=== PATIENT | female | born 1950 | race Caucasian/White ===

== ENCOUNTER 2022-05-16 12:50 | Inpatient (IN) | payer MEDICARE ==
[~2022-05-16] VITALS: Ht 160 cm; Wt 79.3 kg
--- NOTE | 2022-05-16 09:40 | Progress Note ---
DANE PADILLAA 05/16/22 0940: Progress Note CC: In-patient rehabilitation s/p right L3 laminectomy HPI: Ms. Andujar is a 71 year old female who presents to [facility] rehabilitation unit, transferring from [facility]. 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 For the past year the patient has been experiencing progressive myelopathy due to the dural fistula. The patient has had a decrease in strength in bilateral LE, multiple falls, and loss of bladder and bowel control. The patient's goals are to return home with family assistance. Patient states she is experiencing low back pain that rates as 5/10. Patient also describes having muscle spasms in her back that intensify the pain. The patient states she had a BM movement upon arriving to [facility]. Patient is agreeable to begin working with PT this afternoon. 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, depression Past Surgical Hx: Coronary stent placement x3, L wrist cyst removal, cholecystectomy, appendectomy, section x1, total vaginal hysterectomy, ovarian cystectomy, laminectomy of R L3 on 05/10/2022 Allergies: Hydrocodone, diazepam, statins Home medications: Allopurinol, baby aspirin, atenolol, topical betamethasone cream, escitalopram, evolocumab inj, isosorbide mononitrate, nitroglycerine tablet, tramadol Social Hx: Denies tobacco, alcohol, or illicit drug use Family Hx: -Father: HTN, diabetes mellitus -Mother: HTN, diabetes mellitus ROS: -Negative: Head ache, chest pain, SOA, abdominal pain, nausea, vomiting, diarrhea -Positive: paresethesias of buttocks and posterior aspect of bilateral lower extremities, generalized weakness, constipation, low back pain, muscle spasms of back musculature Exam: -General: Alert, calm, sitting upright -Cardiovascular: HRRR -Pulmonary: LCTAB -Gastrointestinal: bowel sounds present -Lower extremity: no edema bilaterally A/P: 1. 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 Plan is for aggressive in-patient rehabilitation with PT/OT. 2. Baseline laboratory studies: CBC, CMP KAREN LEAL DO 05/16/222102: Supervisory-Addendum Brief Verification & Attestation Participated in pt care: history, MDM, physical Personally performed: exam, history, MDM, supervision of care Care discussed with: Medical Student Procedures: n/a Results interpretation: Verified all documentation Verification and Attestation of Medical Student E/M Service A medical student performed and documented this service in my presence. I reviewed and verified all information documented by the medical student and made modifications to such information, when appropriate. I personally performed the physical exam and medical decision making. Karen Leal, May 16, 2022,21:03 VY PADILLA May 16, 2022 09:40 KAREN LEAL DO May 16, 2022 21:03
[~2022-05-16 12:50] MED LIST: ACET325T38 PO; ACETAMINOPHEN 325 MG TABLET PO PRN; ALLO300T2 PO; ALPRAZolam 0.25 MG (XANAX) TAB PO PRN; ASPI-1238 PO; ATEN25TA PO; BETA15CR4 TP; BISACODYL 10 MG SUPP (DULCOLAX) PR PRN; CALC-308 PO; CALCIUM CARBONATE 500 MG (TUMS) TAB.CHEW PO PRN; DOCUSATE SODIUM 100 MG (COLACE) CAP PO PRN; ESCI20TA39 PO; EVOL140P3 SQ; FLEET ENEMA ADULT 1 EA BTL PR PRN; GABA-486 PO; HEPA500016 IJ; ISOS60TA63 PO; LOPERAMIDE 2 MG (IMODIUM) TABLET PO PRN; MELATONIN 3 MG TABLET PO PRN; METH-732 PO; NITR0.6T SL; ONDANSETRON 4 MG (ZOFRAN) ORAL DISSOLVE TAB PO PRN; OXYC-473 PO; SENN-145 PO; diphenhydrAMINE 25 MG TAB (BENADRYL) PO PRN
--- NOTE | 2022-05-16 13:18 | Physical Therapy Evaluation ---
PT Evaluation-General Medical Diagnosis Admission Date 05-16-22 Medical Diagnosis: L 3 laminectomy Onset Date: May 10, 2022 Therapy Diagnosis Therapy Diagnosis: Gait deficit, strength deficit Precautions Precautions/Isolations: Fall Prevention Back precautions: No Bending, Lifting, Twisting. Weight Bear Status Right Lower Extremity: Right Full Weight Bearing Left Lower Extremity: Left Full Weight Bearing Referral Physician: Dr. Alonzo Reason for Referral: Evaluation/Treatment Medical History Reviewed History: Yes Social History Home: Single Level Current Living Status: Entry Into Home: Stairs With Railing PT Steps Into Home: 1 Patient reports currently her daughter is staying with her Prior Prior Level of Function SCALE: Activities may be completed with or without assistive devices. 5-Rxxnzncely-irokqrs completes the activity by him/herself with no assistance from a helper. 5-Set-up or Clean-up Assistance-helper sets up or cleans up; patient completes activity. [place] assists only prior to or following the activity. 4-Supervision or Touching Assistance-helper provides verbal cues and/or touching/steadying and/or contact guard assistance as patient completes activity. Assistance may be provided throughout the activity or intermittently. 3-Partial/Moderate Assistance-helper does LESS THAN HALF the effort. [place] lifts, holds or supports trunk or limbs, but provides less than half the effort. 2-Substantial/Maximal Assistance-helper does MORE THAN HALF the effort. [place] lifts or holds trunk or limbs and provides more than half the effort. 0-Gaxxjwtkq-dbhetr does ALL the effort. Patient does none of the effort to complete the activity. Or, the assistance of 2 or more helpers is required for the patient to complete the activity. If activity was not attempted, code reason: 7-Patient Refused. 9-Not Applicable-not attempted and the patient did not perform the activity before the current illness, exacerbation or injury. 10-Not Attempted due to Environmental Limitations-(lack of equipment, weather restraints, etc.). 88-Not Attempted due to Medical Conditions or Safety Concerns. Bed Mobility: 6 Transfers (B,C,W/C): 6 Gait: 6 Stairs: 6 Indoor Mobility (Ambulation): Independent Stairs: Independent PT Evaluation-Current Subjective Patient sitting in transport chair upon PT arrival, agreeable to treatment. Patient rates 0/10 pain currently, but notes the pain increases to 8/10 with activity Pain Section J - Health Conditions 1. Rarely or not at all 2. Occasionally 3. Frequently 4. Almost constantly 8. Unable to answer Pain Effect on Sleep: 2 Pain Interference with Therapy: 3 Pain Interference w/Day-to-Day: 3 Objective Patient Orientation: Person, Place, Time, Situation ROM/Strength ROM Lower Extremities WFLs all planes bilaterally Strength Lower Extremities 3/5 bilaterally all planes Integumentary/Posture Bowel Incontinence: Yes Bladder Incontinence: Yes Sensory Vision: Wears Glasses Hearing: Functional Sensation Right Lower Extremit: Impaired Sensation Left Lower Extremity: Impaired Transfers Roll Left & Right (QC): 4 Sit to Lying (QC): 4 Lying to Sitting/Side of Bed(Q: 4 Sit to Stand (QC): 3 Chair/Sgt-ca-Gfgqm Xfer(QC): 4 Toilet Transfer (QC): 4 Car Transfer (QC): 4 Gait Does the Patient Walk?: Yes Mode of Locomotion: Walk Anticipated Mode of Locomotion: Walk Walk 10 feet (QC): 4 Walk 50 ft with 2 Turns(QC): 4 Walk 150 ft (QC): 4 Walking 10ft/uneven surface-QC: 4 Distance: 150' Gait Assistive Device: FWW Wheelchair Training Does the Pt Use a Wheelchair?: No Wheel 50 ft with 2 turns (QC): 9 Wheel 150 ft (QC): 9 Stairs #of Steps: 0 1 Step (curb) (QC): 88 4 Steps (QC): 88 12 Steps (QC): 88 Balance Sitting Static: Fair Sitting Dynamic: Fair Standing Static: Fair Standing Dynamic: Fair Picking up an Object (QC): 88 Assessment/Needs Patient tolerated evaluation and treatment well. Patient demonstrates SBA for all bed mobility, but does requires handrails and extra time. Patient performs all transfers with CGA except sit to stand with min A. Patient ambulates 150 feet with FWW, with CGA and verbal cues for safety, progression, posture and conservation of energy. Patient with OT as she reports need to use the BR post PT eval/treatment. Rehab Potential: Good Equipment Needs FWW, Grab bars in the bathroom PT Restaurant Operations Manager Goals Care Home Goals PT Restaurant Operations Manager Goals Time Frame: Jun 23, 2022 Roll Left to Right (QC): 6 Sit to Lying (QC): 6 Lying-Sitting on Side/Bed(QC): 6 Sit to Stand (QC): 6 Chair/Xmh-zc-Nkpec Xfer(QC): 6 Toilet/Commode Transfer (QC): 6 Car Transfer (QC): 6 Does the Patient Walk: Yes Walk 10 feet (QC): 6 Walk 10ft-Uneven Surface(QC): 6 Walk 50ft with 2 Turns (QC): 6 Walk 150 ft (QC): 6 Does the Pt use WC or Scooter?: No Wheel 50 feet with 2 turns (QC: 9 Wheel 150 feet: 9 1 Step (curb) (QC): 6 4 Steps (QC): 6 12 Steps (QC): 6 Picking up an Object (QC): 6 PT Plan Problem List Problem List: Activity Tolerance, Functional Strength, Safety, Balance, Gait, Transfer, Bed Mobility, ROM Treatment/Plan Treatment Plan: Continue Plan of Care Treatment Plan: Bed Mobility, Education, Functional Activity Shameka, Functional Strength, Gait, Safety, Therapeutic Exercise, Transfers Treatment Duration: Jul 07, 2022 Frequency: At least 5 of 7 days/Wk (IRF) Estimated Hrs Per Day: 1.5 hours per day Patient and/or Family Agrees t: Yes Safety Risks/Education Patient Education: Gait Training, Transfer Techniques, Steps Teaching Recipient: Patient, Family Teaching Methods: Demonstration, Discussion Response to Teaching: Verbalize Understanding, Return Demonstration Time Time In: 1250 Time Out: 1320 DATE: May 16, 2022 Total Billed Treatment Time: 20 Total Billed Treatment Visit, EVm(10) Gait (10) PT eval [id number] OT eval [id number] Gait [id number] JOS LOPEZ PT May 16, 2022 13:18
--- OUTSIDE RECORDS SUMMARY | 2022-05-16 13:23 | XMS REPORT | Encounter Summary ---
Author Author [facility] Organization [facility] Address Unknown Phone Unavailable Care Team Providers Care Medical Claims Manager Name Role Phone Ange Grady DO PCP [phone] Juan Bunn MD Unavailable Encounter Details Care Team Description Date Type Department 05/10/2022 Travel Social History Date Tobacco Use Types Packs/Day Years Used Quit: 2011 Former Smoker Cigarettes 1 45 Smokeless Tobacco: Never Used Comments Alcohol Use Standard Drinks/Week ~ once a month Not Currently 0 (1 standard drink = 0.6 o z pure alcohol) Alcohol Habits Answer Date Recorded How often do you have a drink containing alcohol? No t asked How many drinks containing alcohol do you have on No t asked a typical day when you are drinking? How often do you have six or more drinks on one Not asked occasion? Comment: ~ once a month 04/24/2022 Sex Assigned at Date Recorded Female 04/11/2022 7:28 AM CDT Date Recorded COVID-19 Exposure Response 05/10/2022 10:15 AM CDT In the last 10 days, have you been in contact with N o / Unsure someone who was confirmed or suspected to have Coronavirus/COVID-19? documented as of this encounter Functional Status Date of Assessment Functional Status Response 05/10/2022 Does the patient have a hearing impairment: No documented as of this encounter Plan of Treatment Not on filedocumented as of this encounter Goals Goal Patient Associated Recent Progress Patient-Stat Aut hor Goal Type Problems ed? Increase Physical Activity Exercise On track (05/10/2022 Yes Bess, 6:05 PM CDT) RANJITH Perez documented as of this encounter Visit Diagnoses Not on filedocumented in this encounter Additional Health Concerns Noted Time Assessment 05/10/2022 8:00 PM CDT A fall risk assessment has been complet ed for the patient documented as of this encounter Care Teams Start Date End Date Medical Claims Manager Relationship Specialty 04/11/22 Ange Grady, PCP - General Family Medicine [address] [place] [address] 04/24/22 Juan Bunn MD Cardiovascul [address] [place], [place] [id number] documented as of this encounter
--- OUTSIDE RECORDS SUMMARY | 2022-05-16 13:23 | XMS REPORT | Encounter Summary ---
Author Author [facility] Organization [facility] Address Unknown Phone Unavailable Care Team Providers Care Geodetic Survey Director Name Role Phone Ange Grady DO PCP [phone] Juan Bunn MD Unavailable Reason for Visit * Auth/Cert Diagnoses / Procedures Referred By Contact Referred To Conta ct Specialty Diagnoses Spinal vascular malformation Spinal vascular malformation [Q28.8] Procedures ID MERCADO EXC/OCCLUSION AVM SPI CORD THORACOLUMBAR ID MERCADO FACETECTOMY & FORAMOTOMY 1 SEGMENT LUMBAR Lumbar 3 laminectomy, durotomy, microsurgical clipping spinal dural arteriovenous fistula MINIMALLY INVASIVE LAMINECTOMY/ FACETECTOMY/ FORAMINOTOMY WITH DECOMPRESSION - 1 VERTEBRAL SEGMENT LUMBAR 3 Referral ID Status Reason Start Date Expiration Visits Vi sits Date Requested Authorized [id number] 1 1 Encounter Details Care Team Description Date Type Department Vidal Cid MD [address] [facility] Lvl 2B [place] [address] Valdo Young MD [address] [place] [address] Dural arteriovenous fistula 05/10/2022 Hospital Intensive Care Unit CA5: - Encounter [facility] 05/16/2022 [address] [facility] Level 5 [place] [address] Social History Date Tobacco Use Types Packs/Day [...] have Coronavirus/COVID-19? documented as of this encounter Last Filed Vital Signs Reading Time Taken Comments Vital Sign 113/52 05/16/2022 8:00 AM LOW VISION THERAPIST Blood Pressure 67 05/16/2022 8:00 AM LOW VISION THERAPIST Pulse 36.7 C (98 F) 05/16/2022 8:00 AM LOW VISION THERAPIST Temperature - - Respiratory Rate 97% 05/16/2022 8:00 AM LOW VISION THERAPIST Oxygen Saturation - - Inhaled Oxygen Concentration 75.8 kg (167 lb) 05/10/2022 10:16 AM CDT Weight 160 cm (5' 3") 05/10/2022 10:16 AM CDT Height 29.58 05/10/2022 10:16 AM CDT Body Mass Index documented in this encounter Functional Status Date of Assessment Functional Status Response 05/10/2022 Does the patient have a hearing impairment: No documented as of this encounter Discharge Summaries * Loreta Castle APRN-NP - 05/16/2022 10:25 AM CST Discharge Summary Name: Sahara Andujar Date Of : 1950 Age: 71 y.o. Admit date: 05/10/2022 Discharge date: 05/16/2022 Discharge Attending: Dr. 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 05/10; Admitted to the NeICU post operatively. 05/11: Doing well. Progressed to med/surg status. Mobilizing with PT/OT. Rehab me dicine consulted - IPR canidate. Pain controled. CM/SW involved. 05/12-05/15: Continuing to work with PT/OT. Awaiting facility acceptance and insur ance approval. 05/16: Meeting discharge criteria. Discharge dot home with follow up care arrange d. Items Needing Follow Up Pending items or areas that need to be addressed at follow up: none Pending Labs and Follow Up Radiology Pending labs and/or radiology review at this time of discharge are listed below: if this area is blank, there are no items for review. Medications Medication List START taking these medications acetaminophen 325 mg tablet; Commonly known as: TYLENOL; Dose: 650 mg; Take two tablets by mouth every 4 hours as needed.; Refills: 0 gabapentin 100 mg capsule; Commonly known as: NEURONTIN; Dose: 100 mg; Take one capsule by mouth every 8 hours.; Quantity: 270 capsule; Refills: 0 heparin (porcine) PF 5,000units/0.5mL injection syringe; Dose: 5,000 Units; Inject 0.5 mL under the skin every 8 hours. May discontinue once mobilizing well; Refills: 0 methocarbamoL 750 mg tablet; Commonly known as: ROBAXIN; Dose: 750 mg; Take one tablet by mouth every 8 hours as needed for Spasms.; Quantity: 15 tablet; Refills: 0 oxyCODONE 5 mg tablet; Commonly known as: ROXICODONE; Dose: 5-15 mg; Take one tablet to three tablets by mouth every 4 hours as needed.; Refills: 0 senna/docusate 8.6/50 mg tablet; Commonly known as: SENOKOT-S; Dose: 1 tablet; Take one tablet by mouth twice daily. Take while taking pain medication; Quantity: 90 tablet; Refills: 0 CHANGE how you take these medications aspirin EC 81 mg tablet; Dose: 81 mg; Take one tablet by mouth daily. Do NOT resume until 05/17/22; Quantity: 90 tablet; Refills: 0; What changed: additional instructions CONTINUE taking these medications allopurinoL 300 mg tablet; Commonly known as: ZYLOPRIM; Dose: 300 mg; Refills: 0 atenoloL 25 mg tablet; Commonly known as: TENORMIN; Dose: 25 mg; Refills: 0 betamethasone dipropionate 0.05 % topical cream; Commonly known as: BETANATE; Refills: 0 calcium carbonate 500 mg (200 mg elemental calcium) chewable tablet; Commonly known as: TUMS; Dose: 1 tablet; Refills: 0 escitalopram oxalate 20 mg tablet; Commonly known as: LEXAPRO; Dose: 20 mg; Refills: 0 evolocumab 140 mg/mL injectable PEN; Commonly known as: REPATHA SURECLICK; Dose: 140 mg; Refills: 0 isosorbide mononitrate 60 mg ER tablet; Commonly known as: IMDUR; Dose: 180 mg; Refills: 0 nitroglycerin 0.6 mg sublingual tablet; Commonly known as: NITROSTAT; Dose: 0.6 mg; Refills: 0 STOP taking these medications traMADoL 50 mg tablet; Commonly known as: ULTRAM Return Appointments and Scheduled Appointments Scheduled appointments: May 28, 2022 2:00 PM Telehealth visit with Lin Aguayo MD Neurosurgery: [facility] (NeuroSurgery) [address] [place] [address] 3, [address] [address] Jun 05, 2022 12:30 PM Postoperative visit with Vidal Cid MD Neurosurgery: [facility] (NeuroSurgery) [address] [place] [address] 3, [address] [address] Consults, Procedures, Diagnostics, Micro, Pathology Consults: Rehabilitative Medicine and Neurology Critical Care Surgical Procedures & Dates: Lumbar 3 laminectomy, durotomy, microsurgical clipping spinal dural arteriovenous fistula Significant Diagnostic Studies, Micro and Procedures: radiology: X-Ray: lumbar s pine Significant Pathology: none Nutrition: No Dietitian Consult Discharge Disposition, Condition Patient Disposition: Rehab Facility (Not [facility]) [62] Condition at Discharge: Stable Code Status Code Status History Date Active Date Inactive Code Status Order ID 05/10/2022 [id number] 05/10/2022 1721 Full Code [id number] Everett Fried M D Inpatient 04/30/2022 0918 04/30/2022 1658 Full Code [id number] Michaela Antonio, STRUCTURAL STEEL TRADES WORKER- CHIEF RADIOLOGIC TECHNOLOGIST Inpatient Patient Instructions Regular Diet You have no dietary restriction. Please continue with a healthy balanced diet. Report These Signs and Symptoms Call if temperature greater than 101, incision red, drainage or odor noted from incision, pain that is uncontrolled with pain medication or any questions/yusuf rns. Questions About Your Stay For questions or concerns regarding your hospital stay call the clinic at . If outside normal business hours, call [phone] and ask for the lucila rosurgery resident concrete boom operator to be paged. Discharging attending physician: VALDO YOUNG [[id number]] Other Activity Restrictions Leave incision open to air; may cover with gauze and tape as needed Activity as tolerated; no driving while on pain medication. Avoid pulling, pushi ng or lifting greater than 10 pounds. May shower. Avoid direct water pressure over incision. May get incision wet and pat dry once done. Do NOT submerge in tub, pool etc. Opioid (Narcotic) Safety Information OPIOID (NARCOTIC) PAIN MEDICATION SAFETY We care about your comfort, and believe you need opioid medications at this time to treat your pain. An opioid is a strong pain medication. It is only availab le by prescription for moderate to severe pain. Usually these medications are u sed for only a short time to treat pain, but sometimes will be prescribed for lo nger. Talk with your doctor or nurse about how long they expect you to need thi s medication. When used the right way, opioids are safe and effective medications to treat you r pain, even when used for a long time. Yet, when used in the wrong way, opioid s can be dangerous for you or others. Opioids do not work for everyone. Most p atients do not get full relief of their pain from opioid medication; full relief of your pain may not be possible. For your safety, we ask you to follow these instructions: *Only take your opioid medication as prescribed. If your pain is not controlled with the prescribed dose, or the medication is not lasting long enough, call yo ur doctor. *Do not break or crush your opioid medication unless your doctor or pharmacist s ays you can. With certain medications, this can be dangerous, and may cause joel th. *Never share your medications with others, even if they appear to have a good re ason. Never take someone else's pain medication-this is dangerous, and illegal (a crime). Overdoses and deaths have occurred. *Keep your opioid medications safe, as you would with hummel, in a lock box or sim ilar container. *Make sure your opioids are going to be secure, especially if you are around chi ldren or teens. *Talk with your doctor or pharmacist before you take other medications. *Avoid driving, operating machinery, or drinking alcohol while taking opioid dada n medication. This may be unsafe. Pain medications can cause constipation. Constipation is bowel movements that ar e less often than normal. Stools often become very hard and difficult to pass. T his may lead to stomach pain and bloating. It may also cause pain when trying to use the bathroom. Constipation may be treated with suppositories, laxatives or stool softeners. A diet high in fiber with plenty of fluids helps to maintain re gular, soft bowel movements. OT EVAL & TREAT PT EVAL & TREAT Additional Orders: Case Management, Supplies, Home Health Home Health/DME None Signed: CHEL Price 05/16/2022 cc: Primary Care Physician: Ange Grady Verified Referring physicians: Self, Referral Additional provider(s): Did we miss something? If additional records are needed, please fax a request on office letterhead to [phone]. Please include the patient's name, date of b irth, fax number and type of information needed. Additional request can be made by email at [email or web address]. For general questions of information about electronic records sharing, call [phone]. VISION THERAPIST * Natali Fair LMSW - 05/16/2022 7:28 AM CST Case Management Progress Note NAME:Sahara Andujar :1950 AGE: 71 y.o. ADMISSION DATE: 05/10/2022 DAYS ADMITTED: LOS: 6 days Today's Date: 05/16/2022 PLAN: Pt will dc to [facility] today around 10am via daughter jaswinder bowers. Expected Discharge Date: 05/17/2022 Is Patient Medically Stable: Yes Are there Barriers to Discharge? no INTERVENTION/DISPOSITION: Discharge Planning ROMINA notified provider Corrine of dc today around 10am via family transport. ROMINA notified bedside nurse of dc today at 10am and provided number for report. ROMINA printed and delivered transfer packet to pt bedside. ROMINA notified pt of dc time today at 10am ROMINA notified pt's family of dc today REPORT [phone] ROMINA faxed dc orders to [phone] Transportation Will the Patient Use Family Transport?: Yes Transportation Name, Phone and Availability #1: pt's dtr Magui [phone] Support Info or Referral Medication Needs Financial Legal Other Discharge Disposition Selected Continued Care - Admitted Since 05/10/2022 No services have been selected for the patient. Natali Fair LMSW Social Work Case Management Available on [facility] VISION THERAPIST * Natali Fair LMSW - 05/15/2022 9:06 AM CST Case Management Progress Note NAME:Sahara Andujar :1950 AGE: 71 y.o. ADMISSION DATE: 05/10/2022 DAYS ADMITTED: LOS: 5 days Today's Date: 05/15/2022 PLAN: Anticipate dc to [facility] pending facility acceptance. Expected Discharge Date: 05/15/2022 Is Patient Medically Stable: Yes Are there Barriers to Discharge? no INTERVENTION/DISPOSITION: Discharge Planning ROMINA received a call from Mariama with [facility]. She may not have a bed unti l Saturday or but she was out yesterday and was still sorting through the referrals. She will let ROMINA know by the end of the day. ROMINA Will work on a [facility] up rehab plan. Romina received a message from Mariama stating [facility] is not contracted with [facility] and could not accept. Talked with pt and dtr at bedside about other rehab choices. Pt was upset dima se she really wanted to go to [facility]. SW sent a referral to [facility] as back up options. SW talked with Trace with [facility] who said IPR was approved. Asked about the facility. SW asked about [facility] being out of network and he said they are not contracted but if they arent on an exclusion list, the member can still go there . SW asked if insurance would still pay for the rehab and he said SW would have to call [facility] [phone] to see what they would pay for the rehab. Transportation Will the Patient Use Family Transport?: Yes Transportation Name, Phone and Availability #1: pt's dtr Magui [phone] Support Info or Referral Medication Needs Financial Legal Other Discharge Disposition Selected Continued Care - Admitted Since 05/10/2022 No services have been selected for the patient. Natali Fair LMSW Social Work Case Management Available on [facility] VISION THERAPIST * Natali Fair LMSW - 05/15/2022 9:06 AM CST Case Management Progress Note NAME:Sahara Andujar :1950 AGE: 71 y.o. ADMISSION DATE: 05/10/2022 DAYS ADMITTED: LOS: 5 days Today's Date: 05/15/2022 PLAN: Anticipate dc to [facility] pending facility acceptance. Expected Discharge Date: 05/15/2022 Is Patient Medically Stable: Yes Are there Barriers to Discharge? no INTERVENTION/DISPOSITION: Discharge Planning SW received a call from Mariama with [facility]. She may not have a bed unti l Saturday or but she was out yesterday and was still sorting through the referrals. She will let ROMINA know by the end of the day. ROMINA Will work on a david k up rehab plan. Romina received a message from Mariama stating [facility] is not contracted with [facility] and could not accept. Talked with pt and dtr at bedside about other rehab choices. Pt was upset becau se she really wanted to go to [facility]. ROMINA sent a referral to [facility] as back up options. SW talked with Trace with [facility] who said IPR was approved. Asked about the facility. SW asked about [facility] being out of network and he said they are not contracted but if they arent on an exclusion list, the member can still go there . SW asked if insurance would still pay for the rehab and he said SW would have to call [facility] [phone] to see what they would pay for the rehab. [facility] said they can accept pt. SW reached out to therapy to verify saf est transport time. Will have a bed tomorrow available for pt. Pt had been talking to her insurance about trying to get them to cover rehab at [facility] but had to leave a message. SW talked with pt at bedside about the optio ns for rehab. [facility] has a bed tomorrow and pt is able to get to rehab [place]. She is good with that plan. Her daughter will be able to transport her there. ROMINA confirmed with Ange she can transport pt to facility tomorrow and has to be there before 3pm. Transportation Will the Patient Use Family Transport?: Yes Transportation Name, Phone and Availability #1: pt's dtr Magui [phone] Support Info or Referral Medication Needs Financial Legal Other Discharge Disposition Selected Continued Care - Admitted Since 05/10/2022 No services have been selected for the patient. Natali Fair LMSW Social Work Case Management Available on [facility] VISION THERAPIST * Natali Fair LMSW - 05/14/2022 8:26 AM CST Case Management Progress Note NAME:Sahara Andujar :1950 AGE: 71 y.o. ADMISSION DATE: 05/10/2022 DAYS ADMITTED: LOS: 4 days Today's Date: 05/14/2022 PLAN: Anticipate dc to [facility] pending medical stability, facility acceptanc e and insurance auth. Expected Discharge Date: 05/13/2022 Is Patient Medically Stable: Yes Are there Barriers to Discharge? no INTERVENTION/DISPOSITION: Discharge Planning ROMINA called [facility] and left a message for Mariama with admissions ask ing her to f/u about referral. M[facility]ed with [facility] called and asked if a facility had been identified yet. SW will sen d through the portal once this is confirmed. ROMINA left another message with admissions at [facility] checking on the referral stat us. ROMINA called [facility] and asked to speak to someone else with Admissions. They said she was out today and let SW talk to Quinton. He will make sure she reviews it fir st thing in the morning and if ROMINA hasn't heard anything by 9, ROMINA can call Quinton blue at the main number. Transportation Will the Patient Use Family Transport?: Yes Transportation Name, Phone and Availability #1: pt's dtr Magui [phone] Support Info or Referral Medication Needs Financial Legal Other Discharge Disposition Selected Continued Care - Admitted Since 05/10/2022 No services have been selected for the patient. Natali Fair LMSW Social Work Case Management Available on [facility] VISION THERAPIST * Natali Fair LMSW - 05/13/2022 1:09 PM CST Case Management Progress Note NAME:Sahara Andujar :1950 AGE: 71 y.o. ADMISSION DATE: 05/10/2022 DAYS ADMITTED: LOS: 3 days Today's Date: 05/13/2022 PLAN: Anticipate dc to [facility] Pending facility acceptance and insurance au th. Expected Discharge Date: 05/13/2022 Is Patient Medically Stable: Yes Are there Barriers to Discharge? no INTERVENTION/DISPOSITION: Discharge Planning ROMINA reviewed EMR. [facility] is not available on the weekends. Will f/u with meredith palomino Saturday. SW tasked ENTERPRISE SOFTWARE DEVELOPER to check status of auth through [facility] h. Auth is still pending as of 1pm Saturday. Transportation Will the Patient Use Family Transport?: Yes Transportation Name, Phone and Availability #1: pt's dtr Magui [phone] Support Info or Referral Medication Needs Financial Legal Other Discharge Disposition Selected Continued Care - Admitted Since 05/10/2022 No services have been selected for the patient. Natali Fair LMSW Social Work Case Management Available on [facility] VISION THERAPIST * Natali Fair LMSW - 05/11/2022 3:47 PM CDT Case Management Progress Note NAME:Sahara Andujar :1950 AGE: 71 y.o. ADMISSION DATE: 05/10/2022 DAYS ADMITTED: LOS: 1 day Today's Date: 05/11/2022 PLAN: Anticipate dc to [facility] pending medical stability, facility acceptance and in surance auth. Expected Discharge Date: 05/12/2022 Is Patient Medically Stable: No, Please explain: possibly Saturday Are there Barriers to Discharge? no INTERVENTION/DISPOSITION: Discharge Planning SW Sent a referral to [facility]. Will f/u. Transportation Will the Patient Use Family Transport?: Yes Transportation Name, Phone and Availability #1: pt's dtr Magui [phone] Support Info or Referral Medication Needs Financial Legal Other Discharge Disposition Selected Continued Care - Admitted Since 05/10/2022 No services have been selected for the patient. Natali Fair LMSW Social Work Case Management Available on [facility] * Antonina Wick - 05/11/2022 3:45 PM CDT ENTERPRISE SOFTWARE DEVELOPER Note: Request from SHIVAM Dumont to start a [employer] referral for IPR, no facility yet. Antonina Wick Fire Prevention Engineer For additional assistance please contact [facility] * * Natali Fair LMSW - 05/10/2022 5:52 PM CDT Case Management Progress Note NAME:Sahara Andujar :1950 AGE: 71 y.o. ADMISSION DATE: 05/10/2022 DAYS ADMITTED: LOS: 0 days Today's Date: 05/10/2022 PLAN: Anticipate dc to inpatient setting pending recommendations, medical stabil ity, facility acceptance and insurance auth. Expected Discharge Date: 05/12/2022 Is Patient Medically Stable: No, Please explain: had surgery today, needing ther apy and recovery Are there Barriers to Discharge? no INTERVENTION/DISPOSITION: Discharge Planning SW discussed dc planning as pt mentioned possibly going to rehab. Explained different levels of facilities and talked about which IPR facilities are closes t. If IPR is recommended, [facility] first choice and [facility] would be 2nd. There are other closer SNF in the area which SW can provide a list if neede d if pt does not qualify for IPR. Case Management Admission Assessment NAME:Sahara Andujar : 1950 AGE: 71 y.o. ADMISSION DATE: 05/10/2022 DAYS ADMITTED: LOS: 0 days Todays Date: 05/10/2022 Source of Information: Patient and dtr Magui Plan Plan: Case Management Assessment, Psychosocial Assessment, Assist PRN with SW/NC M Services, Discharge Planning for Post-Acute Facility Plan: Case Management Assessment, Assist PRN with SW/NCM Services, Discharge Bienvenido nning for Home with Post-Acute Care Needs ? Most recent therapy recommendations: ? PT: waiting on recs ? OT: waiting on recs ? ST: not consulted ? CM needs are not fully known, possibly inpatient setting NCM/SW team to continue to follow patient's plan of care via EMR and team huddle ; will assist with discharge planning needs as indicated. Assessment Notes Patient is agreeable to completing assessment at this time. ? SW provided contact information, explanation of CM roles, and general review o f Preparing for Discharge, [facility] Preferred Provider Network marilee ochoa. Patient encouraged to contact case management with questions and concerns during hospitalization. ? Patient lives with daughter, dtr's and children. The home accomodate single-level living. The home has 1 ALEXIS ? Patient has recently had difficulty standing for more than a few minutes at a time. Has a RW, rollator and w/c. ? Home support is assessed to be intermittent. Dtr and family do work during day and pt is usually alone during that time. ? Patient's previous HH, LTACH, SNF, IPR, DME, outpatient therapy experience inc ludes: ? Outpatient PT last year [facility] ? DME w/c, RW and rollator ? Transport plan will be pt' s dtr Magui ? Pt fills medications at [facility] in [place] Patient Address/Phone [address] [facility] [address] (home) Emergency Contact Extended Emergency Contact Information Primary Emergency Contact: Magui Flores Mobile Relation: Daughter Healthcare Directive Healthcare Directive: Yes, patient has a healthcare directive Type of Healthcare Directive: Durable power of ip technology transactions attorney for healthcare Location of Healthcare Directive: Patient does not have it with him/her Would patient like to fill out a (a new) Healthcare Directive?: No, patient decl ined Psych Advance Directive (Psych unit only): No, patient does not have a Psych Adv ance Directive Transportation Will the Patient Use Family Transport?: Yes Transportation Name, Phone and Availability #1: pt's dtr Magui [phone] Expected Discharge Date 05/12/2022 Living Situation Prior to Admission Living Arrangements Type of Residence: Home, independent Living Arrangements: Children (lives with daughter and her and kids) Bathroom Shower / Tub: Tub/Shower Unit How many levels in the residence?: 1 Can patient live on one level if needed?: Yes Does residence have entry and/or side stairs?: Yes (1 alexis) Assistance needed prior to admit or anticipated on discharge: Yes Who provides assistance or could if needed?: pt's dtr and family can assist but they work and go to school during the day, is usually alone daytime hours. has other dtr to help check on her but also works Are they in good health?: Yes Can support system provide 24/7 care if needed?: No Level of Function Prior level of function: Independent Cognitive Abilities Cognitive Abilities: Alert and Oriented, Engages in problem solving and planning , Participates in decision making Financial Resources Coverage Primary Insurance: Medicare Replacement Source of Income Source Of Income: Other mcfp income Financial Assistance Needed? NA Psychosocial Needs Mental Health Mental Health History: Yes Agency name: anxiety and depression, takes Lexapro. pt's last Dece mber Substance Use History Substance Use History Screen: No Other NA Current/Previous Services PCP Ange Grady, , Pharmacy [address] [address] [id number] Durable Medical Equipment Durable Medical Equipment at home: Roller Walker, Rollator, Wheelchair (manual), Grab bars Home Health Receiving home health: No Hemodialysis or Peritoneal Dialysis Undergoing hemodialysis or peritoneal dialysis: No Tube/Enteral Feeds Receive tube/enteral feeds: No Infusion Receive infusions: No Private Duty Private duty help used: No Home and Community Based Services Home and community based services: No Mikie White Mikie White: N/A Hospice Hospice: No Outpatient Therapy PT: In the past When did patient receive care?: last summer Name of rehab location/group: [facility] Would patient return for future services?: Yes OT: No LANDMEN: No Intermediate Facility/Fpc SNF: No NH: No Inpatient Rehab IPR: No [facility] LTACH: No Acute Hospital Stay Acute Hospital Stay: No documented in this encounter Discharge Instructions * Instructions* She Ng RN - 05/16/2022 9:41 AM CST Sahara Andujar Lumbar 3 Laminectomy, Durotomy, Microsurgical Clipping Spinal Dural Arteriove nous Fistula on 05/10/2022 with Valdo Young MD Neurosurgery Discharge Instructions Contact information: Call Neurosurgery if you have questions or are experiencing problems at discharg e [phone]. After 5 pm and weekends please call [phone] to reach Neurosurgery concrete boom operator. Post-operative wound care: Your incision has glue in place. Your incision may be open to air. You may shower. Use non-medicated soap to wash incision daily, pat dry and dana ve open to air. Do not submerge (pool/tub) your incision under water at all for 4 weeks. Have someone look at your incision every day. It should look the same or better daily. Do not apply any ointment, cream, or lotions to incision line. Activity restrictions: Avoid pushing, pulling, lifting, or bending more than 10 pounds (about a gallon of milk). If you hold children, they should be placed in your lap or crawl into lap if old enough. Do NOT drive until you are cleared by your physician. Avoid bearing down or straining to have bowel movements. Post-operative pain and medications: Please use your pain medications and muscle relaxers as prescribed. Pain medications can make you constipated. You may take a stool softener and Parveen alax. Do NOT take Ibuprofen or NSAIDS (Aleve, Motrin, Naproxen) until Doctor approved. Tylenol is approved for pain control. This is available over the counter. Follow up appointment: Scheduled appointments: May 28, 2022 2:00 PM Telehealth visit with Lin Aguayo MD Neurosurgery: [facility] (NeuroSurgery) [address] [address] 3, [address] [id number] Jun 05, 2022 12:30 PM Postoperative visit with Vidal Cid MD Neurosurgery: [facility] (NeuroSurgery) [address] [place] [address] 3, [address] [id number] Please contact Neurosurgery if you develop any of the following: New or worsening numbness, tingling, or decrease sensation in arms or legs. New or worsening changes in mobility or gait (walking). Fever 101 or greater. Redness, swelling, continuous oozing, fluid collection, w armth, or bad odor near the incision site. Intense pain that is getting worse or unrelieved by pain medications or muscle r elaxers. VISION THERAPIST documented in this encounter Medications at Time of Discharge Start Date End Date Medication Sig Dispensed Refills 05/16/2022 acetaminophen (TYLENOL) Take two 0 325 mg tablet tablets by mouth every 4 hours as needed. allopurinoL (ZYLOPRIM) Take 300 mg 0 300 mg tablet by mouth daily. 05/16/2022 aspirin EC 81 mg tablet Take one 90 tablet 0 tablet by mouth daily. Do NOT resume until 05/17/22 01/03/2021 atenoloL (TENORMIN) 25 mg Take 25 mg by 0 tablet mouth at bedtime daily. betamethasone Apply 0 dipropionate (BETANATE) topically to 0.05 % topical cream affected area daily as needed. calcium carbonate (TUMS) Chew 1 tablet 0 500 mg (200 mg elemental by mouth calcium) chewable tablet daily as needed. escitalopram oxalate Take 20 mg by 0 (LEXAPRO) 20 mg tablet mouth daily. evolocumab (REPATHA Inject 140 mg 0 SURECLICK) 140 mg/mL under the injectable PEN skin every 14 days. On Saturdays05/16/2022 gabapentin (NEURONTIN) Take one 270 capsule 0 100 mg capsule capsule by mouth every 8 hours. 05/16/2022 heparin (porcine) PF Inject 0.5 mL 0 5,000units/0.5mL under the injection syringe skin every 8 hours. May discontinue once mobilizing well isosorbide mononitrate Take 180 mg 0 (IMDUR) 60 mg ER tablet by mouth at bedtime daily. 05/16/2022 methocarbamoL (ROBAXIN) Take one 15 tablet 0 750 mg tablet tablet by mouth every 8 hours as needed for Spasms. nitroglycerin (NITROSTAT) Place 0.6 mg 0 0.6 mg sublingual tablet under tongue every 5 minutes for 3 doses. 05/16/2022 oxyCODONE (ROXICODONE) 5 Take one 0 mg tablet tablet to three tablets by mouth every 4 hours as needed. 05/16/2022 senna/docusate Take one 90 tablet 0 (SENOKOT-S) 8.6/50 mg tablet by tablet mouth twice daily. Take while taking pain medication documented as of this encounter Ordered Prescriptions Start Date End Date Prescription Sig Dispensed Refills 05/16/2022 senna/docusate Take one 90 tablet 0 (SENOKOT-S) 8.6/50 mg tablet by tablet mouth twice daily. Take while taking pain medication 05/16/2022 oxyCODONE (ROXICODONE) 5 Take one 0 mg tablet tablet to three tablets by mouth every 4 hours as needed. 05/16/2022 methocarbamoL (ROBAXIN) Take one 15 tablet 0 750 mg tablet tablet by mouth every 8 hours as needed for Spasms. 05/16/2022 heparin (porcine) PF Inject 0.5 mL 0 5,000units/0.5mL under the injection syringe skin every 8 hours. May discontinue once mobilizing well 05/16/2022 gabapentin (NEURONTIN) Take one 270 capsule 0 100 mg capsule capsule by mouth every 8 hours. 05/16/2022 acetaminophen (TYLENOL) Take two 0 325 mg tablet tablets by mouth every 4 hours as needed. 05/16/2022 aspirin EC 81 mg tablet Take one 90 tablet 0 tablet by mouth daily. Do NOT resume until 05/17/22 documented in this encounter Discharge Disposition Code Departure Means Destination Disposition Wheelchair Rehab Facility (Not [facility]) documented in this encounter Progress Notes * Tegan Marshall RN - 05/16/2022 10:25 AM CST Report given to RANJITH Barry, at [facility]. Discharge instructions read to patient and AVS given. No questions at time of discharge. Pt to daughter's vehicle per pers onal wheelchair. VISION THERAPIST * Loreta Castle APRN-NP - 05/16/2022 8:11 AM CST Neurosurgery Progress Note Admission Date: 05/10/2022 LOS: 6 days S: No acute events overnight. Reports doing well. Seen with Neurosurgery residen t team and discussed with Dr. Young. O: Vital Signs: 24 Hour Range BP: (94-123)/(52-76) Temp: [36.6 C (97.8 F)-36.8 C (98.3 F)] Pulse: [64-71] Respirations: [12 PER MINUTE-16 PER MINUTE] SpO2: [92 %-97 %] O2 Device: None (Room air) Physical Exam: Awake and alert Oriented to person, place and time PARKER, follows commands Strength BUE 5/5, BLE 4/5 at the bed level Lumbar incision C/D/I - [place] A/P: 71 y.o. female Principal Problem: Dural arteriovenous fistula Continue current care Mobilize with PT/OT Rehab - IPR candidate Pain control PRN Discharge planning -- CM/SW involved; medically stable for DC to IPR. Plan to D C to OSH IPR this morning Prophylaxis: A) GI: PPI B) Lines: No C) Urinary Catheter: No D) Antibiotic Usage: No E) VTE: Pharmacological prophylaxis; SQ Heparin and Mechanical prophylaxis; Seq uential compression device F) Restraints: Patient assessed for need for restraints. Please page [phone] with any questions. CHEL Price Voalte VISION THERAPIST * Radha Morris OT - 05/15/2022 2:37 PM CST OCCUPATIONAL THERAPY PROGRESS NOTE Name: Sahara Andujar : 1950 Age: 71 y.o. Admission Date: 05/10/2022 LOS: 5 days Date of Service: 05/15/2022 Mobility Patient Turn/Position: Chair Progressive Mobility Level: Walk in hallway Distance Walked (feet): 150 ft Level of Assistance: Assist X1 Assistive Device: Walker Activity Limited By: Fatigue;Pain (Muscle spasms) Subjective Pertinent Dx per Physician: 71 y.o. female with a PMH of CAD s/p stents x3, HTN, HLD, prinzmetal angina, gout, prior TB infection as a child, cervical cancer s/p hysterectomy, who presents [facility] s/p L3 laminectomy for decompression and m icrosurgical clip ligation of a right spinal dural AVF. Precautions: (Back safety, SBP <140) Pain / Complaints: Patient agrees to participate in therapy Pain Location: Incisional Pain Level Current: (Does not rate) Comments: Patient supine in bed upon OT arrival, cleared for therapy by RN. Latisha lomas to therapy session. Daughter and patient asking about family transporting her to rehab. Educated on concerns and need to potentially time pain medications prior to car-ride to decrease pain and increase ease of ride. Pt and family in agreement; asking if someone can help transfer her into their vehicle when it is time to discharge. Objective Psychosocial Status: Willing and Cooperative to Participate Persons Present: Daughter Home Living Type of Home: House Home Layout: One Level;Stairs to Enter w/ Rails;Performs ADL'S on One Level Bathroom Shower / Tub: Walk-in Shower Bathroom Toilet: Standard Bathroom Equipment: Shower Chair Home Equipment: Walker;Wheelchair-manual (4WW and RW) Prior Function Level Of [place]: Needed assistance with homemaking;Independent with ADLs a nd functional transfers Lives With: Family Receives Help From: Family Other Function Comments: Patient was using a 4WW and a wheelchair due to frequen t falls. She reports that her family works during the day time so she needs to b e independent when left alone. Vision Current Vision: No Visual Deficits ADL's Where Assessed: Chair LE Dressing Assist: Stand By Assist LE Dressing Deficits: Don/Doff R Sock;Don/Doff L Sock (seated in recliner; incre ased time to obtain figure-4 position) ADL Mobility Bed Mobility: Supine to Sit: Standby assist (increased time, close SBA for reena ce as pt log-rolls very closely to EOB) Transfer Type: Sit to/from stand Transfer: Assistance Level: To/from;Bed;Bedside chair;Minimal assist Transfer: Assistive Device: Roller walker Transfer: Type of Assistance: For safety considerations;For strength deficit End of Activity Status: Up in chair;Instructed patient to request assist with mo bility;Instructed patient to use call light;Nursing notified (chair alarm activa kasia, BLE elevated) Transfer Comments: CGA with increased time for sit<>stands, cueing for hand placement with RW. Relies heavily on BUE. Sitting Balance: Static sitting balance;No UE support;Standby assist Standing Balance: Dynamic standing balance;1 UE support;Minimal assist Gait Distance: 150 feet Gait: Assistance Level: Minimal assist Gait: Assistive Device: Roller walker Gait Comments: Contact guard assistance for safety. Pt with 2 minor episodes of buckling requiring min A to correct; pt attributes this to muscle spasms. Activity Tolerance Endurance: 3/5 Tolerates 25-30 Minutes Exercise w/Multiple Rests Comment: Limited primarily by pain and muscle spasms Cognition Overall Cognitive Status: WFL to Adequately Complete Self Care Tasks Safely Attention: Awake/Alert UE PROM R UE ROM: WFL R UE ROM Method: Active L UE ROM: WFL L UE ROM Method: Active Thumb/Finger ROM: WFL Sensory Comment: BLE decreased/impaired anterior knee distally. Posterior buttocks dista l to foot. UE Strength / Tone R UE Strength: WFL L UE Strength: WFL Education Persons Educated: Patient Barriers To Learning: None Noted Teaching Methods: Verbal Instruction Patient Response: Verbalized Understanding Topics: Role of OT, Goals for Therapy Goal Formulation: With Patient/Family Assessment Assessment: Decreased ADL Status;Decreased Self-Care Trans;Decreased High-Level ADLs;Decreased Endurance Prognosis: Good;w/Cont OT s/p Acute Discharge Goal Formulation: Pt/family Comments: Patient will have to be alone during the days and needs to be more ind ependent to return to prior living arrangements. She has a significant fall hist ory and remains a high fall risk at current funcitonal level. Patient would bene fit from skilled OT services to address ADLs and functional mobility in a post a cute setting. AM-PAC 6 Clicks Daily Activity Inpatient Putting on and taking off regular lower body clothes: A Lot Bathing (Including washing, rinsing, drying): A Lot Toileting, which includes using toilet, bedpan, or urinal: A Lot Putting on and taking off regular upper body clothing: None Taking care of personal grooming such as brushing teeth: None Eating meals: None Daily Activity Raw Score: 18 Standardized (T-scale) Score: 38.66 AM-PAC Daily Activity Functional Stage: -2.73-40 No Independent Tasks Plan OT Frequency: 5x/week OT Plan for Next Visit: LE dressing with AE as needed, bathroom ADLs, standing t olerance ADL Goals Patient Will Perform Grooming: Standing at Sink;w/ Stand By Assist Patient Will Perform Toileting: w/ Stand By Assist Functional Transfer Goals Pt Will Perform All Functional Transfers: w/ Stand By Assist OT Discharge Recommendations Recommendation: Inpatient setting Patient Currently Requires Physical Assist With: All personal care ADLs;All mobi lity;All home functioning ADLs Therapist: JAIMIE Johnston, JAVADR/Ankur, CSRS [id number] Date: 05/15/2022 VISION THERAPIST * Galina Alexander, PT - 05/15/2022 10:23 AM CST PHYSICAL THERAPY PROGRESS NOTE Name: Sahara Andujar : 1950 Age: 71 y.o. Admission Date: 05/10/2022 LOS: 5 days Date of Service: 05/15/2022 Mobility Patient Turn/Position: Chair Progressive Mobility Level: Walk in hallway Distance Walked (feet): 150 ft Level of Assistance: Assist X1 Assistive Device: Walker Activity Limited By: Fatigue;Pain Subjective Significant hospital events: Hx of CAD s/p stents x3, HTN, HLD, prinzmetal angin a, gout, prior TB infection as a child, cervical cancer s/p hysterectomy, who pr esents to [facility] s/p L3 laminectomy for decompression and microsurgical clip liga tion of a right spinal dural AVF. Mental / Cognitive Status: Alert;Cooperative;Follows Commands Persons Present: Daughter Pain: Patient complains of pain;Patient does not rate pain Pain Location: Back Pain Description: Aching;Sharp Pain Interventions: Patient pre-medicated;Patient agrees to participate in thera py;Treatment altered to patient's pain tolerance Precautions: Back Safety Ambulation Assist: Independent Mobility at Household Level with Device (recent d ecline in function leading to wheelchair use) Patient Owned Equipment: Manual Wheelchair;4-Wheeled Walker;Roller Walker Home Situation: Lives with Family Type of Home: House Entry Stairs: 1-2 Stairs In-Home Stairs: Able to Live on One Level Bed Mobility/Transfer Transfer Type: Sit to/from Stand (multiple reps) Transfer: Assistance Level: To/From;Bed;Minimal Assist Transfer: Assistive Device: Roller Walker Transfers: Type Of Assistance: For Strength Deficit;For Balance;For Safety Consi derations End Of Activity Status: Up in Chair;Instructed Patient to Request Assist with Mo bility;Instructed Patient to Use Call Light (chair alarm activated) Balance 5x Sit to Stand Result (seconds): 0 5X Sit to Stand Comment:: Patient is unable to complete sit to stands without us e of BUE. With use of BUE, patient time is 37.93 seconds. Since patient's time i s > 15 seconds, she is predicted to have recurrent falls. Gait Gait Distance: 150 feet Gait: Assistance Level: Minimal Assist Gait: Assistive Device: Roller Walker Gait: Descriptors: Pace: Slow;Antalgic;Decreased step length Comments: Muscle spasms throughout, patient loses balance but is able to correct with minimal assistance. Activity Limited By: Complaint of Pain;Complaint of Fatigue Assessment/Progress Impaired Mobility Due To: Decreased Strength;Pain;Decreased Activity Tolerance;M edical Status Limitation Assessment/Progress: Should Improve w/ Continued PT Comments: Patient making daily gains with skilled intervention. Continues to be limited by post-op pain and muscle spasms causing decreased balance and independ ence with mobility tasks. Patient will benefit from ongoing skilled intervention to further address these deficits and promote functional independence prior to returning home. AM-PAC 6 Clicks Basic Mobility Inpatient Turning from your back to your side while in a flat bed without using bed rails: A Little Moving from lying on your back to sitting on the side of a flat bed without usin g bedrails : A Little Moving to and from a bed to a chair (including a wheelchair): A Little Standing up from a chair using your arms (e.g. wheelchair, or bedside chair): A Little To walk in hospital room: A Little Climbing 3-5 steps with a railing: A Lot Basic Mobility Inpatient Raw Score: 17 Standardized (T-scale) Score: 39.67 Goals Goal Formulation: With Patient/Family Time For Goal Achievement: 3 days Patient Will Go Supine To/From Sit: w/ Stand By Assist, Ongoing Patient Will Transfer Sit to Stand: w/ Stand By Assist, Ongoing Patient Will Ambulate: 11-30 Feet, w/ Walker, w/ Stand By Assist, Ongoing Patient Will Go Up / Down Stairs: 1-2 Stairs, w/ Stand By Assist, Ongoing Plan Treatment Interventions: Mobility Training Plan Frequency: 5 Days per Week PT Plan for Next Visit: Premedicate for pain/muscle spasms, progress gait distan ce and independence as tolerated, ongoing balance assessments. PT Discharge Recommendations Recommendation: Inpatient setting;Recommend rehab medicine consult Patient Currently Requires Physical Assist With: All mobility Therapist: [place] [id number] Date: 05/15/2022 VISION THERAPIST * Loreta Castle APRN-NP - 05/15/2022 8:44 AM CST Neurosurgery Progress Note Admission Date: 05/10/2022 LOS: 5 days S: No acute events overnight. Reports doing well. Seen with Neurosurgery residen t team and discussed with Dr. Young. O: Vital Signs: 24 Hour Range BP: (88-108)/(55-84) Temp: [36.8 C (98.3 F)-37.8 C (100.1 F)] Pulse: [65-78] Respirations: [16 PER MINUTE] SpO2: [94 %-96 %] O2 Device: None (Room air) Physical Exam: Awake and alert Oriented to person, place and time PARKER, follows commands Strength BUE 5/5, BLE 4/5 at the bed level Lumbar incision C/D/I - [place] A/P: 71 y.o. female Principal Problem: Dural arteriovenous fistula Continue current care Mobilize with PT/OT Rehab - IPR candidate Pain control PRN Discharge planning -- CM/SW involved; medically stable for DC to IPR Prophylaxis: A) GI: PPI B) Lines: No C) Urinary Catheter: No D) Antibiotic Usage: No E) VTE: Pharmacological prophylaxis; SQ Heparin and Mechanical prophylaxis; Seq uential compression device F) Restraints: Patient assessed for need for restraints. Please page [phone] with any questions. CHEL Price Voalte VISION THERAPIST * Barbra Demarco PT - 05/14/2022 2:26 PM CST PHYSICAL THERAPY PROGRESS NOTE Name: Sahara Andujar : 1950 Age: 71 y.o. Admission Date: 05/10/2022 LOS: 4 days Date of Service: 05/14/2022 Mobility Progressive Mobility Level: Walk in hallway Distance Walked (feet): 100 ft Level of Assistance: Assist X1 Assistive Device: Walker Activity Limited By: Pain Subjective Significant hospital events: 71 y.o. female with a PMH of CAD s/p stents x3, HTN , HLD, prinzmetal angina, gout, prior TB infection as a child, cervical cancer s /p hysterectomy, who presents to [facility] s/p L3 laminectomy for decompression and microsurgical clip ligation of a right spinal dural AVF. Mental / Cognitive Status: Alert;Cooperative;Follows Commands Persons Present: Daughter Pain: Patient complains of pain;Patient does not rate pain Pain Location: Back Pain Description: Aching;Sharp Pain Interventions: Patient agrees to participate in therapy;Patient assisted in to position of comfort Precautions: Back Safety Ambulation Assist: Primary Wheelchair User;Independent Mobility at Household Lev el with Device Patient Owned Equipment: Manual Wheelchair;4-Wheeled Walker;Roller Walker Home Situation: Lives with Family Type of Home: House Entry Stairs: 1-2 Stairs In-Home Stairs: Able to Live on One Level Bed Mobility/Transfer Bed Mobility: Supine to Sit: Standby Assist Bed Mobility: Sit to Supine: Standby Assist Transfer Type: Sit to Stand Transfer: Assistance Level: To/From;Bed;Minimal Assist (contact guard assist) Transfer: Assistive Device: Roller Walker Transfers: Type Of Assistance: For Strength Deficit;For Balance;For Safety Consi derations End Of Activity Status: In Bed;Nursing Notified;Instructed Patient to Use Call L ight;Instructed Patient to Request Assist with Mobility (bed alarm set) Balance Sitting Balance: Static Sitting Balance;Dynamic Sitting Balance;Standby Assist Standing Balance: Static Standing Balance;Dynamic Standing Balance;2 UE support; Minimal Assist (contact guard assist) Gait Gait Distance: 100 feet Gait: Assistance Level: Minimal Assist (contact guard assist) Gait: Assistive Device: Roller Walker Gait: Descriptors: Pace: Slow;Antalgic Activity Limited By: Complaint of Pain Education Persons Educated: Patient Patient Barriers To Learning: None Noted Teaching Methods: Verbal Instruction Patient Response: Verbalized Understanding Topics: Plan/Goals of PT Interventions;Importance of Increasing Activity;Recomme nd Continued Therapy Assessment/Progress Impaired Mobility Due To: Decreased Strength;Pain;Decreased Activity Tolerance;M edical Status Limitation Assessment/Progress: Should Improve w/ Continued PT AM-PAC 6 Clicks Basic Mobility Inpatient Turning from your back to your side while in a flat bed without using bed rails: A Little Moving from lying on your back to sitting on the side of a flat bed without usin g bedrails : A Little Moving to and from a bed to a chair (including a wheelchair): A Little Standing up from a chair using your arms (e.g. wheelchair, or bedside chair): A Little To walk in hospital room: A Little Climbing 3-5 steps with a railing: A Lot Basic Mobility Inpatient Raw Score: 17 Standardized (T-scale) Score: 39.67 Goals Goal Formulation: With Patient/Family Time For Goal Achievement: 3 days Patient Will Go Supine To/From Sit: w/ Stand By Assist Patient Will Transfer Sit to Stand: w/ Stand By Assist Patient Will Ambulate: 11-30 Feet, w/ Walker, w/ Stand By Assist Patient Will Go Up / Down Stairs: 1-2 Stairs, w/ Stand By Assist Plan Treatment Interventions: Mobility Training Plan Frequency: 5-7 Days per Week PT Plan for Next Visit: Test proprioception; 5x sit to stand. Watch for knee buc mike expecially with stand to sit. PT Discharge Recommendations Recommendation: Inpatient setting;Recommend rehab medicine consult Patient Currently Requires Physical Assist With: All mobility Therapist: Barbra Demarco PT Date: 05/14/2022 VISION THERAPIST * Lesia Ray, CASH-CHIEF RADIOLOGIC TECHNOLOGIST - 05/14/2022 12:06 PM CST Neurosurgery Progress Note Admission Date: 05/10/2022 LOS: 4 days S: No acute events overnight. Doing well overall. Seen with Neurosurgery residen t team. O: Vital Signs: 24 Hour Range BP: (89-122)/(45-69) Temp: [36.7 C (98 F)-38.1 C (100.5 F)] Pulse: [62-75] Respirations: [12 PER MINUTE-20 PER MINUTE] SpO2: [92 %-98 %] O2 Device: None (Room air) Physical Exam: Awake and alert Oriented to person, place and time PARKER, follows commands Strength BUE 5/5, BLE 4/5 at the bed level Lumbar incision c/d/i -derma norton A/P: 71 y.o. female Principal Problem: Dural arteriovenous fistula Continue current care Mobilize with PT/OT Rehab - IPR candidate Pain control PRN Discharge planning -- CM/SW involved; anticipate medically stable for IPR 05/14 Prophylaxis: A) GI: PPI B) Lines: No C) Urinary Catheter: No D) Antibiotic Usage: No E) VTE: Pharmacological prophylaxis; SQ Heparin and Mechanical prophylaxis; Seq uential compression device F) Restraints: Patient assessed for need for restraints. Please page [phone] with any questions. CHEL Jarvis Voalte VISION THERAPIST * Radha Morris OT - 05/14/2022 9:38 AM CST OCCUPATIONAL THERAPY PROGRESS NOTE Name: Sahara Andujar : 1950 Age: 71 y.o. Admission Date: 05/10/2022 LOS: 4 days Date of Service: 05/14/2022 Mobility Patient Turn/Position: Chair Progressive Mobility Level: Walk in hallway Distance Walked (feet): 200 ft Level of Assistance: Assist X1 Assistive Device: Walker Activity Limited By: Pain (Muscle spasms) Subjective Pertinent Dx per Physician: 71 y.o. female with a PMH of CAD s/p stents x3, HTN, HLD, prinzmetal angina, gout, prior TB infection as a child, cervical cancer s/p hysterectomy, who presents to [facility] s/p L3 laminectomy for decompression and m icrosurgical clip ligation of a right spinal dural AVF. Precautions: (Back safety, SBP <140) Pain / Complaints: Patient agrees to participate in therapy Pain Location: Incisional Pain Level Current: (Does not rate) Comments: Patient supine in bed upon OT arrival, cleared for therapy by RN. Latisha lomas to therapy session. Hoping she will go to rehab today. Objective Psychosocial Status: Willing and Cooperative to Participate Persons Present: Daughter Home Living Type of Home: House Home Layout: One Level;Stairs to Enter w/ Rails;Performs ADL'S on One Level Bathroom Shower / Tub: Walk-in Shower Bathroom Toilet: Standard Bathroom Equipment: Shower Chair Home Equipment: Walker;Wheelchair-manual (4WW and RW) Prior Function Level Of [place]: Needed assistance with homemaking;Independent with ADLs a nd functional transfers Lives With: Family Receives Help From: Family Other Function Comments: Patient was using a 4WW and a wheelchair due to frequen t falls. She reports that her family works during the day time so she needs to b e independent when left alone. Vision Current Vision: No Visual Deficits ADL's Where Assessed: In Bathroom;Chair Eating Assist: Independent Eating Deficits: No Assist Needed Grooming Assist: Stand By Assist Grooming Deficits: Supervision/Safety;Increased Time To Complete;Standing With A ssistive Device;Wash/Dry Hands LE Dressing Assist: Total Assist LE Dressing Deficits: Don/Doff R Sock;Don/Doff L Sock ADL Mobility Bed Mobility: Supine to Sit: Minimal assist (Contact guard assistance) Bed Mobility Comments: log-roll technique, CGA for trunk Transfer Type: Sit to/from stand Transfer: Assistance Level: To/from;Bed;Bedside chair;Toilet;Minimal assist Transfer: Assistive Device: Roller walker Transfer: Type of Assistance: For safety considerations;For strength deficit End of Activity Status: Up in chair;Instructed patient to request assist with mo bility;Instructed patient to use call light;Nursing notified (chair alarm activa kasia, BLE elevated) Transfer Comments: CGA with increased time for sit<>stands, cueing for hand placement with RW. Relies heavily on BUE. Sitting Balance: Static sitting balance;No UE support;Standby assist Standing Balance: Dynamic standing balance;1 UE support;Minimal assist Gait Distance: 200 feet Gait: Assistance Level: Minimal assist Gait: Assistive Device: Roller walker Gait Comments: Contact guard assistance for safety. Pt with 2 minor episodes of buckling requiring min A to correct; pt attributes this to muscle spasms. Activity Tolerance Endurance: 3/5 Tolerates 25-30 Minutes Exercise w/Multiple Rests Comment: Limited primarily by pain and muscle spasms Cognition Overall Cognitive Status: WFL to Adequately Complete Self Care Tasks Safely Attention: Awake/Alert UE PROM R UE ROM: WFL R UE ROM Method: Active L UE ROM: WFL L UE ROM Method: Active Thumb/Finger ROM: WFL Sensory Comment: BLE decreased/impaired anterior knee distally. Posterior buttocks dista l to foot. UE Strength / Tone R UE Strength: WFL L UE Strength: WFL Education Persons Educated: Patient Barriers To Learning: None Noted Teaching Methods: Verbal Instruction Patient Response: Verbalized Understanding Topics: Role of OT, Goals for Therapy Goal Formulation: With Patient/Family Assessment Assessment: Decreased ADL Status;Decreased Self-Care Trans;Decreased High-Level ADLs;Decreased Endurance Prognosis: Good;w/Cont OT s/p Acute Discharge Goal Formulation: Pt/family Comments: Patient will have to be alone during the days and needs to be more ind ependent to return to prior living arrangements. She has a significant fall hist ory and remains a high fall risk at current funcitonal level. Patient would bene fit from skilled OT services to address ADLs and functional mobility in a post a cute setting. AM-PAC 6 Clicks Daily Activity Inpatient Putting on and taking off regular lower body clothes: A Lot Bathing (Including washing, rinsing, drying): A Lot Toileting, which includes using toilet, bedpan, or urinal: A Lot Putting on and taking off regular upper body clothing: None Taking care of personal grooming such as brushing teeth: None Eating meals: None Daily Activity Raw Score: 18 Standardized (T-scale) Score: 38.66 AM-PAC Daily Activity Functional Stage: -2.73-40 No Independent Tasks Plan OT Frequency: 5x/week OT Plan for Next Visit: LE dressing with AE as needed, bathroom ADLs, standing t olerance ADL Goals Patient Will Perform Grooming: Standing at Sink;w/ Stand By Assist Patient Will Perform Toileting: w/ Stand By Assist Functional Transfer Goals Pt Will Perform All Functional Transfers: w/ Stand By Assist OT Discharge Recommendations Recommendation: Inpatient setting Patient Currently Requires Physical Assist With: All personal care ADLs;All mobi lity;All home functioning ADLs Therapist: JAIMIE Johnston, OTR/L, CSRS [id number] Date: 05/14/2022 VISION THERAPIST * Barbra Demarco, PT - 05/13/2022 2:25 PM CST PHYSICAL THERAPY PROGRESS NOTE Name: Sahara Andujar : 1950 Age: 71 y.o. Admission Date: 05/10/2022 LOS: 3 days Date of Service: 05/13/2022 Mobility Progressive Mobility Level: Walk in hallway Distance Walked (feet): 100 ft Level of Assistance: Assist X1 Assistive Device: Walker Activity Limited By: Pain Subjective Significant hospital events: 71 y.o. female with a PMH of CAD s/p stents x3, HTN , HLD, prinzmetal angina, gout, prior TB infection as a child, cervical cancer s /p hysterectomy, who presents to [facility] s/p L3 laminectomy for decompression and microsurgical clip ligation of a right spinal dural AVF. Mental / Cognitive Status: Alert;Cooperative;Follows Commands Persons Present: Daughter Pain: Patient complains of pain;Patient does not rate pain Pain Location: Back Pain Description: Aching;Sharp Pain Interventions: Patient agrees to participate in therapy;Patient assisted in to position of comfort Precautions: Back Safety Ambulation Assist: Primary Wheelchair User;Independent Mobility at Household Lev el with Device Patient Owned Equipment: Manual Wheelchair;4-Wheeled Walker;Roller Walker Home Situation: Lives with Family Type of Home: House Entry Stairs: 1-2 Stairs In-Home Stairs: Able to Live on One Level Bed Mobility/Transfer Bed Mobility: Supine to Sit: Standby Assist Bed Mobility: Sit to Supine: Minimal Assist Transfer Type: Sit to Stand Transfer: Assistance Level: To/From;Bed;Minimal Assist Transfer: Assistive Device: Roller Walker Transfers: Type Of Assistance: For Strength Deficit;For Balance;For Safety Consi derations End Of Activity Status: In Bed;Nursing Notified;Instructed Patient to Request As sist with Mobility;Instructed Patient to Use Call Light (bed alarm set) Balance Sitting Balance: Static Sitting Balance;Dynamic Sitting Balance;Standby Assist Standing Balance: Static Standing Balance;Dynamic Standing Balance;Minimal Darin t Gait Gait Distance: 100 feet Gait: Assistance Level: Minimal Assist Gait: Assistive Device: Roller Walker Gait: Descriptors: Pace: Slow;Antalgic Activity Limited By: Complaint of Pain Education Persons Educated: Patient Patient Barriers To Learning: None Noted Teaching Methods: Verbal Instruction Patient Response: Verbalized Understanding Topics: Plan/Goals of PT Interventions;Importance of Increasing Activity;Recomme nd Continued Therapy Assessment/Progress Impaired Mobility Due To: Decreased Strength;Pain;Decreased Activity Tolerance;M edical Status Limitation Assessment/Progress: Should Improve w/ Continued PT AM-PAC 6 Clicks Basic Mobility Inpatient Turning from your back to your side while in a flat bed without using bed rails: A Little Moving from lying on your back to sitting on the side of a flat bed without usin g bedrails : A Little Moving to and from a bed to a chair (including a wheelchair): A Little Standing up from a chair using your arms (e.g. wheelchair, or bedside chair): A Little To walk in hospital room: A Little Climbing 3-5 steps with a railing: A Lot Basic Mobility Inpatient Raw Score: 17 Standardized (T-scale) Score: 39.67 Goals Goal Formulation: With Patient/Family Time For Goal Achievement: 3 days Patient Will Go Supine To/From Sit: w/ Stand By Assist Patient Will Transfer Sit to Stand: w/ Stand By Assist Patient Will Ambulate: 11-30 Feet, w/ Walker, w/ Stand By Assist Patient Will Go Up / Down Stairs: 1-2 Stairs, w/ Stand By Assist Plan Treatment Interventions: Mobility Training Plan Frequency: 5-7 Days per Week PT Plan for Next Visit: Test proprioception; 5x sit to stand. Watch for knee buc mike expecially with stand to sit. PT Discharge Recommendations Recommendation: Inpatient setting;Recommend rehab medicine consult Patient Currently Requires Physical Assist With: All mobility Therapist: Barbra Demarco, PT Date: 05/13/2022 VISION THERAPIST * Harry Kirby, OT - 05/11/2022 1:34 PM CDT OCCUPATIONAL THERAPY ASSESSMENT NOTE Name: Sahara Andujar : 1950 Age: 71 y.o. Admission Date: 05/10/2022 LOS: 1 day Date of Service: 05/11/2022 Mobility Patient Turn/Position: Chair (Wheelchair) Progressive Mobility Level: Walk in hallway Distance Walked (feet): 250 ft Level of Assistance: Assist X1 Assistive Device: Walker Activity Limited By: Weakness;Fatigue Subjective Pertinent Dx per Physician: 71 y.o. female with a PMH of CAD s/p stents x3, HTN, HLD, prinzmetal angina, gout, prior TB infection as a child, cervical cancer s/p hysterectomy, who presents to [facility] s/p L3 laminectomy for decompression and m icrosurgical clip ligation of a right spinal dural AVF. Precautions: (Back safety, SBP <140) Pain / Complaints: Patient agrees to participate in therapy Pain Location: Incisional Pain Level Current: (Does not rate) Objective Psychosocial Status: Willing and Cooperative to Participate Persons Present: Physical Therapist;Daughter Home Living Type of Home: House Home Layout: One Level;Stairs to Enter w/ Rails;Performs ADL'S on One Level Bathroom Shower / Tub: Walk-in Shower Bathroom Toilet: Standard Bathroom Equipment: Shower Chair Home Equipment: Walker;Wheelchair-manual (4WW and RW) Prior Function Level Of [place]: Needed assistance with homemaking;Independent with ADLs a nd functional transfers Lives With: Family Receives Help From: Family Other Function Comments: Patient was using a 4WW and a wheelchair due to frequen t falls. She reports that her family works during the day time so she needs to b e independent when left alone. Vision Current Vision: No Visual Deficits ADL's Where Assessed: Chair;Edge of Bed Eating Assist: Independent Eating Deficits: No Assist Needed Grooming Assist: Stand By Assist Grooming Deficits: Setup LE Dressing Assist: Maximum Assist LE Dressing Deficits: Don/Doff R Sock;Don/Doff L Sock Toileting Assist: Maximum Assist Toileting Deficits: Perineal Hygiene ADL Mobility Bed Mobility: Supine to Sit: Minimal assist;of 1st person Bed Mobility Comments: Assist with trunk, HOB elevated. Transfer Type: Sit to stand Transfer: Assistance Level: To/from;Bed;Minimal assist Transfer: Assistive Device: Roller walker Transfer: Type of Assistance: For safety considerations;For strength deficit Other Transfer Type: Stand to sit Other Transfer: Assistance Level: To;Wheelchair;Maximum assist Other Transfer: Assistive Device: Roller walker Other Transfer: Type of Assistance: For safety considerations;Requires extra hu e;For strength deficit End of Activity Status: Up in chair;Instructed patient to request assist with mo bility;Nursing notified;Instructed patient to use call light Transfer Comments: Patient had loss of control with stand to sit transfer due to BLE weakness. Maximal assist required to prevent fall. Gait Distance: 250 feet Gait: Assistance Level: Minimal assist Gait: Assistive Device: Roller walker Gait Comments: Chair follow for safety Activity Tolerance Endurance: 3/5 Tolerates 25-30 Minutes Exercise w/Multiple Rests Cognition Overall Cognitive Status: WFL to Adequately Complete Self Care Tasks Safely Attention: Awake/Alert UE PROM R UE ROM: WFL R UE ROM Method: Active L UE ROM: WFL L UE ROM Method: Active Thumb/Finger ROM: WFL Sensory Comment: BLE decreased/impaired anterior knee distal. Posterior buttocks distal to foot. UE Strength / Tone R UE Strength: WFL L UE Strength: WFL Strength Comments: Proximal muscle weakness. Education Persons Educated: Patient Barriers To Learning: None Noted Teaching Methods: Verbal Instruction Patient Response: Verbalized Understanding Topics: Role of OT, Goals for Therapy Goal Formulation: With Patient Assessment Assessment: Decreased ADL Status;Decreased Self-Care Trans;Decreased High-Level ADLs;Decreased Endurance Prognosis: Good;w/Cont OT s/p Acute Discharge Goal Formulation: Pt/family Comments: Patient will have to be alone during the days and needs to be more ind ependent to return to prior living arrangements. She has a significant fall hist ory and remains a high fall risk at current functional level. Patient would bene fit from skilled OT services to address ADLs and functional mobility in a post a cute setting. AM-PAC 6 Clicks Daily Activity Inpatient Putting on and taking off regular lower body clothes: A Lot Bathing (Including washing, rinsing, drying): A Lot Toileting, which includes using toilet, bedpan, or urinal: A Lot Putting on and taking off regular upper body clothing: None Taking care of personal grooming such as brushing teeth: None Eating meals: None Daily Activity Raw Score: 18 Standardized (T-scale) Score: 38.66 AM-PAC Daily Activity Functional Stage: -2.73-40 No Independent Tasks Plan OT Frequency: 5x/week OT Plan for Next Visit: LE dressing with AE as needed, bathroom ADLs ADL Goals Patient Will Perform Grooming: Standing at Sink;w/ Stand By Assist Patient Will Perform Toileting: w/ Stand By Assist Functional Transfer Goals Pt Will Perform All Functional Transfers: w/ Stand By Assist OT Discharge Recommendations Recommendation: Inpatient setting Patient Currently Requires Physical Assist With: All personal care ADLs;All mobi lity;All home functioning ADLs Therapist: EZE Zapata/Ankur [id number] Date: 05/11/2022 * Mariama Ambrocio, PT - 05/11/2022 1:31 PM CDT PHYSICAL THERAPY ASSESSMENT Name: Sahara Andujar : 1950 Age: 71 y.o. Admission Date: 05/10/2022 LOS: 1 day Date of Service: 05/11/2022 Mobility Patient Turn/Position: Supine Progressive Mobility Level: Walk in room Distance Walked (feet): 30 ft (to bathroom then bed) Level of Assistance: Assist X2 Assistive Device: Walker Activity Limited By: Weakness;Fatigue Subjective Significant hospital events: 71 y.o. female with a PMH of CAD s/p stents x3, HTN , HLD, prinzmetal angina, gout, prior TB infection as a child, cervical cancer s /p hysterectomy, who presents to [facility] s/p L3 laminectomy for decompression and microsurgical clip ligation of a right spinal dural AVF. Mental / Cognitive Status: Alert;Cooperative;Follows Commands Persons Present: Occupational Therapist;Daughter Pain: Patient complains of pain;Patient does not rate pain;During activity Pain Location: Back Pain Interventions: Patient agrees to participate in therapy with modifications to session;Treatment altered to patient's pain tolerance Ambulation Assist: Primary Wheelchair User;Independent Mobility at Household Lev with Device Patient Owned Equipment: Manual Wheelchair;4-Wheeled Walker;Roller Walker Home Situation: Lives with Family Type of Home: House Entry Stairs: 1-2 Stairs (1) In-Home Stairs: Able to Live on One Level ROM R UE ROM: WFL R UE ROM Method: Active L UE ROM: WFL L UE ROM Method: Active ROM Comments: BLE WFLs. Strength R UE Strength: WFL L UE Strength: WFL Strength Comments: grossly 3/5 BLEs; poor eccentric control noted on sitting. Bed Mobility/Transfer Bed Mobility: Supine to Sit: Standby Assist;Head of Bed Elevated;No Rail Transfer Type: Sit to Stand Transfer: Assistance Level: Bed;Minimal Assist Transfer: Assistive Device: Roller Walker Transfers: Type Of Assistance: For Strength Deficit;For Balance;For Safety Consi derations Other Transfer Type: Stand to Sit Other Transfer: Assistance Level: Wheelchair;Moderate Assist;x2 People (due to l oss of eccentric control and near edge of chair) Other Transfer: Assistive Device: Roller Walker Other Transfer: Type Of Assistance: For Balance;For Strength Deficit;Knees(s) Bl ocked;For Safety Considerations End Of Activity Status: Up in Chair;Nursing Notified;Instructed Patient to Reque st Assist with Mobility;Instructed Patient to Use Call Light (pads alarm activat ed) Gait Gait Distance: 250 feet Gait: Assistance Level: Minimal Assist Gait: Assistive Device: Roller Walker Gait: Descriptors: Pace: Slow Activity Limited By: Complaint of Fatigue;Complaint of Pain Education Persons Educated: Patient Patient Barriers To Learning: None Noted Teaching Methods: Verbal Instruction Patient Response: Verbalized Understanding Topics: Plan/Goals of PT Interventions;Importance of Increasing Activity;Recomme nd Continued Therapy Assessment/Progress Impaired Mobility Due To: Impaired Balance Assessment/Progress: Should Improve w/ Continued PT AM-PAC 6 Clicks Basic Mobility Inpatient Turning from your back to your side while in a flat bed without using bed rails: A Little Moving from lying on your back to sitting on the side of a flat bed without usin g bedrails : A Little Moving to and from a bed to a chair (including a wheelchair): A Little Standing up from a chair using your arms (e.g. wheelchair, or bedside chair): A Little To walk in hospital room: A Little Climbing 3-5 steps with a railing: Total Basic Mobility Inpatient Raw Score: 16 Standardized (T-scale) Score: 38.32 Goals Goal Formulation: With Patient/Family Time For Goal Achievement: 3 days Patient Will Go Supine To/From Sit: w/ Stand By Assist Patient Will Transfer Sit to Stand: w/ Stand By Assist Patient Will Ambulate: 11-30 Feet, w/ Walker, w/ Stand By Assist Plan Treatment Interventions: Mobility Training Plan Frequency: 5-7 Days per Week PT Plan for Next Visit: Test proprioception; 5x sit to stand. Watch for knee buc mike expecially with stand to sit. PT Discharge Recommendations Recommendation: Inpatient setting;Recommend rehab medicine consult Therapist Mariama Ambrocio, PT Date 05/11/2022 T * Loreta Castle APRN-CHIEF RADIOLOGIC TECHNOLOGIST - 05/11/2022 10:57 AM CDT Neurosurgery Progress Note Admission Date: 05/10/2022 LOS: 1 day S: No acute events noted. Seen this AM with the neurosurgery resident team. Arminda villa at bedside. Plan for day discussed. Questions and concerns addressed. O: Vital Signs: 24 Hour Range BP: (104-129)/(47-62) ABP: (104-142)/(43-64) Temp: [36.6 C (97.9 F)-37.2 C (98.9 F)] Pulse: [68-85] Respirations: [10 PER MINUTE-28 PER MINUTE] SpO2: [91 %-99 %] O2 Device: None (Room air) O2 Liter Flow: 2 Lpm Physical Exam: Awake and alert Oriented to person, place and time PARKER, follows commands Strength BUE 5/5, BLE 4/5 at the bed level OR dressing C/D/I A/P: 71 y.o. female Principal Problem: Dural arteriovenous fistula Progress to med/surg status Mobilize with PT/OT Rehab consult pending Pain control PRN - gabapentin added Discharge planning -- CM/SW involved Prophylaxis: A) GI: PPI B) Lines: No C) Urinary Catheter: No D) Antibiotic Usage: No E) VTE: Mechanical prophylaxis; Sequential compression device; No anticoagulati on until 48 hours post operative; contraindication due to bleeding risk F) Restraints: Patient assessed for need for restraints. Please page [phone] with any questions. 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 female with a PMH of CAD s/p stents x3, HTN, H LD, prinzmetal angina, gout, prior TB infection as a child, cervical cancer s/p hysterectomy, who presents to [facility] s/p L3 laminectomy for decompression and la nena rosurgical clip ligation of a right spinal dural AVF. Hospital and ICU course: 05/10: Admitted to [facility] s/p L3 laminectomy. 05/11: HDS. Downgrade per primary team. Neuro: Right spinal dural AVF s/p L3 laminectomy, durotomy, microsurgical clipping - - pt can mobilize at this time, can remove ford. - SBP Goal: < 140 - Periop Ancef 2g x3 - Neuro-ICU monitoring, neurochecks Q1H Psych: Depression - CLINICAL PRACTICE CONSULTANT Escitalopram 20 mg daily Sedation/Pain Management: - agents: PRN Tylenol, Oxycodone, Gabapentin - Assess for delirium daily Cardiac: HTN CAD s/p cardiac stents x3 Prinzmetal angina HLD - SBP goal: < 140 - MAP goal > 65 - PRN Hydralazine, Labetalol - Resume CLINICAL PRACTICE CONSULTANT Atenolol 25 QHS - Hold CLINICAL PRACTICE CONSULTANT asa 81 mg Respiratory: Hx Tb (childhood) Former smoker - Satting well on RA - Goal of normoxia GI: - Feeding: Regular diet - neuro bowel regimen (docusate, milk of magnesia, senakot, suppository), ensure daily BM (Last BM 5 days ago) Heme: Hgb 11.4, Plt 253 - Daily CBC - VTE prophylaxis: Mechanical prophylaxis; Sequential compression device - assess for coagulopathy, maintain platelets above 100k, INR <1.5 ID: WBC 11.6 - Daily CBC - Tmax 37.2C - aim for normothermia, Temp <38.3 celsius, normothermia protocol if febrile MSK: Gout - Resume CLINICAL PRACTICE CONSULTANT Allopurinol 300 mg daily Renal: BUN 9, Cr 0.68 - Daily BMP - Monitor hourly I/O balance - Aim for normovolemia - Maintain ford catheter Intake/Output Summary (Last 24 hours) at 05/11/2022 0629 Last data filed at 05/11/2022 0500 Gross per 24 hour Intake 3849 ml Output 1655 ml Net 2194 ml Endocrine: SBG 106 - Daily BMP - Blood glucose goal 100-180mg/dl FEN: - IVF: SL - Critical care electrolyte replacement protocol - Magnesium goal >2.0, i-Pawel goal > 1.0, Potassium goal >4.0 mEq/L Prophylaxis Review: A) GI: famotidine 20 mg BID B) Lines: Yes; Arterial Line; Indication: Continuous BP monitoring; Location: Radial C) Urinary Catheter: Yes; Retain ford due to: Need for accurate Intake and Ou tput D) Antibiotic Usage: Yes - periop Ancef 2g x3 E) VTE: Mechanical prophylaxis; Sequential compression device F) Isolation: none G)Seizures: none I) Restraints: Patient assessed for need for restraints. Disposition/Family: Unchanged. Primary service: [facility] [place] Consults: NCC, PT/OT SUBJECTIVE Chief Complaint: Low back pain with progressive lower extremity motor weakness a nd sensation loss History of Present Illness: Sahara Andujar is a 71 y.o. female with PMH of CAD s/p stents x3, HTN, HLD, gout, prior TB infection as a child, cervical canc er s/p hysterectomy, who presents to [facility] s/p L3 laminectomy for decompression and microsurgical clip ligation of a right spinal dural AVF. Patient has a long standing history of low back pain. She began having associate d bilateral leg weakness 2-3 years ago where her legs would get progressively ti red throughout the day. Motor weakness has worsened to the point where she would have increasing number of falls, leading to once/week this past year. She began using a walker on and off 6 months ago that progressed to wheelchair use 2-3 we eks ago. Endorses urinary and bowel incontinence this past year that has progres sively worsened 4 months ago. Also has decreased sensation from the waist down. Had a spinal arteriogram on 04/30 that revealed a right L3 dural AVF. No acute overnight events. Patient feeling well this morning.Still feeling numb from waist down, hip streng th back to baseline. No bowel movement since 5 days ago. Medical History: Diagnosis Date Bronchiectasis (HCC) COPD (chronic obstructive pulmonary disease) (HCC) Coronary artery disease History of dental problems full set of dentures Surgical History: Procedure Laterality Date HX SECTION 1986 CORONARY STENT PLACEMENT X 3 HX APPENDECTOMY HX CHOLECYSTECTOMY HX CYST REMOVAL Left wirst HX TOTAL VAGINAL HYSTERECTOMY OVARIAN CYST REMOVAL History reviewed. No pertinent family history. Social History Social History Narrative Not on file Code Status: Full Code Decision Maker: patient. If patient is unable, then any of children. Immunizations (includes history and patient reported): There is no immunization history on file for this patient. Allergies: Hydrocodone, Diazepam, and Thpctck-uak-aqn reductase inhibitors Medications Prior to Admission Medication Sig allopurinoL (ZYLOPRIM) 300 mg tablet Take 300 mg by mouth daily. aspirin EC 81 mg tablet Take 81 mg by mouth daily. atenoloL (TENORMIN) 25 mg tablet Take 25 mg by mouth at bedtime daily. betamethasone dipropionate (BETANATE) 0.05 % topical cream Apply topically to affected area daily as needed. escitalopram oxalate (LEXAPRO) 20 mg tablet Take 20 mg by mouth daily. evolocumab (REPATHA SURECLICK) 140 mg/mL injectable PEN Inject 140 mg under the skin every 14 days. On Saturdays isosorbide mononitrate (IMDUR) 60 mg ER tablet Take 180 mg by mouth at bedti me daily. nitroglycerin (NITROSTAT) 0.[address] 0.6 mg under tongue every 5 minutes for 3 doses. traMADoL (ULTRAM) 50 mg tablet Take 100 mg by mouth every 6 hours as needed. Review of Systems: A 14 point review of systems was negative except as noted in HPI. OBJECTIVE Vital Signs: Last Filed Vital Signs: 24 Hour Ra nge BP: 104/61 (05/10 1400) ABP: 112/56 (05/11 0500) Temp: 36.6 C (97.9 F) (05/11 0400) Pulse: 70 (05/11 0500) Respirations: 10 PER MINUTE (05/11 0500) SpO2: 95 % (05/11 0500) O2 Device: None (Room air) (05/11 0500) O2 Liter Flow: 2 Lpm (05/10 1500) Height: 160 cm (5' 3") (05/10 1016) Weight: 75.8 kg (167 lb) (05/10 1016) SpO2 Pulse: 70 (05/10 1016) BP: (104-149)/(61-70) ABP: (104-142)/(43-64) Temp: [36.6 C (97.9 F)-37.2 C (98.9 F)] Pulse: [70-85] Respirations: [10 PER MINUTE-20 PER MINUTE] SpO2: [91 %-99 %] O2 Device: None (Room air) O2 Liter Flow: 2 Lpm Intensity Pain Scale (Self Report): (not recorded) Vitals: 05/10/22 1016 Weight: 75.8 kg (167 lb) Artificial airway: None Ventilator/ Respiratory Therapy: No Vent weaning trial: Not applicable Lines: Arterial Line and Peripheral Line Drains: Ford catheter Critical Care Vitals: ICP Monitoring: Hemodynamics/Oxycalcs: Intake/Output Summary: (Last 24 hours) Intake/Output Summary (Last 24 hours) at 05/11/2022 0629 Last data filed at 05/11/2022 0500 Gross per 24 hour Intake 3849 ml Output 1655 ml Net 2194 ml Physical Exam: Blood pressure 104/61, pulse 70, temperature 36.6 C (97.9 F), height 160 cm (5' 3"), weight 75.8 kg (167 lb), SpO2 95 %. Elizabeth coma score: E: 4 - Opens eyes on own M: 6 - Follows simple motor commands V: 5 - Alert and oriented Neuro: Mental Status: A/O x4 Cranial Nerves: Cranial nerves 2-12 INTACT. - Pupil exam: Size: 4 BL Reactivity: brisk - EOM: intact - Corneal reflex: R - present L - present - Grimace/facial movement: present - Cough: present Motor: RUE: Strength: 5/5 RLE: Strength: 3/5 with hip flexion, 5/5 with pedal dorsiflexi on, plantar flexion LUE: Strength: 5/5 LLE: Strength: 3/5 with hip flexion, 5/5 with pedal dorsiflexion, plantar flexion Sensory: decreased sensation from L2 and below Lungs: clear to auscultation bilaterally Pulmonary: Respiratory status: Stable Heart: regular rate and rhythm Abdomen: soft, non-tender. Bowel sounds normal. No masses, no organomegaly Extremities: extremities normal, atraumatic, no cyanosis or edema Skin: Skin color, texture, turgor normal. No rashes or lesions Point of Care Testing: (Last 24 hours): Glucose: (!) 106 (05/11/22 0257) Lab Review: Pertinent labs reviewed Radiology and Other Diagnostic Procedures Review: Pertinent radiologic and diag nostic procedures reviewed. 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 Cares included: detailed neurologic and systems exam, medication rev iew, laboratory data review and interpretation, electrolyte management, review o f available imaging, DVT/PE prophylaxis review, diet review, activity review, an d coordination of care with consulted teams Doreen Nuñez DO Date: 05/11/[id number] Associated attestation - Valdo Quintanilla MD - 05/11/2022 4:45 PM CDT ATTESTATION I have seen, personally fully evaluated, and discussed patient with the NEICU te am. I agree with the objective findings and agree with the plan of care as docu mented by the resident with the exceptions noted. Doing well this morning. Continues to have decreased sensation in lower extremi ties and weakness 4/5. Will work with PT/OT today. Pain with adequate control at this time. With prior coronary stents and anginal symptoms, would resume ASA as soon as destinee med safe by surgical team. Transition out of ICU today. Staff name: Valdo Quintanilla MD Date: 05/11/2022 * Mariama Ward PHARMD - 05/09/2022 4:13 PM CDT PAC Pharmacist Medication Plan Note: PAC pharmacist was consulted to coordinate a plan for Sahara Kiya Pratima's Asp irin for upcoming surgery on 05/10/22. Medication reconciliation and all remain ing medication instructions will be completed by our triage nurse as usual. Aspirin: Per Dr. Cid's note, patient was instructed to hold Aspirin for 5 d ays prior to surgery. Last dose 05/04. PAC pharmacist contacted prescriber, Dr Vignesh Bunn to authorize hold for aspirin x [address] Bunn's answer was pa janetnt was at low cardiac risk. No response to additional requests. The plan above was communicated to the patient via phone who verbalized understa nding. Mariama Ward PHARMD * Marika Neri, RANJITH - 05/03/2022 3:37 PM CDT PAC phone triage completed for procedure on 05/10/2022 with Drs. Cid & Hector. Correct procedure verified with patient. Patient denies chest pain, palp itations, or shortness of breath. Patient states they can climb two flights of s teps and remain asymptomatic. Patient has history of CAD, cardiac stents x3, hyp erlipidemia, and COPD. Labs completed 04/12/2022. Patient denies history of previ ous anesthesia complications. No PAC visit indicated at this time. Patient was s een and cleared by PAC clinic on 04/24/2022 for procedure on 04/30/2022. Patient was advised to stop vitamins, herbals, and supplements beginning today, 05/03/2022, and to avoid taking NSAIDS 7 days prior to procedure as well. Patient was advised to reach out to PAC testing machine operator with any changes to health or medications prior to surgery date. Preop instructions completed including NPO after 2300 for solids and until 2 frandy rs before checking in at admissions for water. Patient denies skin rashes or wounds at this time. Patient was advised if they h ave any rashes, open wounds or sores they should contact their surgeon. Patient was also advised if they develop URI/flu-like symptoms or fever prior to their p rocedure they should contact their surgeon. Patient denies COVID symptoms or a recent positive test. Patient was advised the most current visitor policy as well as mask requirement. Patient was informed a ll nail pu[place] and jewelry must be removed prior to coming to hospital. Patient verbalized understanding of all instructions and will receive a copy via [employer]. documented in this encounter H&P Notes * Ceci Rocha MD - 05/10/2022 10:12 AM CDT History and Physical Update Note Allergies: Hydrocodone, Diazepam, and Hdduuic-but-qyi reductase inhibitors Lab/Radiology/Other Diagnostic Tests: 24-hour labs: No results found for this visit on 05/10/22 (from the past 24 frandy r(s))., Hematology: No results found for: HGB, HCT, PLTCT, WBC, NEUT, ANC, LYMP H, ALC, ABSLYMPHCT, MICHAEL, AMC, ABC, BASOPHILS, MCV, MCHC, MPV, RDW, Coagulation: No results found for: PT, PTT, INR, and General Chemistry: No results found f or: NA, K, CL, GAP, BUN, CR, GLU, CA, KETONES, ALBUMIN, LACTIC, OBSCA, MG, TOTBI LI Point of Care Testing: (Last 24 hours): Pt presents for L3 (possible additional levels) laminectomy for decompression an d microsurgical clip ligation of a R spinal dural AVF. Exam: Awake, alert Face symmetric, EOMI Full strength and symmetric in the BUE 3+/5 in BLE in HF, 5/5 DF/PF Decreased sensation to light tough at L3 and below on the back/back of legs Decreased sensation to light touch anterior thighs and below Pt is able to stand and ambulate with a walker at home but has been having incre ased frequency of falls recently. Pt marked and consented for surgery. I have examined the patient, and there are no significant changes in their condi tion, from the previous H&P performed on 05/01/22. Ceci Rocha MD [id number] [facility] Source Note - Vidal Cid MD - 05/01/2022 10:45 AM CDT Sahara presents with her family to discuss the results of spinal angiography. She has been experiencing progressive myelopathy over the past year. She has lo st considerable strength and sensation in the bilateral lower extremities. Her ambulation has been compromised. She is experiencing multiple falls. She now u ses a walker to protect from falls. She has lost control of her bowels and blad sofia such that she experiences the sensation of fullness to late to prevent soili ng. The symptoms continue to worsen and are concerning for her and family. 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 The natural history of this lesion is clear. The venous congestion is extensive . The progressive myelopathic changes she has been experiencing will continue. At their endpoint, she will lose functional use of the bilateral lower extremit ies and bowel and bladder steadily over time. It is possible along the course t hat she experiences sudden hemorrhage which would result in acute loss of neurol ogic function. This natural history is unacceptable to the patient and our treatment team. Disconnection of the fistula is a requirement. Open surgery for clipping of the fistula is the safest and most precise approach when the fistula involves the l umbar levels to preserve the vasculature to the intimately associated nerve root s. A multilevel lumbar laminectomy with durotomy will allow exposure to identify th e fistula for clipping. Typically this is a very well-tolerated operation. The patient however has supe rimposed degenerative changes of the lumbar spine. Bony decompression would fur ther exacerbate these changes. It is our best recommendation that beyond edyta ctomy simply to expose the fistula, a decompressive operation be performed. Therefore the operation will involve 2 surgeons. I will perform the vascular el ement of exposing identifying and clipping the fistula. Dr. Young will perform the decompression for lumbar degenerative disease. The goal of the operation to clip the fistula will be to stop the progression of myelopathy. The goal of the decompression will be to allow adequate room for t he neural structures to perform their functions. We talked about the risks and benefits of the operation. Clipping the fistula i s highly likely to be curative. It is possible however to experience recurrence or residual which may require repeat spinal angiography and further treatment p abdulkadir. This is not the expectation. More importantly, clipping the fistula, while this will normalize blood flow to the spinal cord, in rare instances progr essive thrombosis has been described. This can result in worsening of neurologi c function which can occur in the perioperative period. The only known recourse is thinning the blood with heparin. Thinning the blood in the perioperative se tting carries risk of bleeding. If we encounter this, it would be a delicate ba francois. While stopping the progression of myelopathy is the goal of the operation, whenila er or not there is an important provement in her baseline function cannot be kno wn. Most patients experience important neurologic improvement but that element is beyond our direct control. Sometimes the improvement can be mixed. Legs can get stronger but bowel and bladder not. The improvement of nerve function is u npredictable. The best we can do is normalize the environment of the spinal cor d. Normalizing the environment of the spinal cord can result in the release of neur o impulses that are presently masked. Paresthesias and neuropathic pain can be elicited. At the extreme end, it is possible for these sensations to be worse t hunt the sensations that she is presently experiencing. We talked about the challenges associated with wound healing, especially in the setting of a durotomy. CSF leak is a possibility and can require reoperation fo r definitive repair. While we plan to have the bony elements decompressed to spare the patient from n eurocompression, weakening the bony elements can accelerate arthritic changes an d may require management in the future if further degeneration becomes evident. Aches and pains related to the operation are in expectation. Most can be manage d appropriately with judicious medical direction. Typically, the risk of a serious adverse event is low. However, while the likeli chaparro of a significantly adverse outcome is low, the consequences can be the grav est. Spinal cord ischemia or hemorrhage are the typical mechanisms that, depend ing on size and/or location, can have life-changing, even life-threatening conse quences. We talked about the mechanisms by which such an adverse outcome might a rise, while understanding that not all mechanisms can be anticipated or controll ed. Indeed, when a rare adverse event occurs, it is often variables that cannot be controlled directly that have the most important impact on outcome. Therefore , treatment can only be appropriately pursued if the treatment risks are appropr iately weighed against the risks posed by the natural history of the disease pro cess if left untreated. The patient understands. The patient and her family are pleased that they have finally come to understand that there is an explanation underlying her progressive loss of function over t he past year. They are prepared for surgical treatment. They would like to pro ceed as early as possible to start the healing process. I will work with Dr. Lindsey's team to schedule a time for a definitive co-surgeon operation for this rar e condition superimposed with classic degenerative changes. If we can operate as early as next week that would be ideal. Please feel free to contact me with any concern regarding the neurosurgical kulwant gement of this patient. Dictated but not read. I spent 60 minutes on the care of this patient, over half in direct consultation documented in this encounter Procedure Notes * Rodolfo Collado MD - 05/10/2022 2:00 PM CDT Neurology Intraoperative Monitoring report (NIOM) Date of service: 05/10/2022 Patient name: Sahara Andujar Date of : 1950 Diagnosis: I67.1 Procedure: Spinal dural AVF clipping Surgeon: Palak Young Monitoring Time: 2.25 hours. (from 11:30 to 13:44 with incision time 11:37, bas khloe time 11:30, and closing time 13:44) Monitored Modalities: Somatosensory Evoked Potentials (SSEPs) The ulnar and posterior tibial nerves were stimulated bilaterally at the wrists and ankles respectively using subdermal needle electrodes affixed to the skin wi th adhesive tapes. Rectangular pulses of 0.5 msec duration were delivered at a r ate of 2.66 Hz and an intensity of up to 100mA. The SSEPs were recorded with sub dermal needle electrodes at C3, C3, C4, C4, Fz, and Oz. Electrodes impeda nce was attained below 5 KOhm. The [employer] IOM evoked potential system was utili [employer] for stimulation and recording. Results: Post induction baseline somatosensory evoked potentials from bilateral ulnar and posterior tibial nerves were obtained and were reproducible with inter pretable latencies and interpretable morphologies. Transcranial electrical motor evoked potentials (tceMEPs) The corticospinal motor tracts were stimulated on each side via standard corkscr ew-type clinical neurophysiologic stimulating electrodes affixed to the scalp. Stimulation was performed with [id number] connection between the two elect rodes, followed by reversal of polarity for opposite stimulation. Post inductio n baseline transcranial motor evoked potentials from the bilateral abducti digit i minimi, adductor longus, vastus lateralis, tibialis anterior, gastrocnemius, a bductor hallucis, and anal sphincter muscles and were reproducible with normal l atencies and morphologies except in the bilateral anal sphincter muscles. The [employer] IOM system was utilized. Results: The compound muscle action potential data showed no evidence to suggest change in the lateral cortico-spinal pathways as a consequence of this surgery. Repetitive Nerve Stimulation: TO4 (train of 4) was frequently run throughout the procedure to monitor for neur omuscular blockade. A nerve was repetitively stimulation and the compound motor action potentials (CMAPs) recorded from a distal motor group. The [employer] IOM s ystem was utilized. Results: TO4 was assessed during critical periods of surgery and demonstrated th at neuromuscular blockade was not present while monitoring EMGs and TcMEP. Free run spontaneous EMG (sEMG) Continuously running EMG was recorded to observe for spontaneous discharges, fro m standard neurophysiologic subdermal EMG electrodes inserted in or near the abd ucti digiti minimi, adductor longus, vastus lateralis, tibialis anterior, gastro cnemius, abductor hallucis, and anal sphincter muscles bilaterally. The [employer] IOM system was utilized. Results: There were no spontaneous EMG discharges resolved from the muscle EMG r ecordings as above to suggest percussive impingement on any of the corresponding nerve roots. Triggered EMG (tEMG) Pulses of square wave stimulation were delivered to pedicle screws of interest t hrough a handheld monopolar probe in surgeons hands, and amplitude of stimula tion necessary to induce a response in myotomally referable muscles was reported for each screw, stimulating with monophasic pulses of 0.2msec duration at 3Hz in steadily increasing intensity until response elicited. The [employer] IOM system was utilized. Results: Pedicle screws at the following levels were stimulated bilaterally: 2.2 5. All screws tested above 15mA. The surgeon was notified of all results. CONCLUSION The data from neurophysiological monitoring of somatosensory evoked potentials s howed no evidence to suggest change in the posterior column-medial lemniscus cor tical pathways as a consequence of this surgery. TceMEPs were elicitable from all monitored musculature throughout the procedure except as noted above. Free run EMG showed no spontaneous EMG activity in any of the monitored musculat ure. Triggered EMG demonstrated stimulation thresholds above published norms for adeq uate screw placement. Results of the neurophysiologic monitoring were communicated to the surgical tea m throughout the procedure. I personally reviewed the recordings in real time throughout the procedure onlin e via a secure HIPAA-compliant network. * Everett Fried MD - 05/10/2022 1:46 PM CDT Brief Operative Note Name: Sahara Andujar is a 71 y.o. female : 1950 MR N#: [id number] DATE OF OPERATION: 05/10/2022 Date: 05/10/2022 Preoperative Dx: Spinal vascular malformation [Q28.8] Post-op Diagnosis * Spinal vascular malformation [Q28.8] Procedure(s) (LRB): Lumbar 3 laminectomy, durotomy, microsurgical clipping spinal dural arteriovenou s fistula LAMINECTOMY/ FACETECTOMY/ FORAMINOTOMY WITH DECOMPRESSION - 1 VERTEBRAL SEGMENT - LUMBAR 3 MICROSURGICAL TECHNIQUES - REQUIRING OPERATING MICROSCOPE USE Surgeon(s) and Role: Panel 1: * Valdo Young MD - Primary * Ceci Rocha MD - Resident - Assisting * Vidal Cid MD - Co-Surgeon Panel 2: * Valdo Young MD - Primary * Saulo Santoyo MD - Resident - Assisting * Everett Fried MD - Resident - Assisting Findings: R L3 davf clipped successfully Estimated Blood Loss: 5 ml Specimen(s) Removed/Disposition: * No specimens in log * Complications: None Implants: * No implants in log * Drains: None Disposition: ICU - stable Everett Fried MD Pager documented in this encounter Consult Notes * Douglas Melendrez MD - 05/11/2022 11:36 AM CDTAssociated Order(s): CONSULT REHABILITATION MEDICINE PHYSICIAN Physical Medicine & Rehabilitation Consult Service Name: Sahara Andujar : 1950 Age: 71 y.o. 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 -Patient has complications of myelopathy consistent with need for ongoing physic talha management including neurogenic bowel/bladder in addition to intensive thera py. Will benefit from optimization of regimen while receiving intensive rehab to promote functional independence given that she ist typically by herself most of the day. Impairments: sensory loss and weakness neurogenic bowel, neurogenic bladder Activity Limitations: bathing, dressing - lower, toileting, bladder control, storm wel control, transfers, ambulation and stairs Participation Restrictions: unable to return home safely Family / Patient Dispositional Goals: return home with family assistance Overall Functional Goals Gait and mobility SBA Transfers SBA ADLs SBA Cognition / Communication Speech therapy will evaluate and treat cognition and c ommunication deficits and assess for safe swallow Barriers/Facilitators: Barriers: Poor strength/endurance and Uncontrolled pain Facilitators: good family / social support and improving strength / endurance Rehabilitation Prognosis: Good Tolerance for three hours of therapy a day: Good Impaired gait/mobility/transfers: The patient will benefit from continued work with PT to address mobility deficit s Impaired ADLs: The patient will benefit from ongoing OT to address functional deficits Neurogenic Bowel: Recommend bowel regimen with Senokot 2 tabs QHS and Colace 100-200mg daily while on opiate pain medications +/- Miralax daily prn. Consider starting a formal storm wel program with a daily suppository followed with digital stimulation with a go al of a BM [id number]. Neurogenic Bladder: Agree with ford catheter for now given limited mobility status. Once removed, c onsider voiding trial approximately q4hrs WHILE AWAKE, perform BVIs (bladder sca n) if unable to void or PVRs if able to void, and perform ISC (intermittent stra ight catheterization) for volumes > 300 mL. Would continue until pt has 3 consecutive volumes <100mL to ensure complete emptying and avoidance of urologic complications. Thank you for this consultation. Please call our consult pager with questions o r concerns. Douglas Melendrez MD Rehab Medicine History of Present Illness: CC: Post-operative pain Hospital Course: Ms. Andujar is a 71 y.o. female with PMH of CAD status post s tents x3, HTN, HLD, Prinzmetal angina, gout, prior childhood TB infection, cervi pawel cancer status post hysterectomy. Patient was evaluated in neurosurgical cli sloan on 05/05 at which time she had been experiencing progressive myelopathic sym ptoms over the previous year including lower extremity weakness with recurrent f alls, neurogenic bowel and bladder. Patient underwent spinal angiography which confirmed dural AV fistula at right L3. Decision made to proceed with decompress ion via L3 laminectomy with microsurgical clipping of the fistula. Procedure per formed on 05/10 as planned complicated by durotomy with repair The primary team has consulted PT and OT, and will continue working with therapi es to address functional and mobility deficits, rehab is now consulted for post- acute rehab/placement recommendations. The patient's family/social support consists of: daughter who can stay with her. Patient uses RW (outside the home) and MWC. Before surgery was only able to ami e 15 steps before resting. Standing limited. She feels she has noted immediate i mprovement. Medical History: Diagnosis Date Bronchiectasis (HCC) COPD (chronic obstructive pulmonary disease) (HCC) Coronary artery disease History of dental problems full set of dentures Surgical History: Procedure Laterality Date HX SECTION 1986 CORONARY STENT PLACEMENT X 3 HX APPENDECTOMY HX CHOLECYSTECTOMY HX CYST REMOVAL Left wirst HX TOTAL VAGINAL HYSTERECTOMY OVARIAN CYST REMOVAL Social History Socioeconomic History Marital status: Tobacco Use Smoking status: Former Smoker Packs/day: 1.00 Years: 45.00 Pack years: 45.00 Types: Cigarettes Quit date: 2011 Years since quittin. Smokeless tobacco: Never Used Vaping Use Vaping Use: Former Substances: Nicotine Substance and Sexual Activity Alcohol use: Not Currently Comment: ~ once a month Drug use: Never History reviewed. No pertinent family history. Scheduled Meds:allopurinoL (ZYLOPRIM) tablet 300 mg, 300 mg, Oral, QDAY atenoloL (TENORMIN) tablet 25 mg, 25 mg, Oral, QHS bisacodyL (DULCOLAX (bisacodyl)) rectal suppository 10 mg, 10 mg, Rectal, QDAY docusate (COLACE) capsule 100 mg, 100 mg, Oral, BID escitalopram oxalate (LEXAPRO) tablet 20 mg, 20 mg, Oral, QDAY famotidine (PEPCID) tablet 20 mg, 20 mg, Oral, BID gabapentin (NEURONTIN) capsule 100 mg, 100 mg, Oral, Q8H isosorbide mononitrate (IMDUR) ER tablet 180 mg, 180 mg, Oral, QHS milk of magnesia (CONC) oral suspension 10 mL, 10 mL, Oral, QDAY senna/docusate (SENOKOT-S) tablet 1 tablet, 1 tablet, Oral, BID Continuous Infusions: PRN and Respiratory Meds:acetaminophen Q4H PRN, ondansetron (ZOFRAN) IV Q6H PRN, oxyCODONE Q4H PRN Allergies Allergen Reactions Hydrocodone STOMACH UPSET and NAUSEA AND VOMITING Diazepam MENTAL STATUS CHANGES and SEE COMMENTS Acts spacey Hiexruk-Cux-Ctt Reductase Inhibitors MUSCLE PAIN and SEE COMMENTS Causes issues with muscles in legs Causes issues with muscles in legs Prior Level of Function: The patient was mod independent for all mobility/ambulation and activities of [facility] living. Home Environment: Home Situation: Lives with Family (05/11/2022 3:29 PM) Patient Owned Equipment: Manual Wheelchair; 4-Wheeled Walker; Roller Walker (05/11/2022 3:29 PM) Type of Home: House (05/11/2022 3:29 PM) Entry Stairs: 1-2 Stairs (1) (05/11/2022 3:29 PM) In-Home Stairs: Able to Live on One Level (05/11/2022 3:29 PM) No data recorded Bathroom Equipment: Shower Chair (05/11/2022 2:35 PM) Current Level Of Function: PT Gait:Gait Distance: 250 feet Gait: Assistance Level: Minimal Assist Gait: Ass istive Device: Roller Walker Bed Mobility/Transfers Bed Mobility: Supine to Sit: Standby Assist, Head of Bed Elevated, No Rail Transfer Type: Sit to Stand Transfer: Assistance Level: Bed, Minimal Assist Transfer: Assistive Device: Roller Walker Transfers: Type Of Assistance: For Strength Deficit, For Balance, For Safety Con siderations Other Transfer Type: Stand to Sit Other Transfer: Assistance Level: Wheelchair, Moderate Assist, x2 People (due to loss of eccentric control and near edge of chair) Other Transfer: Assistive Device: Roller Walker Other Transfer: Type Of Assistance: For Balance, For Strength Deficit, Knees(s) Blocked, For Safety Considerations End Of Activity Status: Up in Chair, Nursing Notified, Instructed Patient to Req uest Assist with Mobility, Instructed Patient to Use Call Light (pads alarm acti vated) OT ADL's Where Assessed: Chair, Edge of Bed Eating Assist: Independent Eating Deficits: No Assist Needed Grooming Assist: Stand By Assist Grooming Deficits: Setup LE Dressing Assist: Maximum Assist LE Dressing Deficits: Don/Doff R Sock, Don/Doff L Sock Toileting Assist: Maximum Assist Toileting Deficits: Perineal Hygiene Review of Systems: A 14 point review of systems was negative except for: that noted in the HPI Physical Exam: BP: 109/93 (05/11 1200) Temp: 36.9 C (98.4 F) (05/11 1200) Pulse: 67 (05/11 1200) Respirations: 18 PER MINUTE (05/11 1200) SpO2: 96 % (05/11 1200) O2 Device: None (Room air) (05/11 1200) Body mass index is 29.58 kg/m. Gen: resting in NAD, obese, daughter present HEENT: NCAT Neck: no visible masses Heart: Extremities well perfused Lungs: non labored breathing Abdomen: Soft, non-tender, non-distended : External cath Skin: no gross lesions appreciated Ext: purposeful movement of extremities MS: Root Right Left Shoulder Abduction C5 5 5 Elbow Flexion C5 5 5 Elbow Extension C7 5 5 Wrist Extension C6 5 5 Finger Flexion C8 5 5 Finger Abduction T1 5 5 Hip Flexion L2 5* 5* Knee Flexion L5/S1 5* 5* Knee Extension L3 5* 5* Dorsiflexion L4 5* 5* Plantarflexion S1 5* 5* *can briefly demonstrate ability to achieve full muscle power before pain limita tions Neuro: Cranial Nerves Cranial Nerves 2-12 are grossly intact Upper Extremity Tone Normal Lower Extremity Tone Normal Sensation Impaired L3 and below Memory/Cognition/Speech Within limits Intake/Output Summary (Last 24 hours) at 05/11/2022 1556 Last data filed at 05/11/2022 1200 Gross per 24 hour Intake 2210 ml Output 2085 ml Net 125 ml Hematology: Lab Results Component Value Date HGB 11.4 05/11/2022 HCT 35.0 05/11/2022 PLTCT 253 05/11/2022 WBC 11.6 05/11/2022 NEUT 80 05/11/2022 ANC 9.28 05/11/2022 ALC 1.12 05/11/2022 MICHAEL 10 05/11/2022 AMC 1.15 05/11/2022 ABC 0.03 05/11/2022 MCV 90.6 05/11/2022 MCHC 32.6 05/11/2022 MPV 9.1 05/11/2022 RDW 13.8 05/11/2022 , Coagulation: No results found for: PT, PTT, INR and General Chemistry: Lab Results Component Value Date NA 140 05/11/2022 K 4.3 05/11/2022 CL 107 05/11/2022 GAP 11 05/11/2022 BUN 9 05/11/2022 CR 0.68 05/11/2022 GLU 106 05/11/2022 CA 8.5 05/11/2022 OBSCA 1.09 05/11/2022 MG 2.0 05/11/2022 Radiology: Reviewed Douglas Melendrez MD * Doreen Nuñez DO - 05/10/2022 1:52 PM CDTAssociated Order(s): CONSULT NEURO CRITICAL CARE PHYSICIAN Neuro Critical Care Consult Note Sahara Andujar Admission Date: 05/10/2022 LOS: 0 days Prior ASSESSMENT/PLAN Patient Active Problem List Diagnosis Date 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 Hospital and ICU course: 05/10: Admitted to [facility] s/p L3 laminectomy. Neuro: Right spinal dural AVF s/p L3 laminectomy, durotomy, microsurgical clipping - - pt to remain flat in bed, ok to elevate bed 10-15 degrees with meals - SBP Goal: < 140 - Periop Ancef 2g x3 - Neuro-ICU monitoring, neurochecks Q1H Psych: Depression - CLINICAL PRACTICE CONSULTANT Escitalopram 20 mg daily Sedation/Pain Management: - agents: PRN Tylenol, Fentanyl, Oxycodone - Assess for delirium daily Cardiac: HTN CAD s/p cardiac stents x3 Prinzmetal angina HLD - SBP goal: < 140 - MAP goal > 65 - PRN Hydralazine, Labetalol - Resume CLINICAL PRACTICE CONSULTANT Atenolol 25 QHS - Hold CLINICAL PRACTICE CONSULTANT asa 81 mg Respiratory: Hx Tb (childhood) Former smoker - Satting well on 2L NC - Goal of normoxia GI: - Feeding: Regular diet - neuro bowel regimen, ensure daily BM (Last BM 4 days ago) Heme: - Ordered daily CBC - VTE prophylaxis: Mechanical prophylaxis; Sequential compression device - assess for coagulopathy, maintain platelets above 100k, INR <1.5 ID: - Ordered daily CBC - Tmax 36.9C - aim for normothermia, Temp <38.3 celsius, normothermia protocol if febrile MSK: Gout - Resume CLINICAL PRACTICE CONSULTANT Allopurinol 300 mg daily Renal: BUN 12, Cr 0.61 - Daily BMP - Monitor hourly I/O balance - Aim for normovolemia - Maintain ford catheter Intake/Output Summary (Last 24 hours) at 05/10/2022 1444 Last data filed at 05/10/2022 1338 Gross per 24 hour Intake 1800 ml Output 480 ml Net 1320 ml Endocrine: SBG 100 - Daily BMP - Blood glucose goal 100-180mg/dl FEN: - IVF: SL - Critical care electrolyte replacement protocol - Magnesium goal >2.0, i-Pawel goal > 1.0, Potassium goal >4.0 mEq/L Prophylaxis Review: A) GI: famotidine 20 mg BID B) Lines: Yes; Arterial Line; Indication: Continuous BP monitoring; Location: Radial C) Urinary Catheter: Yes; Retain ford due to: Need for accurate Intake and Ou tput D) Antibiotic Usage: Yes - periop Ancef 2g x3 E) VTE: Mechanical prophylaxis; Sequential compression device F) Isolation: none G)Seizures: none I) Restraints: Patient assessed for need for restraints. Disposition/Family: Unchanged. Primary service: NSG Consults: NCC, PT/OT SUBJECTIVE Chief Complaint: Low back pain with progressive lower extremity motor weakness a nd sensation loss History of Present Illness: Sahara Andujar is a 71 y.o. female with PMH of CAD s/p stents x3, HTN, HLD, gout, prior TB infection as a child, cervical canc er s/p hysterectomy, who presents to [facility] s/p L3 laminectomy for decompression and microsurgical clip ligation of a right spinal dural AVF. Patient has a long standing history of low back pain. She began having associate d bilateral leg weakness 2-3 years ago where her legs would get progressively ti red throughout the day. Motor weakness has worsened to the point where she would have increasing number of falls, leading to once/week this past year. She began using a walker on and off 6 months ago that progressed to wheelchair use 2-3 we eks ago. Endorses urinary and bowel incontinence this past year that has progres sively worsened 4 months ago. Also has decreased sensation from the waist down. Had a spinal arteriogram on 04/30 that revealed a right L3 dural AVF. Post operatively, patient is doing well, with post op back pain rated 5/10. Last reported bowel movement was 4 days ago. Medical History: Diagnosis Date Bronchiectasis (HCC) COPD (chronic obstructive pulmonary disease) (HCC) Coronary artery disease History of dental problems full set of dentures Surgical History: Procedure Laterality Date HX SECTION 1986 CORONARY STENT PLACEMENT X 3 HX APPENDECTOMY HX CHOLECYSTECTOMY HX CYST REMOVAL Left wirst HX TOTAL VAGINAL HYSTERECTOMY OVARIAN CYST REMOVAL History reviewed. No pertinent family history. Social History Social History Narrative Not on file Code Status: Full Code Decision Maker: patient. If patient is unable, then any of children. Immunizations (includes history and patient reported): There is no immunization history on file for this patient. Allergies: Hydrocodone, Diazepam, and Zpmscrd-eqq-qsk reductase inhibitors Medications Prior to Admission Medication Sig allopurinoL (ZYLOPRIM) 300 mg tablet Take 300 mg by mouth daily. aspirin EC 81 mg tablet Take 81 mg by mouth daily. atenoloL (TENORMIN) 25 mg tablet Take 25 mg by mouth at bedtime daily. betamethasone dipropionate (BETANATE) 0.05 % topical cream Apply topically to affected area daily as needed. escitalopram oxalate (LEXAPRO) 20 mg tablet Take 20 mg by mouth daily. evolocumab (REPATHA SURECLICK) 140 mg/mL injectable PEN Inject 140 mg under the skin every 14 days. On Saturdays isosorbide mononitrate (IMDUR) 60 mg ER tablet Take 180 mg by mouth at bedti me daily. nitroglycerin (NITROSTAT) 0.[address] 0.6 mg under tongue every 5 minutes for 3 doses. traMADoL (ULTRAM) 50 mg tablet Take 100 mg by mouth every 6 hours as needed. Review of Systems: A 14 point review of systems was negative except as noted in HPI. OBJECTIVE Vital Signs: Last Filed Vital Signs: 24 Hour Ra nge BP: 149/70 (05/10 1016) Temp: 36.6 C (97.9 F) (05/10 1016) Pulse: 70 (05/10 1016) Respirations: 18 PER MINUTE (05/10 1016) SpO2: 97 % (05/10 1016) O2 Device: None (Room air) (05/10 1016) Height: 160 cm (5' 3") (05/10 1016) Weight: 75.8 kg (167 lb) (05/10 1016) SpO2 Pulse: 70 (05/10 1016) BP: (149)/(70) Temp: [36.6 C (97.9 F)] Pulse: [70] Respirations: [18 PER MINUTE] SpO2: [97 %] O2 Device: None (Room air) Intensity Pain Scale (Self Report): (not recorded) Vitals: 05/10/22 1016 Weight: 75.8 kg (167 lb) Artificial airway: None Ventilator/ Respiratory Therapy: No Vent weaning trial: Not applicable Lines: Arterial Line and Peripheral Line Drains: Ford catheter Critical Care Vitals: ICP Monitoring: Hemodynamics/Oxycalcs: Intake/Output Summary: (Last 24 hours) Intake/Output Summary (Last 24 hours) at 05/10/2022 1352 Last data filed at 05/10/2022 1338 Gross per 24 hour Intake 1800 ml Output 480 ml Net 1320 ml Physical Exam: Blood pressure (!) 149/70, pulse 70, temperature 36.6 C (97.9 F), height 160 cm (5' 3"), weight 75.8 kg (167 lb), SpO2 97 %. Elizabeth coma score: E: 4 - Opens eyes on own M: 6 - Follows simple motor commands V: 5 - Alert and oriented Neuro: Mental Status: A/O x4 Cranial Nerves: Cranial nerves 2-12 INTACT. - Pupil exam: Size: 4 BL Reactivity: brisk - EOM: intact - Corneal reflex: R - present L - present - Grimace/facial movement: present - Cough: present Motor: RUE: Strength: 4/5 RLE: Strength: 2+/5 with hip flexion, 4/5 with pedal dorsiflex ion, plantar flexion LUE: Strength: 4/5 LLE: Strength: 2+/5 with hip flexion, 4/5 with pedal dorsiflexion, planta r flexion Sensory: decreased sensation from T10 and below Lungs: clear to auscultation bilaterally Pulmonary: Respiratory status: Stable Heart: regular rate and rhythm Abdomen: soft, non-tender. Bowel sounds normal. No masses, no organomegaly Extremities: extremities normal, atraumatic, no cyanosis or edema Skin: Skin color, texture, turgor normal. No rashes or lesions Point of Care Testing: (Last 24 hours): Glucose: 100 (05/10/22 1022) Lab Review: Pertinent labs reviewed Radiology and Other Diagnostic Procedures Review: Pertinent radiologic and diag nostic procedures reviewed. 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 Cares included: detailed neurologic and systems exam, medication rev iew, laboratory data review and interpretation, electrolyte management, review o f available imaging, DVT/PE prophylaxis review, diet review, activity review, an d coordination of care with consulted teams Doreen Nuñez DO Date: 05/10/[id number] Associated attestation - Valdo Quintanilla MD - 05/11/2022 9:41 AM CDT ATTESTATION I have seen, personally fully evaluated, and discussed patient with the NEICU te am. I agree with the objective findings and agree with the plan of care as docu mented by the resident with the exceptions noted. The patient is critically ill immediately post op from laminectomy and decompression and clipping of spinal d ural AVF. I spent 36 minutes (excluding time spent performing or supervising an y procedures) providing and personally directing critical care services, catarino tirado reviewing imaging and laboratory results. Staff name: Valdo Quintanilla MD Date: 05/10/2022 documented in this encounter OR Notes * Operative Report (Direct Entry) - Valdo Young MD - 05/10/2022 11:36 AM CDT OPERATIVE REPORT Name: Sahara Andujar is a 71 y.o. female : 1950 MR N#: [id number] DATE OF OPERATION: 05/10/2022 Surgeon(s) and Role: * Valdo Young MD - Primary * Ceci Rocha MD - Resident - Assisting * Vidal Cid MD - Co-Surgeon Preoperative Diagnosis: Spinal vascular malformation [Q28.8] Post-op Diagnosis * Spinal vascular malformation [Q28.8] Procedure(s) (LRB): Lumbar 3 laminectomy, durotomy, microsurgical clipping spinal dural arteriovenou s fistula MICROSURGICAL TECHNIQUES - REQUIRING OPERATING MICROSCOPE USE Description and Findings of Operative Procedure: After informed consent was conf irmed in chart patient was updated, marked, brought back to the operating room w here general anesthesia was induced. Neuro monitoring was initiated and patient 's rolled prone onto Yung frame. All bony prominences were padded. Timeout w as performed and was correct. Patient was prepped and draped you sterile fashio n. Crosstable x-ray is used throughout the case for localization with. Incisio n was planned centered over the L3 vertebrae. Local anesthetic was injected and incision was opened sharply. Bovie electrocautery was used to carry incision d own to and through paraspinous fascia reflecting the paraspinous musculature off the posterior elements in a subperiosteal fashion bilaterally. Appropriate lev els confirmed and complete L3 laminectomy was performed with [place]ell rongeurs, K errison punches, and high-speed drill. Operating microscope was brought in and dura was opened carefully in the midline. 4-0 Nurolon sutures used to tack the dura bilaterally. Microsurgical technique was used to expose fistulous vein ent ering from the right-sided L3 nerve root sleeve. This was confirmed with ICG. Fistulous vein was carefully dissected away from the nerve roots and microvascul ar clips were placed across it. Fistulous vein was then bipolar coagulated as w elvira. ICG was then repeated showing obliteration of the fistula. Thecal sac was copiously irrigated and closed in a running fashion with 4-0 Nurolon. Valsalva was performed and did not show any dural leak. DuraSeal exact was placed over the dural closure and incision was closed in the usual fashion. Neuro monitorin g was stable throughout the case. Estimated Blood Loss: 5 ml Specimen(s) Removed/Disposition: None Attestation: I performed this procedure with a resident. and The espino portion of this procedure was performed in my presence. Complications: None Implants: * No implants in log * Drains: None Disposition: ICU - stable Valdo Young MD Pager * Operative Report (Direct Entry) - Vidal Cid MD - 05/10/2022 11:36 AM CDT OPERATIVE REPORT Name: Sahara Andujar is a 71 y.o. female : 1950 MR N#: [id number] DATE OF OPERATION: 05/10/2022 Surgeon(s) and Role: * Valdo Young MD - Primary * Saulo Santoyo MD - Resident - Assisting * Ceci Rocha MD - Resident - Assisting * Everett Fried MD - Resident - Assisting * Vidal Cid MD - Co-Surgeon Preoperative Diagnosis: Spinal vascular malformation [Q28.8] Post-op Diagnosis * Spinal vascular malformation [Q28.8] Procedure(s) (LRB): Lumbar 3 laminectomy, durotomy, microsurgical clipping spinal dural arteriovenou s fistula MICROSURGICAL TECHNIQUES - REQUIRING OPERATING MICROSCOPE USE Description and Findings of Operative Procedure: Patient is a 71-year-old female with a 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 The patient was evaluated by Dr. Young for degenerative changes of the axial lumbar spine. Dr. Young suspected the patient may be harboring a spi nal vascular malformation. I therefore performed spinal angiography. We confir med type I spinal dural arteriovenous fistula involving right L3. Surgical wali tment for ligation of the fistula is the treatment of choice. The bony exposure would predispose the patient to exacerbation of preexistent degenerative change s. Therefore, to prevent the patient from requiring an extensive decompressive operation in the future, we devised a plan to utilize the expertise of Dr. Young to perform the exposure and decompression of the degenerative elements in the r egion and my expertise to identify and ligate the abnormal vasculature. Therefo re in a single operation, 2 problems can be simultaneously treated and the seque lae of both the vascular finding and the generative changes could be arrested. On the patient's behalf, we expedited the surgical treatment date. Dr. Young se rved as the lead surgeon and I served as a co-surgeon. I joined the operation when the dura was opened. The microscope was brought ont o the field and microdissection continued for all elements of the vascular treat ment. Correlating with the spinal angiography, I directed the operation towards the nerve root at right L3. An obvious arterialized vein was identified admitt ing directly from the nerve root sleeve as predicted by the spinal angiography. Microdissection was performed to separate the proximal length of the pathologic vessel from the surrounding nerve root. ICG angiography was then performed dem onstrating clearly arterialized flow into the vessel. A temporary aneurysm clip was placed. This confirmed our decision making. The fistulous vein was then c oagulated with bipolar cautery. The temporary aneurysm clip was removed. Fine permanent micro clips were placed. ICG angiography was repeated demonstrating c omplete resolution of the pathologic blood flow. The vascular portion of the operation was considered complete. The remainder of the operation was carried out under Dr. Young's direction. Estimated Blood Loss: 55 ml Specimen(s) Removed/Disposition: * No specimens in log * Attestation: I performed this procedure with a resident. Complications: None Vidal Cid MD Pager VISION THERAPIST documented in this encounter Miscellaneous Notes * Pre-Anesthesia Medication Instructions - Marika Neri RN - 05/03/2022 3:34 PM CDT YOUR MEDICATION LIST allopurinoL (ZYLOPRIM) 300 mg tablet Take 300 mg by mouth daily. aspirin EC 81 mg tablet Take 81 mg by mouth daily. atenoloL (TENORMIN) 25 mg tablet Take 25 mg by mouth at bedtime daily. betamethasone dipropionate (BETANATE) 0.05 % topical cream Apply topically to affected area daily as needed. escitalopram oxalate (LEXAPRO) 20 mg tablet Take 20 mg by mouth daily. evolocumab (REPATHA SURECLICK) 140 mg/mL injectable PEN Inject 140 mg under the skin every 14 days. On Saturdays isosorbide mononitrate (IMDUR) 60 mg ER tablet Take 180 mg by mouth at bedtime daily. nitroglycerin (NITROSTAT) 0.[address] 0.6 mg under tongue ev felisa 5 minutes for 3 doses. traMADoL (ULTRAM) 50 mg tablet Take 100 mg by mouth every 6 hours as needed. YOUR MEDICATION INSTRUCTIONS FOR SURGERY Please continue taking your medications as your doctor has told you to UNLESS it is listed to stop below. 14 DAYS BEFORE SURGERY Do not start any new vitamins, herbals, or natural supplements before surgery. 7 DAYS BEFORE SURGERY DO NOT TAKE the following anti-inflammatory medications such as ibuprofen (Advil , Motrin) and naproxen (Aleve) You may use acetaminophen (Tylenol) BLOOD THINNER instructions: Aspirin - A pharmacy consult has been placed. A pharmacist will reach out with i stefani for this medication. DAY BEFORE SURGERY TAKE your medications the day before surgery as usual unless told differently. MORNING OF SURGERY DO NOT take these medications: Remaining vitamins/supplements Ointments/creams/lotions Allopuriol Betamethasone cream Repatha TAKE these medications with a sip (1-2 ounces) of water: Lexapro Use all inhalers, nasal sprays, and eye drops as usual May take if needed: Nitroglycerin Tramadol Tylenol Please contact the clinic pharmacist with any changes to your medication list or medication questions before surgery. E-mail: [email or web address] Phone Triage Nurse - Marika: [phone] Before going home from the hospital, please ask your doctor when you should re-s tart any medicine that was stopped for surgery. * Pre-Anesthesia Patient Instructions - Marika Neri RN - 05/03/2022 3:33 PM CDT GENERAL INFORMATION Before you come to the hospital If you are having an outpatient procedure, you will need to arrange for a respon sible ride/person to accompany you home due to sedation or anesthesia with your procedure. A responsible person is a person who has the ability to identify a ch treva in the patient's status and notify medical personnel. This is typically a family member or friend. Public transportation is permitted if you have a respo nsible person to accompany you. An Uber, taxi or other public transportation dr milan is not considered a responsible person to accompany you home. Bath/Shower Instructions Take a bath or shower with antibacterial soap the night before or the morning of your procedure. Use clean towels. Put on clean clothes after bath or shower. Avoid using lotion and oils. If you are having surgery above the waist, wear a shirt that fastens up the fron t. Sleep on clean sheets if bath or shower is done the night before procedure. Leave money, credit cards, jewelry, and any other valuables at home. [facility] is not responsible for the loss or breakage of personal i tems. Remove nail puerto rican, makeup and all jewelry (including piercings) before coming t o the hospital. The morning of your procedure: brush your teeth and tongue do not smoke, vape, chew or use any tobacco products do not shave the area where you will have surgery What to bring to the hospital ID/ Insurance Card Cat And Dog Bather card Official documents for legal guardianship Copy of your Living Will, Advanced Directives, and/or Durable Power of Circulation Representative. If you have these documents, please bring them to the admissions office on the day of your surgery to be scanned into your records. Small bag with a few personal belongings Walker, cane, or motorized scooter Cases for glasses/hearing aids/contact lens (bring solutions for contacts) Dress in clean, loose, comfortable clothing Eating or drinking before surgery Do not eat or drink anything after 11:00 p.m. the day before your procedure (inc luding gum, mints, candy, or chewing tobacco) OR follow the specific instruction s you were given by your Surgeon. You may have WATER ONLY up to 2 hours before arriving at the hospital. Other instructions Notify your surgeon if: there is a possibility that you are you become ill with a cough, fever, sore throat, nausea, vomiting or flu-like sy mptoms you have any open wounds/sores that are red, painful, draining, or are new since you last saw the doctor you need to cancel your procedure Notify us at [place]: if you need to cancel your procedure if you are going to be late Arrival at the hospital [facility] [address] [place] [address] Park in the P5 parking garage located at [address] [place] [address]. If parking in the P5 garage, take the east elevators in the parking garage to th e second level and walk to the entrance of the [facility] [place]. Enter through the 1st floor main entrance and check in with Information Desk. If you are a woman between the ages of 10 and 55, and have not had a hysterectom y, you will be asked for a urine sample prior to surgery. Please do not urinate before arriving in the Surgery Waiting Room. Once there, check in and let the attendant know if you need to provide a sample. You will receive a call with your surgery arrival time between 2:30pm and 4:30pm the last business day before your procedure. If you do not receive a call, ple ase call [phone] before 4:30pm or [phone] after 4:30pm. For the safety of all patients, visitors and staff as we work to contain COVID-1 9, we must restrict patient visitors. Current Visitor Policy (02/05/22): Our current, and ongoing, visitor rules in surgery and procedural areas are: 2 visitors per patient will be allowed to accompany the patient and wait in the Waiting Room. Patients in inpatient and pediatric units, Emergency Department, ambulatory clin ics and lab appointments may only have two visitors. For inpatient stays, patients may have 2 visitors at a time at their bedside. Th e two visitors can change throughout the day, but no more than two at a time may be bedside. The policy applies to [facility], [facility] and [facility] and clinics. Exceptions include: No visitors allowed for patients with active COVID-19 infections. Children younger than age 12 are allowed to visit inpatients. Two parents/guardians are allowed for surgical or procedural patients younger th an 18 years old. Adult inpatients in semiprivate rooms may have visitors, but visits should be co ordinated so only two total visitors are in a room at a time due to space limita tions. Visitors must be free of fever and symptoms to be in our facilities. We ask visi tors to follow these guidelines: Wear a mask at all times, unless under the age of 2, have trouble breathing or a re unconscious, incapacitated or otherwise unable to remove the cover without as sistance. Go directly to the nursing station in the unit you are visiting and do not linge r in public areas. Check in at the nursing station before going to the patient's room. Maintain a physical distance of six feet from all others. Follow elevator restrictions to four riding at a time - peak times are 6:30-7:30 a.m., noon and 6:30-7:30 p.m. Be aware cafeteria peak times are 11 a.m. - 1 p.m. Wash your hands frequently and cover your coughs and sneezes. documented in this encounter Plan of Treatment Not on filedocumented as of this encounter Goals Goal Patient Associated Recent Progress Patient-Stat Aut hor Goal Type Problems ed? Increase Physical Activity Exercise On track (05/10/2022 Yes Bess, 6:05 PM CDT) RANJITH Perez documented as of this encounter Procedures Comments Procedure Name Priority Date/Time Associated Diag nosis HC CBC W/ AUTOMATED DIFF Routine 05/15/2022 1:00 AM LOW VISION THERAPIST HC BASIC METABOLIC PANEL Routine 05/15/2022 1:00 AM LOW VISION THERAPIST HC CBC W/ AUTOMATED DIFF Routine 05/14/2022 4:29 AM LOW VISION THERAPIST HC BASIC METABOLIC PANEL Routine 05/14/2022 4:29 AM LOW VISION THERAPIST HC CBC W/ AUTOMATED DIFF Routine 05/13/2022 4:31 AM LOW VISION THERAPIST HC BASIC METABOLIC PANEL Routine 05/13/2022 4:31 AM LOW VISION THERAPIST HC CBC W/ AUTOMATED DIFF Routine 05/11/2022 2:57 AM CDT HC PHOSPHOROUS, SERUM 05/11/2022 2:57 AM CDT HC MAGNESIUM 05/11/2022 2:57 AM CDT HC CALCIUM IONIZED Routine 05/11/2022 2:57 AM CDT HC BASIC METABOLIC PANEL Routine 05/11/2022 2:57 AM CDT L SPINE 1 VIEW Routine 05/10/2022 12:07 PM CDT L SPINE 1 VIEW Routine 05/10/2022 11:29 AM CDT MICROSURGICAL TECHNIQUES 05/10/2022 Spinal vascu lar - REQUIRING OPERATING 10:44 AM CDT malformation MICROSCOPE USE Special Needs 05/04 per teams: [10:09 AM] Guzman Polo r 3 is the level for both Palak and Hector?[10: 09 AM] Mariama Fine !- bp 1241 LAMINECTOMY FOR EXCISION/ 05/10/2022 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 Special Needs 05/04 per teams: [10:09 AM] Guzman Polo r 3 is the level for both Palak and Hector?[10: 09 AM] Mariama Fine !- bp 1241 HC BLOOD TYPING, ABO STAT 05/10/2022 CONFIRM 91 10:42 AM CDT TYPE & CROSSMATCH STAT 05/10/2022 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) Preop testing HC BASIC METABOLIC PANEL STAT 05/10/2022 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) Preop testing documented in this encounter Results * (ABNORMAL) BASIC METABOLIC PANEL (05/15/2022 1:00 AM LOW VISION THERAPIST) Pathologist Signature Component Value Ref Test Method Analysis Performed A t Range Time Sodium 132 (L) 137 - 05/15/2022 [facility] 147 1:40 AM MMOL/L LOW VISION THERAPIST Potassium 4.1 3.5 - 05/15/2022 [facility] 5.1 1:40 AM MMOL/L LOW VISION THERAPIST Chloride 97 (L) 98 - 110 05/15/2022 [facility] MMOL/L 1:40 AM LOW VISION THERAPIST CO2 28 21 - 30 05/15/2022 [facility] MMOL/L 1:40 AM LOW VISION THERAPIST Anion Gap 7 3 - 12 05/15/2022 [facility] 1:40 AM LOW VISION THERAPIST Glucose 127 (H) 70 - 100 05/15/2022 [facility] MG/DL 1:40 AM LOW VISION THERAPIST Blood Urea Nitrogen 7 7 - 25 05/15/2022 [facility] MG/DL 1:40 AM LOW VISION THERAPIST Creatinine 0.60 0.4 - 05/15/2022 [facility] 1.00 1:40 AM MG/DL LOW VISION THERAPIST Calcium 9.0 8.5 - 05/15/2022 [facility] 10.6 1:40 AM MG/DL LOW VISION THERAPIST eGFR >60 >60 05/15/2022 [facility] mL/min 1:40 AM LOW VISION THERAPIST Comment: eGFR calculated using the CKD-EPIcr_R equation Anatomical Location / Laterality Collection Method / Volume Rubio ection Time Received Time Specimen (Source) 05/15/2022 1:00 AM LOW VISION THERAPIST 05/15/20 1:05 AM LOW VISION THERAPIST Valdo Young MD LABORATORY ORDERABLES City/State/ZIP Code Phone Number Performing [place] [address] [facility] [id number] * (ABNORMAL) CBC AND DIFF (05/15/2022 1:00 AM LOW VISION THERAPIST) Pathologist Signature Component Value Ref Test Method Analysis Performed A t Range Time White Blood Cells 10.4 4.5 - 05/15/2022 [facility] 11.0 1:22 AM K/UL LOW VISION THERAPIST RBC 3.90 (L) 4.0 - 05/15/2022 [facility] 5.0 M/UL 1:22 AM LOW VISION THERAPIST Hemoglobin 11.9 (L) 12.0 - 05/15/2022 [facility] 15.0 1:22 AM GM/DL LOW VISION THERAPIST Hematocrit 35.1 (L) 36 - 45 05/15/2022 [facility] % 1:22 AM LOW VISION THERAPIST MCV 90.0 80 - 100 05/15/2022 [facility] FL 1:22 AM LOW VISION THERAPIST MCH 30.5 26 - 34 05/15/2022 [facility] PG 1:22 AM LOW VISION THERAPIST MCHC 33.8 32.0 - 05/15/2022 [facility] 36.0 1:22 AM G/DL LOW VISION THERAPIST RDW 13.4 11 - 15 05/15/2022 [facility] % 1:22 AM LOW VISION THERAPIST Platelet Count 242 150 - 05/15/2022 [facility] 400 K/UL 1:22 AM LOW VISION THERAPIST MPV 8.9 7 - 11 05/15/2022 [facility] FL 1:22 AM LOW VISION THERAPIST Neutrophils 72 41 - 77 05/15/2022 [facility] % 1:22 AM LOW VISION THERAPIST Lymphocytes 16 (L) 24 - 44 05/15/2022 [facility] % 1:22 AM LOW VISION THERAPIST Monocytes 9 4 - 12 % 05/15/2022 [facility] 1:22 AM LOW VISION THERAPIST Eosinophils 2 0 - 5 % 05/15/2022 [facility] 1:22 AM LOW VISION THERAPIST Basophils 1 0 - 2 % 05/15/2022 [facility] 1:22 AM LOW VISION THERAPIST Absolute Neutrophil 7.36 (H) 1.8 - 05/15/2022 [facility] Count 7.0 K/UL 1:22 AM LOW VISION THERAPIST Absolute Lymph Count 1.68 1.0 - 05/15/2022 [facility] 4.8 K/UL 1:22 AM LOW VISION THERAPIST Absolute Monocyte 0.98 (H) 0 - 0.80 05/15/2022 [facility] Count K/UL 1:22 AM LOW VISION THERAPIST Absolute Eosinophil 0.23 0 - 0.45 05/15/2022 [facility] Count K/UL 1:22 AM LOW VISION THERAPIST Absolute Basophil 0.12 0 - 0.20 05/15/2022 [facility] Count K/UL 1:22 AM LOW VISION THERAPIST Anatomical Location / Laterality Collection Method / Volume Rubio ection Time Received Time Specimen (Source) 05/15/2022 1:00 AM LOW VISION THERAPIST 05/15/20 1:05 AM LOW VISION THERAPIST Valdo Young MD LABORATORY ORDERABLES City/State/ZIP Code Phone Number Performing [place] [address] [facility] [address] * (ABNORMAL) BASIC METABOLIC PANEL (05/14/2022 4:29 AM LOW VISION THERAPIST) Pathologist Signature Component Value Ref Test Method Analysis Performed A t Range Time Sodium 134 (L) 137 - 05/14/2022 [facility] 147 5:33 AM MMOL/L LOW VISION THERAPIST Potassium 4.4 3.5 - 05/14/2022 [facility] 5.1 5:33 AM MMOL/L LOW VISION THERAPIST Chloride 99 98 - 110 05/14/2022 [facility] MMOL/L 5:33 AM LOW VISION THERAPIST CO2 28 21 - 30 05/14/2022 [facility] MMOL/L 5:33 AM LOW VISION THERAPIST Anion Gap 7 3 - 12 05/14/2022 [facility] 5:33 AM LOW VISION THERAPIST Glucose 108 (H) 70 - 100 05/14/2022 [facility] MG/DL 5:33 AM LOW VISION THERAPIST Blood Urea Nitrogen 9 7 - 25 05/14/2022 [facility] MG/DL 5:33 AM LOW VISION THERAPIST Creatinine 0.65 0.4 - 05/14/2022 [facility] 1.00 5:33 AM MG/DL LOW VISION THERAPIST Calcium 8.5 8.5 - 05/14/2022 [facility] 10.6 5:33 AM MG/DL LOW VISION THERAPIST eGFR >60 >60 05/14/2022 [facility] mL/min 5:33 AM LOW VISION THERAPIST Comment: eGFR calculated using the CKD-EPIcr_R equation Anatomical Location / Laterality Collection Method / Volume Rubio ection Time Received Time Specimen (Source) 05/14/2022 4:29 AM LOW VISION THERAPIST 11/07/20 22 4:46 AM LOW VISION THERAPIST Valdo Young MD LABORATORY ORDERABLES City/State/ZIP Code Phone Number Performing [place] [address] [facility] [address] * (ABNORMAL) CBC AND DIFF (05/14/2022 4:29 AM LOW VISION THERAPIST) Pathologist Signature Component Value Ref Test Method Analysis Performed A t Range Time White Blood Cells 8.8 4.5 - 05/14/2022 [facility] 11.0 4:58 AM K/UL LOW VISION THERAPIST RBC 4.00 4.0 - 05/14/2022 [facility] 5.0 M/UL 4:58 AM LOW VISION THERAPIST Hemoglobin 12.1 12.0 - 05/14/2022 [facility] 15.0 4:58 AM GM/DL LOW VISION THERAPIST Hematocrit 36.4 36 - 45 05/14/2022 [facility] % 4:58 AM LOW VISION THERAPIST MCV 91.1 80 - 100 05/14/2022 [facility] FL 4:58 AM LOW VISION THERAPIST MCH 30.3 26 - 34 05/14/2022 [facility] PG 4:58 AM LOW VISION THERAPIST MCHC 33.3 32.0 - 05/14/2022 [facility] 36.0 4:58 AM G/DL LOW VISION THERAPIST RDW 13.6 11 - 15 05/14/2022 [facility] % 4:58 AM LOW VISION THERAPIST Platelet Count 247 150 - 05/14/2022 [facility] 400 K/UL 4:58 AM LOW VISION THERAPIST MPV 8.8 7 - 11 05/14/2022 [facility] FL 4:58 AM LOW VISION THERAPIST Neutrophils 66 41 - 77 05/14/2022 [facility] % 4:58 AM LOW VISION THERAPIST Lymphocytes 21 (L) 24 - 44 05/14/2022 [facility] % 4:58 AM LOW VISION THERAPIST Monocytes 9 4 - 12 % 05/14/2022 [facility] 4:58 AM LOW VISION THERAPIST Eosinophils 3 0 - 5 % 05/14/2022 [facility] 4:58 AM LOW VISION THERAPIST Basophils 1 0 - 2 % 05/14/2022 [facility] 4:58 AM LOW VISION THERAPIST Absolute Neutrophil 5.82 1.8 - 05/14/2022 [facility] Count 7.0 K/UL 4:58 AM LOW VISION THERAPIST Absolute Lymph Count 1.86 1.0 - 05/14/2022 [facility] 4.8 K/UL 4:58 AM LOW VISION THERAPIST Absolute Monocyte 0.78 0 - 0.80 05/14/2022 [facility] Count K/UL 4:58 AM LOW VISION THERAPIST Absolute Eosinophil 0.22 0 - 0.45 05/14/2022 [facility] Count K/UL 4:58 AM LOW VISION THERAPIST Absolute Basophil 0.10 0 - 0.20 05/14/2022 [facility] Count K/UL 4:58 AM LOW VISION THERAPIST Anatomical Location / Laterality Collection Method / Volume Rubio ection Time Received Time Specimen (Source) 05/14/2022 4:29 AM LOW VISION THERAPIST 05/14/20 4:46 AM LOW VISION THERAPIST Valdo Young MD LABORATORY ORDERABLES City/State/ZIP Code Phone Number Performing [place] [address] [facility] [address] * (ABNORMAL) BASIC METABOLIC PANEL (05/13/2022 4:31 AM LOW VISION THERAPIST) Pathologist Signature Component Value Ref Test Method Analysis Performed A t Range Time Sodium 133 (L) 137 - 05/13/2022 [facility] 147 8:15 AM MMOL/L LOW VISION THERAPIST Potassium 4.8 3.5 - 05/13/2022 [facility] 5.1 8:15 AM MMOL/L LOW VISION THERAPIST Chloride 98 98 - 110 05/13/2022 [facility] MMOL/L 8:15 AM LOW VISION THERAPIST CO2 26 21 - 30 05/13/2022 [facility] MMOL/L 8:15 AM LOW VISION THERAPIST Anion Gap 9 3 - 12 05/13/2022 [facility] 8:15 AM LOW VISION THERAPIST Glucose 95 70 - 100 05/13/2022 [facility] MG/DL 8:15 AM LOW VISION THERAPIST Blood Urea Nitrogen 13 7 - 25 05/13/2022 [facility] MG/DL 8:15 AM LOW VISION THERAPIST Creatinine 0.67 0.4 - 05/13/2022 [facility] 1.00 8:15 AM MG/DL LOW VISION THERAPIST Calcium 8.0 (L) 8.5 - 05/13/2022 [facility] 10.6 8:15 AM MG/DL LOW VISION THERAPIST eGFR >60 >60 05/13/2022 [facility] mL/min 8:15 AM LOW VISION THERAPIST Comment: eGFR calculated using the CKD-EPIcr_R equation Anatomical Location / Laterality Collection Method / Volume Rubio ection Time Received Time Specimen (Source) 05/13/2022 4:31 AM LOW VISION THERAPIST 05/13/20 7:36 AM LOW VISION THERAPIST Vidal Cid MD LABORATORY ORDERABLES City/State/ZIP Code Phone Number Performing [place] [address] [facility] [address] * (ABNORMAL) CBC AND DIFF (05/13/2022 4:31 AM LOW VISION THERAPIST) Pathologist Signature Component Value Ref Test Method Analysis Performed A t Range Time White Blood Cells 11.1 (H) 4.5 - 05/13/2022 [facility] 11.0 7:49 AM K/UL LOW VISION THERAPIST RBC 3.89 (L) 4.0 - 05/13/2022 [facility] 5.0 M/UL 7:49 AM LOW VISION THERAPIST Hemoglobin 11.9 (L) 12.0 - 05/13/2022 [facility] 15.0 7:49 AM GM/DL LOW VISION THERAPIST Hematocrit 35.4 (L) 36 - 45 05/13/2022 [facility] % 7:49 AM LOW VISION THERAPIST MCV 91.0 80 - 100 05/13/2022 [facility] FL 7:49 AM LOW VISION THERAPIST MCH 30.5 26 - 34 05/13/2022 [facility] PG 7:49 AM LOW VISION THERAPIST MCHC 33.6 32.0 - 05/13/2022 [facility] 36.0 7:49 AM G/DL LOW VISION THERAPIST RDW 14.0 11 - 15 05/13/2022 [facility] % 7:49 AM LOW VISION THERAPIST Platelet Count 244 150 - 05/13/2022 [facility] 400 K/UL 7:49 AM LOW VISION THERAPIST MPV 9.7 7 - 11 05/13/2022 [facility] FL 7:49 AM LOW VISION THERAPIST Neutrophils 63 41 - 77 05/13/2022 [facility] % 7:49 AM LOW VISION THERAPIST Lymphocytes 22 (L) 24 - 44 05/13/2022 [facility] % 7:49 AM LOW VISION THERAPIST Monocytes 12 4 - 12 % 05/13/2022 [facility] 7:49 AM LOW VISION THERAPIST Eosinophils 2 0 - 5 % 05/13/2022 [facility] 7:49 AM LOW VISION THERAPIST Basophils 1 0 - 2 % 05/13/2022 [facility] 7:49 AM LOW VISION THERAPIST Absolute Neutrophil 7.10 (H) 1.8 - 05/13/2022 [facility] Count 7.0 K/UL 7:49 AM LOW VISION THERAPIST Absolute Lymph Count 2.43 1.0 - 05/13/2022 [facility] 4.8 K/UL 7:49 AM LOW VISION THERAPIST Absolute Monocyte 1.28 (H) 0 - 0.80 05/13/2022 [facility] Count K/UL 7:49 AM LOW VISION THERAPIST Absolute Eosinophil 0.16 0 - 0.45 05/13/2022 [facility] Count K/UL 7:49 AM LOW VISION THERAPIST Absolute Basophil 0.11 0 - 0.20 05/13/2022 [facility] Count K/UL 7:49 AM LOW VISION THERAPIST Anatomical Location / Laterality Collection Method / Volume Rubio ection Time Received Time Specimen (Source) 05/13/2022 4:31 AM LOW VISION THERAPIST 05/13/20 7:36 AM LOW VISION THERAPIST Vidal Cid MD LABORATORY ORDERABLES City/State/ZIP Code Phone Number Performing Address Organization [address] [facility] [address] * PHOSPHORUS (05/11/2022 2:57 AM CDT) Pathologist Signature Component Value Ref Test Method Analysis Performed A t Range Time Phosphorus 2.7 2.0 - 05/11/2022 [facility] 4.5 4:03 AM MG/DL CDT Anatomical Location / Laterality Collection Method / Volume Rubio ection Time Received Time Specimen (Source) 05/11/2022 2:57 AM CDT 05/11/20 3:17 AM CDT Everett Guillen LABORATORY ORDERABLES Corky SEVILLA [facility]ZIP Code Phone Number Performing Address Organization [address] [facility] [address] * MAGNESIUM (05/11/2022 2:57 AM CDT) Pathologist Signature Component Value Ref Test Method Analysis Performed A t Range Time Magnesium 2.0 1.6 - 05/11/2022 [facility] 2.6 4:03 AM mg/dL CDT Anatomical Location / Laterality Collection Method / Volume Rubio ection Time Received Time Specimen (Source) 05/11/2022 2:57 AM CDT 05/11/20 3:17 AM CDT Everett R LABORATORY ORDERABLES Corky SEVILLA [facility]/ZIP Code Phone Number Performing Address Organization [address] [facility] [address] * IONIZED CALCIUM (05/11/2022 2:57 AM CDT) Pathologist Signature Component Value Ref Test Method Analysis Performed A t Range Time Ionized Calcium 1.09 1.0 - 05/11/2022 [facility] B 1.3 3:35 AM MMOL/L CDT Anatomical Location / Laterality Collection Method / Volume Rubio ection Time Received Time Specimen (Source) BLOOD / Unknown 05/11/2022 2:57 AM CDT 05/11/20 3:32 AM CDT Valdo Young MD LABORATORY ORDERABLES [facility]/ZIP Code Phone Number Performing [place] [address] [facility] [address] * (ABNORMAL) BASIC METABOLIC PANEL (05/11/2022 2:57 AM CDT) Pathologist Signature Component Value Ref Test Method Analysis Performed A t Range Time Sodium 140 137 - 05/11/2022 [facility] 147 4:03 AM MMOL/L CDT Potassium 4.3 3.5 - 05/11/2022 [facility] 5.1 4:03 AM MMOL/L CDT Chloride 107 98 - 110 05/11/2022 [facility] MMOL/L 4:03 AM CDT CO2 22 21 - 30 05/11/2022 [facility] MMOL/L 4:03 AM CDT Anion Gap 11 3 - 12 05/11/2022 [facility] 4:03 AM CDT Glucose 106 (H) 70 - 100 05/11/2022 [facility] MG/DL 4:03 AM CDT Blood Urea Nitrogen 9 7 - 25 05/11/2022 [facility] MG/DL 4:03 AM CDT Creatinine 0.68 0.4 - 05/11/2022 [facility] LAB 1.00 4:03 AM MG/DL CDT Calcium 8.5 8.5 - 05/11/2022 [facility] 10.6 4:03 AM MG/DL CDT eGFR >60 >60 05/11/2022 [facility] mL/min 4:03 AM CDT Comment: eGFR calculated using the CKD-EPIcr_R equation Anatomical Location / Laterality Collection Method / Volume Rubio ection Time Received Time Specimen (Source) 05/11/2022 2:57 AM CDT 05/11/20 3:17 AM CDT Vidal Cid MD LABORATORY ORDERABLES [facility]/State/ZIP Code Phone Number Performing [place] [address] [facility] [address] * (ABNORMAL) CBC AND DIFF (05/11/2022 2:57 AM CDT) Pathologist Signature Component Value Ref Test Method Analysis Performed A t Range Time White Blood Cells 11.6 (H) 4.5 - 05/11/2022 [facility] LAB 11.0 3:34 AM K/UL CDT RBC 3.86 (L) 4.0 - 05/11/2022 [facility] LAB 5.0 M/UL 3:34 AM CDT Hemoglobin 11.4 (L) 12.0 - 05/11/2022 [facility] 15.0 3:34 AM GM/DL CDT Hematocrit 35.0 (L) 36 - 45 05/11/2022 [facility] % 3:34 AM CDT MCV 90.6 80 - 100 05/11/2022 [facility] FL 3:34 AM CDT MCH 29.5 26 - 34 05/11/2022 [facility] LAB PG 3:34 AM CDT MCHC 32.6 32.0 - 05/11/2022 [facility] LAB 36.0 3:34 AM G/DL CDT RDW 13.8 11 - 15 05/11/2022 [facility] % 3:34 AM CDT Platelet Count 253 150 - 05/11/2022 MA[facility] LAB 400 K/UL 3:34 AM CDT MPV 9.1 7 - 11 05/11/2022 MAIN LAB FL 3:34 AM CDT Neutrophils 80 (H) 41 - 77 05/11/2022 [facility] LAB % 3:34 AM CDT Lymphocytes 10 (L) 24 - 44 05/11/2022 [facility] LAB % 3:34 AM CDT Monocytes 10 4 - 12 % 05/11/2022 [facility] LAB 3:34 AM CDT Eosinophils 0 0 - 5 % 05/11/2022 [facility] LAB 3:34 AM CDT Basophils 0 0 - 2 % 05/11/2022 [facility] LAB 3:34 AM CDT Absolute Neutrophil 9.28 (H) 1.8 - 05/11/2022 [facility] Count 7.0 K/UL 3:34 AM CDT Absolute Lymph Count 1.12 1.0 - 05/11/2022 [facility] 4.8 K/UL 3:34 AM CDT Absolute Monocyte 1.15 (H) 0 - 0.80 05/11/2022 [facility] Count K/UL 3:34 AM CDT Absolute Eosinophil 0.01 0 - 0.45 05/11/2022 [facility] Count K/UL 3:34 AM CDT Absolute Basophil 0.03 0 - 0.20 05/11/2022 [facility] Count K/UL 3:34 AM CDT Anatomical Location / Laterality Collection Method / Volume Rubio ection Time Received Time Specimen (Source) 05/11/2022 2:57 AM CDT 05/11/20 22 3:17 AM CDT Vidal Cid MD LABORATORY ORDERABLES City/State/ZIP Code Phone Number Performing [place] [address] MAIN LAB [address] * L SPINE 1 VIEW (05/10/2022 12:07 PM CDT) Modality Anatomical Region Laterality Computed Radiography Spine Anatomical Location / Laterality Collection Method / Volume Rubio ection Time Received Time Specimen (Source) 05/10/2022 1:07 PM CDT Impressions 05/10/2022 1:10 PM CDT FINDINGS/IMPRESSION: 1. Single crosstable intraoperative pr one lateral radiograph of the lumbar spine was obtained. The last well-formed disc space is designated [id number]. Surgical instruments overlie the posterior elements and posterior paraspinous soft tissues at the level of L3-L4. Finalized by Yariel Butcher M.D. on 05/10/2022 1:10 PM. Dictated by Yariel Butcher M.D. on 05/10/2022 1:07 PM. Narrative 05/10/2022 1:10 PM CDT L SPINE 1 VIEW INDICATION: Intraoperative COMPARISON: Intraoperative lumbar spine radiograph from earlier the same day Procedure Note Yariel Butcher MD - 05/10/2022 L SPINE 1 VIEW INDICATION: Intraoperative COMPARISON: Intraoperative lumbar spine radiograph from earlier the same day IMPRESSION FINDINGS/IMPRESSION: 1. Single crosstable intraoperative pro ne lateral radiograph of the lumbar spine was obtained. The last well-formed disc space is designated L5-S1. Surgical instruments overlie the posterior elements and posterior paraspinous soft tissues at the level of L3-L4. Finalized by Yariel Butcher M.D. on 05/10/2022 1:10 PM. Dictated by Yariel Butcher M.D. on 05/10/2022 1:07 PM. Valdo Young MD DIAGNOSTIC IMAGING ORDERABL ES * L SPINE 1 VIEW (05/10/2022 11:29 AM CDT) Modality Anatomical Region Laterality Computed Radiography Spine Anatomical Location / Laterality Collection Method / Volume Rubio ection Time Received Time Specimen (Source) 05/10/2022 1:04 PM CDT Impressions 05/10/2022 1:07 PM CDT FINDINGS/IMPRESSION: 1. Single crosstable portable intraope rative lateral radiograph of the lumbar spine was obtained. The last well-formed disc space is designated L5-S1. Surgical instrument overlies the inferior aspect of L3 spinous process. Finalized by Yariel Butcher M.D. on 05/10/2022 1:07 PM. Dictated by Yariel Butcher M.D. on 05/10/2022 1:04 PM. Narrative 05/10/2022 1:07 PM CDT L SPINE 1 VIEW INDICATION: Intraoperative COMPARISON: None available Procedure Note Yariel Butcher MD - 05/10/2022 L SPINE 1 VIEW INDICATION: Intraoperative COMPARISON: None available IMPRESSION FINDINGS/IMPRESSION: 1. Single crosstable portable intraoper ative lateral radiograph of the lumbar spine was obtained. The last well-formed disc space is designated L5-S1. Surgical instrument overlies the inferior aspect of L3 spinous process. Finalized by Yariel Butcher M.D. on 05/10/2022 1:07 PM. Dictated by Yariel Butcher M.D. on 05/10/2022 1:04 PM. Valdo Young MD DIAGNOSTIC IMAGING ORDERABL ES * BLOOD TYPE CONFIRMATION - ORDER ONLY IF REQUESTED BY LAB (05/10/2022 10:42 AM CDT) Pathologist Signature Component Value Ref Test Method Analysis Performed A t Range Time ABO/RH(D) A NEG 05/10/2022 [facility] 11:19 AM CDT Anatomical Location / Laterality Collection Method / Volume Rubio ection Time Received Time Specimen (Source) BLOOD / Unknown 05/10/2022 10:42 AM CDT 05/10/20 10:50 AM CDT Vidal Cid MD BLOOD BANK ORDERABLES City/State/ZIP Code Phone Number Performing [place] [address] MAIN [facility] [address] * BASIC METABOLIC PANEL (05/10/2022 10:22 AM CDT) Pathologist Signature Component Value Ref Test Method Analysis Performed A t Range Time Sodium 141 137 - 05/10/2022 [facility] 147 11:37 AM MMOL/L CDT Potassium 4.1 3.5 - 05/10/2022 [facility] 5.1 11:37 AM MMOL/L CDT Chloride 105 98 - 110 05/10/2022 [facility] MMOL/L 11:37 AM CDT CO2 25 21 - 30 05/10/2022 [facility] MMOL/L 11:37 AM CDT Anion Gap 11 3 - 12 05/10/2022 [facility] 11:37 AM CDT Glucose 100 70 - 100 05/10/2022 [facility] MG/DL 11:37 AM CDT Blood Urea Nitrogen 12 7 - 25 05/10/2022 [facility] MG/DL 11:37 AM CDT Creatinine 0.61 0.4 - 05/10/2022 [facility] 1.00 11:37 AM MG/DL CDT Calcium 9.8 8.5 - 05/10/2022 [facility] 10.6 11:37 AM MG/DL CDT eGFR >60 >60 05/10/2022 [facility] mL/min 11:37 AM CDT Comment: eGFR calculated using the CKD-EPIcr_R equation Anatomical Location / Laterality Collection Method / Volume Rubio ection Time Received Time Specimen (Source) BLOOD / Unknown 05/10/2022 10:22 AM CDT 05/10/20 10:48 AM CDT Gabe Comer MD LABORATORY ORDERABLES City/State/ZIP Code Phone Number Performing [place] [address] MAIN LAB [address] * TYPE & CROSSMATCH (05/10/2022 10:22 AM CDT) Pathologist Signature Component Value Ref Test Method Analysis Performed A t Range Time Units Ordered 0 05/10/2022 [facility] 10:41 AM CDT Crossmatch Expires 05/13/2022,2 05/10/2022 [facility] 359 11:56 AM CDT Record Check 2ND TYPE 05/10/2022 [facility] REQUIRED 10:41 AM CDT ABO/RH(D) A NEG 05/10/2022 [facility] 11:56 AM CDT Antibody Screen NEG 05/10/2022 [facility] 11:56 AM CDT Electronic YES 05/10/2022 [facility] Crossmatch 11:56 AM CDT Anatomical Location / Laterality Collection Method / Volume Rubio ection Time Received Time Specimen (Source) BLOOD / Unknown 05/10/2022 10:22 AM CDT 05/10/20 10:40 AM CDT Gabe Comer MD BLOOD BANK ORDERABLES City/State/ZIP Code Phone Number Performing [place] [address] MAIN LAB [address] documented in this encounter Visit Diagnoses Diagnosis 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, 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) Preop testing Preoperative examination, unspecified Post-op pain Other acute postoperative pain Other urinary incontinence Weakness of both lower extremities 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 TOTAL ACETAMINOPHEN DOSE NOT TO EXCEED 4 GM DAILY., Pre-Op 05/14/2022 9:07 AM LOW VISION THERAPIST 650 mg acetaminophen (TYLENOL) tablet 650 mg Given 650 mg, Oral, EVERY 4 HOURS PRN, Starting on Rochelle 05/10/22 at 1407, Until 05/14/22 at 1956, Temp > ..., 38.3 C , TOTAL ACETAMINOPHEN DOSE NOT TO EXCEED 4GM DAILY 650 mg Given 05/14/2022 4:03 AM LOW VISION THERAPIST 650 mg Given 05/13/2022 10:25 PM LOW VISION THERAPIST 650 mg Given 05/13/2022 9:44 AM LOW VISION THERAPIST 650 mg Given 05/11/2022 8:14 PM CDT 650 mg Given 05/11/2022 8:42 AM CDT 650 mg Given 05/11/2022 2:45 AM CDT 650 mg Given 05/10/2022 8:40 PM CDT 650 mg Given 05/10/2022 3:40 PM CDT 05/16/2022 9:39 AM LOW VISION THERAPIST 650 mg acetaminophen (TYLENOL) tablet 650 mg Given 650 mg, Oral, EVERY 4 HOURS PRN, Starting on Sat05/14/22 at 1956, Until Sat05/16/22 at 1231, Pain non-opioid: may be used alone or in combination wit h opioid analgesia, 38.3 C, TOTAL ACETAMINOPHEN DOSE NOT TO EXCEED 4GM DAILY 650 mg Given 05/15/2022 8:55 PM LOW VISION THERAPIST 650 mg Given 05/15/2022 2:41 PM LOW VISION THERAPIST 650 mg Given 05/15/2022 10:19 AM LOW VISION THERAPIST 650 mg Given 05/15/2022 5:15 AM LOW VISION THERAPIST 650 mg Given 05/14/2022 9:13 PM LOW VISION THERAPIST 05/16/2022 9:39 AM LOW VISION THERAPIST 300 mg allopurinoL (ZYLOPRIM) tablet 300 mg Given 300 mg, Oral, DAILY, First dose on Rochelle 05/10/22 at 1500, Until Discontinued 300 mg Given 05/15/2022 8:29 AM LOW VISION THERAPIST 300 mg Given 05/14/2022 8:58 AM LOW VISION THERAPIST 300 mg Given 05/13/2022 9:25 AM LOW VISION THERAPIST 300 mg Given 05/12/2022 9:45 AM CDT 300 mg Given 05/11/2022 8:42 AM CDT 300 mg Given 05/10/2022 4:28 PM CDT 05/15/2022 8:56 PM LOW VISION THERAPIST 25 mg atenoloL (TENORMIN) tablet 25 mg Given 25 mg, Oral, AT BEDTIME DAILY, First dose on Rochelle 05/10/22 at 2100, Until Discontinued 25 mg Given 05/14/2022 9:13 PM LOW VISION THERAPIST 25 mg Given 05/13/2022 9:33 PM LOW VISION THERAPIST 25 mg Given 05/12/2022 9:07 PM CDT 25 mg Given 05/11/2022 8:14 PM CDT 25 mg Given 05/10/2022 8:41 PM CDT 05/15/2022 8:30 AM LOW VISION THERAPIST 10 mg bisacodyL (DULCOLAX (bisacodyl)) rectal Given suppository 10 mg 10 mg, Rectal, DAILY, First dose on Sat05/11/22 at 0900, Until Discontinued, Hold for loose stools 10 mg Given 05/13/2022 9:27 AM LOW VISION THERAPIST 10 mg Given 05/12/2022 9:54 AM CDT 10 mg Given 05/11/2022 8:42 AM CDT 05/11/2022 2:46 AM CDT 2 g ceFAZolin (ANCEF) IVP 2 g Given 2 g, Intravenous, EVERY 8 HOURS, 2 doses, First dose on Sat05/10/22 at 1900, Last dose on Sat05/11/22 at 0300, IV PUSH -- RECONSTITUTE each 1 g vial b y adding 10 mLs of STERILE WATER (SW) or SODIUM CHLORIDE (NS), For patients >= 8 0 kg 2 g Given 05/10/2022 6:48 PM CDT 05/15/2022 8:56 PM LOW VISION THERAPIST 100 mg docusate (COLACE) capsule 100 mg Given 100 mg, Oral, TWICE DAILY, First dose o n Sat05/10/22 at 1415, Until Discontinued , Hold for loose stools 100 mg Given 05/15/2022 8:29 AM LOW VISION THERAPIST 100 mg Given 05/14/2022 9:13 PM LOW VISION THERAPIST 100 mg Given 05/14/2022 8:58 AM LOW VISION THERAPIST 100 mg Given 05/13/2022 9:34 PM LOW VISION THERAPIST 100 mg Given 05/13/2022 9:27 AM LOW VISION THERAPIST 100 mg Given 05/12/2022 9:07 PM CDT 100 mg Given 05/12/2022 9:44 AM CDT 100 mg Given 05/11/2022 8:14 PM CDT 100 mg Given 05/11/2022 8:42 AM CDT 100 mg Given 05/10/2022 8:44 PM CDT 100 mg Given 05/10/2022 4:28 PM CDT 05/16/2022 9:39 AM LOW VISION THERAPIST 20 mg escitalopram oxalate (LEXAPRO) tablet 20 Given mg 20 mg, Oral, DAILY, First dose on Sat05/11/22 at 0900, Until Discontinued 20 mg Given 05/15/2022 8:29 AM LOW VISION THERAPIST 20 mg Given 05/14/2022 8:58 AM LOW VISION THERAPIST 20 mg Given 05/13/2022 9:26 AM LOW VISION THERAPIST 20 mg Given 05/12/2022 9:44 AM CDT 20 mg Given 05/11/2022 8:42 AM CDT 05/12/2022 9:45 AM CDT 20 mg famotidine (PEPCID) tablet 20 mg Given 20 mg, Oral, TWICE DAILY, First dose on Sat05/10/22 at 1415, Until Discontinued 20 mg Given 05/11/2022 8:14 PM CDT 20 mg Given 05/11/2022 8:42 AM CDT 20 mg Given 05/10/2022 8:40 PM CDT 20 mg Given 05/10/2022 4:28 PM CDT 05/10/2022 7:40 PM CDT 25 mcg fentaNYL citrate PF (SUBLIMAZE) Given injection 25-50 mcg 25-50 mcg, Intravenous, EVERY 1 HOUR PRN, Starting on Sat05/10/22 at 1407, Until Sat05/11/22 at 1055, Pain Injectable 25 mcg Given 05/10/2022 2:41 PM CDT 05/16/2022 6:16 AM LOW VISION THERAPIST 100 mg gabapentin (NEURONTIN) capsule 100 mg Given 100 mg, Oral, EVERY 8 HOURS, First dos e on Sat05/11/22 at 1400, Until Discontinued 100 mg Given 05/15/2022 9:01 PM LOW VISION THERAPIST 100 mg Given 05/15/2022 2:41 PM LOW VISION THERAPIST 100 mg Given 05/15/2022 5:15 AM LOW VISION THERAPIST 100 mg Given 05/14/2022 9:13 PM LOW VISION THERAPIST 100 mg Given 05/14/2022 1:11 PM LOW VISION THERAPIST 100 mg Given 05/14/2022 5:24 AM LOW VISION THERAPIST 100 mg Given 05/13/2022 9:34 PM LOW VISION THERAPIST 100 mg Given 05/13/2022 3:23 PM LOW VISION THERAPIST 100 mg Given 05/13/2022 6:32 AM LOW VISION THERAPIST 100 mg Given 05/12/2022 9:07 PM CDT 100 mg Given 05/12/2022 1:32 PM CDT 100 mg Given 05/12/2022 6:20 AM CDT 100 mg Given 05/11/2022 10:03 PM CDT 100 mg Given 05/11/2022 2:44 PM CDT 05/16/2022 6:16 AM LOW VISION THERAPIST 5,000 Units Abdomina l Tissue heparin (porcine) PF syringe 5,000 Units Given 5,000 Units, Subcutaneous, EVERY 8 HOURS, First dose on Sat05/13/22 at 0600, Until Discontinued, NOTE: This is a HIGH ALERT Medication. 5,000 Units Abdominal Tissue Given 05/15/2022 9:01 PM LOW VISION THERAPIST 5,000 Units Abdomen:RUQ Given 05/15/2022 2:41 PM LOW VISION THERAPIST 5,000 Units Abdominal Tissue Given 05/15/2022 5:16 AM LOW VISION THERAPIST 5,000 Units Abdominal Tissue Given 05/14/2022 9:13 PM LOW VISION THERAPIST 5,000 Units Abdominal Tissue Given 05/14/2022 1:11 PM LOW VISION THERAPIST 5,000 Units Abdominal Tissue Given 05/14/2022 5:25 AM LOW VISION THERAPIST 5,000 Units Abdominal Tissue Given 05/13/2022 9:36 PM LOW VISION THERAPIST 5,000 Units Abdomen:LLQ Given 05/13/2022 3:23 PM LOW VISION THERAPIST 5,000 Units Abdominal Tissue Given 05/13/2022 6:32 AM LOW VISION THERAPIST 05/15/2022 8:55 PM LOW VISION THERAPIST 180 mg isosorbide mononitrate (IMDUR) ER tablet Given 180 mg 180 mg, Oral, AT BEDTIME DAILY, First dose on Sat05/11/22 at 2100, Until Discontinued, DO NOT Crush tablets 180 mg Given 05/14/2022 9:13 PM LOW VISION THERAPIST 180 mg Given 05/13/2022 9:35 PM LOW VISION THERAPIST 180 mg Given 05/12/2022 9:06 PM CDT 180 mg Given 05/11/2022 8:14 PM CDT 05/11/2022 6:54 AM CDT 1 g 25 mL/hr magnesium sulfate 1 g/D5W 100 mL IVPB Given - New 1 g, Intravenous, 100 mL, Administer Bag over 3-4 Hours, NEEDED, Starting on Rochelle 05/10/22 at 1524, Until Sat05/11/22 at 1055, Other..., magnesium replacemen t (see admin instructions), If urine output < 30 mL/hr, SCr >2 mg/dL, check with physician prior to giving magnesiu m replacement. For Serum Magnesium > 2.1 mg/dL, No replacement necessary. For Serum Magnesium 1.8 - 2.0 mg/dL, give Magnesium Sulfate 1 grams IV over 4 hours. For Serum Magnesium 1.6 - 1.7 mg/dL, give Magnesium Sulfate 2 grams I V over 8 hours (each 1gm over 4 hours). For Serum Magnesium 1.3 - 1.5 mg/dL, give Magnesium Sulfate 4 grams IV over 16 hours (each 1gm over 4 hours). For Serum Magnesium < = 1.2 mg/dL, give Magnesium Sulfate 6 grams IV over 18 hours (each 1gm over 3 hours). Recheck serum magnesium level 24 hours after START of appropriate replacement dose. Repeat this standing order x 1. Notify physician if serum magnesium < 2.1 mg/d L after two replacements. 05/16/2022 9:39 AM LOW VISION THERAPIST 750 mg methocarbamoL (ROBAXIN) tablet 750 mg Given 750 mg, Oral, EVERY 8 HOURS PRN, Starting on Sat05/13/22 at 0954, Until Sat05/16/22 at 1231, Spasms 750 mg Given 05/15/2022 8:56 PM LOW VISION THERAPIST 750 mg Given 05/15/2022 10:19 AM LOW VISION THERAPIST 750 mg Given 05/14/2022 9:13 PM LOW VISION THERAPIST 750 mg Given 05/14/2022 9:11 AM LOW VISION THERAPIST 750 mg Given 05/13/2022 9:45 PM LOW VISION THERAPIST 750 mg Given 05/13/2022 10:29 AM LOW VISION THERAPIST 05/15/2022 8:29 AM LOW VISION THERAPIST 10 mL milk of magnesia (CONC) oral suspension Given 10 mL 10 mL, Oral, DAILY, First dose on Rochelle 05/10/22 at 1415, Until Discontinued, Ma y hold if BM within 24 hours of dose. 10 mL CONC = 30 mL MOM 10 mL Given 05/14/2022 8:58 AM LOW VISION THERAPIST 10 mL Given 05/13/2022 9:27 AM LOW VISION THERAPIST 10 mL Given 05/12/2022 9:54 AM CDT 10 mL Given 05/11/2022 8:42 AM CDT 10 mL Given 05/10/2022 4:28 PM CDT 05/11/2022 8:50 AM CDT 10 mg oxyCODONE (ROXICODONE) tablet 5-10 mg Given 5-10 mg, Oral, EVERY 4 HOURS PRN, Starting on Rochelle 05/10/22 at 1407, Until Sat05/11/22 at 1055, Pain PO, Other..., Moderate/Severe Pain, Give if patient tolerating PO if [place] not effective. 5 mg Given 05/11/2022 2:45 AM CDT 5 mg Given 05/10/2022 9:59 PM CDT 5 mg Given 05/10/2022 3:40 PM CDT 5 mg Given 05/10/2022 3:12 PM CDT 05/16/2022 9:39 AM LOW VISION THERAPIST 10 mg oxyCODONE (ROXICODONE) tablet 5-15 mg Given 5-15 mg, Oral, EVERY 4 HOURS PRN, Starting on Sat05/11/22 at 1047, Until Sat05/16/22 at 1231, Pain PO, Other..., Moderate/Severe Pain, Give if patient tolerating PO if [place] not effective. 10 mg Given 05/15/2022 8:56 PM LOW VISION THERAPIST 10 mg Given 05/15/2022 2:41 PM LOW VISION THERAPIST 10 mg Given 05/15/2022 8:29 AM LOW VISION THERAPIST 10 mg Given 05/14/2022 5:58 PM LOW VISION THERAPIST 10 mg Given 05/14/2022 9:53 AM LOW VISION THERAPIST 15 mg Given 05/14/2022 4:04 AM LOW VISION THERAPIST 15 mg Given 05/13/2022 9:45 PM LOW VISION THERAPIST 10 mg Given 05/13/2022 12:06 PM LOW VISION THERAPIST 10 mg Given 05/13/2022 6:32 AM LOW VISION THERAPIST 10 mg Given 05/13/2022 1:08 AM CDT 10 mg Given 05/12/2022 5:36 PM CDT 10 mg Given 05/12/2022 1:32 PM CDT 10 mg Given 05/12/2022 9:45 AM CDT 10 mg Given 05/12/2022 5:01 AM CDT 5 mg Given 05/11/2022 8:19 PM CDT 10 mg Given 05/11/2022 2:44 PM CDT 05/15/2022 8:55 PM LOW VISION THERAPIST 1 tablet senna/docusate (SENOKOT-S) tablet 1 Given tablet 1 tablet, Oral, TWICE DAILY, First dose on Rochelle 05/10/22 at 1415, Until Discontinued, Hold for loose stools. If patient unable to take tablet, give 10 mL of senna/docusate (SENOKOT-S) solution. Send inSolmentumet message to pharmacy., If patient unable to take tablet, give 10 mL of senna/docusate (SENOKOT-S) solution. 1 tablet Given 05/15/2022 8:29 AM LOW VISION THERAPIST 1 tablet Given 05/14/2022 9:13 PM LOW VISION THERAPIST 1 tablet Given 05/14/2022 8:58 AM LOW VISION THERAPIST 1 tablet Given 05/13/2022 9:35 PM LOW VISION THERAPIST 1 tablet Given 05/13/2022 9:27 AM LOW VISION THERAPIST 1 tablet Given 05/12/2022 9:07 PM CDT 1 tablet Given 05/12/2022 9:45 AM CDT 1 tablet Given 05/11/2022 8:15 PM CDT 1 tablet Given 05/11/2022 8:42 AM CDT 1 tablet Given 05/10/2022 8:41 PM CDT 1 tablet Given 05/10/2022 4:28 PM CDT 05/10/2022 12:04 PM CDT sodium chloride 0.9 % infusion Given - New 1,000 mL, 1,000 mL, Intravenous, at 20 Bag mL/hr, CONTINUOUS, Starting on Sat05/10/22 at 1015, Until Sat05/11/22 at 0628, Pre-Op Infusion Restarted 05/10/2022 10:40 AM CDT 1,000 mL 20 mL/hr Given - New Bag 05/10/2022 10:32 AM CDT 05/15/2022 5:15 AM LOW VISION THERAPIST 1,000 mL 999 mL/hr sodium chloride 0.9 % infusion Given - New 1,000 mL, 1,000 mL, Intravenous, at 999 Bag mL/hr, ONCE, 1 dose, On Sat05/15/22 at 0545 documented in this encounter Discontinued Medications Start Date End Date Medication Sig Discontinue Reason 05/03/2022 Thiamine HCl 250 mg tab Take 250 mg Removed from by mouth CLINICAL PRACTICE CONSULTANT Med List daily. 04/03/2022 05/16/2022 traMADoL (ULTRAM) 50 mg Take 100 mg tablet by mouth every 6 hours as needed. 05/16/2022 aspirin EC 81 mg tablet Take 81 mg Reorder by mouth daily. documented as of this encounter Historical Medications * This list may reflect changes made after this encounter. Start Date End Date Medication Sig Dispensed Refills calcium carbonate (TUMS) Chew 1 tablet 0 500 mg (200 mg elemental by mouth calcium) chewable tablet daily as needed. added in this encounter Active and Recently Administered Medications Times are shown in LOW VISION THERAPIST. 05/15/2022 05/16/2022 Medication Order 05/14/2022 0829 (Given - Provider: Gt Moon RN) 0939 (Given - Provider: Mindy Regalado) allopurinoL (ZYLOPRIM) tablet 300 mg 0858 (Given - 300 mg, Oral, DAILY, First dose on Rochelle Provider: Anil armando 05/10/22 at 1500, Until Discontinued RANJITH Capps) 2055 (Given - Provider: Haley tyler RN) atenoloL (TENORMIN) tablet 25 mg 2112 (Given - 25 mg, Oral, AT BEDTIME DAILY, First Provider: Cristiane glover dose on Rochelle 05/10/22 at 2100, Until RANJITH Mejia) Discontinued 0830 (Given - Provider: Gt Moon RN) 0940 (Med Not Given - Provider: Tegan gutierrez RN - Reason: Patient Refused) bisacodyL (DULCOLAX (bisacodyl)) rectal 0858 (Med No t Given suppository 10 mg - Provider: Seema 10 mg, Rectal, DAILY, First dose on Sat RANJITH Capps - Reason: 05/11/22 at 0900, Until Discontinued, Patient Refused ) Hold for loose stools 08 (Given - Provider: Gt Moon RN)2055 (Given - Provider: Haley Connell, RANJITH) 0940 (Med Not Given - Provider: Tegan gutierrez RN - Reason: Patient Refused) docusate (COLACE) capsule 100 mg 08 (Given - 100 mg, Oral, TWICE DAILY, First dose on Provider: Mazin teague [facility] 05/10/22 at 1415, Until Discontinued, RANJITH Capps) 2112 Hold for loose stools (Given - Provider: Elba Mejia RN) 0829 (Given - Provider: Gt Moon RN) 0939 (Given - Provider: Mindy Regalado) escitalopram oxalate (LEXAPRO) tablet 20 0858 (Given - mg Provider: Seema 20 mg, Oral, DAILY, First dose on Sat RANJITH Capps) 05/11/22 at 0900, Until Discontinued 0515 (Given - Provider: Elba Mejia RN)1441 (Given - Provider: Gt Moon RN)210 (Given - Provider: Haley Connell, RANJITH) 0616 (Given - Provider: Brayan Wick, RANJITH) gabapentin (NEURONTIN) capsule 100 mg 0524 (Given - 100 mg, Oral, EVERY 8 HOURS, First dose Provider: Andriy romero on Sat05/11/22 at 1400, Until RANJITH Hardin)1311 Discontinued (Given - Provider: Seema Capps RN)2112 (Given - Provider: Elba Mejia RN) 0516 (Given - Provider: Elba Mejia RN)144 (Given - Provider: Gt Moon RN)210 (Given - Provider: Haley Connell RN) 0616 (Given - Provider: Brayan Wick, RANJITH) heparin (porcine) PF syringe 5,000 Units 0525 (Given - 5,000 Units, Subcutaneous, EVERY 8 Provider: Jamilah HOURS, First dose on Sat05/13/22 at RANJITH Hardin)1 311 0600, Until Discontinued, NOTE: This is (Given - Pro vider: a HIGH ALERT Medication. Seema Capps RN)2112 (Given - Provider: Elba Mejia RN) 2054 (Given - Provider: Haley tyler RN) isosorbide mononitrate (IMDUR) ER tablet 2112 (Given - 180 mg Provider: Elba 180 mg, Oral, AT BEDTIME DAILY, First Roberto RN) dose on Sat05/11/22 at 2100, Until Discontinued, DO NOT Crush tablets 0829 (Given - Provider: Gt Moon RN) 0940 (Med Not Given - Provider: Tegan gutierrez, RANJITH - Reason: Patient Refused) milk of magnesia (CONC) oral suspension 0858 (Given - 10 mL Provider: Seema 10 mL, Oral, DAILY, First dose on Rochelle Capps RN) 05/10/22 at 1415, Until Discontinued, Ma y hold if BM within 24 hours of dose. 10 mL CONC = 30 mL MOM 0829 (Given - Provider: Gt Moon, RANJITH)2054 (Given - Provider: Haley Connell RN) 0940 (Med Not Given - Provider: Tegan gutierrez RN - Reason: Patient Refused) senna/docusate (SENOKOT-S) tablet 1 0858 (Given - tablet Provider: Seema 1 tablet, Oral, TWICE DAILY, First dose RANJITH Capps)2 113 on Rochelle 05/10/22 at 1415, Until (Given - Provider: Discontinued, Hold for loose stools. If Elba mello RN) patient unable to take tablet, give 10 mL of senna/docusate (SENOKOT-S) solution. Send inStepOut message to pharmacy., If patient unable to take tablet, give 10 mL of senna/docusate (SENOKOT-S) solution. 0515 (Given - New Bag - Provider: Keily Mejia RN) sodium chloride 0.9 % infusion (COMPLETED) 1,000 mL, 1,000 mL, Intravenous, at 999 mL/hr, ONCE, 1 dose, On Sat05/15/22 at 0545 05/15/2022 05/16/2022 Medication Order 05/14/2022 acetaminophen (TYLENOL) tablet 650 mg 0403 (Given - (CANCELED) Provider: Jamilah 650 mg, Oral, EVERY 4 HOURS PRN, RANJITH Hardin)085 9 Starting on Rochelle 05/10/22 at 1407, Until (Med Not Give n - Sat05/14/22 at 1956, Temp > ..., 38.3 C, Provider: Mazin teague TOTAL ACETAMINOPHEN DOSE NOT TO EXCEED RANJITH Capps - Reason: 4GM DAILY Patient Refused)0907 (Given - Provider: Seema Capps RN) 0515 (Given - Provider: Elba Mejia RN)1019 (Given - Provider: Gt Moon, RANJITH)1441 (Given - Provider: Gt Moon, RANJITH)2055 (Given - Provider: Haley Connell, RANJITH) 0939 (Given - Provider: Mindy Regalado) acetaminophen (TYLENOL) tablet 650 mg 2113 (Given - 650 mg, Oral, EVERY 4 HOURS PRN, Provider: Delicia camp Starting on 05/14/22 at 1956, Until RANJITH Mejia) 05/16/22 at 1231, Pain non-opioid: may be used alone or in combination wit h opioid analgesia, 38.3 C, TOTAL ACETAMINOPHEN DOSE NOT TO EXCEED 4GM DAILY 1019 (Given - Provider: Gt Moon RN)2055 (Given - Provider: Haley Connell RN) 0939 (Given - Provider: Mindy Regalado) methocarbamoL (ROBAXIN) tablet 750 mg 0911 (Given - 750 mg, Oral, EVERY 8 HOURS PRN, Provider: Seema Starting on Sat05/13/22 at 0954, Until RANJITH Capps)21 13 Sat05/16/22 at 1231, Spasms (Given - Provider: Elba Mejia, RANJITH) ondansetron (ZOFRAN) injection 4 mg 4 mg, Intravenous, EVERY 6 HOURS PRN, Starting on Rochelle 05/10/22 at 1407, Until Sat05/16/22 at 1231, Nausea/Vomiting Injectable 0829 (Given - Provider: Gt Moon RN)1441 (Given - Provider: Gt Moon RN)2055 (Given - Provider: Haley Connell RN) 0939 (Given - Provider: Mindy Regalado) oxyCODONE (ROXICODONE) tablet 5-15 mg 0404 (Given - 5-15 mg, Oral, EVERY 4 HOURS PRN, Provider: Jamilah Starting on Sat05/11/22 at 1047, Until Mindy Hardin)0953 Sat05/16/22 at 1231, Pain PO, Other..., (Given - Pro vider: Moderate/Severe Pain, Give if patient Seema Capps , tolerating PO if [place] not effective. RN)4013 (Given - Provider: Seema Capps RN) documented in this encounter Orders First Ordered Date Medications Ordered That Might Not Have Count Last Ordered Date Been Administered bupivacaine 0.5%/EPINEPHrine 1:200,000 1 05/10/2022 injection calcium gluconate 1 g/NS 100 mL infusion 1 05/10/2022 ceFAZolin (ANCEF) 1 g in sodium chloride 1 05/10/2022 1,000 mL irrigation bottle diphenhydrAMINE HCL (BENADRYL) injection 1 05/10/2022 25 mg fentaNYL citrate PF (SUBLIMAZE) 1 2021 injection 50 mcg haloperidol lactate (HALDOL) injection 1 1 05/10/2022 mg hydrALAZINE (APRESOLINE) injection 10 mg 2 05/10/2022 labetaloL (NORMODYNE) injection 10 mg 1 05/10/2022 lidocaine PF 1% (10 mg/mL) injection 0.2 1 05/10/2022 mL meperidine injection (DEMEROL) 1 022 syringe/vial 12.5 mg ondansetron (ZOFRAN) injection 4 mg 1 oxyCODONE (ROXICODONE) tablet 5-10 mg 1 05/10/2022 potassium chloride in water IVPB 10 mEq 1 05/10/2022 potassium chloride oral solution 40-60 1 05/10/2022 mEq potassium chloride SR (K-DUR) tablet 1 1 07/10/2021 40-60 mEq thrombin 5,000 unit topical solution 1 1 07/10/2021 First Ordered Date Diet Count Last Ordered Date DISCHARGE DIET REGULAR 1 05/16/2022 First Ordered Date Nursing Count Last Ordered Date DISCHARGE ACTIVITY OTHER 1 05/16/2022 DISCHARGE CONTACT 1 05/16/2022 DISCHARGE EDUCATION 1 05/16/2022 DISCHARGE ORDERS COMPLETE NOTIFICATION 1 05/16/2022 DISCHARGE SIGNS/SYMPTOMS 1 05/16/2022 First Ordered Date Consult Count Last Ordered Date CONSULT REHABILITATION MEDICINE 1 2021 PHYSICIAN CONSULT NEURO CRITICAL CARE PHYSICIAN 1 05/10/2022 First Ordered Date OT Count Last Ordered Date OT EVAL & TX FOR OTHER 1 05/16/2022 OT CONSULT OCCUPATIONAL THERAPY 1 2021 First Ordered Date PT Count Last Ordered Date PT EVAL & TX FOR OTHER 1 05/16/2022 PT CONSULT PHYSICAL THERAPY 1 05/10/2022 First Ordered Date Admission Count Last Ordered Date ADMIT TO INPATIENT 1 05/10/2022 CLARIFICATION ORDER - FOR ADT ADMIN USE 1 05/09/2022 ONLY First Ordered Date Transfer Count Last Ordered Date TRANSFER PATIENT (BED REQUEST) 1 First Ordered Date Discharge Count Last Ordered Date DISCHARGE PATIENT NOW 1 05/16/2022 First Ordered Date Equipment Count Last Ordered Date COMPRESSION DEVICE, LEG 1 05/10/2022 PUMP IV CONTROL UNIT W/MODULES 1 022 First Ordered Date Vital Signs Count Last Ordered Date VITAL SIGNS 1 05/11/2022 First Ordered Date Activity Count Last Ordered Date MOBILITY 1 05/11/2022 First Ordered Date Discharge Contingent Count Last Ordered Date DISCHARGE PATIENT CONTINGENT 1 First Ordered Date SPECIALITY EQUIPMENT Count Last Ordered Date COMMODE STANDARD 300LBS MAX 1 05/12/2022 First Ordered Date Order Set Communication Count Last Ordered D ate VTE DRUG PROPHYLAXIS CONTRAINDICATED 1 1 07/10/2021 First Ordered Date Intake & Output Count Last Ordered Date INTAKE AND OUTPUT 1 05/10/[address] & Maintain Count Last Ordered Date PLACE AND MAINTAIN SCD 1 05/10/2022 First Ordered Date ADT Patient Update Count Last Ordered Date CHANGE SERVICE / LEVEL OF CARE (NO BED 1 05/11/2022 REQUEST) documented in this encounter Additional Health Concerns Noted Time Assessment 05/16/2022 8:00 AM LOW VISION THERAPIST A fall risk assessment has been complet ed for the patient documented as of this encounter Care Teams Start Date End Date Geodetic Survey Director Relationship Specialty 04/11/22 Ange Grady, PCP - General Family Medicine [address] [facility] [address] [place] [address] 04/24/22 Juan Bunn MD Cardiovascul [address] [facility] [address] [place] [address] documented as of this encounter
--- OUTSIDE RECORDS SUMMARY | 2022-05-16 13:23 | XMS REPORT | Encounter Summary ---
Author Author [facility] Organization [facility] Address Unknown Phone Unavailable Care Team Providers Care Res Counselor Name Role Phone Ange Grady DO PCP [phone] Juan Bunn MD Unavailable Reason for [...] Expiration Visits Vi sits Date Requested Authorized [id number] 1 1 Encounter Details Care Team Description Date Type Department Valdo Young MD [address] [place] [address] Lumbar 3 laminectomy, durotomy, microsur gical clipping spinal dural arteriovenous fistula 05/10/2022 Surgery Operating Room: [address] [place] [address] Surgery Details Patient Class Case Class Case Type Trauma Case? Date/Time Status Location OR Service Planned Inpatient Elective - Treating conditio ns that are not life or limb threatening 05/10/22 Posted CA3 OR CA3 OR05 Neurosurge 10:25 AM ry Comments Panel 1 Procedure LRB Anes Op Region Wound Cl ass Neuromonitoring and microscope Lumbar 3 laminectomy, N/A Defer to Spine Lumbar Suresh an durotomy, microsurgical Anesthesia clipping spinal dural arteriovenous fistula MICROSURGICAL TECHNIQUES Defer to Spine Lumbar Lauren n - REQUIRING OPERATING Anesthesia MICROSCOPE USE Surgeon Role Service Panel Surgeon Co-Surgeon Neurosurgery 1 Vidal Cid MD Primary Neurosurgery 1 Valdo Young MD Resident - Assisting Neurosurgery 1 Saulo Santoyo MD Resident - Assisting Neurosurgery 1 eCci Rocha MD Resident - Assisting Neurosurgery 1 Everett Fried MD Special Needs 05/04 per teams: [10:09 AM] Guzman Miller 3 is the level for both Palak and Hector?[10:09 AM] Mariama Mclaughlinshelby!- bp 1241 documented in this encounter Social History Date Tobacco Use Types Packs/Day [...] Signs Reading Time Taken Comments Vital Sign 104/61 05/10/2022 2:00 PM CDT Blood Pressure 78 05/10/2022 3:00 PM CDT Pulse 36.9 C (98.5 F) 05/10/2022 2:00 PM CDT Temperature - - Respiratory Rate 96% 05/10/2022 3:00 PM CDT Oxygen Saturation - - Inhaled Oxygen Concentration [...] set of dentures Allergies Hydrocodone, Diazepam, and Petcpny-fca-olt reductase inhibitors Brief Hospital Course The patient was admitted and the following issues were addressed during this hos pitalization: (with pertinent details including admission exam/imaging/labs). 05/10; Admitted to the NeICU post operatively. 05/11: Doing well. Progressed to med/surg status. Mobilizing with PT/OT. Rehab me brenden consulted - IPR canidate. Pain controled. CM/SW [...] Telehealth visit with Lin Aguayo MD Neurosurgery: [facility] (NeuroSurgery) [address] [facility] [address] Jun 05, 2022 12:30 PM Postoperative visit with Vidal Cid MD Neurosurgery: [facility] (NeuroSurgery) [address] [facility] [address] Consults, Procedures, Diagnostics, Micro, Pathology Consults: Rehabilitative Medicine and Neurology Critical Care Surgical Procedures & Dates: Lumbar 3 laminectomy, durotomy, microsurgical clipping spinal dural arteriovenous fistula Significant Diagnostic Studies, Micro and Procedures: radiology: X-Ray: lumbar s pine Significant Pathology: none Nutrition: No Dietitian Consult Discharge Disposition, Condition Patient Disposition: Rehab Facility (Not [facility]) [62] Condition at Discharge: Stable Code Status Code Status History Date Active Date Inactive Code Status Order ID 05/10/2022 [id number] 05/10/2022 1721 Full Code [id number] Everett Fried M D Inpatient 04/30/2022 0918 04/30/2022 1658 Full Code [id number] Michaela Antonio, CASH- WELFARE CASE WORKER Inpatient Patient Instructions Regular Diet You have [...] . If outside normal business hours, call [phone] and ask for the lucila rosurgery resident production maintenance technician to be paged. Discharging attending physician: VALDO YOUNG [[id number]] Other Activity Restrictions Leave incision open to [...] is not lasting long enough, call yo doctor. *Do not break or crush your [...] Supplies, Home Health Home Health/DME None Signed: Loreta Castle APRN-WELFARE CASE WORKER 05/16/2022 cc: Primary Care Physician: Ange Grady Verified Referring physicians: Self, Referral Additional provider(s): Did we miss something? If additional records are needed, please fax a request on office letterhead to [phone]. Please include the patient's name, date of b irth, fax number and type of information needed. Additional request can be made by email at [email or web address]. For general questions of information about electronic records sharing, call [phone]. TRAPPER * Natali Fair LMSW - 05/16/2022 7:28 AM CST Case Management Progress Note NAME:Sahara Andujar :1950 AGE: 71 y.o. ADMISSION DATE: 05/10/2022 DAYS ADMITTED: LOS: 6 days Today's Date: 05/16/2022 PLAN: Pt will dc to [facility] today around 10am via daughter tra nsport. Expected Discharge Date: 05/17/2022 Is Patient Medically Stable: Yes Are there Barriers to Discharge? no INTERVENTION/DISPOSITION: Discharge Planning ROMINA notified provider Corrine of dc today around 10am via family transport. ROMINA notified bedside nurse of dc today at 10am and provided number for report. ROMINA printed and delivered transfer packet to pt bedside. ROMINA notified pt of dc time today at 10am SW notified pt's family of dc today REPORT [phone] ROMINA faxed dc orders to [phone] Transportation Will the Patient Use Family Transport?: Yes Transportation Name, Phone and Availability #1: pt's dtr Magui [phone] Support Info or Referral Medication Needs Financial Legal Other Discharge Disposition Selected Continued Care - Admitted Since 05/10/2022 No services have been selected for the patient. Natali Fair LMSW Social Work Case Management Available on [employer] TRAPPER * Natali Fair LMSW - 05/15/2022 9:06 AM CST Case Management Progress Note NAME:Sahara Andujar :1950 AGE: 71 y.o. ADMISSION DATE: 05/10/2022 DAYS ADMITTED: LOS: 5 days Today's Date: 05/15/2022 PLAN: Anticipate dc to [facility] pending facility acceptance. Expected Discharge Date: 05/15/2022 Is Patient Medically Stable: Yes Are there Barriers to Discharge? no INTERVENTION/DISPOSITION: Discharge Planning SW received a call from Mariama with [facility]. She may not have a bed unt l Saturday or but she was out yesterday and was still sorting through the referrals. She will let SW know by the end of the day. SW Will work on a david k up rehab plan. Sw received a message from Mariama stating [facility] is not contracted with [facility] and could not accept. Talked with pt and dtr at bedside about other rehab choices. Pt was upset becau se she really wanted to go to [facility]. SW sent a referral to [facility] as back up options. SW talked with Trace with [facility] who said [facility] was approved. Asked about the facility. SW asked about [facility] being out of network and he said they are not contracted but if they arent on an exclusion list, the member can still go there . SW asked if insurance would still pay for the rehab and he said SW would have to call [facility] [phone] to see what they would pay for the rehab. Transportation Will the Patient Use Family Transport?: Yes Transportation Name, Phone and Availability #1: pt's dtr Magui [phone] Support Info or Referral Medication Needs Financial Legal Other Discharge Disposition Selected Continued Care - Admitted Since 05/10/2022 No services have been selected for the patient. Natali Fair LMSW Social Work Case Management Available on [employer] Work TRAPPER * Natali Fair LMSW - 05/15/2022 9:06 AM CST Case Management Progress Note NAME:Sahara Andujar :1950 AGE: 71 y.o. ADMISSION DATE: 05/10/2022 DAYS ADMITTED: LOS: 5 days Today's Date: 05/15/2022 PLAN: Anticipate dc to [facility] pending facility acceptance. Expected Discharge Date: 05/15/2022 Is Patient Medically Stable: Yes Are there Barriers to Discharge? no INTERVENTION/DISPOSITION: Discharge Planning SW received a call from Mariama with [facility]. [facility] or but she was out yesterday and was still sorting through the referrals. She will let SW know by the end of the day. SW Will work on a david k up rehab plan. Romina received a message from Mariama stating [facility] is not contracted with [facility] and could not accept. Talked with pt and dtr at bedside about other rehab choices. Pt was upset dima se she really wanted to go to [facility]. ROMINA sent a referral to [facility] [place] as back up options. ROMINA talked with Trace with [facility] who said [facility] was approved. Asked about the facility. ROMINA asked about [facility] being out of network and he said they are not contracted but if they arent on an exclusion list, the member can still go there . ROMINA asked if insurance would still pay for the rehab and he said SW would have to call [facility] [phone] to see what they would pay for the rehab. [facility] said they can accept pt. ROMINA reached out to therapy to verify saf est transport time. Will have a bed tomorrow available for pt. Pt had been talking to her insurance about trying to get them to cover rehab at [facility] but had to leave a message. ROMINA talked with pt at bedside about the optio ns for rehab. [facility] has a bed tomorrow and pt is [...] Phone and Availability #1: pt's dtr Magui [phone] Support Info or Referral Medication Needs Financial Legal Other Discharge Disposition Selected Continued Care - Admitted Since 05/10/2022 No services have been selected for the patient. Natali Fair LMSW Social Work Case Management Available on [employer] TRAPPER * Natali Fair LMSW - 05/14/2022 8:26 AM CST Case Management Progress Note NAME:Sahara Andujar :1950 AGE: 71 y.o. ADMISSION DATE: 05/10/2022 DAYS ADMITTED: LOS: 4 days Today's Date: 05/14/2022 PLAN: Anticipate dc to [facility] pending medical stability, facility acceptanc e and insurance auth. Expected Discharge Date: 05/13/2022 Is Patient Medically Stable: Yes Are there Barriers to Discharge? no INTERVENTION/DISPOSITION: Discharge Planning ROMINA called [facility] and left a message for Mariama with admissions ask ing her to f/u about referral. [facility] called and asked if a facility had been identified yet. ROMINA will sen d through the portal once this is confirmed. ROMINA left another message with admissions at [facility] checking on the referral stat us. ROMINA called [facility] and asked to speak to someone else with Admissions. They said she was out today and let ROMINA talk to Quinton. He will make sure she reviews it fir st thing in the morning and if ROMINA hasn't heard anything by 9, ROMINA can call [facility]inton blue at the main number. Transportation Will the Patient Use Family Transport?: Yes Transportation Name, Phone and Availability #1: pt's dtr Magui [phone] Support Info or Referral Medication Needs Financial Legal Other Discharge Disposition Selected Continued Care - Admitted Since 05/10/2022 No services have been selected for the patient. Natali Fair LMSW Social Work Case Management Available on [employer] TRAPPER * Natali Fair LMSW - 05/13/2022 1:09 PM CST Case Management Progress Note NAME:Sahara Andujar :1950 AGE: 71 y.o. ADMISSION DATE: 05/10/2022 DAYS ADMITTED: LOS: 3 days Today's Date: 05/13/2022 PLAN: Anticipate dc to [facility] Pending facility acceptance and insurance au th. Expected Discharge Date: 05/13/2022 Is Patient Medically Stable: Yes Are there Barriers to Discharge? no INTERVENTION/DISPOSITION: Discharge Planning SW reviewed EMR. [facility] is not available on the weekends. Will f/u with [facility] Saturday morning. SW tasked COMMUNICATION EQUIPMENT REPAIRER to check status of auth through [facility]. Auth is still pending as of 1pm Saturday. Transportation Will the Patient Use Family Transport?: Yes Transportation Name, Phone and Availability #1: pt's dtr Magui [phone] Support Info or Referral Medication Needs Financial Legal Other Discharge Disposition Selected Continued Care - Admitted Since 05/10/2022 No services have been selected for the patient. Natali Fair LMSW Social Work Case Management Available on [employer] TRAPPER * Natali Fair LMSW - 05/11/2022 3:47 [...] Discharge Planning SW Sent a referral to [facility]. Will f/u. Transportation Will the Patient Use Family Transport?: Yes Transportation Name, Phone and Availability #1: pt's dtr Magui [phone] Support Info or Referral Medication Needs Financial Legal Other Discharge Disposition Selected Continued Care - Admitted Since 05/10/2022 No services have been selected for the patient. Natali Fair LMSW Social Work Case Management Available on [employer] Work * Antonina Wick - 05/11/2022 3:45 PM CDT [facility] Note: Request from SHIVAM Dumont to start a Naveal referral for IPR, no facility yet. Antonina Wick [employer] Press Hand For additional assistance please contact [facility] * * Natali Fair LMSW [...] are closes t. If IPR is recommended, [facility] would be first choice and [facility] would be 2nd. There are other closer [...] SNF, IPR, DME, outpatient therapy experience inc ortizes: ? Outpatient PT last year [facility] ? DME w/c, RW and rollator ? Transport plan will be pt' s dtmindy [place] ? Pt fills medications at [facility] in [place] Patient Address/Phone [address] [facility] [address] (home) Emergency Contact Extended Emergency Contact Information Primary Emergency Contact: Magui Flores Mobile Relation: Daughter Healthcare Directive Healthcare Directive: Yes, patient has a healthcare directive Type of Healthcare Directive: Durable power of cue worker for healthcare Location of Healthcare Directive: Patient does not have it with him/her Would patient like to fill out a (a new) Healthcare Directive?: No, patient decl ined Psych Advance Directive (Psych unit only): No, patient does not have a Psych Adv ance Directive Transportation Will the Patient Use Family Transport?: Yes Transportation Name, Phone and Availability #1: pt's dtmindy [place] [phone] Expected Discharge Date 05/12/2022 Living Situation Prior [...] Source of Income Source Of Income: Other jail income Financial Assistance Needed? NA Psychosocial Needs Mental Health Mental Health History: Yes Agency name: anxiety and depression, takes Lexapro. pt's last Dece mber Substance Use History Substance Use History Screen: No Other NA Current/Previous Services PCP Ange Grady, , Pharmacy [address] [address] Durable Medical Equipment Durable Medical Equipment at [...] return for future services?: Yes OT: No ADULT SERVICES LIBRARIAN: No Senior Living Facility/[facility] SNF: No NH: No Inpatient Rehab IPR: No Long-Term Acute Care Hospital LTACH: No Acute Hospital Stay Acute Hospital Stay: No documented in this encounter Discharge Instructions * Instructions* She Ng RN - 05/16/2022 9:41 AM CST Sahara Huertas Pratima Lumbar 3 Laminectomy, Durotomy, Microsurgical Clipping Spinal Dural Arteriove nous Fistula on 05/10/2022 with Valdo Young MD Neurosurgery Discharge Instructions Contact information: Call Neurosurgery if you have questions or are experiencing problems at discharg e [phone]. After 5 pm and weekends please call [phone] to reach Neurosurgery production maintenance technician. Post-operative wound care: Your incision has glue [...] Telehealth visit with Lin Aguayo MD Neurosurgery: [facility] (NeuroSurgery) [address] [place] [address]. [address] [facility] [address] Jun 05, 2022 12:30 PM Postoperative visit with Vidal Cid MD Neurosurgery: [facility] (NeuroSurgery) [address] [facility] [address] Please contact Neurosurgery if you develop any [...] by pain medications or muscle r elaxers. TRAPPER documented in this encounter Medications at Time [...] Means Destination Disposition Wheelchair Rehab Facility (Not [facility]) documented in this encounter Progress Notes * Tegan Marshall RN - 05/16/2022 10:25 AM CST Report given to RANJITH Barry, at [facility]. Discharge instructions read to patient and AVS given. No questions at time of discharge. Pt to daughter's vehicle per pers onal wheelchair. TRAPPER * Loreta Castle APRN-NP - 05/16/2022 8:11 [...] the bed level Lumbar incision C/D/I - [place] A/P: 71 y.o. female Principal Problem: [...] assessed for need for restraints. Please page [phone] with any questions. CHEL Price Voalte TRAPPER * Radha Morris OT - 05/15/2022 2:37 [...] cervical cancer s/p hysterectomy, who presents to [facility] s/p L3 laminectomy for decompression and [...] (4WW and RW) Prior Function Level Of Motley: Needed assistance with homemaking;Independent with ADLs a [...] lity;All home functioning ADLs Therapist: JAIMIE Johnston, JAVADR/L, CSRS [id number] Date: 05/15/2022 TRAPPER * Galina Alexander, PT - 05/15/2022 10:23 [...] All mobility Therapist: [place] [id number] Date: 05/15/2022 TRAPPER * Loreta Castle, CASH-WELFARE CASE WORKER - 05/15/2022 8:44 AM CST Neurosurgery Progress [...] the bed level Lumbar incision C/D/I - [place] A/P: 71 y.o. female Principal Problem: [...] assessed for need for restraints. Please page [phone] with any questions. CHEL Price Voalte TRAPPER * Barbra Demarco PT - 05/14/2022 2:26 [...] cancer s /p hysterectomy, who presents to [facility] s/p L3 laminectomy for decompression and [...] All mobility Therapist: Barbra Demarco, PT Date: 05/14/2022 TRAPPER * Lesia Ray APRN-NP - 05/14/2022 12:06 PM CST Neurosurgery Progress [...] assessed for need for restraints. Please page [phone] with any questions. CHEL Jarvis Voalte TRAPPER * Radha Morris OT - 05/14/2022 9:38 [...] cervical cancer s/p hysterectomy, who presents to [facility] s/p L3 laminectomy for decompression and [...] (4WW and RW) Prior Function Level Of Motley: Needed assistance with homemaking;Independent with ADLs a [...] lity;All home functioning ADLs Therapist: JAIMIE Johnston, JAVADR/L, CSRS [id number] Date: 05/14/2022 TRAPPER * Barbra Demarco, PT - 05/13/2022 2:25 [...] cancer s /p hysterectomy, who presents to [facility] s/p L3 laminectomy for decompression and [...] mobility Therapist: Barbra Demarco, PT Date: 05/13/2022 TRAPPER * Harry Kirby, OT - 05/11/2022 1:34 [...] cervical cancer s/p hysterectomy, who presents to [facility] s/p L3 laminectomy for decompression and [...] (4WW and RW) Prior Function Level Of Motley: Needed assistance with homemaking;Independent with ADLs a [...] lity;All home functioning ADLs Therapist: EZE Zapata/Ankur [id number] Date: 05/11/2022 * Mariama Ambrocio, PT - [...] cancer s /p hysterectomy, who presents to [facility] s/p L3 laminectomy for decompression and [...] Ambrocio, PT Date 05/11/2022 T * Loreta Castle, ACID BATH MIXER-WELFARE CASE WORKER - 05/11/2022 10:57 AM CDT Neurosurgery Progress Note Admission Date: 05/10/2022 LOS: 1 day S: No acute events noted. Seen this AM with the neurosurgery resident team. Datyler hter at bedside. Plan for day discussed. Questions [...] assessed for need for restraints. Please page [phone] with any questions. CHEL Price Voalte me [...] cervical cancer s/p hysterectomy, [facility] s/p L3 laminectomy for decompression and la nena rosurgical clip ligation of a right spinal dural AVF. Hospital and ICU course: 05/10: Admitted to NEICU s/p L3 laminectomy. 05/11: HDS. Downgrade per primary team. Neuro: Right spinal dural AVF s/p L3 laminectomy, durotomy, microsurgical clipping - - pt can mobilize at this time, can remove ford. - SBP Goal: < 140 - Periop Ancef 2g x3 - Neuro-ICU monitoring, neurochecks Q1H Psych: Depression - PARAPROFESSIONAL AIDE TEACHER Escitalopram 20 mg daily Sedation/Pain Management: - agents: PRN Tylenol, Oxycodone, Gabapentin - Assess for delirium daily Cardiac: HTN CAD s/p cardiac stents x3 Prinzmetal angina HLD - SBP goal: < 140 - MAP goal > 65 - PRN Hydralazine, Labetalol - Resume PARAPROFESSIONAL AIDE TEACHER Atenolol 25 QHS - Hold PARAPROFESSIONAL AIDE TEACHER asa 81 mg Respiratory: Hx Tb (childhood) [...] protocol if febrile MSK: Gout - Resume PARAPROFESSIONAL AIDE TEACHER Allopurinol 300 mg daily Renal: BUN 9, [...] canc er s/p hysterectomy, who presents to [facility] s/p L3 laminectomy for decompression and [...] for this patient. Allergies: Hydrocodone, Diazepam, and Cbhbucv-tiv-bcy reductase inhibitors Medications Prior to Admission Medication [...] 0500) O2 Device: None (Room air) (05/11 050) O2 Liter Flow: 2 Lpm (05/10 1500) [...] 75.8 kg (167 lb), SpO2 95 %. Joaquin coma score: E: 4 - Opens eyes [...] consulted teams Doreen Nuñez DO Date: 05/11/[phone] Associated attestation - Valdo Quintanilla MD - [...] consulted to coordinate a plan for Sahara Andujar's Asp irin for upcoming surgery on 05/10/22. [...] understa nding. Mariama Ward PHARMD * Marika Neri RN - 05/03/2022 3:37 PM CDT PAC phone [...] was advised to reach out to PAC director product with any changes to health or medications [...] requirement. Patient was informed a ll nail macanese and jewelry must be removed prior to coming to hospital. Patient verbalized understanding of all instructions and will receive a copy via [employer]. documented in this encounter H&P Notes * Ceci Rocha MD - 05/10/2022 10:12 AM CDT History and Physical Update Note Allergies: Hydrocodone, Diazepam, and Nviwhjp-nmc-frk reductase inhibitors Lab/Radiology/Other Diagnostic Tests: 24-hour labs: [...] performed on 05/01/22. Ceci Rocha MD [id number] TRAPPER Source Note - Vidal Cid MD - [...] myelopathy is the goal of the operation, wheth er or not there is an important [...] nce was attained below 5 K[employer]m. The [employer] [facility] evoked potential system was utili [facility] for stimulation and recording. Results: Post induction baseline somatosensory evoked potentials from bilateral ulnar and posterior tibial nerves were obtained and were reproducible with inter pretable latencies and interpretable morphologies. Transcranial electrical motor evoked potentials (tceMEPs) The corticospinal motor tracts were stimulated on each side via standard corkscr ew-type clinical neurophysiologic stimulating electrodes affixed to the scalp. Stimulation was performed with uldcr-tg-ibbxtmt connection between the two elect rodes, followed by reversal of polarity for opposite stimulation. Post inductio n baseline transcranial motor evoked potentials from the bilateral abducti digit i minimi, adductor longus, vastus lateralis, tibialis anterior, gastrocnemius, a bductor hallucis, and anal sphincter muscles and were reproducible with normal l atencies and morphologies except in the bilateral anal sphincter muscles. The [employer] IOM system was utilized. Results: The compound [...] recorded from a distal motor group. The [employer] IOM s ystem was utilized. Results: TO4 [...] hallucis, and anal sphincter muscles bilaterally. The [employer] IOM system was utilized. Results: There were [...] steadily increasing intensity until response elicited. The [employer] IOM system was utilized. Results: Pedicle screws [...] 71 y.o. 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 year old female admitted to [facility] on 05/10/2022 with the following issues: [...] with a go al of a BM [id number]. Neurogenic Bladder: Agree with ford catheter for [...] STATUS CHANGES and SEE COMMENTS Acts spacey Qmdlnib-Ulc-Pze Reductase Inhibitors MUSCLE PAIN and SEE COMMENTS Causes issues with muscles in legs Causes issues with muscles in legs Prior Level of Function: The patient was mod independent for all mobility/ambulation and activities of da arden living. Home Environment: Home Situation: Lives with [...] Reviewed Douglas Melendrez MD * Doreen Nuñez - 05/10/2022 1:52 PM CDTAssociated Order(s): CONSULT [...] cervical cancer s/p hysterectomy, who presents to [facility] s/p L3 laminectomy for decompression and la nena rosurgical clip ligation of a right spinal dural AVF. Hospital and ICU course: 05/10: Admitted to [facility] s/p L3 laminectomy. 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 Sedation/Pain Management: - agents: PRN Tylenol, Fentanyl, Oxycodone - Assess for delirium daily Cardiac: HTN CAD s/p cardiac stents x3 Prinzmetal angina HLD - SBP goal: < 140 - MAP goal > 65 - PRN Hydralazine, Labetalol - Resume PARAPROFESSIONAL AIDE TEACHER Atenolol 25 QHS - Hold PARAPROFESSIONAL AIDE TEACHER asa 81 mg Respiratory: Hx Tb (childhood) [...] protocol if febrile MSK: Gout - Resume PARAPROFESSIONAL AIDE TEACHER Allopurinol 300 mg daily Renal: BUN 12, [...] canc er s/p hysterectomy, who presents to [facility] s/p L3 laminectomy for decompression and [...] for this patient. Allergies: Hydrocodone, Diazepam, and Swpinrp-ihi-djk reductase inhibitors Medications Prior to Admission Medication [...] 75.8 kg (167 lb), SpO2 97 %. Joaquin coma score: E: 4 - Opens eyes [...] consulted teams Doreen Nuñez DO Date: 05/10/[phone] Associated attestation - Valdo Quintanilla MD - 05/11/2022 9:41 AM CDT ATTESTATION I have seen, personally fully evaluated, and discussed patient with the NEICU te . I agree with the objective findings and agree with the plan of care as docu mented by the resident with the exceptions noted. The patient is critically ill immediately post op from laminectomy and decompression and clipping of spinal d ural AVF. I spent 36 minutes (excluding time spent performing or supervising an y procedures) providing and personally directing critical care services, includi ng reviewing imaging and laboratory results. Staff name: Valdo Quintanilla MD Date: 05/10/2022 documented in this encounter OR Notes * Operative Report (Direct Entry) - Valdo Young MD - 05/10/2022 11:36 AM CDT OPERATIVE REPORT Name: Sahara Andujar is a 71 y.o. female : 1950 MR N#: [id number] DATE OF OPERATION: 05/10/2022 Surgeon(s) and Role: [...] 71 y.o. female : 1950 MR N#: [id number] DATE OF OPERATION: 05/10/2022 Surgeon(s) and Role: [...] resident. Complications: None Vidal Cid MD Pager TRAPPER documented in this encounter Miscellaneous Notes * [...] placed. A pharmacist will reach out with joslyn ko for this medication. DAY BEFORE SURGERY TAKE [...] list or medication questions before surgery. E-mail: [email or web address] Phone Triage Nurse - Marika: [phone] Before going home from the hospital, please [...] and any other valuables at home. The [facility] is not responsible for the loss or breakage of personal i tems. Remove nail macanese, makeup and all jewelry (including piercings) before coming t o the hospital. The morning of your procedure: brush your teeth and tongue do not smoke, vape, chew or use any tobacco products do not shave the area where you will have surgery What to bring to the hospital ID/ Insurance Card Compliance Investigator card Official documents for legal guardianship Copy of your Living Will, Advanced Directives, and/or Durable Power of Boiler Repair Supervisor. If you have these documents, please bring [...] to cancel your procedure Notify us at [facility]: if you need to cancel your procedure if you are going to be late Arrival at the hospital [facility] [address] [place] [address] Park in the P5 parking garage located at [facility], [place] [address]. If parking in the P5 garage, take the east elevators in the parking garage to th e second level and walk [facility] the [facility] Enter through the 1st floor main entrance [...] not receive a call, ple ase call [phone] before 4:30pm or [phone] after 4:30pm. For the safety of all [...] be bedside. The policy applies to [facility] and [facility] and clinics. Exceptions include: No visitors allowed [...] W/ AUTOMATED DIFF Routine 05/15/2022 1:00 AM GAME TRAPPER HC BASIC METABOLIC PANEL Routine 05/15/2022 1:00 AM GAME TRAPPER HC CBC W/ AUTOMATED DIFF Routine 05/14/2022 4:29 AM GAME TRAPPER HC BASIC METABOLIC PANEL Routine 05/14/2022 4:29 AM GAME TRAPPER HC CBC W/ AUTOMATED DIFF Routine 05/13/2022 4:31 AM GAME TRAPPER HC BASIC METABOLIC PANEL Routine 05/13/2022 4:31 AM GAME TRAPPER HC CBC W/ AUTOMATED DIFF Routine 05/11/2022 [...] (ABNORMAL) BASIC METABOLIC PANEL (05/15/2022 1:00 AM GAME TRAPPER) Pathologist Signature Component Value Ref Test Method Analysis Performed A t Range Time Sodium 132 (L) 137 - 05/15/2022 [facility] 147 1:40 AM MMOL/L GAME TRAPPER Potassium 4.1 3.5 - 05/15/2022 [facility] 5.1 1:40 AM MMOL/L GAME TRAPPER Chloride 97 (L) 98 - 110 05/15/2022 [facility] MMOL/L 1:40 AM GAME TRAPPER CO2 28 21 - 30 05/15/2022 [facility] MMOL/L 1:40 AM GAME TRAPPER Anion Gap 7 3 - 12 05/15/2022 [facility] 1:40 AM GAME TRAPPER Glucose 127 (H) 70 - 100 05/15/2022 [facility] MG/DL 1:40 AM GAME TRAPPER Blood Urea Nitrogen 7 7 - 25 05/15/2022 [facility] MG/DL 1:40 AM GAME TRAPPER Creatinine 0.60 0.4 - 05/15/2022 [facility] 1.00 1:40 AM MG/DL GAME TRAPPER Calcium 9.0 8.5 - 05/15/2022 [facility] 10.6 1:40 AM MG/DL GAME TRAPPER eGFR >60 >60 05/15/2022 [facility] mL/min 1:40 AM GAME TRAPPER Comment: eGFR calculated using the CKD-EPIcr_R equation Anatomical Location / Laterality Collection Method / Volume Rubio ection Time Received Time Specimen (Source) 05/15/2022 1:00 AM GAME TRAPPER 05/15/20 1:05 AM GAME TRAPPER Valdo Young MD LABORATORY ORDERABLES City/State/ZIP Code Phone Number Performing [place] [address] MAIN LAB [address] [place] * (ABNORMAL) CBC AND DIFF (05/15/2022 1:00 AM GAME TRAPPER) Pathologist Signature Component Value Ref Test Method Analysis Performed A t Range Time White Blood Cells 10.4 4.5 - 05/15/2022 MAIN LAB 11.0 1:22 AM K/UL GAME TRAPPER RBC 3.90 (L) 4.0 - 05/15/2022 [facility] 5.0 M/UL 1:22 AM GAME TRAPPER Hemoglobin 11.9 (L) 12.0 - 05/15/2022 MAIN LAB 15.0 1:22 AM GM/DL GAME TRAPPER Hematocrit 35.1 (L) 36 - 45 05/15/2022 [facility] % 1:22 AM GAME TRAPPER MCV 90.0 80 - 100 05/15/2022 MAIN LAB FL 1:22 AM GAME TRAPPER MCH 30.5 26 - 34 05/15/2022 MAIN LAB PG 1:22 AM GAME TRAPPER MCHC 33.8 32.0 - 05/15/2022 [facility] 36.0 1:22 AM G/DL GAME TRAPPER RDW 13.4 11 - 15 05/15/2022 [facility] % 1:22 AM GAME TRAPPER Platelet Count 242 150 - 05/15/2022 MAIN LAB 400 K/UL 1:22 AM GAME TRAPPER MPV 8.9 7 - 11 05/15/2022 [facility] FL 1:22 AM GAME TRAPPER Neutrophils 72 41 - 77 05/15/2022 [facility] % 1:22 AM GAME TRAPPER Lymphocytes 16 (L) 24 - 44 05/15/2022 [facility] % 1:22 AM GAME TRAPPER Monocytes 9 4 - 12 % 05/15/2022 [facility] 1:22 AM GAME TRAPPER Eosinophils 2 0 - 5 % 05/15/2022 [facility] 1:22 AM GAME TRAPPER Basophils 1 0 - 2 % 05/15/2022 [facility] 1:22 AM GAME TRAPPER Absolute Neutrophil 7.36 (H) 1.8 - 05/15/2022 [facility] Count 7.0 K/UL 1:22 AM GAME TRAPPER Absolute Lymph Count 1.68 1.0 - 05/15/2022 [facility] IN LAB 4.8 K/UL 1:22 AM GAME TRAPPER Absolute Monocyte 0.98 (H) 0 - 0.80 05/15/2022 [facility] Count K/UL 1:22 AM GAME TRAPPER Absolute Eosinophil 0.23 0 - 0.45 05/15/2022 [facility] LAB Count K/UL 1:22 AM GAME TRAPPER Absolute Basophil 0.12 0 - 0.20 05/15/2022 [facility] Count K/UL 1:22 AM GAME TRAPPER Anatomical Location / Laterality Collection Method / Volume Rubio ection Time Received Time Specimen (Source) 05/15/2022 1:00 AM GAME TRAPPER 05/15/20 1:05 AM GAME TRAPPER Valdo Young MD LABORATORY ORDERABLES City/State/ZIP Code Phone Number Performing [place] [address] [facility] [address] * (ABNORMAL) BASIC METABOLIC PANEL (05/14/2022 4:29 AM GAME TRAPPER) Pathologist Signature Component Value Ref Test Method Analysis Performed A t Range Time Sodium 134 (L) 137 - 05/14/2022 [facility] 147 5:33 AM MMOL/L GAME TRAPPER Potassium 4.4 3.5 - 05/14/2022 [facility] 5.1 5:33 AM MMOL/L GAME TRAPPER Chloride 99 98 - 110 05/14/2022 [facility] MMOL/L 5:33 AM GAME TRAPPER CO2 28 21 - 30 05/14/2022 [facility] MMOL/L 5:33 AM GAME TRAPPER Anion Gap 7 3 - 12 05/14/2022 [facility] 5:33 AM GAME TRAPPER Glucose 108 (H) 70 - 100 05/14/2022 [facility] MG/DL 5:33 AM GAME TRAPPER Blood Urea Nitrogen 9 7 - 25 05/14/2022 [facility] MG/DL 5:33 AM GAME TRAPPER Creatinine 0.65 0.4 - 05/14/2022 [facility] 1.00 5:33 AM MG/DL GAME TRAPPER Calcium 8.5 8.5 - 05/14/2022 [facility] 10.6 5:33 AM MG/DL GAME TRAPPER eGFR >60 >60 05/14/2022 [facility] mL/min 5:33 AM GAME TRAPPER Comment: eGFR calculated using the CKD-EPIcr_R equation Anatomical Location / Laterality Collection Method / Volume Rubio ection Time Received Time Specimen (Source) 05/14/2022 4:29 AM GAME TRAPPER 05/14/20 4:46 AM GAME TRAPPER Valdo Young MD LABORATORY ORDERABLES City/State/ZIP Code Phone Number Per[place] [address] [facility] [address] [place] * (ABNORMAL) CBC AND DIFF (05/14/2022 4:29 AM GAME TRAPPER) Pathologist Signature Component Value Ref Test Method Analysis Performed A t Range Time White Blood Cells 8.8 4.5 - 05/14/2022 [facility] 11.0 4:58 AM K/UL GAME TRAPPER RBC 4.00 4.0 - 05/14/2022 [facility] 5.0 M/UL 4:58 AM GAME TRAPPER Hemoglobin 12.1 12.0 - 05/14/2022 [facility] 15.0 4:58 AM GM/DL GAME TRAPPER Hematocrit 36.4 36 - 45 05/14/2022 [facility] % 4:58 AM GAME TRAPPER MCV 91.1 80 - 100 05/14/2022 [facility] FL 4:58 AM GAME TRAPPER MCH 30.3 26 - 34 05/14/2022 [facility] PG 4:58 AM GAME TRAPPER MCHC 33.3 32.0 - 05/14/2022 [facility] 36.0 4:58 AM G/DL GAME TRAPPER RDW 13.6 11 - 15 05/14/2022 [facility] % 4:58 AM GAME TRAPPER Platelet Count 247 150 - 05/14/2022 [facility] 400 K/UL 4:58 AM GAME TRAPPER MPV 8.8 7 - 11 05/14/2022 [facility] FL 4:58 AM GAME TRAPPER Neutrophils 66 41 - 77 05/14/2022 [facility] % 4:58 AM GAME TRAPPER Lymphocytes 21 (L) 24 - 44 05/14/2022 [facility] % 4:58 AM GAME TRAPPER Monocytes 9 4 - 12 % 05/14/2022 [facility] 4:58 AM GAME TRAPPER Eosinophils 3 0 - 5 % 05/14/2022 [facility] 4:58 AM GAME TRAPPER Basophils 1 0 - 2 % 05/14/2022 [facility] 4:58 AM GAME TRAPPER Absolute Neutrophil 5.82 1.8 - 05/14/2022 [facility] Count 7.0 K/UL 4:58 AM GAME TRAPPER Absolute Lymph Count 1.86 1.0 - 05/14/2022 [facility] IN LAB 4.8 K/UL 4:58 AM GAME TRAPPER Absolute Monocyte 0.78 0 - 0.80 05/14/2022 [facility] Count K/UL 4:58 AM GAME TRAPPER Absolute Eosinophil 0.22 0 - 0.45 05/14/2022 [facility] Count K/UL 4:58 AM GAME TRAPPER Absolute Basophil 0.10 0 - 0.20 05/14/2022 [facility] Count K/UL 4:58 AM GAME TRAPPER Anatomical Location / Laterality Collection Method / Volume Rubio ection Time Received Time Specimen (Source) 05/14/2022 4:29 AM GAME TRAPPER 05/14/20 4:46 AM GAME TRAPPER Valdo Young MD LABORATORY ORDERABLES City/State/ZIP Code Phone Number Performing [place] [address] [facility] [address] [place] * (ABNORMAL) BASIC METABOLIC PANEL (05/13/2022 4:31 AM GAME TRAPPER) Pathologist Signature Component Value Ref Test Method Analysis Performed A t Range Time Sodium 133 (L) 137 - 05/13/2022 [facility] 147 8:15 AM MMOL/L GAME TRAPPER Potassium 4.8 3.5 - 05/13/2022 [facility] 5.1 8:15 AM MMOL/L GAME TRAPPER Chloride 98 98 - 110 05/13/2022 [facility] MMOL/L 8:15 AM GAME TRAPPER CO2 26 21 - 30 05/13/2022 [facility] MMOL/L 8:15 AM GAME TRAPPER Anion Gap 9 3 - 12 05/13/2022 [facility] 8:15 AM GAME TRAPPER Glucose 95 70 - 100 05/13/2022 [facility] MG/DL 8:15 AM GAME TRAPPER Blood Urea Nitrogen 13 7 - 25 05/13/2022 [facility] MG/DL 8:15 AM GAME TRAPPER Creatinine 0.67 0.4 - 05/13/2022 [facility] 1.00 8:15 AM MG/DL GAME TRAPPER Calcium 8.0 (L) 8.5 - 05/13/2022 [facility] 10.6 8:15 AM MG/DL GAME TRAPPER eGFR >60 >60 05/13/2022 [facility] mL/min 8:15 AM GAME TRAPPER Comment: eGFR calculated using the CKD-EPIcr_R equation Anatomical Location / Laterality Collection Method / Volume Rubio ection Time Received Time Specimen (Source) 05/13/2022 4:31 AM GAME TRAPPER 05/13/20 7:36 AM GAME TRAPPER Vidal Cid MD LABORATORY ORDERABLES City/State/ZIP Code Phone Number Performing [place] [address] MAIN LAB [address] [place] * (ABNORMAL) CBC AND DIFF (05/13/2022 4:31 AM GAME TRAPPER) Pathologist Signature Component Value Ref Test Method Analysis Performed A t Range Time White Blood Cells 11.1 (H) 4.5 - 05/13/2022 MAIN LAB 11.0 7:49 AM K/UL GAME TRAPPER RBC 3.89 (L) 4.0 - 05/13/2022 [facility] 5.0 M/UL 7:49 AM GAME TRAPPER Hemoglobin 11.9 (L) 12.0 - 05/13/2022 [facility] 15.0 7:49 AM GM/DL GAME TRAPPER Hematocrit 35.4 (L) 36 - 45 05/13/2022 [facility] % 7:49 AM GAME TRAPPER MCV 91.0 80 - 100 05/13/2022 MAIN LAB FL 7:49 AM GAME TRAPPER MCH 30.5 26 - 34 05/13/2022 [facility] PG 7:49 AM GAME TRAPPER MCHC 33.6 32.0 - 05/13/2022 [facility] 36.0 7:49 AM G/DL GAME TRAPPER RDW 14.0 11 - 15 05/13/2022 [facility] % 7:49 AM GAME TRAPPER Platelet Count 244 150 - 05/13/2022 [facility] 400 K/UL 7:49 AM GAME TRAPPER MPV 9.7 7 - 11 05/13/2022 [facility] FL 7:49 AM GAME TRAPPER Neutrophils 63 41 - 77 05/13/2022 [facility] % 7:49 AM GAME TRAPPER Lymphocytes 22 (L) 24 - 44 05/13/2022 [facility] % 7:49 AM GAME TRAPPER Monocytes 12 4 - 12 % 05/13/2022 [facility] 7:49 AM GAME TRAPPER Eosinophils 2 0 - 5 % 05/13/2022 [facility] 7:49 AM GAME TRAPPER Basophils 1 0 - 2 % 05/13/2022 [facility] 7:49 AM GAME TRAPPER Absolute Neutrophil 7.10 (H) 1.8 - 05/13/2022 [facility] Count 7.0 K/UL 7:49 AM GAME TRAPPER Absolute Lymph Count 2.43 1.0 - 05/13/2022 [facility] IN LAB 4.8 K/UL 7:49 AM GAME TRAPPER Absolute Monocyte 1.28 (H) 0 - 0.80 05/13/2022 MAIN LAB Count K/UL 7:49 AM GAME TRAPPER Absolute Eosinophil 0.16 0 - 0.45 05/13/2022 [facility] Count K/UL 7:49 AM GAME TRAPPER Absolute Basophil 0.11 0 - 0.20 05/13/2022 [facility] Count K/UL 7:49 AM GAME TRAPPER Anatomical Location / Laterality Collection Method / Volume Rubio ection Time Received Time Specimen (Source) 05/13/2022 4:31 AM GAME TRAPPER 05/13/20 22 7:36 AM GAME TRAPPER Vidal Cid MD LABORATORY ORDERABLES City/State/ZIP Code Phone Number Per[place] [address] [facility] [address] [place] * PHOSPHORUS (05/11/2022 2:57 AM CDT) Pathologist Signature Component Value Ref Test Method Analysis Performed A t Range Time Phosphorus 2.7 2.0 - 05/11/2022 [facility] 4.5 4:03 AM MG/DL CDT Anatomical Location / Laterality Collection Method / Volume Rubio ection Time Received Time Specimen (Source) 05/11/2022 2:57 AM CDT 05/11/20 22 3:17 AM CDT Everett Guillen LABORATORY ORDERABLES Corky SEVILLA City/State/ZIP Code Phone Number Performing [place] [address] MAIN LAB [address] [place] * MAGNESIUM (05/11/2022 2:57 AM CDT) Pathologist Signature Component Value Ref Test Method Analysis Performed A t Range Time Magnesium 2.0 1.6 - 05/11/2022 MAIN LAB 2.6 4:03 AM mg/dL CDT Anatomical Location / Laterality Collection Method / Volume Rubio ection Time Received Time Specimen (Source) 05/11/2022 2:57 AM CDT 05/11/20 22 3:17 AM CDT Everett Guillen LABORATORY ORDERABLES Corky SEVILLA [facility]/State/ZIP Code Phone Number Performing Address Organization [place], [place] [address] MAIN LAB [address] [place] * IONIZED CALCIUM (05/11/2022 2:57 AM CDT) Pathologist Signature Component Value Ref Test Method Analysis Performed A t Range Time Ionized Calcium 1.09 1.0 - 05/11/2022 MAIN LA B 1.3 3:35 AM MMOL/L CDT Anatomical Location / Laterality Collection Method / Volume Rubio ection Time Received Time Specimen (Source) BLOOD / Unknown 05/11/2022 2:57 AM CDT 05/11/20 22 3:32 AM CDT Valdo Young MD LABORATORY ORDERABLES [facility]/State/ZIP Code Phone Number Performing Address Organization [place], [place] [address] MAIN LAB [address] [place] * (ABNORMAL) BASIC METABOLIC PANEL (05/11/2022 2:57 AM CDT) Pathologist Signature Component Value Ref Test Method Analysis Performed A t Range Time Sodium 140 137 - 05/11/2022 MAIN LAB 147 4:03 AM MMOL/L CDT Potassium 4.3 3.5 - 05/11/2022 [facility] 5.1 4:03 AM MMOL/L CDT Chloride 107 98 - 110 05/11/2022 [facility] MMOL/L 4:03 AM CDT CO2 22 21 - 30 05/11/2022 [facility] MMOL/L 4:03 AM CDT Anion Gap 11 3 - 12 05/11/2022 [facility] 4:03 AM CDT Glucose 106 (H) 70 - 100 05/11/2022 [facility] MG/DL 4:03 AM CDT Blood Urea Nitrogen 9 7 - 25 05/11/2022 [facility] N LAB MG/DL 4:03 AM CDT Creatinine 0.68 0.4 - 05/11/2022 [facility] 1.00 4:03 AM MG/DL CDT Calcium 8.5 8.5 - 05/11/2022 [facility] 10.6 4:03 AM MG/DL CDT eGFR >60 >60 05/11/2022 [facility] mL/min 4:03 AM CDT Comment: eGFR calculated using the CKD-EPIcr_R equation Anatomical Location / Laterality Collection Method / Volume Rubio ection Time Received Time Specimen (Source) 05/11/2022 2:57 AM CDT 05/11/20 3:17 AM CDT Vidal Cid MD LABORATORY ORDERABLES City/State/ZIP Code Phone Number Performing [place] [address] [place] MAIN LAB [address] [place] * (ABNORMAL) CBC AND DIFF (05/11/2022 2:57 AM CDT) Pathologist Signature Component Value Ref Test Method Analysis Performed A t Range Time White Blood Cells 11.6 (H) 4.5 - 05/11/2022 [facility] 11.0 3:34 AM K/UL CDT RBC 3.86 (L) 4.0 - 05/11/2022 [facility] 5.0 M/UL 3:34 AM CDT Hemoglobin 11.4 (L) 12.0 - 05/11/2022 [facility] 15.0 3:34 AM GM/DL CDT Hematocrit 35.0 (L) 36 - 45 05/11/2022 [facility] % 3:34 AM CDT MCV 90.6 80 - 100 05/11/2022 MAIN LAB FL 3:34 AM CDT MCH 29.5 26 - 34 05/11/2022 [facility] PG 3:34 AM CDT MCHC 32.6 32.0 - 05/11/2022 [facility] 36.0 3:34 AM G/DL CDT RDW 13.8 11 - 15 05/11/2022 [facility] % 3:34 AM CDT Platelet Count 253 150 - 05/11/2022 [facility] 400 K/UL 3:34 AM CDT MPV 9.1 7 - 11 05/11/2022 [facility] FL 3:34 AM CDT Neutrophils 80 (H) 41 - 77 05/11/2022 [facility] % 3:34 AM CDT Lymphocytes 10 (L) 24 - 44 05/11/2022 [facility] % 3:34 AM CDT Monocytes 10 4 - 12 % 05/11/2022 [facility] 3:34 AM CDT Eosinophils 0 0 - 5 % 05/11/2022 [facility] 3:34 AM CDT Basophils 0 0 - 2 % 05/11/2022 [facility] 3:34 AM CDT Absolute Neutrophil [...] City/State/ZIP Code Phone Number Per[place] [address] MAIN LAB [address] [place] * L SPINE 1 VIEW (05/10/2022 12:07 [...] Intraoperative COMPARISON: None available Procedure Note Yariel uBtcher MD - 05/10/2022 L SPINE 1 VIEW [...] City/State/ZIP Code Phone Number Per[place] [address] [facility] [address] [place] * BASIC METABOLIC PANEL (05/10/2022 10:22 AM CDT) Pathologist Signature Component Value Ref Test Method Analysis Performed A t Range Time Sodium 141 137 - 05/10/2022 [facility] 147 11:37 AM MMOL/L CDT Potassium 4.1 3.5 - 05/10/2022 [facility] 5.1 11:37 AM MMOL/L CDT Chloride 105 98 - 110 05/10/2022 [facility] MMOL/L 11:37 AM CDT CO2 25 21 - 30 05/10/2022 [facility] MMOL/L 11:37 AM CDT Anion Gap 11 3 - 12 05/10/2022 [facility] 11:37 AM CDT Glucose 100 70 - 100 05/10/2022 [facility] MG/DL 11:37 AM CDT Blood Urea Nitrogen 12 7 - 25 05/10/2022 [facility] MG/DL 11:37 AM CDT Creatinine 0.61 0.4 - 05/10/2022 [facility] 1.00 11:37 AM MG/DL CDT Calcium 9.8 8.5 - 05/10/2022 [facility] 10.6 11:37 AM MG/DL CDT eGFR >60 >60 05/10/2022 MAIN LAB mL/min 11:37 AM CDT Comment: eGFR calculated using the CKD-EPIcr_R equation Anatomical Location / Laterality Collection Method / Volume Rubio ection Time Received Time Specimen (Source) BLOOD / Unknown 05/10/2022 10:22 AM CDT 05/10/20 10:48 AM CDT Gabe Comer MD LABORATORY ORDERABLES City/State/ZIP Code Phone Number Per[place] [address] MAIN LAB [address] [place] * TYPE & CROSSMATCH (05/10/2022 10:22 AM CDT) Pathologist Signature Component Value Ref Test Method Analysis Performed A t Range Time Units Ordered 0 05/10/2022 MAIN LAB 10:41 AM CDT Crossmatch Expires 05/13/2022,2 05/10/2022 MAIN LAB 359 11:56 AM CDT Record Check 2ND TYPE 05/10/2022 MAIN LAB REQUIRED 10:41 AM CDT ABO/RH(D) A NEG 05/10/2022 [facility] 11:56 AM CDT Antibody Screen NEG 05/10/2022 MAIN LAB 11:56 AM CDT Electronic YES 05/10/2022 MAIN LAB Crossmatch 11:56 AM CDT Anatomical Location / Laterality Collection Method / Volume Rubio ection Time Received Time Specimen (Source) BLOOD / Unknown 05/10/2022 10:22 AM CDT 05/10/20 10:40 AM CDT Gabe Comer MD BLOOD BANK ORDERABLES City/[facility]/ZIP Code Phone Number Performing [place] [address] MAIN LAB [address] [place] documented in this encounter Visit Diagnoses Diagnosis 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, 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) Preop testing Preoperative examination, unspecified Post-op pain Other acute postoperative pain Other urinary incontinence Weakness of both lower extremities Coronary artery disease involving nativ e coronary artery of [place] heart with other form of angina pectoris (HCC) Primary hypertension Unspecified essential hypertension Spinal vascular malformation Congenital spinal vessel anomaly documented in this encounter Admitting Diagnoses Diagnosis Dural arteriovenous fistula Cerebral aneurysm, nonruptured documented in this encounter Administered Medications Action Date Dose Rate Site Medication Order MAR Action 05/16/2022 9:39 AM GAME TRAPPER 650 mg acetaminophen (TYLENOL) tablet 650 mg Given 650 mg, Oral, EVERY 4 HOURS PRN, Starting on Sat05/14/22 at 1956, Until Sat05/16/22 at 1231, Pain non-opioid: may be used alone or in combination wit h opioid analgesia, 38.3 C, TOTAL ACETAMINOPHEN DOSE NOT TO EXCEED 4GM DAILY 650 mg Given 05/15/2022 8:55 PM GAME TRAPPER 650 mg Given 05/15/2022 2:41 PM GAME TRAPPER 650 mg Given 05/15/2022 10:19 AM GAME TRAPPER 650 mg Given 05/15/2022 5:15 AM GAME TRAPPER 650 mg Given 05/14/2022 9:13 PM GAME TRAPPER 05/16/2022 9:39 AM GAME TRAPPER 300 mg allopurinoL (ZYLOPRIM) tablet 300 mg Given 300 mg, Oral, DAILY, First dose on Rochelle 05/10/22 at 1500, Until Discontinued 300 mg Given 05/15/2022 8:29 AM GAME TRAPPER 300 mg Given 05/14/2022 8:58 AM GAME TRAPPER 300 mg Given 05/13/2022 9:25 AM GAME TRAPPER 300 mg Given 05/12/2022 9:45 AM CDT 300 mg Given 05/11/2022 8:42 AM CDT 300 mg Given 05/10/2022 4:28 PM CDT 05/15/2022 8:56 PM GAME TRAPPER 25 mg atenoloL (TENORMIN) tablet 25 mg Given 25 mg, Oral, AT BEDTIME DAILY, First dose on [place] 05/10/22 at 2100, Until Discontinued 25 mg Given 05/14/2022 9:13 PM [employer] 25 mg Given 05/13/2022 9:33 PM [employer] 25 mg Given 05/12/2022 9:07 PM CDT 25 mg Given 05/11/2022 8:14 PM CDT 25 mg Given 05/10/2022 8:41 PM CDT 05/15/2022 8:30 AM G[employer] 10 mg bisacodyL (DULCOLAX (bisacodyl)) rectal Given suppository 10 mg 10 mg, Rectal, DAILY, First dose on Sat05/11/22 at 0900, Until Discontinued, Hold for loose stools 10 mg Given 05/13/2022 9:27 AM [employer] 10 mg Given 05/12/2022 9:54 AM CDT 10 mg Given 05/11/2022 8:42 AM CDT 05/10/2022 11:30 AM CDT 10 mL Back bupivacaine 0.5%/EPINEPHrine 1:200,000 Given injection INTRA-PROCEDURE MED, Starting on [place] 05/10/22 at 1130, Until Rochelle 05/10/22 at 1413, Intra-op 05/10/2022 11:30 AM CDT 1,000 mL Back ceFAZolin (ANCEF) 1 g in sodium chloride Given 1,000 mL irrigation bottle 1,000 mL, INTRA-PROCEDURE MED, Starting on Rochelle 05/10/22 at 1130, Until Rochelle 05/10/22 at 1413, Intra-op 05/15/2022 8:56 PM GAME TRAPPER 100 mg docusate (COLACE) capsule 100 mg Given 100 mg, Oral, TWICE DAILY, First dose o n Rochelle 05/10/22 at 1415, Until Discontinued , Hold for loose stools 100 mg Given 05/15/2022 8:29 AM GAME TRAPPER 100 mg Given 05/14/2022 9:13 PM GAME TRAPPER 100 mg Given 05/14/2022 8:58 AM GAME TRAPPER 100 mg Given 05/13/2022 9:34 PM GAME TRAPPER 100 mg Given 05/13/2022 9:27 AM GAME TRAPPER 100 mg Given 05/12/2022 9:07 PM CDT 100 mg Given 05/12/2022 9:44 AM CDT 100 mg Given 05/11/2022 8:14 PM CDT 100 mg Given 05/11/2022 8:42 AM CDT 100 mg Given 05/10/2022 8:44 PM CDT 100 mg Given 05/10/2022 4:28 PM CDT 05/16/2022 9:39 AM GAME TRAPPER 20 mg escitalopram oxalate (LEXAPRO) tablet 20 Given mg 20 mg, Oral, DAILY, First dose on Sat05/11/22 at 0900, Until Discontinued 20 mg Given 05/15/2022 8:29 AM GAME TRAPPER 20 mg Given 05/14/2022 8:58 AM GAME TRAPPER 20 mg Given 05/13/2022 9:26 AM GAME TRAPPER 20 mg Given 05/12/2022 9:44 AM CDT 20 mg Given 05/11/2022 8:42 AM CDT 05/16/2022 6:16 AM GAME TR[employer]PER 100 mg gabapentin (NEURONTIN) capsule 100 mg Given 100 mg, Oral, EVERY 8 HOURS, First dos e on Sat05/11/22 at 1400, Until Discontinued 100 mg Given 05/15/2022 9:01 PM GAME TR[employer]PER 100 mg Given 05/15/2022 2:41 PM GAME TRAPPER 100 mg Given 05/15/2022 5:15 AM GAME TRAPPER 100 mg Given 05/14/2022 9:13 PM GAME TRAPPER 100 mg Given 05/14/2022 1:11 PM GAME TRAPPER 100 mg Given 05/14/2022 5:24 AM GAME TRAPPER 100 mg Given 05/13/2022 9:34 PM GAME TRAPPER 100 mg Given 05/13/2022 3:23 PM GAME TRAPPER 100 mg Given 05/13/2022 6:32 AM GAME TRAPPER 100 mg Given 05/12/2022 9:07 PM CDT 100 mg Given 05/12/2022 1:32 PM CDT 100 mg Given 05/12/2022 6:20 AM CDT 100 mg Given 05/11/2022 10:03 PM CDT 100 mg Given 05/11/2022 2:44 PM CDT 05/16/2022 6:16 AM GAME TRAPPER 5,000 Units Abdomina l Tissue heparin (porcine) PF syringe 5,000 Units Given 5,000 Units, Subcutaneous, EVERY 8 HOURS, First dose on Sat05/13/22 at 0600, Until Discontinued, NOTE: This is a HIGH ALERT Medication. 5,000 Units Abdominal Tissue Given 05/15/2022 9:01 PM GAME TR[facility]PER 5,000 Units Abdomen:RUQ Given 05/15/2022 2:41 PM GAME TR[employer]PER 5,000 Units Abdominal Tissue Given 05/15/2022 5:16 AM GAME TR[employer]PER 5,000 Units Abdominal Tissue Given 05/14/2022 9:13 PM GAME TRAPPER 5,000 Units Abdominal Tissue Given 05/14/2022 1:11 PM GAME TR[employer]PER 5,000 Units Abdominal Tissue Given 05/14/2022 5:25 AM GAME TRAPPER 5,000 Units Abdominal Tissue Given 05/13/2022 9:36 PM GAME TRAPPER 5,000 Units Abdomen:LLQ Given 05/13/2022 3:23 PM GAME TR[employer]PER 5,000 Units Abdominal Tissue Given 05/13/2022 6:32 AM GAME TR[employer]PER 05/15/2022 8:55 PM GAME TR[employer]PER 180 mg isosorbide mononitrate (IMDUR) ER tablet Given 180 mg 180 mg, Oral, AT BEDTIME DAILY, First dose on Sat05/11/22 at 2100, Until Discontinued, DO NOT Crush tablets 180 mg Given 05/14/2022 9:13 PM GAME TR[facility]PER 180 mg Given 05/13/2022 9:35 PM GAME TR[employer]PER 180 mg Given 05/12/2022 9:06 PM CDT 180 mg Given 05/11/2022 8:14 PM CDT 05/16/2022 9:39 AM GAME TR[facility]PER 750 mg methocarbamoL (ROBAXIN) tablet 750 mg Given 750 mg, Oral, EVERY 8 HOURS PRN, Starting on Sat05/13/22 at 0954, Until Sat05/16/22 at 1231, Spasms 750 mg Given 05/15/2022 8:56 PM GAME TRAPPER 750 mg Given 05/15/2022 10:19 AM GAME TRAPPER 750 mg Given 05/14/2022 9:13 PM GAME TRAPPER 750 mg Given 05/14/2022 9:11 AM GAME TRAPPER 750 mg Given 05/13/2022 9:45 PM GAME TRAPPER 750 mg Given 05/13/2022 10:29 AM GAME TR[employer]PER 05/15/2022 8:29 AM GAME TR[facility]PER 10 mL milk of magnesia (CONC) oral suspension Given 10 mL 10 mL, Oral, DAILY, First dose on Sat05/10/22 at 1415, Until Discontinued, Ma y hold if BM within 24 hours of dose. 10 mL CONC = 30 mL MOM 10 mL Given 05/14/2022 8:58 AM GAME TRAPPER 10 mL Given 05/13/2022 9:27 AM GAME TR[employer]PER 10 mL Given 05/12/2022 9:54 AM CDT 10 mL Given 05/11/2022 8:42 AM CDT 10 mL Given 05/10/2022 4:28 PM CDT 05/16/2022 9:39 AM GAME TR[facility]PER 10 mg oxyCODONE (ROXICODONE) tablet 5-15 mg Given 5-15 mg, Oral, EVERY 4 HOURS PRN, Starting on Sat05/11/22 at 1047, Until Sat05/16/22 at 1231, Pain PO, Other..., Moderate/Severe Pain, Give if patient tolerating PO if [place] not effective. 10 mg Given 05/15/2022 8:56 PM GAME TR[facility]PER 10 mg Given 05/15/2022 2:41 PM GAME TRAPPER 10 mg Given 05/15/2022 8:29 AM GAME TRAPPER 10 mg Given 05/14/2022 5:58 PM GAME TRAPPER 10 mg Given 05/14/2022 9:53 AM GAME TRAPPER 15 mg Given 05/14/2022 4:04 AM GAME TRAPPER 15 mg Given 05/13/2022 9:45 PM GAME TRAPPER 10 mg Given 05/13/2022 12:06 PM GAME TRAPPER 10 mg Given 05/13/2022 6:32 AM GAME TRAPPER 10 mg Given 05/13/2022 1:08 AM CDT 10 mg Given 05/12/2022 5:36 PM CDT 10 mg Given 05/12/2022 1:32 PM CDT 10 mg Given 05/12/2022 9:45 AM CDT 10 mg Given 05/12/2022 5:01 AM CDT 5 mg Given 05/11/2022 8:19 PM CDT 10 mg Given 05/11/2022 2:44 PM CDT 05/15/2022 8:55 PM GAME TRAPPER 1 tablet senna/docusate (SENOKOT-S) tablet 1 Given tablet 1 tablet, Oral, TWICE DAILY, First dose on Rochelle 05/10/22 at 1415, Until Discontinued, Hold for loose stools. If patient unable to take tablet, give 10 mL of senna/docusate (SENOKOT-S) solution. Send [place] [employer] message to pharmacy., If patient unable to take tablet, give 10 mL of senna/docusate (SENOKOT-S) solution. 1 tablet Given 05/15/2022 8:29 AM GAME TRAPPER 1 tablet Given 05/14/2022 9:13 PM GAME TRAPPER 1 tablet Given 05/14/2022 8:58 AM GAME TRAPPER 1 tablet Given 05/13/2022 9:35 PM GAME TRAPPER 1 tablet Given 05/13/2022 9:27 AM GAME TRAPPER 1 tablet Given 05/12/2022 9:07 PM CDT 1 tablet Given 05/12/2022 9:45 AM CDT 1 tablet Given 05/11/2022 8:15 PM CDT 1 tablet Given 05/11/2022 8:42 AM CDT 1 tablet Given 05/10/2022 8:41 PM CDT 1 tablet Given 05/10/2022 4:28 PM CDT 05/10/2022 11:30 AM CDT 5,000 Units Back thrombin 5,000 unit topical solution Given INTRA-PROCEDURE MED, Starting on Rochelle 05/10/22 at 1130, Until Rochelle 05/10/22 at 1413, Intra-op documented in this encounter Discontinued Medications Start Date End Date Medication Sig Discontinue Reason 05/03/2022 Thiamine HCl 250 mg tab Take 250 mg Removed from by mouth [employer] Med List daily. 04/03/2022 05/16/2022 traMADoL (ULTRAM) [...] Recently Administered Medications Times are shown in GAME [facility]. 05/15/2022 05/16/2022 Medication Order 05/14/2022 0829 (Given [...] Patient Refused ) Hold for loose stools 0829 (Given - Provider: Gt Moon RN)2055 (Given - Provider: Haley Connell RN) 0940 (Med Not Given - Provider: Tegan gutierrez RN - Reason: Patient Refused) docusate (COLACE) capsule 100 mg 0858 (Given - 100 mg, Oral, TWICE DAILY, First dose on Provider: Mazin Byrd 05/10/22 at 1415, Until Discontinued, RANJITH Capps) [...] Connell RN) 0616 (Given - Provider: Brayan Wick RN) gabapentin (NEURONTIN) capsule 100 mg 0524 (Given - 100 mg, Oral, EVERY 8 HOURS, First dose Provider: Andriy romero on Sat05/11/22 at 1400, Until RANJITH Hardin)1311 Discontinued (Given - Provider: Seema Capps RN)2112 (Given - Provider: Elba Mejia RN) 0516 (Given - Provider: Elba Mejia RN)1441 (Given - Provider: Gt Moon RN)2101 (Given - Provider: Haley Connell RN) 0616 (Given - Provider: Brayan Wick RN) heparin (porcine) PF syringe 5,000 Units 0525 [...] Crush tablets 0829 (Given - Provider: Gt Moon, RANJITH) 0940 (Med Not Given - Provider: Tegan gutierrez RN - Reason: Patient Refused) milk of magnesia (CONC) oral suspension 0858 (Given - 10 mL Provider: Seema 10 mL, Oral, DAILY, First dose on Rochelle RANJITH Capps) 05/10/22 at 1415, Until Discontinued, Ma y hold if BM within 24 hours of dose. 10 mL CONC = 30 mL MOM 0829 (Given - Provider: Gt Moon, RANJITH)2055 (Given - Provider: Haley Connell, RANJITH) 0940 (Med Not Given - Provider: Tegan gutierrez RN - Reason: Patient Refused) senna/docusate (SENOKOT-S) tablet 1 0858 (Given - tablet Provider: Seema 1 tablet, Oral, TWICE DAILY, First dose RANJITH Capps)2 113 on Sat05/10/22 at 1415, Until (Given - Provider: Discontinued, Hold for loose stools. If Elba mello, RANJITH) patient unable to take tablet, give 10 mL of senna/docusate (SENOKOT-S) solution. Send inbasket message to pharmacy., If patient unable to take tablet, give 10 mL of senna/docusate (SENOKOT-S) solution. 0515 (Given - New Bag - Provider: Keily Mejia, RANJITH) sodium chloride 0.9 % infusion (COMPLETED) 1,000 mL, 1,000 mL, Intravenous, at 999 mL/hr, ONCE, 1 dose, On Sat05/15/22 at 0545 05/15/2022 05/16/2022 Medication Order 05/14/2022 acetaminophen (TYLENOL) tablet 650 mg 0403 (Given - (CANCELED) Provider: Jamilah 650 mg, Oral, EVERY 4 HOURS PRN, RANJITH Hardin)085 9 Starting on Sat05/10/22 at 1407, Until (Med Not Give n - 05/14/22 at 1956, Temp > ..., 38.3 C, Provider: Mazin teague TOTAL ACETAMINOPHEN DOSE NOT TO EXCEED Jefry RN - Reason: 4GM DAILY Patient Refused)0907 (Given - Provider: Seema Capps RN) 0515 (Given - Provider: Elba Mejia, RANJITH)1019 (Given - Provider: Gt Moon, RN)144 (Given - Provider: Gt Moon, RN)2054 (Given - Provider: Haley Connell, RN) 0939 (Given - Provider: Mindy Regalado) acetaminophen (TYLENOL) tablet 650 mg 2112 (Given - 650 mg, Oral, EVERY 4 HOURS PRN, Provider: Delicia camp Starting on 05/14/22 at 1956, Until RANJITH Mejia) Sat05/16/22 at 1231, Pain non-opioid: may be used alone or in combination wit h opioid analgesia, 38.3 C, TOTAL ACETAMINOPHEN DOSE NOT TO EXCEED 4GM DAILY 1019 (Given - Provider: Gt Moon, RANJITH)2055 (Given - Provider: Haley Connell RN) 0939 (Given - Provider: Mindy Regalado) methocarbamoL (ROBAXIN) tablet 750 mg 0911 (Given - 750 mg, Oral, EVERY 8 HOURS PRN, Provider: Seema Starting on Sat05/13/22 at 0954, Until Jefry RN)21 Sat05/16/22 at 1231, Spasms (Given - Provider: Elba Mejia, RANJITH) ondansetron (ZOFRAN) injection 4 mg 4 mg, Intravenous, EVERY 6 HOURS PRN, Starting on Rochelle 05/10/22 at 1407, Until Sat05/16/22 at 1231, Nausea/Vomiting Injectable 0829 (Given - Provider: Gt Moon, RN)144 (Given - Provider: Gt Moon, RN)2055 (Given - Provider: Haley Connell, RANJITH) 0939 (Given - Provider: Mindy Regalado) oxyCODONE (ROXICODONE) tablet 5-15 mg 0404 (Given - 5-15 mg, Oral, EVERY 4 HOURS PRN, Provider: Jamilah Starting on Sat05/11/22 at 1047, Until Mindy Hardin)0953 Sat05/16/22 at 1231, Pain PO, Other..., (Given - Pro vider: Moderate/Severe Pain, Give if patient Seema Capps , tolerating PO if [place] not effective. RN)1973 (Given - Provider: Seema Capps RN) documented in this encounter Orders First Ordered Date Medications Ordered That Might Not Have Count Last Ordered Date Been Administered 05/10/2022 sodium chloride 0.9 % infusion 2 05/1505/10/2022 acetaminophen (TYLENOL) tablet 650 mg 2 05/14/2022 methocarbamoL (ROBAXIN) tablet 750 mg 1 05/13/2022 heparin (porcine) PF syringe 5,000 Units 1 05/12/2022 bisacodyL (DULCOLAX (bisacodyl)) rectal 1 05/11/2022 suppository 10 mg gabapentin (NEURONTIN) capsule 100 mg 1 05/11/2022 isosorbide mononitrate (IMDUR) ER tablet 1 05/11/2022 180 mg oxyCODONE (ROXICODONE) tablet 5-15 mg 1 05/11/2022 acetaminophen (TYLENOL EXTRA STRENGTH) 1 05/10/2022 tablet 1,000 mg allopurinoL (ZYLOPRIM) tablet 300 mg 1 1 07/10/2021 atenoloL (TENORMIN) tablet 25 mg 1 05/10 calcium gluconate 1 g/NS 100 mL infusion 1 05/10/2022 ceFAZolin (ANCEF) IVP 2 g 1 05/10/2022 diphenhydrAMINE HCL (BENADRYL) injection 1 05/10/2022 25 mg docusate (COLACE) capsule 100 mg 1 05/10 escitalopram oxalate (LEXAPRO) tablet 20 1 05/10/2022 mg famotidine (PEPCID) tablet 20 mg 1 05/10 fentaNYL citrate PF (SUBLIMAZE) 1 2021 injection 25-50 mcg fentaNYL citrate PF (SUBLIMAZE) 1 2021 injection 50 mcg haloperidol lactate (HALDOL) injection 1 1 05/10/2022 mg hydrALAZINE (APRESOLINE) injection 10 mg 2 05/10/2022 labetaloL (NORMODYNE) injection 10 mg 1 05/10/2022 lidocaine PF 1% (10 mg/mL) injection 0.2 1 05/10/2022 mL magnesium sulfate 1 g/D5W 100 mL IVPB 1 05/10/2022 meperidine injection (DEMEROL) 1 022 syringe/vial 12.5 mg milk of magnesia (CONC) oral suspension 1 05/10/2022 10 mL ondansetron (ZOFRAN) injection 4 mg 1 oxyCODONE (ROXICODONE) tablet 5-10 mg 2 05/10/2022 potassium chloride in water IVPB 10 mEq 1 05/10/2022 potassium chloride oral solution 40-60 1 05/10/2022 mEq potassium chloride SR (K-DUR) tablet 1 1 07/10/2021 40-60 mEq senna/docusate (SENOKOT-S) tablet 1 1 tablet First Ordered Date Diet Count Last Ordered [...] Concerns Noted Time Assessment 05/16/2022 8:00 AM GAME TRAPPER A fall risk assessment has been complet ed for the patient documented as of this encounter Care Teams Start Date End Date Res Counselor Relationship Specialty 04/11/22 Ange Grady, PCP - General Family Medicine [address] [facility] [address] [place] [address] 04/24/22 Juan Bunn MD Cardiovascul [address] [place] [address] documented as of this encounter
--- OUTSIDE RECORDS SUMMARY | 2022-05-16 13:23 | XMS REPORT | Clinical Summary ---
Author Author [facility] Organization [facility] Address Unknown Phone Unavailable Care Team Providers Care Manufacturing Associate Name Role Phone Ange Grady DO PCP [phone] Juan Bunn MD Unavailable Source Comments Some departments are not documenting in the electronic medical record. If you d o not see the information that you expected, contact Release of Information in [facility] Information Management department at [phone] for further assistan ce in locating additional records.[facility] Allergies Comments Active Allergy Reactions Severity Noted Date Acts spacey Diazepam MENTAL STATUS Medium 03/20/2016 CHANGES, SEE COMMENTS Hydrocodone STOMACH High 06/11/2017 UPSET, NAUSEA AND VOMITING Causes issues with muscles in legs Causes issues with muscles in legs [id number]-Wad Reductase MUSCLE PAIN, Medium 01/2021 Inhibitors SEE COMMENTS Medications End Date Status Medication Sig Dispensed Refills Start Date Active allopurinoL (ZYLOPRIM) Take 300 mg 0 300 mg tablet by mouth daily. Active atenoloL (TENORMIN) 25 mg Take 25 mg by 0 12/07 tablet mouth at 1 bedtime daily. Active escitalopram oxalate Take 20 mg by 0 (LEXAPRO) 20 mg tablet mouth daily. Active isosorbide mononitrate Take 180 mg 0 (IMDUR) 60 mg ER tablet by mouth at bedtime daily. Active evolocumab (REPATHA Inject 140 mg 0 SURECLICK) 140 mg/mL under the injectable PEN skin every 14 days. On Saturdays Active betamethasone Apply 0 dipropionate (BETANATE) topically to 0.05 % topical cream affected area daily as needed. Active nitroglycerin (NITROSTAT) Place 0.6 mg 0 0.6 mg sublingual tablet under tongue every 5 minutes for 3 doses. Active calcium carbonate (TUMS) Chew 1 tablet 0 500 mg (200 mg elemental by mouth calcium) chewable tablet daily as needed. Active aspirin EC 81 mg tablet Take one 90 tablet 0 tablet by 2 mouth daily. Do NOT resume until 05/17/22 Active acetaminophen (TYLENOL) Take two 0 325 mg tablet tablets by 2 mouth every 4 hours as needed. Active gabapentin (NEURONTIN) Take one 270 capsule 0 100 mg capsule capsule by 2 mouth every 8 hours. Active heparin (porcine) PF Inject 0.5 mL 0 5,000units/0.5mL under the 2 injection syringe skin every 8 hours. May discontinue once mobilizing well Active methocarbamoL (ROBAXIN) Take one 15 tablet 0 750 mg tablet tablet by 2 mouth every 8 hours as needed for Spasms. Active oxyCODONE (ROXICODONE) 5 Take one 0 05/16 mg tablet tablet to 2 three tablets by mouth every 4 hours as needed. Active senna/docusate Take one 90 tablet 0 (SENOKOT-S) 8.6/50 mg tablet by 2 tablet mouth twice daily. Take while taking pain medication 04/24/2022 Discontinued (Removed from [facility] Med List) acetaminophen (TYLENOL Take 500 mg 0 EXTRA STRENGTH) 500 mg by mouth tablet every 6 hours as needed. 05/16/2022 Discontinued (Reorder) aspirin EC 81 mg tablet Take 81 mg by 0 mouth daily. 04/24/2022 Discontinued (Removed from P TA Med List) escitalopram in PLO gel 0 (LEXAPRO) 20 mg/0.75 mL 04/24/2022 Discontinued (Removed from P TA Med List) ibuprofen (ADVIL) 200 mg Take 200 mg 0 tablet by mouth every 6 hours as needed. 04/24/2022 Discontinued (Removed from P TA Med List) pregabalin (LYRICA) 25 mg Take 25 mg by 0 02/06 capsule mouth three 2 times daily. 05/16/2022 Discontinued traMADoL (ULTRAM) 50 mg Take 100 mg 0 tablet by mouth 2 every 6 hours as needed. 05/03/2022 Discontinued (Removed from P TA Med List) Thiamine HCl 250 mg tab Take 250 mg 0 by mouth daily. 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 (HCC) (Primary Dx) 05/01/2022 Office Visit Neurosurgery 05/01/2022 Travel Edgar Waters MD Richardson, Kimberly A, PERSONNEL RESEARCH PSYCHOLOGIST-ELECTRONICS LEAD 04/30/2022 Anesthesia Radiology Event Vidal Cid MD Potts, Rachel, RN Salina, Harjinder, RT(R)(),LRT 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 (HCC) 04/30/2022 Hospital Radiology Encounter 04/30/2022 Travel Vidal Cid MD 04/24/2022 PAC Office Pre-Admission Testi ng Visit Geno Hu RN 04/16/2022 Pre/Post Radiology Procedure Vidal Cid MD 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 (HCC) (Primary Dx) 04/13/2022 Orders Only Neurosurgery Valdo Young MD 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 (HCC) (Primary Dx) 04/11/2022 Office Visit Neurosurgery 04/11/2022 Travel from Last 3 Months Surgical History Surgery Date Site/Laterality Comments CORONARY STENT PLACEMENT X 3 HX CYST REMOVAL Left wirst HX CHOLECYSTECTOMY HX APPENDECTOMY HX SECTION 07/08/1986 - 07/07/1987 HX TOTAL VAGINAL HYSTERECTOMY OVARIAN CYST REMOVAL LAMINECTOMY 05/10/2022 Spine Lumbar 3 edyta ctomy, durotomy, microsurgical Lumbar/N/A clipping spinal dural arter iovenous fistula performed by Valdo Young MD at [facility] OR Medical History Medical History Date Comments COPD (chronic obstructive pulmonary disease) (HCC) Bronchiectasis (HCC) History of dental problems full set of dentures Coronary artery disease Social History Date Tobacco Use Types Packs/Day [...] was confirmed or suspected to have Coronavirus/COVID-19? Obstetrics History Last Filed Vital Signs Reading Time Taken Comments Vital Sign 113/52 05/16/2022 8:00 AM HYDRAULIC PILE HAMMER OPERATOR Blood Pressure 67 05/16/2022 8:00 AM HYDRAULIC PILE HAMMER OPERATOR Pulse 36.7 C (98 F) 05/16/2022 8:00 AM HYDRAULIC PILE HAMMER OPERATOR Temperature - - Respiratory Rate 97% 05/16/2022 8:00 AM HYDRAULIC PILE HAMMER OPERATOR Oxygen Saturation - - Inhaled Oxygen Concentration 75.8 kg (167 lb) 05/10/2022 10:16 AM CDT Weight 160 cm (5' 3") 05/10/2022 10:16 AM CDT Height 29.58 05/10/2022 10:16 AM CDT Body Mass Index Plan of Treatment Health Maintenance Due Date Last Done Comments MEDICARE ANNUAL WELLNESS 1952 VISIT PNEUMOCOCCAL VACCINE ( - 1958 PCV) DTAP/TDAP VACCINES ( - 1970 Tdap) HEPATITIS C SCREENING 1970 PHYSICAL (COMPREHENSIVE) 1970 EXAM BREAST CANCER SCREENING 1992 COLORECTAL CANCER 1997 SCREENING SHINGLES RECOMBINANT 2002 VACCINE (1 of 2) OSTEOPOROSIS 2017 SCREENING/MONITORING COVID-19 VACCINE (3 - 11/30/2020 10/05/2020, Booster for Moderna 09/07/2020 series) ADVANCED CARE PLANNING 07/08/2021 DISCUSSION AND DOCUMENTATION DEPRESSION SCREENING 07/08/2021 INFLUENZA VACCINE 02/05/2022 Goals Goal Patient Associated Recent Progress Patient-Stat Aut hor Goal Type Problems ed? Increase Physical Activity Exercise On track (05/10/2022 Yes Bess, 6:05 PM CDT) RANJITH Perez Medical Devices Device Identifier Shelf Expiration Date Model / Serial / L ot Implanted Type Area Manufactur er [id number] 03/07/2023 [id number] / N/A / [id number] Device Closure 70cm 6fr Angio-Seal Right: Femoral TE RUMO Vip .035in Vascular - Sn/A Artery MEDICAL Implanted: Qty: 1 on 04/30/2022 by Vidal Santos MD at [facility] Procedures Comments Procedure Name Priority Date/Time Associated Diag nosis HC BASIC METABOLIC PANEL Routine 05/15/2022 1:00 AM HYDRAULIC PILE HAMMER OPERATOR HC CBC W/ AUTOMATED DIFF Routine 05/15/2022 1:00 AM HYDRAULIC PILE HAMMER OPERATOR HC BASIC METABOLIC PANEL Routine 05/14/2022 4:29 AM HYDRAULIC PILE HAMMER OPERATOR HC CBC W/ AUTOMATED DIFF Routine 05/14/2022 4:29 AM HYDRAULIC PILE HAMMER OPERATOR HC BASIC METABOLIC PANEL Routine 05/13/2022 4:31 AM HYDRAULIC PILE HAMMER OPERATOR HC CBC W/ AUTOMATED DIFF Routine 05/13/2022 4:31 AM HYDRAULIC PILE HAMMER OPERATOR HC PHOSPHOROUS, SERUM 05/11/2022 2:57 AM CDT HC MAGNESIUM 05/11/2022 2:57 AM CDT HC CALCIUM IONIZED Routine 05/11/2022 2:57 AM CDT HC BASIC METABOLIC PANEL Routine 05/11/2022 2:57 AM CDT HC CBC W/ AUTOMATED DIFF Routine 05/11/2022 2:57 AM CDT L SPINE 1 VIEW Routine 05/10/2022 12:07 PM CDT L SPINE 1 VIEW Routine 05/10/2022 11:29 AM CDT ANESTHESIA ARTERIAL LINE Routine 05/10/2022 INSERTION 11:00 AM CDT MICROSURGICAL TECHNIQUES 05/10/2022 Spinal vascu [...] 09 AM] Mariama Fine !- bp 1241 BLOOD TYPING, ABO STAT 05/10/2022 CONFIRM 91 10:42 AM CDT TYPE & CROSSMATCH STAT 05/10/2022 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) Preop testing HC BASIC METABOLIC PANEL STAT 05/10/2022 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) Preop testing IR SPINAL ARTERIOGRAM Routine 04/30/2022 Dural ar teriovenous 1:04 PM CDT fistula of spinal cord (HCC) from Last 3 Months Results * (ABNORMAL) CBC AND DIFF (05/15/2022 1:00 AM HYDRAULIC PILE HAMMER OPERATOR) Only the most recent of 4 results within the time period is included. Pathologist Signature Component Value Ref Test Method Analysis Performed A t Range Time White Blood Cells 10.4 4.5 - 05/15/2022 [facility] 11.0 1:22 AM K/UL HYDRAULIC PILE HAMMER OPERATOR RBC 3.90 (L) 4.0 - 05/15/2022 [facility] 5.0 M/UL 1:22 AM HYDRAULIC PILE HAMMER OPERATOR Hemoglobin 11.9 (L) 12.0 - 05/15/2022 [facility] 15.0 1:22 AM GM/DL HYDRAULIC PILE HAMMER OPERATOR Hematocrit 35.1 (L) 36 - 45 05/15/2022 [facility] % 1:22 AM HYDRAULIC PILE HAMMER OPERATOR MCV 90.0 80 - 100 05/15/2022 [facility] FL 1:22 AM HYDRAULIC PILE HAMMER OPERATOR MCH 30.5 26 - 34 05/15/2022 [facility] PG 1:22 AM HYDRAULIC PILE HAMMER OPERATOR MCHC 33.8 32.0 - 05/15/2022 [facility] 36.0 1:22 AM G/DL HYDRAULIC PILE HAMMER OPERATOR RDW 13.4 11 - 15 05/15/2022 [facility] % 1:22 AM HYDRAULIC PILE HAMMER OPERATOR Platelet Count 242 150 - 05/15/2022 [facility] 400 K/UL 1:22 AM HYDRAULIC PILE HAMMER OPERATOR MPV 8.9 7 - 11 05/15/2022 [facility] FL 1:22 AM HYDRAULIC PILE HAMMER OPERATOR Neutrophils 72 41 - 77 05/15/2022 [facility] % 1:22 AM HYDRAULIC PILE HAMMER OPERATOR Lymphocytes 16 (L) 24 - 44 05/15/2022 [facility] % 1:22 AM HYDRAULIC PILE HAMMER OPERATOR Monocytes 9 4 - 12 % 05/15/2022 [facility] 1:22 AM HYDRAULIC PILE HAMMER OPERATOR Eosinophils 2 0 - 5 % 05/15/2022 [facility] 1:22 AM HYDRAULIC PILE HAMMER OPERATOR Basophils 1 0 - 2 % 05/15/2022 [facility] 1:22 AM HYDRAULIC PILE HAMMER OPERATOR Absolute Neutrophil 7.36 (H) 1.8 - 05/15/2022 [facility] Count 7.0 K/UL 1:22 AM HYDRAULIC PILE HAMMER OPERATOR Absolute Lymph Count 1.68 1.0 - 05/15/2022 [facility] 4.8 K/UL 1:22 AM HYDRAULIC PILE HAMMER OPERATOR Absolute Monocyte 0.98 (H) 0 - 0.80 05/15/2022 [facility] Count K/UL 1:22 AM HYDRAULIC PILE HAMMER OPERATOR Absolute Eosinophil 0.23 0 - 0.45 05/15/2022 [facility] Count K/UL 1:22 AM HYDRAULIC PILE HAMMER OPERATOR Absolute Basophil 0.12 0 - 0.20 05/15/2022 [facility] Count K/UL 1:22 AM HYDRAULIC PILE HAMMER OPERATOR Anatomical Location / Laterality Collection Method / Volume Rubio ection Time Received Time Specimen (Source) 05/15/2022 1:00 AM HYDRAULIC PILE HAMMER OPERATOR 05/15/20 1:05 AM HYDRAULIC PILE HAMMER OPERATOR Valdo Young MD LABORATORY ORDERABLES City/State/ZIP Code Phone Number Performing [place] [address] [facility] [address] * (ABNORMAL) BASIC METABOLIC PANEL (05/15/2022 1:00 AM HYDRAULIC PILE HAMMER OPERATOR) Only the most recent of 5 results within the time period is included. Pathologist Signature Component Value Ref Test Method Analysis Performed A t Range Time Sodium 132 (L) 137 - 05/15/2022 [facility] 147 1:40 AM MMOL/L HYDRAULIC PILE HAMMER OPERATOR Potassium 4.1 3.5 - 05/15/2022 [facility] 5.1 1:40 AM MMOL/L HYDRAULIC PILE HAMMER OPERATOR Chloride 97 (L) 98 - 110 05/15/2022 [facility] MMOL/L 1:40 AM HYDRAULIC PILE HAMMER OPERATOR CO2 28 21 - 30 05/15/2022 [facility] MMOL/L 1:40 AM HYDRAULIC PILE HAMMER OPERATOR Anion Gap 7 3 - 12 05/15/2022 [facility] 1:40 AM HYDRAULIC PILE HAMMER OPERATOR Glucose 127 (H) 70 - 100 05/15/2022 [facility] MG/DL 1:40 AM HYDRAULIC PILE HAMMER OPERATOR Blood Urea Nitrogen 7 7 - 25 05/15/2022 [facility] MG/DL 1:40 AM HYDRAULIC PILE HAMMER OPERATOR Creatinine 0.60 0.4 - 05/15/2022 [facility] 1.00 1:40 AM MG/DL HYDRAULIC PILE HAMMER OPERATOR Calcium 9.0 8.5 - 05/15/2022 [facility] 10.6 1:40 AM MG/DL HYDRAULIC PILE HAMMER OPERATOR eGFR >60 >60 05/15/2022 [facility] mL/min 1:40 AM HYDRAULIC PILE HAMMER OPERATOR Comment: eGFR calculated using the CKD-EPIcr_R equation Anatomical Location / Laterality Collection Method / Volume Rubio ection Time Received Time Specimen (Source) 05/15/2022 1:00 AM HYDRAULIC PILE HAMMER OPERATOR 05/15/20 22 1:05 AM HYDRAULIC PILE HAMMER OPERATOR Valdo Young MD LABORATORY ORDERABLES [facility]/State/ZIP Code Phone Number Performing [place] [address] [facility] [address] * PHOSPHORUS (05/11/2022 2:57 AM CDT) Pathologist Signature Component Value Ref Test Method Analysis Performed A t Range Time Phosphorus 2.7 2.0 - 05/11/2022 [facility] 4.5 4:03 AM MG/DL CDT Anatomical Location / Laterality Collection Method / Volume Rubio ection Time Received Time Specimen (Source) 05/11/2022 2:57 AM CDT 05/11/20 3:17 AM CDT Everett R LABORATORY ORDERABLES Corky SEVILLA [facility]/ZIP Code Phone Number Performing Address Organization [address] MAIN LAB [address] * MAGNESIUM (05/11/2022 2:57 AM CDT) Pathologist Signature Component Value Ref Test Method Analysis Performed A t Range Time Magnesium 2.0 1.6 - 05/11/2022 [facility] 2.6 4:03 AM mg/dL CDT Anatomical Location / Laterality Collection Method / Volume Rubio ection Time Received Time Specimen (Source) 05/11/2022 2:57 AM CDT 05/11/20 3:17 AM CDT Everett R LABORATORY ORDERABLES Corky SEVILLA [facility]/ZIP Code Phone Number Performing Address Organization [address] MAIN LAB [address] * IONIZED CALCIUM (05/11/2022 2:57 AM CDT) [...] AM CDT Valdo Young MD LABORATORY ORDERABLES [facility]/ZIP Code Phone Number Performing Address Organization [address] MAIN LAB [address] * L SPINE 1 VIEW (05/10/2022 12:07 PM CDT) Only the most recent of 2 results within the time period is included. Modality Anatomical Region Laterality Computed Radiography Spine [...] Young MD DIAGNOSTIC IMAGING ORDERABL ES * ANESTHESIA ARTERIAL LINE INSERTION (05/10/2022 11:00 AM CDT) Narrative Sharath Pearl MD - 05/10/2022 11:00 AM CDT Jameson Rhodes CRNA 05/10/2022 12:18 PM Anesthesia Procedure: Arterial Line Placement A-LINE INSERTION Date/Time: 05/10/2022 11:00 AM Patient location: OR Indications: hemodynamic monitoring Preprocedure checklist performed: 2 patient identifiers, risks & benefits discussed, patient evaluated, timeout performed, consent obtained, patient being monitored and sterile drape Sterile technique: - Proper hand washing - Cap, mask - Sterile gloves - Skin prep for antisepsis Arterial Line Procedure Patient sedated: yes (see MAR) Sedation type: general; Artery prepped with chlorhexidine; skin prep agent completely dried prior to procedure. Location: radial artery Laterality: right Technique: palpation Needle gauge: 20 G Number of attempts: 1 Procedure Outcome Catheter secured with adhesive dressing applied Events: no complications noted during insertion and skin intact, warm, and dry Observation: pt tolerated well Performed by: Sharath Pearl MD Authorized by: Sharath Pearl MD Sharath Pearl ANESTHESIA ORDERABLES * BLOOD TYPE CONFIRMATION - ORDER ONLY IF REQUESTED BY LAB (05/10/2022 10:42 AM CDT) Pathologist Signature Component Value Ref Test Method Analysis Performed A t Range Time ABO/RH(D) A NEG 05/10/2022 [facility] LAB 11:19 AM CDT Anatomical Location / Laterality Collection Method / Volume Rubio ection Time Received Time Specimen (Source) BLOOD / Unknown 05/10/2022 10:42 AM CDT 05/10/20 10:50 AM CDT Vidal Cid MD BLOOD BANK ORDERABLES City/State/ZIP Code Phone Number Performing [place] [address] MAIN LAB [address] * TYPE & CROSSMATCH (05/10/2022 10:22 AM [...] City/State/ZIP Code Phone Number [place] [address] [facility]IN [facility] [address] * IR SPINAL ARTERIOGRAM (04/30/2022 1:04 PM CDT) Modality Anatomical Region Laterality X-Ray Angiography Anatomical Location / Laterality Collection Method / Volume Rubio ection Time Received Time Specimen (Source) 05/03/2022 6:18 AM CDT Impressions 05/03/2022 6:33 AM CDT 1. 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 The fistulous point is just under the pedicle of right L3. The congested vein opacifies cephalad to the level the conus were extensive retrograde venous opacification of engorged serpiginous veins is demonstrated. 2. Calcified atherosclerotic sclerotic i nvolvement of the distal descending aorta results in occlusion of multiple left and right spinal segmental vessels and thus multiple lower thoracic spinal levels demonstrate compensatory collateralization. ATTESTATION: I attest that I performed the entire procedure from beginning to end and am responsible for the image interpretations. Finalized by Vidal Cid M.D. on 05/03/2022 6:33 AM. Dictated by Vidal Cid M.D. on 05/03/2022 6:18 AM. Narrative 05/03/2022 6:33 AM CDT CLINICAL HISTORY: 71-year-old female with progressive myelopathy is brought to the angiography suite to evaluate for suspected fistula. FIELD SAMPLING TECHNICIAN. Palak ANESTHESIA. GETA PROCEDURE. Spinal angiography with selective catheterization and angiographic interpretation of: Right T2-T12 all vessels Right L1-L4 all vessels Right L5 via the median sacral artery Median sacral artery Left T2-T12 all vessels, except left T8 Left L1-L4 all vessels Left L5 via the median sacral artery Median sacral artery Infrarenal aortogram Right T3 Adriane CT ACCESS. Right common femoral HEMOSTASIS. Angio-Seal PROCEDURE DETAIL. The patient was brought to the angiography suite and placed supine on the table. General endotracheal anesthesia was performed by the anesthesia team. Both groins were prepped and draped in the usual sterile fashion. The access site on the femoral artery was located by palpation and fluoroscopy. A microaccess kit was used to enter the common femoral artery. A common femoral angiogram was obtained. The Seldinger technique was used to place a 5-F sheath in the femoral artery. All bubbles were meticulously withdrawn and the sheath was carefully flushed and attached to continuous heparinized saline flush system. Similar attention was paid each subsequent sheath, catheter or microcatheter utilized to insure maintain an air free system. A ITN spinal angiography catheter was introduced through the sheath. Utilizing a combination of roadmap and direct catheter access techniques, a 5 Dominican diagnostic catheter was used to perform spinal diagnostic angiography. A Cobra catheter was utilized to access right L3. Three-dimensional reconstructed views of the right L3 obtained during the procedure were processed on an independent workstation. The reconstruction image processing was performed under my direction. The 3 dimensionally reconstructed images added additional diagnostic information allowing for accurate interpretation. At the conclusion of the imaging, the catheter and sheath were removed and hemostasis was achieved with the Angio-Seal closure device. A sterile compressive dressing was applied. The patient was awakened from anesthesia and transferred to the recovery area. FINDINGS: Right L3. Images the right L3 includes Adriane CT with 3-D reconstruction. A type I spinal dural arteriovenous fistula is confirmed at right L3. The fistulous point is just under the pedicle of right L3. The congested vein opacifies cephalad to the level the conus were extensive retrograde venous opacification of engorged serpiginous veins is demonstrated. Right T2, T3, T4, T5, T6, T7, T8, T9, T10, T11, T12. These vessels are imaged and demonstrate no involvement with the fistula. However, due to the calcified, atherosclerotic distal descending aorta, a high degree of collateralization with supply to adjacent levels is demonstrated in the lower thoracic region. Left T2, T3, T4, T5, T6, T7, T9, T10, T11, T12. These vessels are imaged and demonstrate no involvement with the fistula. However, due to the calcified, atherosclerotic distal descending aorta, a high degree of collateralization with supply to adjacent levels is demonstrated in the lower thoracic region. Left T10 supplies the artery of Adamkiewicz. Right L1, L2, L4. Normal vascular pattern. No vascular abnormality is visualized on these injections. Left L1, L2, L3, L4. Normal vascular pattern. No vascular abnormality is visualized on these injections. Median sacral. Normal vascular pattern. No vascular abnormality is visualized on these injections. Left and right L5 are demonstrated and are normal. Infrarenal aortogram. Calcified atherosclerotic involvement of the distal descending aorta without dynamically significant stenosis and without aneurysmal involvement. Procedure Note Vidal Cid MD - 05/03/2022 CLINICAL HISTORY: 71-year-old female with progressive myelopathy is brought to the angiography suite to evaluate for suspected fistula. FIELD SAMPLING TECHNICIAN. Palak ANESTHESIA. GETA PROCEDURE. Spinal angiography with selective catheterization and angiographic interpretation of: Right T2-T12 all vessels Right L1-L4 all vessels Right L5 via the median sacral artery Median sacral artery Left T2-T12 all vessels, except left T8 Left L1-L4 all vessels Left L5 via the median sacral artery Median sacral artery Infrarenal aortogram Right T3 Adriane CT ACCESS. Right common femoral HEMOSTASIS. Angio-Seal PROCEDURE DETAIL. The patient was brought to the angiography suite and placed supine on the table. General endotracheal anesthesia was performed by the anesthesia team. Both groins were prepped and draped in the usual sterile fashion. The access site on the femoral artery was located by palpation and fluoroscopy. A microaccess kit was used to enter the common femoral artery. A common femoral angiogram was obtained. The Seldinger technique was used to place a 5-F sheath in the femoral artery. All bubbles were meticulously withdrawn and the sheath was carefully flushed and attached to continuous heparinized saline flush system. Similar a ttention was paid each subsequent sheath, catheter or microcatheter utilized to insure maintain an air free system. A ITN spinal angiography catheter was introduced through the sheath. Utilizing a combination of roadmap and direct catheter access techniques, a 5 Dominican diagnostic catheter was used to perform spinal diagnostic angiography. A Cobra catheter was utilized to access right L3. Three-dimensional reconstructed views of the right L3 obtained during the procedure were processed on an independent workstation. The reconstruction image processing was performed under my direction. The 3 dimensionally reconstructed images added additional diagnostic information allowing for accurate interpretation. At the conclusion of the imaging, the catheter and sheath were removed and hemostasis was achieved with the Angio-Seal closure device. A sterile compressive dressing was applied. The patient was awakened from anesthesia and transferred to the recovery area. FINDINGS: Right L3. Images the right L3 includes Adriane CT with 3-D reconstruction. A type I spinal dural arteriovenous fistula is confirmed at right L3. The fistulous point is just under the pedicle of right L3. The congested vein opacifies cephalad to the level the conus were extensive retrograde venous opacification of engorged serpiginous veins is demonstrated. Right T2, T3, T4, T5, T6, T7, T8, T9, T10, T11, T12. These vessels are imaged and demonstrate no involvement with the fistula. However, due to the calcified, atherosclerotic distal descending aorta, a high degree of collateralization with supply to adjacent levels is demonstrated in the lower thoracic region. Left T2, T3, T4, T5, T6, T7, T9, T10, T11, T12. These vessels are imaged and demonstrate no involvement with the fistula. However, due to the calcified, atherosclerotic distal descending aorta, a high degree of collateralization with supply to adjacent levels is demonstrated in the lower thoracic region. Left T10 supplies the artery of Adamkiewicz. Right L1, L2, L4. Normal vascular pattern. No vascular abnormality is visualized on these injections. Left L1, L2, L3, L4. Normal vascular pattern. No vascular abnormality is visualized on these injections. Median sacral. Normal vascular pattern. No vascular abnormality is visualized on these injections. Left and right L5 are demonstrated and are normal. Infrarenal aortogram. Calcified atherosclerotic involvement of the distal descending aorta without dynamically significant stenosis and without aneurysmal involvement. IMPRESSION 1. 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 The fistulous point is just under the pedicle of right L3. The congested vein opacifies cephalad to the level the conus were extensive retrograde venous opacification of engorged serpiginous veins is demonstrated. 2. Calcified atherosclerotic sclerotic i nvolvement of the distal descending aorta results in occlusion of multiple left and right spinal segmental vessels and thus multiple lower thoracic spinal levels demonstrate compensatory collateralization. ATTESTATION: I attest that I performed the entire procedure from beginning to end and am responsible for the image interpretations. Finalized by Vidal Cid M.D. on 05/03/2022 6:33 AM. Dictated by Vidal Cid M.D. on 05/03/2022 6:18 AM. Vidal Cid MD IR ORDERABLES from Last 3 Months Insurance Type Payer Benefit Subscriber ID Effective Phone Address Plan / Dates Group Medicare UHC MEDICARE UHC [id number] 2021-P [phone] [address] MEDICARE resent [id number] [place] [address] [facility] (Home) [place] [address] Advance Directives Date Inactivated Comments Code Status Date Activated 05/16/2022 12:26 PM Full Code 05/10/2022 5:21 PM Provider has discussed Code Status Yes w/Patient or Family? 05/10/2022 5:21 PM Full Code 05/10/2022 2:07 PM Provider has discussed Code Status No, discussion no t w/Patient or Family? necessary based on Dx 04/30/2022 4:58 PM Full Code 04/30/2022 9:18 AM Provider has discussed Code Status No, discussion no t w/Patient or Family? necessary based on Dx Care Teams Start Date End Date Manufacturing Associate Relationship Specialty 04/11/22 Ange Grady, PCP - General Family Medicine [address] [place] [address] 04/24/22 Juan Bunn MD Cardiovascul [address] Disease [address] [place] [address]
--- OUTSIDE RECORDS SUMMARY | 2022-05-16 13:24 | XMS REPORT | Encounter Summary ---
Author Author [facility] Organization [facility] Address Unknown Phone Unavailable Care Team Providers Care Er Nurse Name Role Phone Ange Grady DO PCP [phone] Juan Bunn MD Unavailable Encounter Details Care Team Description Date Type Department 05/01/2022 Travel Social History Date Tobacco Use Types [...] AM CDT Date Recorded COVID-19 Exposure Response 05/01/2022 10:15 AM CDT In the last 10 days, have you been in contact with N o / Unsure someone who was confirmed or suspected to have Coronavirus/COVID-19? documented as of this encounter Plan of Treatment Not on filedocumented as of this encounter Visit Diagnoses Not on filedocumented in this encounter Care Teams Start Date End Date Er Nurse Relationship Specialty 04/11/22 Ange Grady, PCP - General Family DO Medicine [address] [place] [address] 04/24/22 Juan Bunn MD Cardiovascul [address] Disease [address] [place] [address] documented as of this encounter
--- OUTSIDE RECORDS SUMMARY | 2022-05-16 13:24 | XMS REPORT | Encounter Summary ---
Author Author [facility] Organization [facility] Address Unknown Phone Unavailable Care Team Providers Care Management Professor Name Role Phone Ange Grady DO PCP [phone] Juan Bunn MD Unavailable Encounter Details Care Team Description Date Type Department 04/30/2022 Travel Social History Date Tobacco Use Types [...] AM CDT Date Recorded COVID-19 Exposure Response 04/30/2022 8:43 AM CDT In the last 10 days, have you been in contact with N o / Unsure someone who was confirmed or suspected to have Coronavirus/COVID-19? documented as of this encounter Plan of Treatment Not on filedocumented as of this encounter Visit Diagnoses Not on filedocumented in this encounter Additional Health Concerns Noted Time Assessment 04/30/2022 9:04 AM CDT A fall risk assessment has been complet ed for the patient documented as of this encounter Care Teams Start Date End Date Management Professor Relationship Specialty 04/11/22 Ange Grady, PCP - General Family DO Medicine [address] [facility] [address] [place], [place] [address] 04/24/22 Juan Bunn MD Cardiovascul [address] Disease [address] [place] [id number] documented as of this encounter
--- OUTSIDE RECORDS SUMMARY | 2022-05-16 13:24 | XMS REPORT | Encounter Summary ---
Author Author [facility] Organization [facility] Address Unknown Phone Unavailable Care Team Providers Care Gis Analyst Name Role Phone Ange Grady DO PCP [phone] Encounter Details Care Team Description Date Type Department 04/11/2022 Travel Social History Date Tobacco Use Types Packs/Day Years Used Never Smoker Smokeless Tobacco: Never Used Comments Alcohol Use Standard Drinks/Week Never 0 (1 standard drink = 0.6 o z pure alcohol) Sex Assigned at Date Recorded Female 04/11/2022 7:28 AM CDT Date Recorded COVID-19 Exposure Response 04/11/2022 10:44 AM CDT In the last 10 days, have you been in contact with N o / Unsure someone who was confirmed or suspected to have Coronavirus/COVID-19? documented as of this encounter Plan of Treatment Not on filedocumented as of this encounter Visit Diagnoses Not on filedocumented in this encounter Additional Health Concerns Noted Time Assessment 04/11/2022 11:06 AM CDT A fall risk assessment has been complet ed for the patient documented as of this encounter Care Teams Start Date End Date Gis Analyst Relationship Specialty 04/11/22 Ange Grady, PCP - General Family DO Medicine [address] [place] [address] documented as of this encounter
--- OUTSIDE RECORDS SUMMARY | 2022-05-16 13:24 | XMS REPORT | Encounter Summary ---
Author Author [facility] Organization [facility] Address Unknown Phone Unavailable Care Team Providers Care School Year Nanny Name Role Phone Ange Grady DO PCP [phone] Juan Bunn MD Unavailable Reason for Visit * Auth/Cert Diagnoses / Procedures Referred By Contact Referred To Conta ct Specialty Diagnoses Spinal vascular malformation Spinal vascular malformation [Q28.8] Procedures MT MERCADO EXC/OCCLUSION AVM SPI CORD THORACOLUMBAR MT MERCADO FACETECTOMY & FORAMOTOMY 1 SEGMENT LUMBAR Lumbar 3 laminectomy, durotomy, microsurgical clipping spinal dural arteriovenous fistula MINIMALLY INVASIVE LAMINECTOMY/ FACETECTOMY/ FORAMINOTOMY WITH DECOMPRESSION - 1 VERTEBRAL SEGMENT LUMBAR 3 Referral ID Status Reason Start Date Expiration Visits Vi sits Date Requested Authorized [id number] 1 1 Encounter Details Care Team Description Date Type Department Sharath Pearl MD [id number] [place] [address] Wen Hoffman DO 4000 [place] [address] 05/10/2022 Anesthesia Operating Room: Cam bridge Event [place] A [address] [facility] Level 3 [place] [address] Anesthesia Record Responsible Anesthesiologist Anesthesia Start Time Anesthesi a Stop Time Procedure Name Sharath Pearl MD 05/10/22 1044 05/10/22 1415 Lumbar 3 laminectomy, durotomy, microsurgical clipping spinal dural arteriovenous fistula (N/A Spine Lumbar) Date Time Event Comment 1029 AN Equip Check 2022 1038 1044 Out of Pre Procedure 1044 Anes Start 1044 An Start Data 1044 In Room 1053 An Induction The patient was ree valuated immediately before moderate or deep sedation use and before anesthesia induction. 1055 An Intubation 1105 Anesthesia Ready 1119 an puneet now 1136 Proc Start 1407 An Extubation 1410 an stop data 1415 Handoff to RN I completed my SBAR handoff to the receiving nurse. 1415 An Stop Meds Name Total fentaNYL PF (SUBLIMAZE) injection 50 mcg lidocaine (2%) 200 mg/10mL Injection 80 mg syringe propofol (DIPRIVAN) 200 mg/ 20 mL 150 mg injection (VIAL) ondansetron (ZOFRAN) injection 4 mg dexamethasone (DECADRON) 4 mg/mL 4 mg injection propofol (DIPRIVAN) infusion 1,307.17 mg remifentanyl 1000mcg in NS 20mL 970.24 mcg (50mcg/mL)(OR) phenylephrine (MELCHOR-SYNEPHRINE) 0.1 mg/mL 600 mcg injection syr artificial tears (dextran 2 drop 70/hypromellose) ophthalmic drops succinylcholine 20mg/mL inj vial 100 mg ceFAZolin (ANCEF) 2 g phenylephrine (MELCHOR-SYNEPHRINE) 10 mg in 4.82 mg sodium chloride 0.9% (NS) 250 mL IV dri p (std conc) indocyanine green (IC-GREEN) 50 mg sodium chloride 0.9 % infusion 1,000 mL electrolyte-A (PLASMA-LYTE) 800 mL * Name O2 N2O Inspired Sevoflurane Inspired Sevoflurane * No blood administrations on file. Removal Type Details Placement Peripheral 05/10/22; 1032; RN; L; Wrist; 20 G; N/A ; 05/10/22 1032 by Emir, IV 1 RANJITH Kilgore 05/10/22 1407 by Jameson Rhodes CRNA ETT 05/10/22; 1055; Mask ventilation not 1 07/10/21 1055 by attempted (0); Rapid sequence, Stylet; Adam Rhodes CRNA Cuffed, Single-Lumen; ETT Size: 7.5mm; Mac; Blade Size: 3; Cricoid Pressure: No; Oral; 1-Full view of the glottis; 1 insertion attempt; Auscultation, ETCO2 Detector; Vol of Air in Cuff: 8 mL; Taped at Gums: 21 centimeters; Atraumatic, dentition unchanged; 05/10/22; 1407 05/10/22 1903 by Chris Kellogg RN Peripheral 05/10/22; 1100; Provider; R; Hand; 20 G ; 05/10/22 1100 by IV 1; Symptomatic (phlebitis, pain, Jameson Ramirez PROCESSING LEAD leaking, infiltration); 05/10/22; 1903 05/11/22 0747 by Urszula Boss RN Arterial 05/10/22; 1100 (created via procedure 05/10/22 1100 by Line documentation); 20 G; 05/11/22; 0747 M Sharath Bah MD 05/11/22 1200 by Angy Mortensen RN Indwelling 05/10/22; 1111; Unit (Comment) ([facility] OR) ; 05/10/22 1111 by Lino, Urinary 16 FR; Regular (Two-way); 05/11/22; 120 0 RANJITH Mccord Catheter 05/16/22 1026 by Rojas, Cost Analyst Wounds 05/10/22; 1136; Surgical incision; Mid, 05/10/22 1136 by Timmy, Lower; Back; LUMBAR SPINE; 05/16/22; RANJITH Askew 1026 documented in this encounter Social History Date [...] have Coronavirus/COVID-19? documented as of this encounter OR Notes * Anesthesia Postprocedure Evaluation - Jameson Rhodes CRNA - 05/10/2022 2:26 PM CDT Post-Anesthesia Evaluation Name: Sahara Andujar : 1950 Age: 71 y.o. Sex: female Procedure Information Anesthesia Start Date/Time: 05/10/22 1044 Procedures: Lumbar 3 laminectomy, durotomy, microsurgical clipping spinal dural arteriov enous fistula (N/A Spine Lumbar) - Neuromonitoring and microscope MICROSURGICAL TECHNIQUES - REQUIRING OPERATING MICROSCOPE USE (Spine Lumbar) Location: [facility] OR05 / [facility] OR/Periop Surgeons: Valdo Young MD Post-Anesthesia Vitals BP: 104/61 (05/10 1400) Temp: 36.9 C (98.5 F) (05/10 1400) Pulse: 79 (05/10 1400) Respirations: 15 PER MINUTE (05/10 1400) SpO2: 99 % (05/10 1400) O2 Device: None (Room air) (05/10 1400) ABP: 104/72 (05/10 1413) Vitals Value Taken Time BP Temp Pulse 77 05/10/22 1425 Respirations SpO2 94 % 05/10/22 1425 O2 Device ABP 104/72 05/10/22 1413 ART BP Vitals shown include unvalidated device data. Post Anesthesia Evaluation Note Evaluation location: ICU Patient participation: recovered; patient participated in evaluation Level of consciousness: sleepy but conscious Pain management: adequate Hydration: normovolemia Temperature: 36.0C - 38.4C Airway patency: adequate Perioperative Events Post-op nausea and vomiting: no PONV Postoperative Status Cardiovascular status: hemodynamically stable Respiratory status: spontaneous ventilation and supplemental oxygen ICU Information Blood Products Given-no Staff involved in transport include: anesthesiologist, PROCESSING LEAD, OR nurse and surgeo n Perioperative Events There were no known complications for this encounter. Associated attestation - Sharath Pearl MD - 05/11/2022 7:45 AM CDT ATTESTATION Post-Anesthesia Evaluation and ICU Transfer Note Attestation: I evaluated the pa tient and the indicated post-anesthesia care is discharge and transfer to the [facility] physician-lead team. Staff name: Sharath Pearl MD Date: 05/11/2022 * Anesthesia Procedure Notes - Jameson Rhodes CRNA - 05/10/2022 12:17 PM CDT Associated Order(s): A-LINE INSERTION Anesthesia Procedure: Arterial Line Placement A-LINE INSERTION [...] skin prep agent completely dried prior to pro cedure. Location: radial artery Laterality: right Technique: palpation Needle gauge: 20 G Number of attempts: 1 Procedure Outcome Catheter secured with adhesive dressing applied Events: no complications noted during insertion and skin intact, warm, and dry Observation: pt tolerated well Performed by: Sharath Pearl MD Authorized by: Sharath Pearl MD Associated attestation - Sharath Pearl MD - 05/10/2022 1:20 PM CDT I personally placed the arterial line. Sharath Pearl MD * Anesthesia Preprocedure Evaluation - Sharath Pearl MD - 05/10/2022 8:39 AM CDT Anesthesia Pre-Procedure Evaluation Name: Sahara Andujar : 1950 Age: 71 y.o. Sex: female Procedure Info: Procedure Information Date/Time: 05/10/22 1025 Procedures: Lumbar 3 laminectomy, durotomy, microsurgical clipping spinal dural arteriov enous fistula (N/A ) - Neuromonitoring and microscope MINIMALLY INVASIVE LAMINECTOMY/ FACETECTOMY/ FORAMINOTOMY WITH DECOMPRESSION - 1 VERTEBRAL SEGMENT - LUMBAR 3 Location: [facility] OR05 / [facility] OR/Periop Surgeons: Vidal Cid MD; Valdo Young MD Physical Assessment Vital Signs (last filed in past 24 hours): BP: 149/70 (05/10 1016) Pulse: 70 (05/10 1016) Respirations: 18 PER MINUTE (05/10 1016) SpO2: 97 % (05/10 1016) O2 Device: None (Room air) (05/10 1016) SpO2 Pulse: 70 (05/10 1016) Patient History Allergies Allergen Reactions Hydrocodone STOMACH UPSET and NAUSEA AND VOMITING Diazepam MENTAL STATUS CHANGES and SEE COMMENTS Acts spacey Sbvlmcm-Vyf-Sly Reductase Inhibitors MUSCLE PAIN Causes issues with muscles in legs Current Medications Medication Directions allopurinoL (ZYLOPRIM) 300 mg tablet Take 300 mg by mouth daily. aspirin EC 81 mg tablet Take 81 mg by mouth daily. atenoloL (TENORMIN) 25 mg tablet Take 25 mg by mouth at bedtime daily. betamethasone dipropionate (BETANATE) 0.05 % topical cream Apply topically to a ffected area daily as needed. escitalopram oxalate (LEXAPRO) 20 mg tablet Take 20 mg by mouth daily. evolocumab (REPATHA SURECLICK) 140 mg/mL injectable PEN Inject 140 mg under the skin every 14 days. On Saturdays isosorbide mononitrate (IMDUR) 60 mg ER tablet Take 180 mg by mouth at bedtime d aily. nitroglycerin (NITROSTAT) 0.[address] 0.6 mg under tongue fanta ry 5 minutes for 3 doses. traMADoL (ULTRAM) 50 mg tablet Take 100 mg by mouth every 6 hours as needed. 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 No renal disease Incontinent of bowel/bladder Neuro/Psych Neuromuscular disease: lumbar radiculopathy. Neuropathy Weakness Musculoskeletal Back pain Possible dural AV fistula in lower thoracic Endocrine/Other Malignancy (cervical ca) Constitution - negative Physical Exam Airway Findings Mallampati: II TM distance: >3 FB Neck ROM: full Mouth opening: good Airway patency: adequate Dental Findings: Upper dentures and lower dentures Cardiovascular Findings: Negative Rhythm: regular Rate: normal Pulmonary Findings: Negative Breath sounds clear to auscultation. 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 Dr. Juan Bunn states, "She is doing well. She is going to need a s millie stenosis fixed; I do not see any contraindications for her having surgery. She, otherwise, appears well. Follow up in 1 yr. Anesthesia Plan ASA score: 3 Plan: general and invasive monitoring Induction method: intravenous NPO status: acceptable Informed Consent Anesthetic plan and risks discussed with patient. Use of blood products discussed with patient Blood Consent: consented Plan discussed with: HAI, anesthesiologist and surgeon/proceduralist. documented in this encounter Plan of Treatment Not on filedocumented as of this encounter Goals Goal Patient Associated Recent Progress Patient-Stat Aut hor Goal Type Problems ed? Increase Physical Activity Exercise On track (05/10/2022 Yes Bess, 6:05 PM CDT) RANJITH Perez documented as of this encounter Procedures Comments Procedure Name Priority Date/Time Associated Diag nosis ANESTHESIA ARTERIAL LINE Routine 05/10/2022 INSERTION 11:00 AM CDT documented in this encounter Results * ANESTHESIA ARTERIAL LINE INSERTION (05/10/2022 11:00 [...] by: Sharath Pearl MD Sharath Pearl ANESTHESIA ORDERHAYLEY SEVILLA documented in this encounter Visit Diagnoses Not on filedocumented in this encounter Administered Medications Action Date Dose Rate Site Medication Order MAR Action 05/10/2022 10:55 AM CDT 2 drops artificial tears (PF) single dose Given ophthalmic solution Both Eyes, INTRA-PROCEDURE MED, Startin g on Rochelle 05/10/22 at 1055, Until Rochelle 05/10/22 at 1426, Anesthesia Intra-op 05/10/2022 11:05 AM CDT 2 g ceFAZolin (ANCEF) injection Given Intravenous, INTRA-PROCEDURE MED, Starting on Rochelle 05/10/22 at 1105, Until Rochelle 05/10/22 at 1426, Anesthesia Intra-o p 05/10/2022 11:05 AM CDT 4 mg dexamethasone sodium phosphate Given (DECADRON) injection Intravenous, INTRA-PROCEDURE MED, Starting on Rochelle 05/10/22 at 1105, Until Rochelle 05/10/22 at 1426, Anesthesia Intra-o p 05/10/2022 11:20 AM CDT electrolyte-A (PLASMA-LYTE A PH 7.4) Given - New injection Bag Intravenous, INTRA-PROCEDURE MED(CONT), Starting on Rochelle 05/10/22 at 1120, Until Rochelle 05/10/22 at 1426, Anesthesia Intra-o p 05/10/2022 10:50 AM CDT 50 mcg fentaNYL citrate PF (SUBLIMAZE) Given injection Intravenous, INTRA-PROCEDURE MED, Starting on Rochelle 05/10/22 at 1050, Until Rochelle 05/10/22 at 1426, Anesthesia Intra-o p 05/10/2022 1:03 PM CDT 25 mg indocyanine green (IC GREEN) injection Given Intravenous, INTRA-PROCEDURE MED, Starting on Rochelle 05/10/22 at 1234, Until Rochelle 05/10/22 at 1426, Anesthesia Intra-o p 25 mg Given 05/10/2022 12:34 PM CDT 05/10/2022 10:53 AM CDT 80 mg lidocaine (PF) injection Given Intravenous, INTRA-PROCEDURE MED, Starting on Rochelle 05/10/22 at 1053, Until Rochelle 05/10/22 at 1426, Anesthesia Intra-o p 05/10/2022 1:49 PM CDT 4 mg ondansetron (ZOFRAN) injection Given Intravenous, INTRA-PROCEDURE MED, Starting on Rochelle 05/10/22 at 1349, Until Rochelle 05/10/22 at 1426, Anesthesia Intra-o p 05/10/2022 12:50 PM CDT 50 mcg phenylephrine (MELCHOR-SYNEPHRINE) 10 mg in Bolus sodium chloride 0.9% (NS) 250 mL IV dri p (std conc) 250 mL, Intravenous, INTRA-PROCEDURE MED(CONT), Starting on Rochelle 05/10/22 at 1135, Until Rochelle 05/10/22 at 1426, Anesthesia Intra-op 0.4 mcg/kg/min 45.48 mL/hr Dose/Rate Change 05/10/2022 12:37 PM CDT 0.5 mcg/kg/min 56.85 mL/hr Dose/Rate Change 05/10/2022 12:21 PM CDT 0.4 mcg/kg/min 45.48 mL/hr Infusion Restarted 05/10/2022 12:11 PM CDT 0.6 mcg/kg/min 68.22 mL/hr Dose/Rate Change 05/10/2022 11:59 AM CDT 0.7 mcg/kg/min 79.59 mL/hr Dose/Rate Change 05/10/2022 11:45 AM CDT 1 mcg/kg/min 113.7 mL/hr Dose/Rate Change 05/10/2022 11:42 AM CDT 0.08 mcg/kg/min 9.096 mL/hr Dose/Rate Change 05/10/2022 11:38 AM CDT 1 mcg/kg/min 113.7 mL/hr Given - New Bag 05/10/2022 11:35 AM CDT 05/10/2022 11:42 AM CDT 100 mcg phenylephrine (MELCHOR-SYNEPHRINE) injection Given syringe Intravenous, INTRA-PROCEDURE MED, Starting on Rochelle 05/10/22 at 1142, Until Rochelle 05/10/22 at 1426, Anesthesia Intra-o p 100 mcg Given 05/10/2022 11:27 AM CDT 100 mcg Given 05/10/2022 11:12 AM CDT 100 mcg Given 05/10/2022 11:09 AM CDT 100 mcg Given 05/10/2022 11:06 AM CDT 100 mcg Given 05/10/2022 11:00 AM CDT 05/10/2022 1:48 PM CDT 55 mcg/kg/min 25.014 mL/hr propofol (DIPRIVAN) infusion Dose/Rate 100 mL, Intravenous, INTRA-PROCEDURE Change MED(CONT), Starting on Rochelle 05/10/22 at 1105, Until Rochelle 05/10/22 at 1426, Anesthesia Intra-op 75 mcg/kg/min 34.11 mL/hr Dose/Rate Change 05/10/2022 1:41 PM CDT 95 mcg/kg/min 43.206 mL/hr Given - New Bag 05/10/2022 12:40 PM CDT 95 mcg/kg/min 43.206 mL/hr Dose/Rate Change 05/10/2022 12:13 PM CDT 100 mcg/kg/min 45.48 mL/hr Dose/Rate Change 05/10/2022 11:42 AM CDT 125 mcg/kg/min 56.85 mL/hr Dose/Rate Change 05/10/2022 11:15 AM CDT 150 mcg/kg/min 68.22 mL/hr Given - New Bag 05/10/2022 11:05 AM CDT 05/10/2022 11:00 AM CDT 30 mg propofol (DIPRIVAN) injection Given Intravenous, INTRA-PROCEDURE MED, Starting on Rochelle 05/10/22 at 1053, Until Rochelle 05/10/22 at 1426, Anesthesia Intra-o p 120 mg Given 05/10/2022 10:53 AM CDT 05/10/2022 12:37 PM CDT 0.1 mcg/kg/min 9.096 mL/hr remifentanyl 1000mcg in NS 20mL Dose/Rate (50mcg/mL)(OR) Change Intravenous, INTRA-PROCEDURE MED(CONT), Starting on Rochelle 05/10/22 at 1100, Until Rochelle 05/10/22 at 1426, Anesthesia Intra-o p 0.08 mcg/kg/min 7.277 mL/hr Dose/Rate Change 05/10/2022 12:32 PM CDT 0.05 mcg/kg/min 4.548 mL/hr Given - New Bag 05/10/2022 11:00 AM CDT 05/10/2022 12:04 PM CDT sodium chloride 0.9 % infusion Given - New 1,000 mL, 1,000 mL, Intravenous, at 20 Bag mL/hr, CONTINUOUS, Starting on Sat05/10/22 at 1015, Until Sat05/11/22 at 0628, Pre-Op Infusion Restarted 05/10/2022 10:40 AM CDT 1,000 mL 20 mL/hr Given - New Bag 05/10/2022 10:32 AM CDT 05/10/2022 10:53 AM CDT 100 mg succinylcholine (ANECTINE) injection Given Intravenous, INTRA-PROCEDURE MED, Starting on Rochelle 05/10/22 at 1053, Until Rochelle 05/10/22 at 1426, Anesthesia Intra-o p documented in this encounter Orders First Ordered Date Medications Ordered That Might Not Have Count Last Ordered Date Been Administered lactated ringers infusion 1 05/10/2022 documented in this encounter Additional Health Concerns Noted Time Assessment 05/10/2022 8:00 PM CDT A fall risk assessment has been complet ed for the patient documented as of this encounter Care Teams Start Date End Date School Year Nanny Relationship Specialty 04/11/22 Ange Grady, PCP - General Family Medicine [address] [facility] [address] [place] [address] 04/24/22 Juan Bunn MD Cardiovascul [address] Disease [address] [place] [address] documented as of this encounter
--- OUTSIDE RECORDS SUMMARY | 2022-05-16 13:24 | XMS REPORT | Encounter Summary ---
Author Author [facility] Organization [facility] Address Unknown Phone Unavailable Care Team Providers Care Social Media Campaign Manager Name Role Phone Ange Grady DO PCP [phone] Juan Bunn MD Unavailable Encounter Details Care Team Description Date Type Department Vidal Cid MD [address] [facility] Pavilion Lvl [address] [place] [address] 04/24/2022 PAC Office Pre-anesthesia: Magdalena tyler Visit [facility] [address], [address] [place] [address] Anesthesia Record Responsible Anesthesiologist Anesthesia Start Time Anesthesi a Stop Time Procedure Name Edgar Waters MD 04/30/22 1014 04/30/22 1245 IR SPINAL ARTERIOGRAM Date Time Event Comment 1009 1012 Out of Pre Procedure 1014 AN Equip Check 1014 Anes Start 1014 An Start Data 1014 In Room 1025 An Induction The patient was ree valuated immediately before moderate or deep sedation use and before anesthesia induction. 1026 An Intubation 1028 Anesthesia Ready 1100 Proc Start 1240 An Extubation 1242 an stop data 1245 Handoff to RN I completed my SBAR handoff to the receiving nurse. 1245 An Stop Meds * No agents on file. * No blood administrations on file. Removal Type Details Placement 04/30/22 1447 by Lilly Tejada RN Peripheral 04/30/22; 09; RN; R; Wrist; 20 G; 0939 by Terrell IV 04/30/22; 1447 Lilly Wheatley RN 04/30/22 1242 by Sonny Boudreaux CRNA ETT 04/30/22; 1026; Mask ventilation not 1 1026 by attempted (0); Direct laryngoscopy; Sonny Boudreaux CRNA Single-Lumen, Cuffed; ETT Size: 7mm; Mac; Blade Size: 3; Oral; 1-Full view o f the glottis; 1 insertion attempt; Taped at Gums: 20 centimeters; 04/30/22; 1242 04/30/22 1228 by Barbra Martinez RN Arterial 04/30/22; 1106; Femoral, Right; 6 FR; 04/30/22 1106 by Brett Martinez (MD manipulating); Correct Patient, Ra jenniffer RN Correct Patient Position, Correct Procedure, Correct Equipment / Implants Available, Marking Waived, Not Side Specific; 04/30/22; 1228 04/30/22 1453 by Ku, Assurance Manager Puncture 04/30/22; 1112; Right; Femoral; 1112 by Juan, Wound 04/30/22; 1453 RANJITH Belle (Sheath) documented in this encounter Social History Date [...] Signs Reading Time Taken Comments Vital Sign - - Blood Pressure - - Pulse - - Temperature - - Respiratory Rate - - Oxygen Saturation - - Inhaled Oxygen Concentration 75.8 kg (167 lb) 04/24/2022 1:10 PM CDT Pt stated Weight 160 cm (5' 3") 04/24/2022 1:10 PM CDT Pt stated Height 29.58 04/24/2022 1:10 PM CDT Body Mass Index documented in this encounter Miscellaneous Notes * Pre-Anesthesia Patient Instructions - Yas Costa RN - 04/23/2022 12:32 PM CDT GENERAL INFORMATION Before you come [...] and any other valuables at home. The [facility] is not responsible for the loss or breakage of personal i tems. Remove nail malay, makeup and all jewelry (including piercings) before coming t o the hospital. The morning of your procedure: brush your teeth and tongue do not smoke, vape, chew or use any tobacco products do not shave the area where you will have surgery What to bring to the hospital ID/ Insurance Card Fabrication Operator card Official documents for legal guardianship Copy of your Living Will, Advanced Directives, and/or Durable Power of Dental Internship. If you have these documents, please bring them to the admissions office on the day of your surgery to be scanned into your records. Small bag with a few personal belongings CPAP/BiPAP machine (including all supplies) Walker, cane, or motorized scooter Cases for glasses/hearing aids/contact lens (bring solutions for contacts) Dress in clean, loose, comfortable clothing Eating or drinking before surgery Other Instructions: Follow the instructions from Dr Cid's office Other instructions Notify your surgeon if: you become ill with a cough, fever, sore throat, nausea, vomiting or flu-like sy mptoms you have any open wounds/sores that are red, painful, draining, or are new since you last saw the doctor you need to cancel your procedure Notify us at [place]: if you need to cancel your procedure if you are going to be late [facility]rival [facility] the [facility] [address] [place] [address] Park in the P5 parking garage located at [facility] [place] [address]. If parking in the P5 garage, take the east elevators in the parking garage to th e second level and walk to the entrance of the [facility]. Enter through the 1st floor main entrance [...] to provide a sample. You will receive your day of surgery arrival time from your Surgeon's office. I f you have any questions, please contact your Surgeon's office for assistance. Phone carriers that use spam blockers will sometimes block our phone numbers. If your phone contact number is a mobile phone, please adjust your settings to make sure you receive our call. In your phone settings, turn OFF the setting si lence unknown callers. Please add these phone numbers to your contacts & For the safety of all patients, visitors [...] be bedside. The policy applies to [facility], In [facility] and clinics. Exceptions include: No [...] frequently and cover your coughs and sneezes. Pre-Surgery Shower Bathe with an antibacterial soap such as Dial Antibacterial (Dial Gold antibacte rial bar soap - can be purchased at a pharmacy or [employer]). Shower with this soap the DAY BEFORE and the MORNING OF your surgery. This mild soap reduces the amount of germs on your skin that could cause an infe ction. 1) Shampoo your hair and wash your face with the soap you normally use. 2) From the neck down, apply the antibacterial bar soap with a clean washcloth. 3) Do not shave surgical area. 4) Turn water off to prevent rinsing the antibacterial soap off too soon. Wash your body gently for 2 minutes. Pay special attention to the area where you guy l have your surgery. Do not wash with your regular soap after the antibacterial soap is used. 5) After this soap has been on your skin for 2 minutes, rinse your body thorough ly. 6) Pat yourself dry with a clean, soft towel. 7) Do not put products such as lotion, deodorant, powder, or perfume/aftershave on your hair, face or skin after your shower. 8) Put on freshly laundered clothes and sleep on freshly laundered linens. 9) Wear freshly laundered clothes to the hospital the day of surgery. * Pre-Anesthesia Medication Instructions - Valorie Joiner, PHARMD - 04/21/2022 9:39 AM CDT YOUR MEDICATION LIST allopurinoL (ZYLOPRIM) 300 [...] ev felisa 5 minutes for 3 doses. Thiamine HCl (VITAMIN B-1) 250 mg tab Take 250 mg by mouth daily. traMADoL (ULTRAM) 50 mg tablet Take 100 [...] naproxen (Aleve) You may use acetaminophen (Tylenol) or tramadol BLOOD THINNER instructions: Aspirin-Continue as usual, but skip dose on the morning of surgery DAY BEFORE SURGERY TAKE your medications the day before surgery as usual unless told differently. MORNING OF SURGERY DO NOT take these medications: Remaining vitamins/supplements Ointments/creams/lotions Repatha Allopurinol Aspirin TAKE these medications with a sip (1-2 ounces) of water: Escitalopram Use all inhalers, nasal sprays, and eye drops as usual May take if needed: Tramadol Please contact the clinic pharmacist with any changes to your medication list or medication questions before surgery. E-mail: [email or web address] Before going home from the hospital, please ask your doctor when you should re-s tart any medicine that was stopped for surgery. documented in this encounter Plan of Treatment Not on filedocumented as of this encounter Visit Diagnoses Not on filedocumented in this encounter Discontinued Medications Start Date End Date Medication Sig Discontinue Reason 04/24/2022 escitalopram in PLO gel Removed from (LEXAPRO) 20 mg/0.75 mL FINANCE TEACHER Med List 02/26/2022 04/24/2022 pregabalin (LYRICA) 25 mg Take 25 mg Removed from capsule by mouth FINANCE TEACHER Med List three times daily. 04/24/2022 ibuprofen (ADVIL) 200 mg Take 200 mg Removed from tablet by mouth FINANCE TEACHER Med List every 6 hours as needed. 04/24/2022 acetaminophen (TYLENOL Take 500 mg Removed from EXTRA STRENGTH) 500 mg by mouth FINANCE TEACHER Med List tablet every 6 hours as needed. documented as of this encounter Historical Medications * This list may reflect changes made after this encounter. Start Date End Date Medication Sig Dispensed Refills nitroglycerin (NITROSTAT) Place 0.6 mg 0 0.6 mg sublingual tablet under tongue every 5 minutes for 3 doses. betamethasone Apply 0 dipropionate (BETANATE) topically to 0.05 % topical cream affected area daily as needed. evolocumab (REPATHA Inject 140 mg 0 SURECLICK) 140 mg/mL under the injectable PEN skin every 14 days. On Saturdays isosorbide mononitrate Take 180 mg 0 (IMDUR) 60 mg ER tablet by mouth at bedtime daily. escitalopram oxalate Take 20 mg by 0 (LEXAPRO) 20 mg tablet mouth daily. 05/03/2022 Thiamine HCl 250 mg tab Take 250 mg 0 by mouth daily. added in this encounter Care Teams Start Date End Date Social Media Campaign Manager Relationship Specialty 04/11/22 Ange Grady, PCP - General Family Medicine [address] [place] [address] 04/24/22 Juan Bunn MD Cardiovascul [address] [place], [place] [id number] documented as of this encounter
--- OUTSIDE RECORDS SUMMARY | 2022-05-16 13:24 | XMS REPORT | Encounter Summary ---
Author Author [facility] Organization [facility] Address Unknown Phone Unavailable Care Team Providers Care Softball Winder Name Role Phone Ange Grady DO PCP [phone] Juan Bunn MD Unavailable Encounter Details Care Team Description Date Type Department Edgar Waters MD [address] [address] Sandie Rendon, CASH-IMPACT RETAIL SERVICE MERCHANDISER [address] [address] 04/30/2022 Anesthesia Interventional Radi ology: Event [facility] [address] [facility] [address] [place] [id number] Anesthesia Record Responsible Anesthesiologist Anesthesia Start Time [...] the receiving nurse. 1245 An Stop Meds Name Total fentaNYL PF (SUBLIMAZE) injection 100 mcg lidocaine (2%) 200 mg/10mL Injection 80 mg syringe propofol (DIPRIVAN) 200 mg/ 20 mL 100 mg injection (VIAL) succinylcholine (ANECTINE) injection 80 mg (VIAL) ondansetron (ZOFRAN) injection 4 mg dexamethasone (DECADRON) 4 mg/mL 4 mg injection phenylephrine (MELCHOR-SYNEPHRINE) 0.1 mg/mL 100 mcg injection syr ePHEDrine inj 20 mg rocuronium (ZEMURON) inj 60 mg sugammadex (BRIDION) 140 mg phenylephrine (MELCHOR-SYNEPHRINE) 20 mg in 2.34 mg sodium chloride 0.9% (NS) 250 mL IV dri p (dbl conc) lactated ringers (1000mL) 0 mL * Name O2 N2O Inspired Sevoflurane Inspired Sevoflurane * No blood administrations on file. Removal Type Details Placement 04/30/22 1447 by Lilly Tejada RN Peripheral 04/30/22; 0939; RN; R; Wrist; 20 G; 0939 by Terrell, IV 04/30/22; 1447 Lilly Wheatley RN 04/30/22 1242 by Sonny Boudreaux CRNA ETT 04/30/22; 1026; Mask ventilation not 1 1026 by attempted (0); Direct laryngoscopy; Sonny Boudreaux CRNA Single-Lumen, Cuffed; ETT Size: 7mm; Mac; Blade Size: 3; Oral; 1-Full view o f the glottis; 1 insertion attempt; Taped at Gums: 20 centimeters; 04/30/22; 1242 04/30/22 1228 by Barbar Martinez RN Arterial 04/30/22; 1106; Femoral, Right; 6 FR; 04/30/22 1106 by Brett Martinez ( manipulating); Correct Patient, Ra RANJITH abad Correct Patient Position, Correct Procedure, Correct Equipment / Implants Available, Marking Waived, Not Side Specific; 04/30/22; 1228 04/30/22 1453 by Rojas Division Traffic Superintendent Puncture 04/30/22; 1112; Right; Femoral; 1112 by [...] OR Notes * Anesthesia Postprocedure Evaluation - Yadiel Schultz MD - 04/30/2022 2:38 PM CDT Post-Anesthesia Evaluation Name: Sahara Andujar : 1950 Age: 71 y.o. Sex: female Procedure Information Anesthesia Start Date/Time: 04/30/22 1014 Scheduled providers: Barbra Martinez RN; Harjinder Downing, RT(R)(),LRT; Yadiel Schultz MD Procedure: IR SPINAL ARTERIOGRAM Location: Interventional Radiology: [facility] Post-Anesthesia Vitals BP: 91/59 (04/30 1400) Pulse: 74 (04/30 1400) Respirations: 9 PER MINUTE (04/30 1400) SpO2: 94 % (04/30 1400) SpO2 Pulse: 74 (04/30 1400) O2 Device: None (Room air) (04/30 1400) Vitals Value Taken Time BP 91/59 04/30/22 1400 Temp Pulse 74 04/30/22 1400 Respirations 9 PER MINUTE 04/30/22 1400 SpO2 94 % 04/30/22 1400 O2 Device None (Room air) 04/30/22 1400 ABP ART BP Post Anesthesia Evaluation Note Evaluation location: Pre/Post Patient participation: recovered; patient participated in evaluation Level of consciousness: alert Pain score: 1 Pain management: adequate Hydration: normovolemia Temperature: 36.0C - 38.4C Airway patency: adequate Perioperative Events Post-op nausea and vomiting: no PONV Postoperative Status Cardiovascular status: hemodynamically stable Respiratory status: spontaneous ventilation Perioperative Events There were no known complications for this encounter. * Anesthesia Preprocedure Evaluation - Edgar Waters MD - 04/24/2022 10:51 AM CDT Anesthesia Pre-Procedure Evaluation Name: Sahara Andujar : 1950 Age: 71 y.o. Sex: female Procedure Info: Procedure Information Date/Time: 04/30/22 1000 Scheduled providers: Edgar Waters MD; Barbra Maritnez RN; Harjinder Downing RT(R )(),LRT Procedure: IR SPINAL ARTERIOGRAM Location: Interventional Radiology: [facility] Physical Assessment Vital Signs (last filed in past 24 hours): BP: 135/77 (04/30 924) Temp: 36.5 C (97.7 F) (04/30 924) Pulse: 60 (04/30 924) Respirations: 16 PER MINUTE (04/30 924) SpO2: 95 % (04/30 924) O2 Device: None (Room air) (04/30 924) SpO2 Pulse: 59 (04/30 924) Patient History Allergies Allergen Reactions Hydrocodone STOMACH UPSET and NAUSEA AND VOMITING Diazepam MENTAL STATUS CHANGES and SEE COMMENTS Acts spacey Idtpfzb-Ohy-Aab Reductase Inhibitors MUSCLE PAIN Causes issues with [...] 180 mg by mouth at bedtime d . nitroglycerin (NITROSTAT) 0.[address] 0.6 mg under tongue fanta ry 5 minutes for 3 doses. Thiamine HCl 250 mg tab Take 250 mg by [...] renal disease Incontinent of bowel/bladder Neuro/Psych Neuromuscular disease (lumbar radiculopathy) Weakness Musculoskeletal Back pain Possible dural AV [...] appears well. Follow up in 1 yr. PAC Plan: Labs- cmp, cbc 04/12/2022 (CE): hgb 14.2, plt 324, cr 0.59, K 4.1 SHANTEL- cardiology OVN Follows with cardiology @ [facility] in [place] [facility] appt 03/2022 Anesthesia Plan ASA score: 3 Plan: general Induction method: intravenous NPO status: acceptable Informed Consent Anesthetic plan and risks discussed with patient. Use of blood products discussed with patient Blood Consent: consented Plan discussed with: OBSTETRICAL NURSE, anesthesiologist and surgeon/proceduralist. Comments: (Pre-Anesthesia Evaluation Attestation: I have reviewed espino portions of the anesthesia pre-procedure evaluation, and have examined the patient's airw ay, heart, and lungs and agree with what is documented. The anesthesia plan is General and ASA Classification: ASA III Staff name: Edgar Waters MD Date: 04/30/2022 ) Obtained patient's verbal consent to treat them and their agreement to [facility] policy and NPP via this telehealth visit This anesthesia PAC visit was limited by location of patient. No medical decisio n making was performed during this visit; only obtaining history was performed. documented in this encounter Plan of Treatment Not on filedocumented as of this encounter Visit Diagnoses Not on filedocumented in this encounter Administered Medications Action Date Dose Rate Site Medication Order MAR Action 04/30/2022 10:40 AM CDT 4 mg dexamethasone sodium phosphate Given (DECADRON) injection Intravenous, INTRA-PROCEDURE MED, Starting on Sat04/30/22 at 1040, Until Sat04/30/22 at 1245, Anesthesia Intra-op 04/30/2022 10:32 AM CDT 20 mg ePHEDrine injection Given Intravenous, INTRA-PROCEDURE MED, Starting on Sat04/30/22 at 1032, Until Sat04/30/22 at 1245, Anesthesia Intra-op 04/30/2022 10:25 AM CDT 100 mcg fentaNYL citrate PF (SUBLIMAZE) Given injection Intravenous, INTRA-PROCEDURE MED, Starting on Sat04/30/22 at 1025, Until Sat04/30/22 at 1245, Anesthesia Intra-op 04/30/2022 9:49 AM CDT lactated ringers infusion Given - New Intravenous, INTRA-PROCEDURE MED(CONT), Bag Starting on Sat04/30/22 at 0949, Until Sat04/30/22 at 1245, Anesthesia Intra-op 04/30/2022 10:25 AM CDT 80 mg lidocaine (PF) injection Given Intravenous, INTRA-PROCEDURE MED, Starting on Sat04/30/22 at 1025, Until Sat04/30/22 at 1245, Anesthesia Intra-op 04/30/2022 10:40 AM CDT 4 mg ondansetron (ZOFRAN) injection Given Intravenous, INTRA-PROCEDURE MED, Starting on Sat04/30/22 at 1040, Until Sat04/30/22 at 1245, Anesthesia Intra-op 04/30/2022 10:46 AM CDT 0.3 mcg/kg/min 15.75 mL/hr phenylephrine (MELCHOR-SYNEPHRINE) 20 mg in Dose/Rate sodium chloride 0.9% (NS) 250 mL IV drip Change (dbl conc) 250 mL, Intravenous, INTRA-PROCEDURE MED(CONT), Starting on Sat04/30/22 at 1035, Until Sat04/30/22 at 1245, Anesthesia Intra-op 0.2 mcg/kg/min 10.5 mL/hr Given - New Bag 04/30/2022 10:35 AM CDT 04/30/2022 10:34 AM CDT 100 mcg phenylephrine (MELCHOR-SYNEPHRINE) injection Given syringe Intravenous, INTRA-PROCEDURE MED, Starting on Sat04/30/22 at 1034, Until Sat04/30/22 at 1245, Anesthesia Intra-op 04/30/2022 10:25 AM CDT 100 mg propofol (DIPRIVAN) injection Given Intravenous, INTRA-PROCEDURE MED, Starting on Sat04/30/22 at 1025, Until Sat04/30/22 at 1245, Anesthesia Intra-op 04/30/2022 12:00 PM CDT 10 mg rocuronium injection Given Intravenous, INTRA-PROCEDURE MED, Starting on Sat04/30/22 at 1035, Until Sat04/30/22 at 1245, Anesthesia Intra-op 50 mg Given 04/30/2022 10:35 AM CDT 04/30/2022 10:25 AM CDT 80 mg succinylcholine (ANECTINE) injection Given Intravenous, INTRA-PROCEDURE MED, Starting on Sat04/30/22 at 1025, Until Sat04/30/22 at 1245, Anesthesia Intra-op 04/30/2022 12:36 PM CDT 140 mg sugammadex (BRIDION) injection Given Intravenous, INTRA-PROCEDURE MED, Starting on Sat04/30/22 at 1236, Until Sat04/30/22 at 1245, Anesthesia Intra-op documented in this encounter Additional Health Concerns Noted Time Assessment 04/30/2022 9:04 AM CDT A fall risk assessment has been complet ed for the patient documented as of this encounter Care Teams Start Date End Date Softball Winder Relationship Specialty 04/11/22 Ange Grady, PCP - General Family Medicine [address] [place] [address] 04/24/22 Juan Bunn MD Cardiovascul [address] [place] [address] documented as of this encounter
--- OUTSIDE RECORDS SUMMARY | 2022-05-16 13:24 | XMS REPORT | Encounter Summary ---
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 Reason for Visit * Reason Comments Pain New Patient * Consult, Test & Treat (Routine) - Pending Review Diagnoses / Procedures Referred By Contact Referred To Conta ct Specialty Referral ID Status Reason Start Date Expiration Visits Vi sits Date Requested Authorized [id number] Pending 04/06/2022 04/06/2023 1 Review Encounter Details Care Team Description Date Type Department Valdo Young MD [address] [place], [place] [id number] 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 (HCC) (Primary Dx) 04/11/2022 Office Visit [facility]: Main [place], [facility] [address], [address] [place] [address] Social History Date Tobacco Use Types Packs/Day [...] Signs Reading Time Taken Comments Vital Sign 131/79 04/11/2022 11:05 AM CDT Blood Pressure 65 04/11/2022 11:05 AM CDT Pulse - - Temperature - - Respiratory Rate 96% 04/11/2022 11:05 AM CDT Oxygen Saturation - - Inhaled Oxygen Concentration 74.8 kg (165 lb) 04/11/2022 11:05 AM CDT Weight 160 cm (5' 3") 04/11/2022 11:05 AM CDT Height 29.23 04/11/2022 11:05 AM CDT Body Mass Index documented in this encounter Progress Notes * Valdo Young MD - 04/11/2022 11:00 AM CDT Subjective: History of Present Illness Sahara Andujar is a 71 y.o. female. She presents with chief complaint of low back pain and progressive bilateral lower extremity weakness for approximately 18 months. She states she developed back pain and started getting paresthesias in her lower extremities. At this time she has numbness from the waist down inc luding in the perineum. She reports bowel/bladder dysfunction as well and frequ ently has accidents. Her symptoms are worse with activity. She has failed nono perative management with physical therapy, pain medications, gabapentin, Lyrica, and anti-inflammatories. She states that her symptoms are getting progressively worse. Objective: acetaminophen (TYLENOL EXTRA STRENGTH) 500 mg tablet Take 500 mg by mouth ev felisa 6 hours as needed. allopurinoL (ZYLOPRIM) 300 mg tablet Take 1 tablet by mouth daily. aspirin EC 81 mg tablet Take 81 mg by mouth daily. atenoloL (TENORMIN) 25 mg tablet Take 25 mg by mouth daily. escitalopram in PLO gel (LEXAPRO) 20 mg/0.75 mL ibuprofen (ADVIL) 200 mg tablet Take 200 mg by mouth every 6 hours as needed . pregabalin (LYRICA) 25 mg capsule Take 25 mg by mouth three times daily. traMADoL (ULTRAM) 50 mg tablet TAKE 1 TO 2 TABLETS BY MOUTH EVERY 6 HOURS NEEDED FOR PAIN Vitals: 04/11/22 1105 BP: 131/79 BP Source: Arm, Left Upper Pulse: 65 SpO2: 96% PainSc: Eight Weight: 74.8 kg (165 lb) Height: 160 cm (5' 3") Body mass index is 29.23 kg/m. Physical Exam Vitals and nursing note reviewed. Constitutional: Appearance: Normal appearance. HENT: Head: Normocephalic and atraumatic. Pulmonary: Effort: Pulmonary effort is normal. Musculoskeletal: Cervical back: No tenderness. Thoracic back: Tenderness present. Lumbar back: No tenderness. Skin: General: Skin is warm and dry. Neurological: Mental Status: She is alert and oriented to person, place, and time. Sensory: Sensory deficit (Decreased light touch sensation from waist down) pr esent. Motor: Weakness present. Gait: Gait abnormal. Deep Tendon Reflexes: Reflexes are normal and symmetric. Comments: Motor 5/5 in BUE, 4/5 hip flexion in BLE and otherwise 5/5 in BLE Psychiatric: Mood and Affect: Mood normal. Behavior: Behavior normal. I independently reviewed MRI of the thoracic spine as well as discussing this MR I with the neuroradiologist. This MRI demonstrates significant edema in the low er thoracic cord and evidence of abnormal blood vessels consistent with dural AV fistula. 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 She will need intervention to include this dural AV fistula. I am sending her to my colleague Dr. Vidal Cid for further evaluation and management. documented in this encounter Miscellaneous Notes * Patient Instructions - Sandie Chau RN - 04/11/2022 11:00 AM CDT It was nice to see you today. Thank you for choosing to visit our clinic. Your time is important, and if you had to wait today, we do apologize. Our goal is to run exactly on time. However, on occasion, we get behind in clinic due to un expected patient issues. Thank you for your patience. General Instructions: Scheduling: Our scheduling phone number is [phone]. Appointment Reminders on your cell phone: Communication preferences can be kulwant jara in [facility] to ensure you receive important appointment notifications How to reach our office: Please send a [facility] message to the Spine Center (dir ected to Dr. Young) or leave a voicemail for the nurse, Sandie, at . How to get a medication refill: Please use the [facility] Refill request or contac t your pharmacy directly to request medication refills. Please allow 72 busines s hours for request to be completed. Support for many chronic illnesses is available through [email or web address] or [phone]. For help with [facility]: please call [phone]. For questions on nights, weekends or holidays: call the Waiter/Waitress Cocktail Lounge at [phone], and ask for the doctor ship construction teacher for Neurosurgery. For more information on spinal conditions: please visit [email or web address] Again, thank you for coming in today. documented in this encounter Plan of Treatment Order Schedule Name Type Priority Associated Diag noses Ordered: 04/11/2022 AMB REFERRAL TO Outpatient Routine Dural arteriov enous NEUROSURGERY Referral fistula of spinal c ord (HCC) documented as of this encounter Visit Diagnoses Diagnosis Dural arteriovenous fistula of spinal c ord (HCC) - Primary documented in this encounter Historical Medications * This list may reflect changes made after this encounter. Start Date End Date Medication Sig Dispensed Refills 01/03/2021 atenoloL (TENORMIN) 25 mg Take 25 mg by 0 tablet mouth at bedtime daily. allopurinoL (ZYLOPRIM) Take 300 mg 0 300 mg tablet by mouth daily. 04/03/2022 05/16/2022 traMADoL (ULTRAM) 50 mg Take 100 mg 0 tablet by mouth every 6 hours as needed. 02/26/2022 04/24/2022 pregabalin (LYRICA) 25 mg Take 25 mg by 0 capsule mouth three times daily. 04/24/2022 ibuprofen (ADVIL) 200 mg Take 200 mg 0 tablet by mouth every 6 hours as needed. 04/24/2022 escitalopram in PLO gel 0 (LEXAPRO) 20 mg/0.75 mL 05/16/2022 aspirin EC 81 mg tablet Take 81 mg by 0 mouth daily. 04/24/2022 acetaminophen (TYLENOL Take 500 mg 0 EXTRA STRENGTH) 500 mg by mouth tablet every 6 hours as needed. added in this encounter Additional Health Concerns Noted Time Assessment 04/11/2022 11:06 AM CDT A fall risk assessment has been complet ed for the patient documented as of this encounter Care Teams Start Date End Date Nutrition Associate Relationship Specialty 04/11/22 Ange Grady, PCP - General Family Medicine [address] [address] documented as of this encounter
--- OUTSIDE RECORDS SUMMARY | 2022-05-16 13:24 | XMS REPORT | Encounter Summary ---
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, [address] [place] [address] Social History Date Tobacco Use Types Packs/Day [...] Signs Reading Time Taken Comments Vital Sign 122/50 05/01/2022 10:20 AM CDT Blood Pressure 68 05/01/2022 10:20 AM CDT Pulse - - Temperature - - Respiratory Rate 97% 05/01/2022 10:20 AM CDT Oxygen Saturation - - Inhaled Oxygen Concentration 79.1 kg (174 lb 6.4 oz) 05/01/2022 10:20 AM CDT Weight 160 cm (5' 3") 05/01/2022 10:20 AM CDT Height 30.89 05/01/2022 10:20 AM CDT Body Mass Index documented in this encounter Progress Notes * Iris Cruz - 05/01/2022 10:45 AM CDT Sahara presents to the clinic for a follow up visit. She underwent spinal angiogr aphy for characterization and treatment planning for a spinal AV fistula on 04/08. She returns today to discuss findings and recommendations. * Vidal Cid MD - 05/01/2022 10:45 AM [...] myelopathy is the goal of the operation, brendan er or not there is an important [...] in direct consultation documented in this encounter Plan of Treatment Order Schedule Name Type Priority Associated Diag noses Ordered: 04/11/2022 AMB REFERRAL TO Outpatient Routine Dural arteriov enous NEUROSURGERY Referral fistula of spinal c ord (HCC) documented as of this encounter Visit Diagnoses Diagnosis Dural arteriovenous fistula of spinal c ord (HCC) - Primary documented in this encounter Care Teams Start Date End Date Engraver Rubber Relationship Specialty 04/11/22 Ange Grady, PCP - General Family Medicine [address] [facility] [address] [place] [address] 04/24/22 Juan Bunn MD Cardiovascul [address] Disease [address] [place] [id number] documented as of this encounter
--- OUTSIDE RECORDS SUMMARY | 2022-05-16 13:24 | XMS REPORT | Encounter Summary ---
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) Procedures IR SPINAL ARTERIOGRAM Vidal Cid MD [address] [facility] [address]vl [address] [place] [address] [place] [place] [address] [place] [phone] Radiology Referral ID Status Reason Start Date Expiration Visits Vi sits Date Requested Authorized [id number] Authorized 04/13/2022 04/13/2023 1 1 Reason for Visit * Radiology Services (Routine) - Authorized Diagnoses / Procedures Referred By Contact Referred To Conta ct Specialty Diagnoses 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) Procedures IR SPINAL ARTERIOGRAM Vidal Cid MD [address] [facility] [address]vl [address] [place] [address] [place] [place] [address] [address] Radiology Referral ID Status Reason Start Date Expiration Visits Vi sits Date Requested Authorized [id number] Authorized 04/13/2022 04/13/2023 1 1 Encounter Details Care Team Description Date Type Department Vidal Cid MD [address] [facility] [address]vl [address] [place] [address] Barbra Martinez, RANJITH Downing, Harjinder, RT(R)(),LRT 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 (HCC) 04/30/2022 [facility] [address] [facility] [address] [place] [address] Social History Date Tobacco Use [...] Signs Reading Time Taken Comments Vital Sign 99/59 04/30/2022 2:30 PM CDT Blood Pressure 73 04/30/2022 2:30 PM CDT Pulse 36.5 C (97.7 F) 04/30/2022 9:24 AM CDT Temperature - - Respiratory Rate 94% 04/30/2022 2:30 PM CDT Oxygen Saturation - - Inhaled Oxygen Concentration - - Weight - - Height - - Body Mass Index documented in this encounter Discharge Instructions * Attachments The following attachments cannot be sent through Care Everywhere.* IR- Arteriogram Discharge Instructions (ECUADOREAN) documented in this encounter Medications at Time of Discharge Start Date End Date Medication Sig Dispensed Refills allopurinoL (ZYLOPRIM) Take 300 mg 0 300 mg tablet by mouth daily. 01/03/2021 atenoloL (TENORMIN) 25 mg Take 25 mg by 0 tablet mouth at bedtime daily. betamethasone Apply 0 dipropionate (BETANATE) topically to 0.05 % topical cream affected area daily as needed. escitalopram oxalate Take 20 mg by 0 (LEXAPRO) 20 mg tablet mouth daily. evolocumab (REPATHA Inject 140 mg 0 SURECLICK) 140 mg/mL under the injectable PEN skin every 14 days. On Saturdays isosorbide mononitrate Take 180 mg 0 (IMDUR) 60 mg ER tablet by mouth at bedtime daily. nitroglycerin (NITROSTAT) Place 0.6 mg 0 0.6 mg sublingual tablet under tongue every 5 minutes for 3 doses. 05/16/2022 aspirin EC 81 mg tablet Take 81 mg by 0 mouth daily. 05/03/2022 Thiamine HCl 250 mg tab Take 250 mg 0 by mouth daily. 04/03/2022 05/16/2022 traMADoL (ULTRAM) 50 mg Take 100 mg 0 tablet by mouth every 6 hours as needed. documented as of this encounter Discharge Disposition Code Departure Means Destination Disposition Wheelchair Home or Self Care documented in this encounter Progress Notes * Lilly Tejada RN - 04/30/2022 2:46 PM CDT Pt recovery complete. Ambulatory status: Wheelchair- Transfers without Assist . Vitals stable. Dressing is clean, dry, and intact. Pain level returned to baseline. Discharge instructions reviewed with: patient and daughter. AVS signed and provided to patient. Pt unable to void post pino catheter removal upon discharge due to inconveniece and inability to control bladder function, daughter and patient instructed to g et seen in ED if unable to void by this evening. Pt discharged to [facility] via wheelchair transport. * Lilly Tejada RN - 04/30/2022 2:[address] Schultz assessed patient and signed her out of anesthesia care at this time. * Barbra Martinez RN - 04/30/2022 10:14 AM CDT Anesthesia staff present to monitor patient airway, vital signs, and medications . See anesthesia docflow. This RN will assist as needed. * Lilly Tejada RN - 04/30/2022 9:40 AM CDT Pt arrived to IR pre/post for procedure work up. Mobility status: Wheelchair- Transfers without Assist Procedure and discharge instructions reviewed and pt verbalizes understanding. Pt cart locked in low position, call light within reach. See doc flowsheets for further details. Will continue to monitor patient. documented in this encounter H&P Notes * Michaela Antonio APRN-NP - 04/30/2022 9:13 AM CDT Pre Procedure History and Physical/Sedation Plan-OP Procedure Date: 04/30/2022 Planned Procedure(s): Spinal arteriogram Indication for exam: DAVF of spinal column Chief Complaint: DAVF of spinal column History of Present Illness: Sahara Andujar is a 71 y.o. female. Pt with prog ressive weakness/numbness in BLE, bowel/urinary incontinence. States numbness is waist down posterior and knees down anterior. Pt does ambulate for very short d istances, but reports largely using wheelchair d/t recent falls. 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 aspirin EC 81 mg tablet Take 81 mg by mouth daily. 04/29/2022 atenoloL (TENORMIN) 25 mg tablet Take 25 mg by mouth at bedtime daily. betamethasone dipropionate (BETANATE) 0.05 % topical cream Apply topically to affected area daily as needed. 04/29/2022 escitalopram oxalate (LEXAPRO) 20 mg tablet Take 20 mg by mouth daily. evolocumab (REPATHA SURECLICK) 140 mg/mL injectable PEN Inject 140 mg under the skin every 14 days. On Saturdays04/29/2022 isosorbide mononitrate (IMDUR) 60 mg ER tablet Take 180 mg by mouth at bedti me daily. 04/29/2022 nitroglycerin (NITROSTAT) 0.[address] 0.6 mg under tongue every 5 minutes for 3 doses. Unknown Thiamine HCl 250 mg tab Take 250 mg by mouth daily. 04/30/2022 traMADoL (ULTRAM) 50 mg tablet Take 100 mg by mouth every 6 hours as needed. Unknown Allergies Allergen Reactions Hydrocodone STOMACH UPSET and NAUSEA AND VOMITING Diazepam MENTAL STATUS CHANGES and SEE COMMENTS Acts spacey Rqiolyv-Kxs-Kjp Reductase Inhibitors MUSCLE PAIN Causes issues with muscles in legs Social History: Social History Tobacco Use Smoking status: Former Smoker Packs/day: 1.00 Years: 45.00 Pack years: 45.00 Types: Cigarettes Quit date: 2011 Years since quittin.8 Smokeless tobacco: Never Used Substance Use Topics Alcohol use: Not Currently Comment: ~ once a month No family history on file. Review of Systems All other systems reviewed and are negative. Previous Anesthetic/Sedation History: Per anesthesia Code Status: FULL Physical Exam: Vital Signs: Last Filed In 24 Hours Vital Signs: 24 Hour Range General appearance: alert and no distress Neurologic: Grossly normal, at baseline Lungs: Nonlabored with normal effort Abdomen: soft, non-tender. Airway: Per anesthesia Anesthesia Classification: Per anesthesia Pre procedure anxiolysis plan: Per anesthesia Sedation/Medication Plan: Per anesthesia Personal history of sedation complications: Denies adverse event. Family history of sedation complications: Denies adverse event. Medications for Reversal: Per anesthesia Discussion/Reviews: Physician has discussed risks and alternatives of this type of sedation and above planned procedures with patient NPO Status: Acceptable Status: Per anesthesia Lab/Radiology/Other Diagnostic Tests: Labs: Pertinent labs reviewed Michaela Antonio APRN-LIAT Pager [phone] BUSINESS REPRESENTATIVE documented in this encounter Plan of Treatment Not on filedocumented as of this encounter Procedures Comments Procedure Name Priority Date/Time Associated Diag nosis IR SPINAL ARTERIOGRAM Routine 04/30/2022 Dural ar teriovenous 1:04 PM CDT fistula of spinal cord (HCC) documented in this encounter Results * IR SPINAL ARTERIOGRAM (04/30/2022 1:04 PM [...] angiography suite to evaluate for suspected fistula. LABORER HEADING. Palak ANESTHESIA. GETA PROCEDURE. Spinal angiography with [...] insure maintain an air free system. A [employer] spinal angiography catheter was introduced through the sheath. Utilizing a combination of roadmap and direct catheter access techniques, a 5 Pashto diagnostic catheter was used to perform spinal [...] angiography suite to evaluate for suspected fistula. LABORER HEADING. Palak ANESTHESIA. GETA PROCEDURE. Spinal angiography with [...] insure maintain an air free system. A [employer] spinal angiography catheter was introduced through the sheath. Utilizing a combination of roadmap and direct catheter access techniques, a 5 Pashto diagnostic catheter was used to perform spinal [...] 6:18 AM. Vidal Cid MD IR ORDERABLES documented in this encounter Visit Diagnoses Diagnosis Dural arteriovenous fistula of spinal c ord (HCC) documented in this encounter Administered Medications Action Date Dose Rate Site Medication Order MAR Action acetaminophen (TYLENOL EXTRA STRENGTH) tablet 1,000 mg 1,000 mg, Oral, ONCE PRN, 1 dose, Starting on Sat04/30/22 at 1244, Until Sat04/30/22 at 1653, Pain non-opioid: may be used alone or in combination wit h opioid analgesia, TOTAL ACETAMINOPHEN DOSE NOT TO EXCEED 4GM DAILY, PACU (only) haloperidol lactate (HALDOL) injection 1 mg 1 mg, Intravenous, ONCE PRN, 1 dose, Starting on Sat04/30/22 at 1244, Until Sat04/30/22 at 1653, Other..., Nausea and Vomiting, First line agent. DO NOT ADMINISTER if given intraoperatively, PACU (only) 04/30/2022 1:04 PM CDT 220 mL iohexoL (OMNIPAQUE-350) 350 mg/mL Given injection 220 mL 220 mL, Intra-arterial, ONCE, 1 dose, O n Sat04/30/22 at 1315, NOTE: This is a HIGH ALERT Medication. labetaloL (NORMODYNE) injection 5 mg 5 mg, Intravenous, EVERY 10 MIN PRN, 4 doses, Starting on Sat04/30/22 at 1244 , Until Sat04/30/22 at 1653, Systolic Blood Pressure..., SBP > 170 mmHg, Hold for heart rate < 55 bpm; Max dose 20mg, PACU (only) metoclopramide hcl (REGLAN) injection 1 0 mg 10 mg, Intravenous, ONCE PRN, 1 dose, Starting on Sat04/30/22 at 1244, Until Sat04/30/22 at 1653, Other..., nausea/vomiting, Second line agent, giv e if first line agent ineffective. If not given in last six hours., PACU (only) documented in this encounter Active and Recently Administered Medications Times are shown in CDT. 04/29/2022 04/30/2022 Medication Order 04/28/2022 1304 (Given - Provider: Mindy Alejandro(Mindy)(),LRT) iohexoL (OMNIPAQUE-350) 350 mg/mL injection 220 mL (COMPLETED) 220 mL, Intra-arterial, ONCE, 1 dose, O n 04/30/22 at 1315, NOTE: This is a HIGH ALERT Medication. 04/29/2022 04/30/2022 Medication Order 04/28/2022 acetaminophen (TYLENOL EXTRA STRENGTH) tablet 1,000 mg 1,000 mg, Oral, ONCE PRN, 1 dose, Starting on Sat04/30/22 at 1244, Until Sat04/30/22 at 1653, Pain non-opioid: may be used alone or in combination wit h opioid analgesia, TOTAL ACETAMINOPHEN DOSE NOT TO EXCEED 4GM DAILY, PACU (only) haloperidol lactate (HALDOL) injection 1 mg 1 mg, Intravenous, ONCE PRN, 1 dose, Starting on Sat04/30/22 at 1244, Until Sat04/30/22 at 1653, Other..., Nausea and Vomiting, First line agent. DO NOT ADMINISTER if given intraoperatively, PACU (only) labetaloL (NORMODYNE) injection 5 mg 5 mg, Intravenous, EVERY 10 MIN PRN, 4 doses, Starting on Sat04/30/22 at 1244 , Until Sat04/30/22 at 1653, Systolic Blood Pressure..., SBP > 170 mmHg, Hold for heart rate < 55 bpm; Max dose 20mg, PACU (only) metoclopramide hcl (REGLAN) injection 1 0 mg 10 mg, Intravenous, ONCE PRN, 1 dose, Starting on Sat04/30/22 at 1244, Until Sat04/30/22 at 1653, Other..., nausea/vomiting, Second line agent, giv e if first line agent ineffective. If not given in last six hours., PACU (only) documented in this encounter Orders First Ordered Date Medications Ordered That Might Not Have Count Last Ordered Date Been Administered acetaminophen (TYLENOL EXTRA STRENGTH) 1 04/30/2022 tablet 1,000 mg haloperidol lactate (HALDOL) injection 1 1 04/30/2022 mg labetaloL (NORMODYNE) injection 5 mg 1 1 metoclopramide hcl (REGLAN) injection 10 1 04/30/2022 mg First Ordered Date Vital Signs Count Last Ordered Date VITAL SIGNS 1 04/30/2022 documented in this encounter Additional Health Concerns Noted Time Assessment 04/30/2022 9:04 AM CDT A fall risk assessment has been complet ed for the patient documented as of this encounter Care Teams Start Date End Date Special Needs Bus Driver Relationship Specialty 04/11/22 Ange Grady, PCP - General Family Medicine [address] [facility] [address] [place] [address] 04/24/22 Juan Bunn MD Cardiovascul [address] [place] [address] documented as of this encounter
--- OUTSIDE RECORDS SUMMARY | 2022-05-16 13:24 | XMS REPORT | Encounter Summary ---
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) Procedures IR SPINAL ARTERIOGRAM Vidal Cid MD 1997 On License Of [facility] [address] [place] [address] [address] [facility] [address] [place] [address] Radiology Referral ID Status Reason Start Date Expiration Visits Vi sits Date Requested Authorized [id number] Authorized 04/13/2022 04/13/2023 1 1 Encounter Details Care Team Description Date Type Department Vidal Cid MD 1997 On License Of [facility] [address] [place] [address] 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 (HCC) (Primary Dx) 04/13/2022 Orders Only Neurosurgery: Main [place] [address] [place] [address] Social History Date Tobacco Use [...] Not on filedocumented as of this encounter Results * IR SPINAL ARTERIOGRAM [...] angiography suite to evaluate for suspected fistula. DEBONING TEAM LEADER. Palak ANESTHESIA. GETA PROCEDURE. Spinal angiography with [...] insure maintain an air free system. A [employer] spinal angiography catheter was introduced through the sheath. Utilizing a combination of roadmap and direct catheter access techniques, a 5 Micronesian diagnostic catheter was used to perform spinal [...] angiography suite to evaluate for suspected fistula. DEBONING TEAM LEADER. Palak ANESTHESIA. GETA PROCEDURE. Spinal angiography with [...] insure maintain an air free system. A [employer] spinal angiography catheter was introduced through the sheath. Utilizing a combination of roadmap and direct catheter access techniques, a 5 Micronesian diagnostic catheter was used to perform spinal [...] on 05/03/2022 6:33 AM. Dictated by Vidal iCd M.D. on 05/03/2022 6:18 AM. Vidal Cid MD IR ORDERABLES documented in this encounter Visit Diagnoses Diagnosis Dural arteriovenous fistula of spinal c ord (HCC) - Primary Dural arteriovenous fistula of spinal c ord (HCC) documented in this encounter Additional Health Concerns Noted Time Assessment 04/11/2022 11:06 AM CDT A fall risk assessment has been complet ed for the patient documented as of this encounter Care Teams Start Date End Date Auto Repair Technician Relationship Specialty 04/11/22 Ange Grady, PCP - General Family Medicine [address] [facility] [place] [address] [place] [address] documented as of this encounter
--- NOTE | 2022-05-16 13:33 | ST Cognitive Linguistic Eval ---
Speech Evaluation-General Medical Diagnosis L 3 laminectomy Onset Date: May 10, 2022 Therapy Diagnosis Therapy Diagnosis: Intact Cognition Precautions Precautions: Fall, Pressure Ulcer Precautions/Isolations: Fall Prevention, Standard Precautions, Pressure Ulcer Referral Referring Physician: Dr. 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 Reviewed History: Yes Social History Current Living Status: Speech PLF-Current Status Prior Level of Function The patient denied prior or current concerns with her speech, language, or cognition. Subjective The patient was reclined upright in bed, awake and alert, upon entrance to her room by the clinician. The patient greeted the clinician appropriately and was agreeable to participation in the cognitive linguistic assessment. Language Eval: Auditory Comprehends Simple Yes/No Ques: Functional Indent/Objects Multiple Marrufo: Functional Ident/Pics in Multiple Marrufo: Functional Follows 1-Step Commands: Functional Follows General Conversations: Functional Language Eval: Verbal Language Completes Spontaneous Greeting: Functional Produces Auto, Serial Info: Functional Word Finding: Functional Requests Basic Needs: Functional States Basic Personal Info: Functional Language Evaluation: Reading Follows Simple Written Direct: Functional Language Evaluation: Writing Writes to Simple Dictation: Functional Cognitive Patient Orientation The patient was independently oriented to self, location, month, day of the week, and year. Objective Cognitive Domain Attention: WNL Memory: WNL Problem Solving: Functional Executive Functions: WNL Visuospatial Skills: WNL Composite Severity Rating: WNL Clock Drawing Severity Rating: WNL Objective Formal/Standardized Tests [facility] Mental Status Exam (UMS) Results The patient demonstrated a result of +30/30 on the SLUMS correlating to cognitive linguistic skills within normal limits. Oral Motor/Speech Production The patient does not display dysarthria or apraxia of speech. The patient is 100% intelligible in known and unknown contexts. Impression The patient demonstrated intact cognitive linguistic skills. Speech-Plan Treatment Plan Speech Therapy Treatment Plan: Continue Plan of Care Treatment Duration: May 16, 2022 Frequency: 1 time per week Estimated Hrs Per Day: .5 hour per day Rehab Potential: Fair Safety Risks/Education Teaching Recipient: Patient Teaching Methods: Discussion Response to Teaching: Verbalize Understanding Education Topics Provided: Results, Plan of Care, Recommendations Time Speech Therapy Time In: 14:15 Speech Therapy Time Out: 14:45 DATE: May 16, 2022 Total Billed Time: 30 Billed Treatment Time 1, [facility] May 16, 2022 13:33
--- NOTE | 2022-05-16 14:21 | Occupational Therapy Eval ---
OT Evaluation-General/PLF Medical Diagnosis Admission Date May 16, 2022 at 12:50 Medical Diagnosis: L 3 laminectomy Onset Date: May 10, 2022 Therapy Diagnosis Therapy Diagnosis: Reduced ADL status Precautions Precautions/Isolations: Fall Prevention Weight Bear Status Spinal precautions Referral Physician: Dr. Alonzo Referral Reason: Evaluation/Treatment Medical History Current History Pt is s/p L3 laminectomy on 05/10/22. Pt was independent with ADLs and IADLs. Her daughter was living with her and assisting as needed with IADLs. She reported being able to do everything, the main concern was with weakness in her legs and increased incontinent episodes with both bowels and bladder. She was using a walker, 4WW and a w/c prior to surgery due to weakness and increased falls. Her other daughter (the one that came with pt at admission) reported that the daughter that lives with her is not there all the time () and that as soon as she is better and returns home, the daughter will be moving out, so the pt needs to be able to do everything herself. Pt does not have to wear a LSO/TLSO or any brace at this time, but does need to follow spinal precautions. Reviewed History: Yes Social History Home: Single Level Current Living Status: Children (daughter and grandchildren) Entry Into Home: Stairs With Railing Steps Into Home: 1 ADL-Prior Level of Function SCALE: Activities may be completed with or without assistive devices. 7-Edvvnrzzoo-wevjqsa completes the activity by him/herself with no assistance from a helper. 5-Set-up or Clean-up Assistance-helper sets up or cleans up; patient completes activity. [place] assists only prior to or following the activity. 4-Supervision or Touching Assistance-helper provides verbal cues and/or t ouching/steadying and/or contact guard assistance as patient completes activity. Assistance may be provided throughout the activity or intermittently. 3-Partial/Moderate Assistance-helper does LESS THAN HALF the effort. [place] lifts, holds or supports trunk or limbs, but provides less than half the effort. 2-Substantial/Maximal Assistance-helper does MORE THAN HALF the effort. [place] lifts or holds trunk or limbs and provides more than half the effort. 2-Vlxtcfosl-cwbcyc does ALL the effort. Patient does none of the effort to complete the activity. Or, the assistance of 2 or more helpers is required for the patient to complete the activity. If activity was not attempted, code reason: 7-Patient Refused. 9-Not Applicable-not attempted and the patient did not perform the activity before the current illness, exacerbation or injury. 10-Not Attempted due to Environmental Limitations-(lack of equipment, weather restraints, etc.). 88-Not Attempted due to Medical Conditions or Safety Concerns. Self Care: Independent Functional Cognition: Independent DME/Equipment: Shower Drive Self: No (but would like to get back to driving) OT Current Status Subjective Pt was in room upon arrival. She agreed to therapy eval and reported wanting to shower. Co-treat with PT secondary to fall risk, buckling, balance, endurance and overall weakness. Appearance Pt was left laying in bed with all needs within reach. Mental Status/Objective Patient Orientation: Person, Place, Time, Situation Current Glasses/Contacts: Yes (reading) Hearing Aids: No Dentures/Partials: Yes Hand Dominance: Right Upper Extremity ROM WFL ~170 degrees Upper Extremity Strength Formal testing not completed due to recent back surgery. Anticipate at least 3+/5 minimal decrease in bilingual spanish inbound sales strength Pt reported she has never had any decrease in strength in her arms, it was only her legs that became weak. ADL-Treatment Eating (QC): 5 Oral Hygiene (QC): 4 (CGA for safety) Shower/Bathe Self (QC): 4 (SBA for safety- no physical assistance required) Upper Body Dressing (QC): 5 Lower Body Dressing (QC): 4 (SBA for safety with use of AE) On/Off Footwear (QC): 3 (min assist for shoes) Toileting Hygiene (QC): 3 (mod assist to wipe vida-rectal area; pt able to reach vida-area) Log roll for Supine<>sit: SBA for safety. Sit<>stand from all surfaces: CGA for safety. Pt requires mod cues for hand placement when performing sit<>stand. Pt has painful and moderately constant involuntary spasms in lower back that could potentially cause pt to fall if not careful. Pt requires constant SBA-CGA for spasms, and weakness in LEs. Pt able to toilet with supervision x2. She is able to doff/don underwear and wipe vida area, but requires assistance to wipe vida- rectal area after toileting due to inability to twist for her spinal precautions. Pt requires mod cues to follow spinal precautions. Pt able to doff/don all UB clothing (bra and dress) with set up assist. After demonstration of LHS, pt completed 100% of shower seated with SBA for safety. She used photovoltaic subcontractor to don underwear with SBA. Post demonstration of sock aide, pt able to complete donning of socks with SBA, but required min assist for footwear. Education OT Patient Education: Correct positioning, Energy conservation, Modified ADL techniques, Progress toward Goal/Update tx plan, Purpose of tx/functional activities, Reviewed precautions, Rehab process, Safety issues, Use of adapted equipment Teaching Recipient: Patient Teaching Methods: Demonstration, Discussion Response to Teaching: Verbalize Understanding, Return Demonstration, Reinforcement Needed BIMS CAM BIMS Expression of Ideas and Wants: Without Difficulty Understanding Verbal Content: Understands Brief Interview/Mental Status: Yes IRF FRANK BIMS: IRF FRANK BIMS Response (Comments) Value Repitition of Three Words Three 3 Recalls Socks Yes, No Cue Required 2 Recalls Blue Yes, No Cue Required 2 Recalls Bed No, Could Not Recall 0 Year Correct 3 Month Accurate Within 5 Days 2 Day Correct 1 Total [address] Mental [address] No Notes: CAM Mental Status Change/Baseline: 0 Inattention: 0 Disorganized thinkin Altered level of consciousness: 0 OT Short Term Goals Short Term Goals Time Frame: May 25, 2022 Eatin Oral hygiene: 5 Toileting hygiene: 4 Shower/bathe self: 5 Upper body dressin Lower body dressin Putting on/taking off footwear: 4 OT Senior Care Goals Systems Eng Goals Time Frame: Jun 01, 2022 Acute change in mental status: 0 Inattention: 0 Disorganized thinkin Altered level of consciousness: 0 Eating (QC): 6 Oral Hygiene (QC): 6 Toileting Hygiene (QC): 6 Shower/Bathe Self (QC): 6 Upper Body Dressing (QC): 6 Lower Body Dressing (QC): 6 On/Off Footwear (QC): 6 Additional Goals: 1-Demonstrate ADL Tasks, 2-Verbalize Understanding, 3- ImproveStrength/Shameka 1=Demonstrate adherence to instructed precautions during ADL tasks. 2=Patient will verbalize/demonstrate understanding of assistive devices/modifications for ADL. 3=Patient will improve strength/tolerance for activity to enable patient to perform ADL's. OT Education/Plan Problem List/Assessment Assessment: Decreased Activ Tolerance, Decreased Safety Aware, Impaired Coordination, Impaired Funct Balance, Impaired I ADL's, Impaired Self-Care Skills Discharge Recommendations Plan/Recommendations: Continue POC Therapy Discharge Recommendati: Homemaker Support, Home & Family, Post Acute OT Equpiment Recommendations-D/C: Bath Chair, Shipfitter Helper, Sock Aide Treatment Plan/Plan of Care Treatment,Training & Education: Yes Patient would benefit from OT for education, treatment and training to promote independence in ADL's, mobility, safety and/or upper extremity function for ADL's. Plan of Care: ADL Retraining, Caregiver Training, Functional Mobility, Group Exercise/Act as Ind, UE Funct Exercise/Act Treatment Duration: Jun 01, 2022 Frequency: At least 5 of 7 days/Wk (IRF) Estimated Hrs Per Day: 1.5 hours per day (75-90 min/day) Agreement: Yes Rehab Potential: Good Time Start Time: 13:00 Stop Time: 14:15 DATE: May 16, 2022 Total Time Billed (hr/min): 75 Billed Treatment Time 1 visit EVM (10 min) ADL x4 (65 min) OT eval: 5806-1023 Co-treat: 3623-5449 & 2262-1887 (55 min) Individual treatment: 0995-7209 Jocelyn Smith OT May 16, 2022 14:21
--- NOTE | 2022-05-16 14:45 | Physical Therapy Daily Note ---
PT Daily Note-Current Subjective Pt. agrees to PT OT co Rx. Pt c/o pain in low back at 2/10 except occas she has spasms which escalate her pain to 7/10 but are brief. Pain Numeric Pain Scale: 7 Location: Medial Location Body Site: Back Pain Description: Cramping Section J - Health Conditions 1. Rarely or not at all 2. Occasionally 3. Frequently 4. Almost constantly 8. Unable to answer Pain Effect on Sleep: 2 Pain Interference with Therapy: 3 Pain Interference w/Day-to-Day: 3 Mental Status Patient Orientation: Normal For Age Transfers SCALE: Activities may be completed with or without assistive devices. 1-Dxamvqgvmv-tvweeue completes the activity by him/herself with no assistance from a helper. 5-Set-up or Clean-up Assistance-helper sets up or cleans up; patient completes activity. [place] assists only prior to or following the activity. 4-Supervision or Touching Assistance-helper provides verbal cues and/or touching/steadying and/or contact guard assistance as patient completes activity. Assistance may be provided throughout the activity or intermittently. 3-Partial/Moderate Assistance-helper does LESS THAN HALF the effort. [place] lifts, holds or supports trunk or limbs, but provides less than half the effort. 2-Substantial/Maximal Assistance-helper does MORE THAN HALF the effort. [place] lifts or holds trunk or limbs and provides more than half the effort. 5-Pvjsupjxi-fyngam does ALL the effort. Patient does none of the effort to complete the activity. Or, the assistance of 2 or more helpers is required for the patient to complete the activity. If activity was not attempted, code reason: 7-Patient Refused. 9-Not Applicable-not attempted and the patient did not perform the activity before the current illness, exacerbation or injury. 10-Not Attempted due to Environmental Limitations-(lack of equipment, weather restraints, etc.). 88-Not Attempted due to Medical Conditions or Safety Concerns. Roll Left & Right (QC): 6 Sit to Lying (QC): 4 Sit to Stand (QC): 4 Chair/Xxs-au-Ttbbr Xfer(QC): 4 Toilet Transfer (QC): 4 instructed to be aware of limited to no twisting and bending with all functional movement rabia during TRFs Weight Bearing Right Lower Extremity: Right Full Weight Bearing Left Lower Extremity: Left Full Weight Bearing Gait Training Does the Patient Walk?: Yes Walk 150 ft (QC): 4 Gait Persons Needed: 1 Gait Assistive Device: FWW pt. heavy wt bearing on FWW at times , equal step length, good use of AD Stair Training Stair Training: Handrails/: 2 handrails #of Steps: 12 4 Steps (QC): 4 12 Steps (QC): 4 Stairs: Pattern: Reciprocal slow, sometimes reciprocating, sometimes step to Balance Picking up an Object (QC): 6 (pt. uses saddle maker with demo and instruction) Exercises Supine Ex: Ankle pumps, Quad Set, Rolling, Glut sets, Heel Slides, Hip abd/add Supine Reps: 12 (1445 to 1455) Treatments co Rx PT OT for coordination of U&L extremity functional mob ADLs ie showering and dressing, sock donning, toilet and shower TRFs, education in safety of sup to sit and sit to stand. 2 skilled clinicians required to complete this Rx session effectively and efficiently. one on one Rx for LE therex in supine also done this PM Assessment Current Status: Good Progress pt. follows instruction well, gives full effort, fatigue and pain and spasms limit Rx somewhat PT Senior Care Goals Day Camp Unit Leader Goals PT Senior Care Goals Time Frame: Jun 23, 2022 Roll Left & Right (QC): 6 Sit to Lying (QC): 6 Lying-Sitting on Side/Bed(QC): 6 Sit to Stand (QC): 6 Chair/Xss-vh-Mrsbl Xfer(QC): 6 Toilet Transfer (QC): 6 Car Transfer (QC): 6 Does the Patient Walk: Yes Walk 10 feet (QC): 6 Walk 50ft with 2 Turns (QC): 6 Walk 150 ft (QC): 6 Walking 10ft on Uneven Surface: 6 1 Step (curb) (QC): 6 4 Steps (QC): 6 12 Steps (QC): 6 Picking up an Object (QC): 6 Does the Pt use WC or Scooter?: No Wheel 50 feet with 2 turns (QC: 9 Wheel 150 feet: 9 PT Plan Treatment/Plan Treatment Plan: Continue Plan of Care Treatment Plan: Bed Mobility, Education, Functional Activity Shameka, Functional Strength, Gait, Safety, Therapeutic Exercise, Transfers Treatment Duration: Jul 07, 2022 Frequency: At least 5 of 7 days/Wk (IRF) Estimated Hrs Per Day: 1.5 hours per day Patient and/or Family Agrees t: Yes Safety Risks/Education Patient Education: Gait Training, Transfer Techniques, Steps, Reviewed Precautions (back twisting and flexion etc.), Correct Positioning, Disease Process, Safety Issues Teaching Recipient: Patient Teaching Methods: Demonstration, Discussion Response to Teaching: Verbalize Understanding, Return Demonstration, Reinforcement Needed Time Time In: 1330 (1445) Time Out: 1415 (1455) DATE: May 16, 2022 Total Billed Treatment Time: 55 Total Billed Treatment 1x2, EX10m, FA45m (PT OT co Rx 45m 1330 to 1415) MARY BETH CHUN CASING MACHINE OPERATOR May 16, 2022 14:45
[2022-05-16] MEDS ORDERED: NITROGLYCERIN 0.6 MG SL PRN (15:00)
[2022-05-16] MEDS ORDERED: NON-FORMULARY MEDICATION 1 EA EA (Calcium Carbonate (Calcium) 500 MG) PO PRN (15:00)
[2022-05-16] MEDS ORDERED: NON-FORMULARY MEDICATION 1 EA EA (Betamethasone Dipropionate 1 APPLIC) TP PRN (15:00)
[2022-05-16] MEDS ORDERED: SENNA W/DOCUSATE (SENOKOT S) TABLET PO PRN (15:00)
--- NOTE | 2022-05-16 15:00 | PM&R Post Admission Assessment ---
PM&R HP Date of Visit: May 16, 2022 Time of Visit: 15:00 History of Present Illness CC: Severe debility following L3 laminectomy HPI: This is a 71yoWF clinic patient of PCP in [place], [place] and and Dr Bunn Litigation Legal Assistant at [place] who presents to the ARU in need of aggressive rehab following lumbar spine surgery at . She continues to have significant weakness from lumbar spine myelopathy and bowel and bladder incontinence. PLOF was independent prior to acute issue with myelopathy. H&P by EFREN SolisV: CC: In-patient rehabilitation s/p right L3 laminectomy HPI: Ms. Andujar is a 71 year old female who presents to [facility] rehabilitation unit, transferring from [facility]. 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 For the past year the patient has been experiencing progressive myelopathy due to the dural fistula. The patient has had a decrease in strength in bilateral LE, multiple falls, and loss of bladder and bowel control. The patient's goals are to return home with family assistance. Patient states she is experiencing low back pain that rates as 5/10. Patient also describes having muscle spasms in her back that intensify the pain. The patient states she had a BM movement upon arriving to [facility]. Patient is agreeable to begin working with PT this afternoon. 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, depression Past Surgical Hx: Coronary stent placement x3, L wrist cyst removal, cholec ystectomy, appendectomy, section x1, total vaginal hysterectomy, ovarian cystectomy, laminectomy of R L3 on 05/10/2022 Allergies: Hydrocodone, diazepam, statins Home medications: Allopurinol, baby aspirin, atenolol, topical betamethasone cream, escitalopram, evolocumab inj, isosorbide mononitrate, nitroglycerine tablet, tramadol Social Hx: Denies tobacco, alcohol, or illicit drug use Family Hx: -Father: HTN, diabetes mellitus -Mother: HTN, diabetes mellitus ROS: -Negative: Head ache, chest pain, SOA, abdominal pain, nausea, vomiting, diarrhea -Positive: paresethesias of buttocks and posterior aspect of bilateral lower extremities, generalized weakness, constipation, low back pain, muscle spasms of back musculature Exam: -General: Alert, calm, sitting upright -Cardiovascular: HRRR -Pulmonary: LCTAB -Gastrointestinal: bowel sounds present -Lower extremity: no edema bilaterally A/P: 1. 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 Plan is for aggressive in-patient rehabilitation with PT/OT. 2. Baseline laboratory studies: CBC, CMP [facility] Note: Chief Complaint: DAVF of spinal column History of Present Illness: Sahara Andujar is a 71 y.o. female. Pt with progressive weakness/numbness in BLE, bowel/urinary incontinence. States numbness is waist down posterior and knees down anterior. Pt does ambulate for very short distances, but reports largely using wheelchair d/t recent falls. Patient Active Problem List Diagnosis Date Noted 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) 04/11/2022 Medical History: Diagnosis Date Bronchiectasis (HCC) COPD (chronic obstructive pulmonary disease) ([facility]) History of dental problems full set of dentures Surgical History: Procedure Laterality Date HX SECTION 1986 CORONARY STENT PLACEMENT X 3 HX APPENDECTOMY HX CHOLECYSTECTOMY HX CYST REMOVAL Left wirst HX TOTAL VAGINAL HYSTERECTOMY OVARIAN CYST REMOVAL Medications Prior to Admission Medication Sig Dispense Refill Last Dose allopurinoL (ZYLOPRIM) 300 mg tablet Take 300 mg by mouth daily. 04/29/2022 aspirin EC 81 mg tablet Take 81 mg by mouth daily. 04/29/2022 atenoloL (TENORMIN) 25 mg tablet Take 25 mg by mouth at bedtime daily. 04/29/2022 betamethasone dipropionate (BETANATE) 0.05 % topical cream Apply topically to affected area daily as needed. 04/29/2022 escitalopram oxalate (LEXAPRO) 20 mg tablet Take 20 mg by mouth daily. 04/30/2022 evolocumab (REPATHA SURECLICK) 140 mg/mL injectable PEN Inject 140 mg under the skin every 14 days. On Saturdays04/29/2022 isosorbide mononitrate (IMDUR) 60 mg ER tablet Take 180 mg by mouth at bedtime daily. 04/29/2022 nitroglycerin (NITROSTAT) 0.[address] 0.6 mg under tongue every 5 minutes for 3 doses. Unknown Thiamine HCl 250 mg tab Take 250 mg by mouth daily. 04/30/2022 traMADoL (ULTRAM) 50 mg tablet Take 100 mg by mouth every 6 hours as needed. Unknown Allergies Allergen Reactions Hydrocodone STOMACH UPSET and NAUSEA AND VOMITING Diazepam MENTAL STATUS CHANGES and SEE COMMENTS Acts spacey Bwmcdcz-Xga-Fjh Reductase Inhibitors MUSCLE PAIN Causes issues with muscles in legs Social History: Social History Tobacco Use Smoking status: Former Smoker Packs/day: 1.00 Years: 45.00 Pack years: 45.00 Types: Cigarettes Quit date: 2011 Years since quittin. Smokeless tobacco: Never Used Substance Use Topics Alcohol use: Not Currently Comment: ~ once a month No family history on file. Past Ofdrzgb-Mybjhi-Iwizzz Hx Past Med/Social Hx: Reviewed Nursing Past Med/Soc Hx, Reviewed and Corrections made Patient Social History Marrital Status: single Employed/Student: retired Alcohol Use: Occasionally Uses Smoking Status: Former Smoker Past Medical History Surgeries: Hysterectomy, Orthopedic Respiratory: COPD prior TB as a child Cardiac: Angina, Coronary Artery Disease, High Cholesterol, Hypertension Musculoskeletal: Arthritis, Chronic Back Pain Cancer: Uterine Did You Recieve Any Treatments: Yes What Type of Treatment Did You: Surgical Intervention Psychosocial: Anxiety, Depression Prior Level of Function Bed Mobility: 6 Transfers: 6 Gait: 6 Stairs: 6 Indoor Mobility (Ambulation): Independent Stairs: Independent Self Care: Independent Functional Cognition: Independent Drive Self: No (but would like to get back to driving) Current Level of Fuctioning Roll Left to Right: 6 Sit to Lyin Lying to Sitting/Side of Bed: 4 Sit to Stand: 4 Chair/Vzu-vm-Nornx Xfer: 4 Car Transfer: 4 Does the Patient Walk: Yes Mode of Locomotion: Walk Anticipated Mode of Locomotion: Walk Walk 10 feet: 4 Walk 50 ft with 2 Turns: 4 Walk 150 ft: 4 Walking 10ft on uneven surface: 4 Gait Assistive Device: FWW Does the Pt Use a Wheelchair: No Wheel 50 ft with 2 turns: 9 Wheel 150 ft: 9 #of Steps: 12 1 Step (curb): 88 4 Steps: 4 12 Steps: 4 Picking up an Object: 6 (pt. uses large animal veterinarian with demo and instruction) Eatin Oral Hygiene: 4 (CGA for safety) Shower/Bathe Self: 4 (SBA for safety- no physical assistance required) Upper Body Dressin Lower Body Dressin (SBA for safety with use of AE) On/Off Footwear: 3 (min assist for shoes) Toileting Hygiene: 3 (mod assist to wipe vida-rectal area; pt able to reach vida-area) PM&R Allergy/Meds/Data Review Allergies Coded Allergies: Cgxeryg-MHT-UfQ Reductase Inhibitor (Verified Allergy, Unknown, 05/16/22) diazepam (Verified Allergy, Unknown, 05/16/22) hydrocodone (Verified Allergy, Unknown, 05/16/22) Home Medications Scheduled Allopurinol (Allopurinol), 300 MG PO DAILY, (Reported) Aspirin (Aspirin EC), 81 MG PO DAILY, (Reported) Atenolol (Atenolol), 25 MG PO HS, (Reported) Escitalopram Oxalate (Escitalopram Oxalate), 20 MG PO DAILY, (Reported) Evolocumab (Repatha Sureclick), 140 MG SQ EVERY 14 DAYS, (Reported) Gabapentin (Gabapentin), 100 MG PO Q8H, (Reported) Heparin Sodium,Porcine/Pf (Heparin Sod 5,000 Unit/ 0.5 ml), 0.5 ML IJ Q8H, (Reported) Isosorbide Mononitrate (Isosorbide Mononitrate ER), 180 MG PO HS, (Reported) Scheduled PRN Acetaminophen (Tylenol), 650 MG PO Q4H PRN for PAIN-MILD (1-4), (Reported) Betamethasone Dipropionate (Betamethasone Dipropionate), 1 APPLIC TP DAILY PRN for REDNESS, ITCHING,SWELLING, (Reported) Calcium Carbonate (Calcium), 500 MG PO DAILY PRN for INDIGESTION, (Reported) Methocarbamol (Methocarbamol), 750 MG PO Q8H PRN for SPASMS, (Reported) Nitroglycerin (Nitrostat), 0.6 MG SL UD PRN for CHEST PAIN (ANGINA), (Reported) Oxycodone HCl (Roxicodone), 5-15 MG PO Q4H PRN for PAIN-SEVERE (8-10), (Reported) Sennosides/Docusate Sodium (Senna S Tablet), 1 EACH PO BID PRN for WHILE TAKING PAIN MEDS, (Reported) Current Medications Current Medications Reviewed Review of Systems Constitutional: see HPI, malaise, weakness EENTM: no symptoms reported Respiratory: no symptoms reported Cardiovascular: no symptoms reported Gastrointestinal: constipation Genitourinary: incontinence Musculoskeletal: back pain, joint pain, muscle pain, muscle stiffness, muscle cramps Skin: no symptoms reported Psychiatric/Neurological: Anxiety All Other Systems Reviewed Negative Unless Noted: Yes Physical Exam Physical Exam Vital Signs Capillary Refill : Height, Weight, BMI Height: '" Weight: lbs. oz. kg; BMI Method: General Appearance: No Apparent Distress, WD/WN, Chronically ill, Obese Eyes: Bilateral Eye Normal Inspection, Bilateral Eye PERRL HEENT: PERRL/EOMI, Normal ENT Inspection, Pharynx Normal Neck: Full Range of Motion, Normal Inspection, Non Tender, Supple, Carotid Bruit Respiratory: Chest Non Tender, Lungs Clear, Normal Breath Sounds, No Accessory Muscle Use, No Respiratory Distress Cardiovascular: Regular Rate, Rhythm, No Edema, No Gallop, No JVD, No Murmur, Normal Peripheral Pulses Gastrointestinal: Normal Bowel Sounds, No Organomegaly, No Pulsatile Mass, Non Tender, Soft Back: Normal Inspection, Decreased Range of Motion, Muscle Spasm, Vertebral Tenderness Extremity: Normal Capillary Refill, Normal Inspection, Normal Range of Motion (except legs noted weakness 3/5), Non Tender, No Calf Tenderness, No Pedal Edema Neurologic/Psychiatric: Alert, Oriented x3, audit consultant II-XII Norm as Tested, Abnormal Gait, Depressed Affect, Motor Weakness (lower extremities) Skin: Normal Color, Warm/Dry Lymphatic: No Adenopathy PM&R Medical Assessment & Plan REHAB/MEDICAL ASSESSMENT AND PLAN: REHAB IMPAIRMENT GROUP: Lumbar spine myelopathy ETIOLOGIC DIAGNOSIS: Lumbar spine myelopathy The comorbidities that impact the patients function and/or functional outcome by: back pain, fall risk, severe weakness, fecal and bowel incontinence REHAB PLAN: The patient is being admitted to our comprehensive inpatient rehabilitation facility and can tolerate the intensity of service consisting of at least: 180 minutes of therapy a day, 5 out of 7 days a week Rehab treatment will consist of: PT OT will focus on regaining function with use of AD in order to regain function and independence in order to return to prior level and be able to live independently The patient/family has a good understanding of our discharge process and will benefit from an interdisciplinary inpatient rehabilitation program. The patient has potential to make improvement and is in need of at least two of the following multidisciplinary therapies including but not limited to physical, occupational, speech, and prosthetics and orthotics. Additionally the patient will need services from respiratory, nutritional services, wound care, psychology, etc. (Customize this to each patient). Given the patients complex condition and risk of further medical complications, rehabilitation services cannot be safely or effectively provided at a lower level of care such as a detention facility. BARRIERS TO DISCHARGE: Severe leg weakness ESTIMATED LOS: 10 days DISPOSITION: Home RELEVANT CHANGES SINCE PREADMISSION SCREENING: I have compared the patients medical and functional status at the time of the preadmission screening and there are: no changes PROGNOSIS: Good REHABILITATION GOALS: 1. PT OT will focus on regaining function with use of AD in order to regain function and independence in order to return to prior level and be able to live independently All the above goals were reviewed with the patient and he/she is in agreement. By signing this document, I acknowledge that I have personally performed a full physical examination on this patient within 24 hours of admission to this inpatient rehabilitation facility and have determined the patient to be able to tolerate the above course of treatment at an intensive level for a reasonable period of time. I will be completing a detailed individualized Plan of Care for this patient by day #4 of the patients stay based upon the Preadmission Screen, the Post-Admission Evaluation, and the therapy evaluations. Admission Dx/Comorbidities: (1) Lumbar myelopathy ICD Codes: G95.9 - Disease of spinal cord, unspecified Assessment/Plan Assessment and Plan Assess & Plan/Chief Complaint Assessment: Severe debility following s/p right L3 laminectomy at [facility] on 05/10/2022 COPD Bronchiectasis Dental problems (full dentures currently) CAD Angina HTN HLD Gout Cervical cancer status post total vaginal hysterectomy Prizmetal angina Prior TB infection as child Depression ZANDRA LEAL DO May 16, 2022 15:00
[2022-05-16] MEDS ORDERED: NITROGLYCERIN 0.4 MG SL TABS BTL 25'S SL PRN (15:45)
[2022-05-16] MEDS ORDERED: BETAMETHASONE DIPRO (AUGMENTED) 0.05% CREAM 15 GM TOP PRN (15:45)
[2022-05-16] MEDS ORDERED: PATIENT MAY USE OWN MED,SINGLE MED PO SCH (15:45)
[2022-05-16] MEDS: GABAPENTIN 100 MG (NEURONTIN) CAP PO SCH ×2 (16:14→22:02)
[2022-05-16] MEDS ORDERED: REPATHA SURECLICK 140 MG/ML SQ SCH (17:00)
[2022-05-16] MEDS ORDERED: FLU QUAD HIGH DOSE 240 MCG/0.7 ML 2022-23 (FLUZONE) IM ONE (17:15)
[2022-05-16] MEDS: ACETAMINOPHEN 325 MG TABLET PO PRN (18:18)
[2022-05-16 20:15] VITALS: BP 141/60
[2022-05-16] MEDS: SENNA W/DOCUSATE (SENOKOT S) TABLET PO SCH (21:56)
[2022-05-16] MEDS: ATENOLOL 25 MG (TENORMIN) TAB PO SCH (21:56)
[2022-05-16] MEDS: ISOSORBIDE MONONITRATE 60 MG (IMDUR) TAB PO SCH (21:56)
[2022-05-16] MEDS: polyethylene glycoL POWDER 17 GM (MIRALAX) PACK PO SCH (21:57)
[2022-05-16] MEDS: DOCUSATE SODIUM 100 MG (COLACE) CAP PO SCH (21:58)
[2022-05-16] MEDS: guaiFENesin/CODEINE (ROBITUSSIN AC) 10ML UDC PO PRN (22:11)
--- NOTE | 2022-05-17 05:53 | Individualized Plan of Care ---
Individualized Plan of Care Rehab Nursing IPOC Order Admission Date May 16, 2022 at 12:50 Current Orders Orders Admission Order(Inpt,Obs,Sdc) (05/16/22 05:51) Vital Signs: Per Unit Policy ( ,16,00 (05/16/22 05:51) Marc Dangelo (05/16/22 05:51) Sequential Compression Device (05/16/22 05:51) Food Dehydrator Operator-Inpt Rehab Con (05/16/22 05:51) Rehab Nursing Orders-Ipoc (05/16/22 05:51) Physical Therapy Rehab Orders (05/16/22 05:51) Occupational Therapy Rehab Ord (05/16/22 05:51) Speech Therapy Rehab Orders (05/16/22 05:51) Cbc With Automated Diff (05/17/22 06:00) Comprehensive Metabolic Panel (05/17/22 06:00) Precautions (Aru) (05/16/22 05:51) Weekly Weight WEEK (05/16/22 05:51) Rehab-Intensity Of Therapy (05/16/22 05:51) Initiate Admission Nursing Pro .admission (05/16/22 05:51) Alprazolam Tablet (Xanax Tablet) (05/16/22 06:00) Calcium Carbonate Chew Tablet (Antacid C (05/16/22 06:00) Diphenhydramine Tablet (Benadryl Tablet) (05/16/22 06:00) Docusate Sodium Capsule (Colace Capsule) (05/16/22 21:00) Docusate Sodium Capsule (Colace Capsule) (05/16/22 06:00) Bisacodyl Suppository (Dulcolax Supposit (05/16/22 06:00) Lactulose Oral Solution (Enulose Oral So (05/16/22 06:00) Na Phos/Na Biphos Enema (Fleet Enema Agusto (05/16/22 06:00) Guaifenesin/Codeine Syrup (Robitussin Ac (05/16/22 06:00) Loperamide Tablet (Imodium Tablet) (05/16/22 06:00) Melatonin Tablet (Melatonin Tablet) (05/16/22 06:00) Polyethylene Glycol Powder Pkt (Miralax (11/9/22 21:00) Ondansetron Oral Dissolve Tab (Zofran (05/16/22 06:00) Senna S Tablet (Senokot S Tablet) (05/16/22 21:00) Acetaminophen Tablet/Caplet (Tylenol T (05/16/22 06:00) Code/Resuscitation (05/16/22 05:51) Initiate Admission Nursing Pro .admission (05/16/22 05:51) Admission Arrival Bed Request (05/16/22 12:57) Patient Visit (05/16/22 ) Speech Sound Lang Comp (05/16/22 ) Treat. Speech/Lang/Voice (05/16/22 ) General/Regular (05/16/22 Dinner) Acetaminophen Tablet/Caplet (Tylenol T (05/16/22 15:00) Allopurinol Tablet (Zyloprim Tablet) (05/17/22 09:00) Aspirin Enteric Coated Tablet (Ecotrin T (05/17/22 09:00) Atenolol Tablet (Tenormin Tablet) (05/16/22 21:00) Gabapentin Capsule/Tablet (Neurontin Cap (05/16/22 15:00) Isosorbide Mononitrate Tablet (Imdur Tab (05/16/22 21:00) Methocarbamol Tablet (Robaxin Tablet) (05/16/22 15:00) Oxycodone Immediate Rel Tablet (Oxyir Ta (05/16/22 15:00) Senna S Tablet (Senokot S Tablet) (05/16/22 15:00) (Nf) Betamethasone Dipropionate (05/16/22 15:00) (Nf) Calcium Carbonate (Calcium) (05/16/22 15:00) (Nf) Escitalopram Oxalate (05/17/22 09:00) (Nf) Evolocumab (Repatha Sureclick) (05/16/22 17:00) (Nf) Nitroglycerin (Nitrostat) (05/16/22 15:00) Heparin Injection (Heparin Injection) (05/16/22 15:30) Patient Visit (05/16/22 ) Functional Activities, Ea 15 (05/16/22 ) Patient Visit (05/16/22 ) Exercise Therap, Ea 15 Min (05/16/22 ) Patient Visit (05/16/22 ) Pt Eval Moderate Complexity (05/16/22 ) Self Care/Home Mgmt/Adl 15 Min (05/16/22 ) Citalopram Tablet (Celexa Tablet) (05/17/22 09:00) Patient May Use Own Med,Single (Patient (05/16/22 15:45) Calcium Carbonate Chew Tablet (Antacid C (05/16/22 15:45) Betamethasone Dipropinate Crm (Diprolene (05/16/22 15:45) Nitroglycerin 0.4 Mg Btl 25's (Nitrostat (05/16/22 15:45) Heparin Injection (Heparin Injection) (05/16/22 22:00) Flu High Dose Quad [id number] (Fluzone Hi (05/16/22 17:15) Patient Visit (05/17/22 ) Gait Training, Ea 15 Min (05/17/22 ) Exercise Therap, Ea 15 Min (05/17/22 ) Patient Visit (05/17/22 ) Gait Training, Ea 15 Min (05/17/22 ) Rehab Nursing Orders: Ongoing Assess. of Function Status, Bladder Management, Bladder Scan, Bladder Training, Bowel Management, Bowel Training, Disease Management & Educaiton, DVT Prophylaxis, Fall Prevention, Fluid/Electrolyte/Nutrition Mgmt, Infection Prevention, Medication Management & Education, Management of Risks & Complications, Management of Skin Intergrity, Nutrition Management, Pain Management, Patient/Family Support, Safety Management Intensity of Therapy to be met Patient to be seen: Min.3h per day/5 of 7d PT IPOC Problem List: Activity Tolerance, Functional Strength, Safety, Balance, Gait, Transfer, Bed Mobility, ROM Treatment Plan: Continue Plan of Care Bed Mobility, Education, Functional Activity Shameka, Functional Strength, Gait, Safety, Therapeutic Exercise, Transfers Treatment Duration: Jul 07, 2022 Frequency: At least 5 of 7 days/Wk (IRF) Estimated Hrs Per Day: 1.5 hours per day OT IPOC Problems: Decreased Activ Tolerance, Decreased Safety Aware, Impaired Coordination, Impaired Funct Balance, Impaired I ADL's, Impaired Self-Care Skills OT Treatment, Training and Edu: Yes Plan of Care: ADL Retraining, Caregiver Training, Functional Mobility, Group Exercise/Act as Ind, UE Funct Exercise/Act Treatment Duration: Jun 01, 2022 Frequency: At least 5 of 7 days/Wk (IRF) Estimated Hrs Per Day: 1.5 hours per day (75-90 min/day) [facility] Speech Therapy Treatment Plan: Continue Plan of Care Treatment Duration: May 16, 2022 Frequency: 1 time per week Estimated Hrs Per Day: .5 hour per day Food Dehydrator Operator/Case Mgmt Food Dehydrator Operator/Case Managemen: Discharge Planning Dietitian/Insurance Claims Examiner Dietitian/Insurance Claims Examiner to monitor nutritional status and make changes and/or recommendations as needed and work with speech pathology on dietary upgrades as the occur. Physician [facility] Medical Issues being managed closely and that require the 24 hour availability of a physician: Recent lumbar spine surgery and subsequent fecal and urinary incontinence will require close monitoring of pain and assessing signs of decompensation Medical Issues: Bowel/Bladder Function, DVT Prophylaxis, Falls Precautions, Fluid/Electrolyte/Nutrition Balance, Infection Protection, Pain Management, Wound Care Brief Synthesis of Preadmission Screen, Post-Admission Evaluation, and Therapy Evaluations: PT OT will focus on regaining function with ambulation in order to return back to independent living and prevent falls Medical Prognosis: Good Anticipated Length of Stay: 10 days ZANDRA LEAL DO May 17, 2022 05:53
--- NOTE | 2022-05-17 05:53 | PM&R Progress Note ---
Subjective HPI/CC On Admission Date Seen by Provider: May 17, 2022 Time Seen by Provider: 11:45 Subjective/Events-last exam 05/17/2022: Doing well Pain controlled BM regimen maintained but had BM last night No falls but increased risk Review of Systems General: Fatigue, Malaise Musculoskeletal: back pain Objective Exam Vital Signs Vital Signs Date Time Temp Pulse Resp B/P (MAP) Pulse Ox O2 Delivery O2 Flow Rate FiO2 05/17/22 21:19 Room Air 05/17/22 20:11 36.8 70 16 92/53 (66) 96 Capillary Refill : General Appearance: No Apparent Distress, WD/WN, Chronically ill, Obese HEENT: PERRL/EOMI, Normal ENT Inspection, Pharynx Normal Neck: Full Range of Motion, Normal Inspection, Non Tender, Supple, Carotid Bruit Respiratory: Chest Non Tender, Lungs Clear, Normal Breath Sounds, No Accessory Muscle Use, No Respiratory Distress Cardiovascular: Regular Rate, Rhythm, No Edema, No Gallop, No JVD, No Murmur, Normal Peripheral Pulses Gastrointestinal: Normal Bowel Sounds, No Organomegaly, No Pulsatile Mass, Non Tender, Soft Back: Normal Inspection, Decreased Range of Motion, Muscle Spasm, Vertebral Tenderness Extremity: Normal Capillary Refill, Normal Inspection, Normal Range of Motion (except legs noted weakness 3/5), Non Tender, No Calf Tenderness, No Pedal Edema Neurologic/Psychiatric: Alert, Oriented x3, adjunct art history instructor II-XII Norm as Tested, Abnormal Gait, Depressed Affect, Motor Weakness (lower extremities) Skin: Normal Color, Warm/Dry Lymphatic: No Adenopathy Results/Procedures Lab Laboratory Tests 05/17/22 05:48 Patient resulted labs reviewed. FIM Transfers Therapy Code Descriptions/Definitions Functional [place] Measure: 0=Not Assessed/NA 4=Minimal Assistance 1=Total Assistance 5=Supervision or Setup 2=Maximal Assistance 6=Modified [place] 3=Moderate Assistance 7=Complete IndependenceSCALE: Activities may be completed with or without assistive devices. 6-Mzqzirthck-emahztj completes the activity by him/herself with no assistance from a helper. 5-Set-up or Clean-up Assistance-helper sets up or cleans up; patient completes activity. [place] assists only prior to or following the activity. 4-Supervision or Touching Assistance-helper provides verbal cues and/or touching/steadying and/or contact guard assistance as patient completes ac tivity. Assistance may be provided throughout the activity or intermittently. 3-Partial/Moderate Assistance-helper does LESS THAN HALF the effort. [place] lifts, holds or supports trunk or limbs, but provides less than half the effort. 2-Substantial/Maximal Assistance-helper does MORE THAN HALF the effort. [place] lifts or holds trunk or limbs and provides more than half the effort. 3-Xnmqzpiim-pphimj does ALL the effort. Patient does none of the effort to complete the activity. Or, the assistance of 2 or more helpers is required for the patient to complete the activity. If activity was not attempted, code reason: 7-Patient Refused. 9-Not Applicable-not attempted and the patient did not perform the activity before the current illness, exacerbation or injury. 10-Not Attempted due to Environmental Limitations-(lack of equipment, weather restraints, etc.). 88-Not Attempted due to Medical Conditions or Safety Concerns. Roll Left to Right (QC): 6 Sit to Lying (QC): 4 Sit to Stand (QC): 4 Chair/Lwf-tl-Wnypi Xfer(QC): 4 Car Transfer (QC): 4 Gait Training Does the Patient Walk?: Yes Walk 10 feet (QC): 4 Walk 50 ft with 2 Turns(QC): 4 Walk 150 ft (QC): 4 Walking 10ft/uneven surface-QC: 4 Gait Persons Needed: 1 Gait Assistive Device: FWW Wheelchair Training Does the Pt Use a Wheelchair?: No Wheel 50 ft with 2 turns (QC): 9 Wheel 150 ft (QC): 9 Stair Training Stair Training: Handrails/: 2 handrails #of Steps: 12 1 Step (curb) (QC): 88 4 Steps (QC): 4 12 Steps (QC): 4 Stairs: Pattern: Reciprocal Balance Picking up an Object (QC): 6 (pt. uses auto former machine operator with demo and instruction) ADL-Treatment Eating (QC): 5 Oral Hygiene (QC): 4 (CGA for safety) Shower/Bathe Self (QC): 4 (SBA for safety- no physical assistance required) Upper Body Dressing (QC): 5 Lower Body Dressing (QC): 4 (SBA for safety with use of AE) On/Off Footwear (QC): 3 (min assist for shoes) Toileting Hygiene (QC): 3 (mod assist to wipe vida-rectal area; pt able to reach vida-area) Assessment/Plan Assessment and Plan Assess & Plan/Chief Complaint Assessment: Severe debility following s/p right L3 laminectomy at [facility] on 05/10/2022 COPD Bronchiectasis Dental problems (full dentures currently) CAD Angina HTN HLD Gout Cervical cancer status post total vaginal hysterectomy Prizmetal angina Prior TB infection as child Depression Plan: Pain control PT OT Home meds 05/17/2022: Maintain pain control Improved status (1) Lumbar myelopathy ZANDRA LEAL DO May 17, 2022 05:53
[2022-05-17 06:19] LABS: BASOPHILS # (AUTO) 0.1 10^3/uL (0.0-0.1); BASOPHILS % (AUTO) 1 % (0-10); EOSINOPHILS # (AUTO) 0.3 10^3/uL (0.0-0.3); EOSINOPHILS % (AUTO) 4 % (0-10); HEMATOCRIT 34 % (35-52); HEMOGLOBIN 10.8 g/dL (11.5-16.0); LYMPHOCYTES # (AUTO) 1.8 10^3/uL (1.0-4.0); LYMPHOCYTES % (AUTO) 23 % (12-44); MEAN CORPUSCULAR HEMOGLOBIN 30 pg (25-34); MEAN CORPUSCULAR HGB CONC 32 g/dL (32-36); MEAN CORPUSCULAR VOLUME 92 fL (80-99); MEAN PLATELET VOLUME 10.6 fL (9.0-12.2); MONOCYTES # (AUTO) 0.9 10^3/uL (0.0-1.0); MONOCYTES % (AUTO) 12 % (0-12); NEUTROPHILS # (AUTO) 4.8 10^3/uL (1.8-7.8); NEUTROPHILS % (AUTO) 61 % (42-75); PLATELET COUNT 313 10^3/uL (130-400); WHITE BLOOD COUNT 7.9 10^3/uL (4.3-11.0)
[2022-05-17 06:34] LABS: ALBUMIN 3.3 GM/DL (3.2-4.5); POTASSIUM 4.5 MMOL/L (3.6-5.0)
[2022-05-17 06:35] LABS: CALCIUM 9.7 MG/DL (8.5-10.1)
[2022-05-17 06:36] LABS: TOTAL PROTEIN 6.5 GM/DL (6.4-8.2)
[2022-05-17 06:38] LABS: BILIRUBIN,TOTAL 0.4 MG/DL (0.1-1.0)
[2022-05-17 06:40] LABS: CREATININE SERUM 0.75 MG/DL (0.60-1.30)
[2022-05-17] MEDS: GABAPENTIN 100 MG (NEURONTIN) CAP PO SCH ×3 (06:47→23:09)
[2022-05-17 07:35] VITALS: BP 100/67
[2022-05-17] MEDS: ASPIRIN E.C. 81 MG (ECOTRIN) TAB PO SCH (08:48)
[2022-05-17] MEDS: DOCUSATE SODIUM 100 MG (COLACE) CAP PO SCH ×2 (08:48→21:05)
[2022-05-17] MEDS: ALLOPURINOL 300 MG (ZYLOPRIM) TAB PO SCH (08:48)
[2022-05-17] MEDS: polyethylene glycoL POWDER 17 GM (MIRALAX) PACK PO SCH ×2 (08:48→21:10)
[2022-05-17] MEDS: SENNA W/DOCUSATE (SENOKOT S) TABLET PO SCH ×2 (08:48→21:05)
[2022-05-17] MEDS ORDERED: NON-FORMULARY MEDICATION 1 EA EA (Escitalopram Oxalate 20 MG) PO SCH (09:00)
--- NOTE | 2022-05-17 09:16 | Progress Note ---
VY PADILLA 05/17/22 0916: Progress Note S: Ms. Andujar is a 71 year old female who presents to [facility] rehabilitation unit, transferred from [facility]. 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 Patient states she is feeling about the same today. Patient reports her back pain is 5/10 with intermittent muscle spasms. Patient is resting comfortably in her recliner this morning. Patient states PO pain medication manages the pain. Patient states her last BM was yesterday afternoon. Patient reports she was incontinent of bladder multiple times throughout the evening. She states she woke up with a full brief liner at least twice last night. Patient denies bowel incontinence. Patient states she is tolerating PO food and drink and is ambulating well with a walker and assistance. Patient states her lower extremity weakness is intermittent. O: -Vital signs stable: T 37.1, HR 80, RR 18, BP 141/60, SpO2 98% RA -PE: -Cardiovascular: HRRR -Pulmonary: LCTAB A/P: 1. Continue aggressive in-patient rehab with PT and OT 2. Post-void bladder scan; assess for post-void volume related to neurogenic bladder/increased frequency 3. Continue PO pain management and bowel regimen KAREN LEAL DO 05/18/22 0406: Supervisory-Addendum Brief Verification & Attestation Participated in pt care: history, MDM, physical Personally performed: exam, history, MDM, supervision of care Care discussed with: Medical Student Procedures: n/a Results interpretation: Verified all documentation Verification and Attestation of Medical Student E/M Service A medical student performed and documented this service in my presence. I reviewed and verified all information documented by the medical student and made modifications to such information, when appropriate. I personally performed the physical exam and medical decision making. Karen Leal, May 18, 2022,04:06 VY PADILLA May 17, 2022 09:16 KAREN LEAL DO May 18, 2022 04:06
--- NOTE | 2022-05-17 10:47 | Occupational Ther Daily Note ---
OT Current Status-Daily Note Subjective Pt sitting in recliner. She wanted to shower today. Appearance Pt was left sitting in recliner with doctor present. All needs were within reach. Mental Status/Objective Patient Orientation: Person, Place, Time, Situation ADL-Treatment Therapy Code Descriptions/Definitions Functional [place] Measure: 0=Not Assessed/NA 4=Minimal Assistance 1=Total Assistance 5=Supervision or Setup 2=Maximal Assistance 6=Modified [place] 3=Moderate Assistance 7=Complete IndependenceSCALE: Activities may be completed with or without assistive devices. 0-Xzyahruwmo-rrqyuqr completes the activity by him/herself with no assistance from a helper. 5-Set-up or Clean-up Assistance-helper sets up or cleans up; patient completes activity. [place] assists only prior to or following the activity. 4-Supervision or Touching Assistance-helper provides verbal cues and/or touching/steadying and/or contact guard assistance as patient completes activity. Assistance may be provided throughout the activity or intermittently. 3-Partial/Moderate Assistance-helper does LESS THAN HALF the effort. [place] lifts, holds or supports trunk or limbs, but provides less than half the effort. 2-Substantial/Maximal Assistance-helper does MORE THAN HALF the effort. [place] lifts or holds trunk or limbs and provides more than half the effort. 0-Xoefpltuj-uvbnge does ALL the effort. Patient does none of the effort to complete the activity. Or, the assistance of 2 or more helpers is required for the patient to complete the activity. If activity was not attempted, code reason: 7-Patient Refused. 9-Not Applicable-not attempted and the patient did not perform the activity before the current illness, exacerbation or injury. 10-Not Attempted due to Environmental Limitations-(lack of equipment, weather restraints, etc.). 88-Not Attempted due to Medical Conditions or Safety Concerns. Eating (QC): 5 Oral Hygiene (QC): 4 Shower/Bathe Self (QC): 4 Upper Body Dressing (QC): 5 Lower Body Dressing (QC): 4 On/Off Footwear: 3 Sit <>stand: CGA. Pt requires mod cues for hand/foot placement when performing sit<>stand. She has minimal follow through and requires extra education on the importance of performing transfers safely. She often makes excuses with why her way works "better". Pt still experiencing painful and moderately constant involuntary spasms in lower back that could potentially cause pt to fall if not careful. Pt requires constant SBA-CGA for spasms, and weakness in LEs. Pt requires mod cues to follow spinal precautions. Pt able to doff/don all UB and LB clothing with set up assist and use of manager bridge. Pt completed 75% of shower seated with SBA for safety. CGA required when pt stood during shower. She used manager bridge to don underwear with SBA. Therapist donned Marc Hose. Pt required min assist for donning shoes. Multiple conversations regarding safety with transfers, spinal precautions, AE (toilet tongs/toilet aid), and energy conservation with minimal retention (reinforcement will be necessary). Pt has difficulty recognizing self-awareness with ability to complete tasks in a safe manner. Pt ambulated in hallway ~100 ft with 2 rest breaks. She required cues to sit down when too fatigued to continue walking. When ambulating with the walker, she often bumps into doorways and other objects. She states it's because she doesn't want to bend over and look where she is going and break precautions, although she breaks precautions in other situations and needs cues to correct. Education OT Patient Education: Correct positioning, Disease process, Energy conservation, Modified ADL techniques, Progress toward Goal/Update tx plan, Purpose of tx/functional activities, Reviewed precautions, Rehab process, Safety issues, Transfer techniques, Use of adapted equipment Teaching Recipient: Patient Teaching Methods: Demonstration, Discussion Response to Teaching: Verbalize Understanding, Reinforcement Needed OT Short Term Goals Short Term Goals Time Frame: May 25, 2022 Eatin Oral hygiene: 5 Toileting hygiene: 4 Shower/bathe self: 5 Upper body dressin Lower body dressin Putting on/taking off footwear: 4 OT School Plant Consultant Goals School Plant Consultant Goals Time Frame: Jun 01, 2022 Acute change in mental status: 0 Inattention: 0 Disorganized thinkin Altered level of consciousness: 0 Eating (QC): 6 Oral Hygiene (QC): 6 Toileting Hygiene (QC): 6 Shower/Bathe Self (QC): 6 Upper Body Dressing (QC): 6 Lower Body Dressing (QC): 6 On/Off Footwear (QC): 6 Additional Goals: 1-Demonstrate ADL Tasks, 2-Verbalize Understanding, 3- ImproveStrength/Shameka 1=Demonstrate adherence to instructed precautions during ADL tasks. 2=Patient will verbalize/demonstrate understanding of assistive devices/modifications for ADL. 3=Patient will improve strength/tolerance for activity to enable patient to perform ADL's. OT Education/Plan Problem List/Assessment Assessment: Decreased Activ Tolerance, Decreased Safety Aware, Decreased UE Strength, Impaired Cognition, Impaired Coordination, Impaired Funct Balance, Impaired I ADL's, Impaired Self-Care Skills Discharge Recommendations Plan/Recommendations: Continue POC Treatment Plan/Plan of Care Treatment,Training & Education: Yes Patient would benefit from OT for education, treatment and training to promote independence in ADL's, mobility, safety and/or upper extremity function for ADL's. Plan of Care: ADL Retraining, Caregiver Training, Functional Mobility, Group Exercise/Act as Ind, UE Funct Exercise/Act Treatment Duration: Jun 01, 2022 Frequency: At least 5 of 7 days/Wk (IRF) Estimated Hrs Per Day: 1.5 hours per day (75-90 min/day) Agreement: Yes Rehab Potential: Fair Time Start Time: 09:10 Stop Time: 10:40 DATE: May 17, 2022 Total Time Billed (hr/min): 90 Billed Treatment Time 1 visit ADL x4 (65 min) EX x2 (25 min) Jocelyn Smith OT May 17, 2022 10:47
--- NOTE | 2022-05-17 11:56 | Physical Therapy Daily Note ---
PT Daily Note-Current Pain Section J - Health Conditions 1. Rarely or not at all 2. Occasionally 3. Frequently 4. Almost constantly 8. Unable to answer Pain Effect on Sleep: 2 Pain Interference with Therapy: 3 Pain Interference w/Day-to-Day: 3 Mental Status Patient Orientation: Person, Place, Time, Situation Transfers SCALE: Activities may be completed with or without assistive devices. 6-Hxxrpkqpom-cqxnwnt completes the activity by him/herself with no assistance from a helper. 5-Set-up or Clean-up Assistance-helper sets up or cleans up; patient completes activity. [place] assists only prior to or following the activity. 4-Supervision or Touching Assistance-helper provides verbal cues and/or touching/steadying and/or contact guard assistance as patient completes activity. Assistance may be provided throughout the activity or intermittently. 3-Partial/Moderate Assistance-helper does LESS THAN HALF the effort. [place] lifts, holds or supports trunk or limbs, but provides less than half the effort. 2-Substantial/Maximal Assistance-helper does MORE THAN HALF the effort. [place] lifts or holds trunk or limbs and provides more than half the effort. 1-Bhbhehbre-xmrnfa does ALL the effort. Patient does none of the effort to complete the activity. Or, the assistance of 2 or more helpers is required for the patient to complete the activity. If activity was not attempted, code reason: 7-Patient Refused. 9-Not Applicable-not attempted and the patient did not perform the activity before the current illness, exacerbation or injury. 10-Not Attempted due to Environmental Limitations-(lack of equipment, weather restraints, etc.). 88-Not Attempted due to Medical Conditions or Safety Concerns. Sit to Stand (QC): 4 Chair/Mkl-fe-Ryfcz Xfer(QC): 4 Toilet Transfer (QC): 4 Weight Bearing Right Lower Extremity: Right Full Weight Bearing Left Lower Extremity: Left Full Weight Bearing Gait Training Does the Patient Walk?: Yes Distance: 150' Walk 10 feet (QC): 4 Walk 50 ft with 2 Turns(QC): 4 Walk 150 ft (QC): 4 Gait Assistive Device: FWW Exercises Supine Ex: Ankle pumps, Quad Set, Glut sets Supine Reps: 20 Seated Therapy Exercises: Ankle pumps, Long arc quads, Hip flexion, Hamstring Curls, Hip abd/add Seated Reps: 20 Standing: Heel/toe raises Standing Reps: 10 NuStep Minutes: 10 NuStep Workload: 2 Assessment Current Status: Fair Progress Patient tolerated treatment well. Performs LE exercises listed above with recliner legs elevated, then down. Patient performs all observed transfers with SBA. Patient ambulates to the BR, requires CGA while pulling pants down as she nearly loses her balance. She ambulates 100 feet with FWW, with SBA and verbal cues for posture. Performs Nu Step and standing exercises as listed above. Patient ambulates 200 feet with FWW, with SBA to room. Patient in chair post treatment with all needs met, nursing notified, call light in reach. PT Alf Goals Alf Goals PT Alf Goals Time Frame: Jun 23, 2022 Roll Left & Right (QC): 6 Sit to Lying (QC): 6 Lying-Sitting on Side/Bed(QC): 6 Sit to Stand (QC): 6 Chair/Mbd-gw-Febbp Xfer(QC): 6 Toilet Transfer (QC): 6 Car Transfer (QC): 6 Does the Patient Walk: Yes Walk 10 feet (QC): 6 Walk 50ft with 2 Turns (QC): 6 Walk 150 ft (QC): 6 Walking 10ft on Uneven Surface: 6 1 Step (curb) (QC): 6 4 Steps (QC): 6 12 Steps (QC): 6 Picking up an Object (QC): 6 Does the Pt use WC or Scooter?: No Wheel 50 feet with 2 turns (QC: 9 Wheel 150 feet: 9 PT Plan Treatment/Plan Treatment Plan: Continue Plan of Care Treatment Plan: Bed Mobility, Education, Functional Activity Shameka, Functional Strength, Gait, Safety, Therapeutic Exercise, Transfers Treatment Duration: Jul 07, 2022 Frequency: At least 5 of 7 days/Wk (IRF) Estimated Hrs Per Day: 1.5 hours per day Patient and/or Family Agrees t: Yes Safety Risks/Education Patient Education: Gait Training, Transfer Techniques Teaching Recipient: Patient Teaching Methods: Demonstration, Discussion Response to Teaching: Verbalize Understanding, Return Demonstration Time Time In: 1045 Time Out: 1200 DATE: May 17, 2022 Total Billed Treatment Time: 75 Total Billed Treatment Visit, Gait (25), Ex (30), FA (20) JOS LOPEZ PT May 17, 2022 11:56
[2022-05-17] MEDS: METHOCARBAMOL 750 MG (ROBAXIN) TAB PO PRN ×2 (12:48→21:04)
[2022-05-17] MEDS: guaiFENesin/CODEINE (ROBITUSSIN AC) 10ML UDC PO PRN ×2 (13:33→21:11)
--- NOTE | 2022-05-17 14:00 | Physical Therapy Daily Note ---
PT Daily Note-Current Subjective Patient left sidelying in bed upon PT arrival, agreeable to treatment. Patient rates pain at 8/10 currently and reports she has been coughing a lot, which has increased her pain. Pain Section J - Health Conditions 1. Rarely or not at all 2. Occasionally 3. Frequently 4. Almost constantly 8. Unable to answer Pain Effect on Sleep: 2 Pain Interference with Therapy: 3 Pain Interference w/Day-to-Day: 3 Transfers SCALE: Activities may be completed with or without assistive devices. 2-Uubnnncfia-dlmroij completes the activity by him/herself with no assistance from a helper. 5-Set-up or Clean-up Assistance-helper sets up or cleans up; patient completes activity. [place] assists only prior to or following the activity. 4-Supervision or Touching Assistance-helper provides verbal cues and/or touching/steadying and/or contact guard assistance as patient completes activity. Assistance may be provided throughout the activity or intermittently. 3-Partial/Moderate Assistance-helper does LESS THAN HALF the effort. [place] lifts, holds or supports trunk or limbs, but provides less than half the effort. 2-Substantial/Maximal Assistance-helper does MORE THAN HALF the effort. [place] lifts or holds trunk or limbs and provides more than half the effort. 3-Daizzlzxc-nxbgzh does ALL the effort. Patient does none of the effort to complete the activity. Or, the assistance of 2 or more helpers is required for the patient to complete the activity. If activity was not attempted, code reason: 7-Patient Refused. 9-Not Applicable-not attempted and the patient did not perform the activity befo re the current illness, exacerbation or injury. 10-Not Attempted due to Environmental Limitations-(lack of equipment, weather re straints, etc.). 88-Not Attempted due to Medical Conditions or Safety Concerns. Roll Left & Right (QC): 4 Sit to Lying (QC): 4 Lying to Sitting/Side of Bed(Q: 4 Sit to Stand (QC): 4 Weight Bearing Right Lower Extremity: Right Full Weight Bearing Left Lower Extremity: Left Full Weight Bearing Gait Training Does the Patient Walk?: Yes Distance: 220' Walk 10 feet (QC): 4 Walk 50 ft with 2 Turns(QC): 4 Walk 150 ft (QC): 4 Gait Persons Needed: 1 Gait Assistive Device: FWW Assessment Patient tolerated treatment well. Patient performs all observed transfers with SBA. Patient ambulates 220 feet with FWW, with SBA and verbal cues for posture. Patient in bed post treatment with all needs met, nursing notified, call light in reach. PT [facility] Goals [place] Helper Goals PT [facility] Goals Time Frame: Jun 23, 2022 Roll Left & Right (QC): 6 Sit to Lying (QC): 6 Lying-Sitting on Side/Bed(QC): 6 Sit to Stand (QC): 6 Chair/Yvj-jt-Raiqh Xfer(QC): 6 Toilet Transfer (QC): 6 Car Transfer (QC): 6 Does the Patient Walk: Yes Walk 10 feet (QC): 6 Walk 50ft with 2 Turns (QC): 6 Walk 150 ft (QC): 6 Walking 10ft on Uneven Surface: 6 1 Step (curb) (QC): 6 4 Steps (QC): 6 12 Steps (QC): 6 Picking up an Object (QC): 6 Does the Pt use WC or Scooter?: No Wheel 50 feet with 2 turns (QC: 9 Wheel 150 feet: 9 PT Plan Treatment/Plan Treatment Plan: Continue Plan of Care Treatment Plan: Bed Mobility, Education, Functional Activity Shameka, Functional Strength, Gait, Safety, Therapeutic Exercise, Transfers Treatment Duration: Jul 07, 2022 Frequency: At least 5 of 7 days/Wk (IRF) Estimated Hrs Per Day: 1.5 hours per day Patient and/or Family Agrees t: Yes Safety Risks/Education Patient Education: Gait Training Time Time In: 1315 Time Out: 1330 DATE: May 17, 2022 Total Billed Treatment Time: 15 Total Billed Treatment Visit, JOS Miller PT May 17, 2022 14:00
[2022-05-17 20:11] VITALS: BP 92/53
[2022-05-17] MEDS: ISOSORBIDE MONONITRATE 60 MG (IMDUR) TAB PO SCH (21:05)
[2022-05-17] MEDS: ATENOLOL 25 MG (TENORMIN) TAB PO SCH (21:05)
[2022-05-18] MEDS: GABAPENTIN 100 MG (NEURONTIN) CAP PO SCH ×3 (05:48→22:41)
[2022-05-18 07:43] VITALS: BP 113/54
[2022-05-18] MEDS: guaiFENesin/CODEINE (ROBITUSSIN AC) 10ML UDC PO PRN ×2 (07:43→20:01)
[2022-05-18] MEDS: DOCUSATE SODIUM 100 MG (COLACE) CAP PO SCH ×2 (07:43→20:01)
[2022-05-18] MEDS: ALLOPURINOL 300 MG (ZYLOPRIM) TAB PO SCH (07:43)
[2022-05-18] MEDS: ASPIRIN E.C. 81 MG (ECOTRIN) TAB PO SCH (07:43)
[2022-05-18] MEDS: METHOCARBAMOL 750 MG (ROBAXIN) TAB PO PRN ×2 (07:43→21:15)
[2022-05-18] MEDS: SENNA W/DOCUSATE (SENOKOT S) TABLET PO SCH ×2 (07:43→20:01)
[2022-05-18] MEDS: polyethylene glycoL POWDER 17 GM (MIRALAX) PACK PO SCH ×2 (07:47→20:04)
[2022-05-18] MEDS: LACTULOSE SYRUP 10GM/15ML (ENULOSE) 30ML UDC PO PRN ×2 (08:56→20:02)
--- NOTE | 2022-05-18 09:55 | Progress Note ---
VY PADILLA 05/18/22 0955: Progress Note S: Ms. Andujar is a 71 year old female who presents to [facility] rehabilitation unit, transferred from [facility]. 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 Patient states she is feeling well today. Patient reports her back pain is 5/10, feeling about the same as yesterday with intermittent muscle spasms. Patient states her muscle spasms only occur when she is standing. Patient is resting comfortably in her recliner this morning. Patient states PO pain medication manages the pain. Patient states her last BM was Saturday afternoon. Patient denies incontinence of bladder to her awareness throughout the night. Patient does report increased frequency and frequent wakening throughout the night to void. Patient states she thinks her brief liner is slightly damp this morning. Patient is tolerating PO food and drink and is progressing well with therapy. O: -Vital signs: T 36.8, HR 70, RR 16, BP 92/53, SpO2 96% RA -PE: -Cardiovascular: HRRR -Pulmonary: LCTAB -Gastrointestinal: bowel sounds present A/P: 1. Continue aggressive in-patient rehab with PT and OT 2. Post-void bladder scan 133ml. Continue to monitor frequency and incidences of urinary incontinence. Gradually begin incorporating bladder training 3. Continue PO pain management and bowel regimen KAREN LEAL DO 05/19/22 0553: Supervisory-Addendum Brief Verification & Attestation Participated in pt care: history, MDM, physical Personally performed: exam, history, MDM, supervision of care Care discussed with: Medical Student Procedures: n/a Results interpretation: Verified all documentation Verification and Attestation of Medical Student E/M Service A medical student performed and documented this service in my presence. I reviewed and verified all information documented by the medical student and made modifications to such information, when appropriate. I personally performed the physical exam and medical decision making. Karen Leal May 19, 2022,05:53 VY PADILLA May 18, 2022 09:55 KAREN LEAL DO May 19, 2022 05:53
--- NOTE | 2022-05-18 09:59 | Physical Therapy Daily Note ---
PT Daily Note-Current Subjective Patient in recliner pre-tx, reports pain in back but did not score, agrees to PT. Pain Section J - Health Conditions 1. Rarely or not at all 2. Occasionally 3. Frequently 4. Almost constantly 8. Unable to answer Pain Effect on Sleep: 2 Pain Interference with Therapy: 3 Pain Interference w/Day-to-Day: 3 Appearance Patient in recliner post-tx with nurse call, phone, tray, all needs met. Mental Status Patient Orientation: Person, Place, Situation Transfers SCALE: Activities may be completed with or without assistive devices. 2-Nviblhmolo-kulrher completes the activity by him/herself with no assistance from a helper. 5-Set-up or Clean-up Assistance-helper sets up or cleans up; patient completes activity. [place] assists only prior to or following the activity. 4-Supervision or Touching Assistance-helper provides verbal cues and/or touching/steadying and/or contact guard assistance as patient completes activity. Assistance may be provided throughout the activity or intermittently. 3-Partial/Moderate Assistance-helper does LESS THAN HALF the effort. [place] lifts, holds or supports trunk or limbs, but provides less than half the effort. 2-Substantial/Maximal Assistance-helper does MORE THAN HALF the effort. [place] lifts or holds trunk or limbs and provides more than half the effort. 9-Mwsofngue-cgqcaw does ALL the effort. Patient does none of the effort to complete the activity. Or, the assistance of 2 or more helpers is required for the patient to complete the activity. If activity was not attempted, code reason: 7-Patient Refused. 9-Not Applicable-not attempted and the patient did not perform the activity before the current illness, exacerbation or injury. 10-Not Attempted due to Environmental Limitations-(lack of equipment, weather restraints, etc.). 88-Not Attempted due to Medical Conditions or Safety Concerns. Sit to Stand (QC): 4 Weight Bearing Right Lower Extremity: Right Full Weight Bearing Left Lower Extremity: Left Full Weight Bearing Gait Training Distance: 150', 100', 125' Walk 10 feet (QC): 4 Walk 50 ft with 2 Turns(QC): 4 Walk 150 ft (QC): 4 Gait Persons Needed: 1 Gait Assistive Device: FWW Patient walks with slow gait speed, good foot clearance, decreased step length, but good posture. Exercises Standing: Hip Abduction, Heel/toe raises Standing Reps: 20 NuStep Minutes: 15 NuStep Workload: 6 Treatments Ambulation, LE Strengthening, Endurance Assessment Current Status: Fair Progress Patient needed a sitting break while walking due to soreness in back and to catch her breath. Patient did well on the NuStep and was verbalized she liked the standing exercises because it made her back feel better than sitting. PT Mangle Press Catcher Goals Fdc Goals PT Fdc Goals Time Frame: Jun 23, 2022 Roll Left & Right (QC): 6 Sit to Lying (QC): 6 Lying-Sitting on Side/Bed(QC): 6 Sit to Stand (QC): 6 Chair/Llc-tr-Qjkqd Xfer(QC): 6 Toilet Transfer (QC): 6 Car Transfer (QC): 6 Does the Patient Walk: Yes Walk 10 feet (QC): 6 Walk 50ft with 2 Turns (QC): 6 Walk 150 ft (QC): 6 Walking 10ft on Uneven Surface: 6 1 Step (curb) (QC): 6 4 Steps (QC): 6 12 Steps (QC): 6 Picking up an Object (QC): 6 Does the Pt use WC or Scooter?: No Wheel 50 feet with 2 turns (QC: 9 Wheel 150 feet: 9 PT Plan Problem List Problem List: Activity Tolerance, Functional Strength, Safety, Balance, Gait, Transfer, Bed Mobility, ROM Treatment/Plan Treatment Plan: Continue Plan of Care Treatment Plan: Bed Mobility, Education, Functional Activity [place], Functional Strength, Gait, Safety, Therapeutic Exercise, Transfers Treatment Duration: Jul 07, 2022 Frequency: At least 5 of 7 days/Wk (IRF) Estimated Hrs Per Day: 1.5 hours per day Patient and/or Family Agrees t: Yes Safety Risks/Education Patient Education: Gait Training, Transfer Techniques, Correct Positioning, Safety Issues Teaching Recipient: Patient Teaching Methods: Demonstration, Discussion Response to Teaching: Reinforcement Needed Time Time In: 0900 Time Out: 1000 DATE: May 18, 2022 Total Billed Treatment Time: 60 Total Billed Treatment 1 visit FA 30min EX 30min SULEMA HADLEY PT May 18, 2022 09:59
--- NOTE | 2022-05-18 10:58 | Occupational Ther Daily Note ---
OT Current Status-Daily Note Subjective Pt sitting in recliner upon arrival. She wanted to change her clothes. She agreed to desensitizing strategies today. Appearance Pt left sitting in recliner with all needs within reach. Mental Status/Objective Patient Orientation: Person, Place, Time, Situation ADL-Treatment Therapy Code Descriptions/Definitions Functional [place] Measure: 0=Not Assessed/NA 4=Minimal Assistance 1=Total Assistance 5=Supervision or Setup 2=Maximal Assistance 6=Modified [place] 3=Moderate Assistance 7=Complete IndependenceSCALE: Activities may be completed with or without assistive devices. 0-Bvbzhloytx-ewztxzq completes the activity by him/herself with no assistance from a helper. 5-Set-up or Clean-up Assistance-helper sets up or cleans up; patient completes activity. [place] assists only prior to or following the activity. 4-Supervision or Touching Assistance-helper provides verbal cues and/or touching /steadying and/or contact guard assistance as patient completes activity. Assistance may be provided throughout the activity or intermittently. 3-Partial/Moderate Assistance-helper does LESS THAN HALF the effort. [place] lifts, holds or supports trunk or limbs, but provides less than half the effort. 2-Substantial/Maximal Assistance-helper does MORE THAN HALF the effort. [place] lifts or holds trunk or limbs and provides more than half the effort. 4-Obcimoytn-bgjtdn does ALL the effort. Patient does none of the effort to complete the activity. Or, the assistance of 2 or more helpers is required for the patient to complete the activity. If activity was not attempted, code reason: 7-Patient Refused. 9-Not Applicable-not attempted and the patient did not perform the activity before the current illness, exacerbation or injury. 10-Not Attempted due to Environmental Limitations-(lack of equipment, weather restraints, etc.). 88-Not Attempted due to Medical Conditions or Safety Concerns. Oral Hygiene (QC): 4 Upper Body Dressing (QC): 6 Lower Body Dressing (QC): 4 Toileting Hygiene (QC): 6 Toilet Transfer (QC): 4 Sit<>stand: SBA. Ambulation: SBA due to random, painful lower back spasms. Pt able to gather clothes from luggage and doff/don LE clothing with SBA for safety with standing and independently doff/don UE clothing. She used employee training specialist to doff/don pants and underwear. Pt ambulated to bathroom to perform toileting and toileting hygiene with SBA. Pt stood at sink to perform oral hygiene with SBA for safety. Due to involuntary lower back spasms that cause pt to jolt her body back secondary to pain, pt needs to be a close SBA- CGA for all transfers and ambulation. Other Treatment Therapist performed desensitization strategies/exercises on pt's LEs to improve sensory deficits. She has increased weakness in LEs and per pt has constant "feeling on sandpaper on LEs". Pt able to tolerate moderately soft textures with moderate pressure applied. By end of session, she expressed less sensitivity in LEs. Desensitization helps to re-educate the nervous system by applying non- noxious stimuli to the skin to increase threshold for sensory stimuli. Session ended with deep pressure massage to specific areas of LEs that were more sensitive than others. Education OT Patient Education: Correct positioning, Energy conservation, Progress toward Goal/Update tx plan, Purpose of tx/functional activities, Reviewed precautions, Rehab process, Safety issues, Use of adapted equipment, Other (desensitization) Teaching Recipient: Patient Teaching Methods: Demonstration, Discussion Response to Teaching: Verbalize Understanding, Return Demonstration OT Short Term Goals Short Term Goals Time Frame: May 25, 2022 Eatin Oral hygiene: 5 Toileting hygiene: 4 Shower/bathe self: 5 Upper body dressin Lower body dressin Putting on/taking off footwear: 4 OT Group Home Goals Feedlot Manager Goals Time Frame: Jun 01, 2022 Acute change in mental status: 0 Inattention: 0 Disorganized thinkin Altered level of consciousness: 0 Eating (QC): 6 Oral Hygiene (QC): 6 Toileting Hygiene (QC): 6 Shower/Bathe Self (QC): 6 Upper Body Dressing (QC): 6 Lower Body Dressing (QC): 6 On/Off Footwear (QC): 6 Additional Goals: 1-Demonstrate ADL Tasks, 2-Verbalize Understanding, 3- ImproveStrength/[place] 1=Demonstrate adherence to instructed precautions during ADL tasks. 2=Patient will verbalize/demonstrate understanding of assistive devices/modifications for ADL. 3=Patient will improve strength/tolerance for activity to enable patient to perform ADL's. OT Education/Plan Problem List/Assessment Assessment: Decreased Activ Tolerance, Decreased Safety Aware, Decreased UE Strength, Impaired Coordination, Impaired Funct Balance, Impaired I ADL's, Impaired Self-Care Skills Discharge Recommendations Plan/Recommendations: Continue POC Treatment Plan/Plan of Care Treatment,Training & Education: Yes Patient would benefit from OT for education, treatment and training to promote independence in ADL's, mobility, safety and/or upper extremity function for ADL's. Plan of Care: ADL Retraining, Caregiver Training, Functional Mobility, Group Exercise/Act as Ind, UE Funct Exercise/Act Treatment Duration: Jun 01, 2022 Frequency: At least 5 of 7 days/Wk (IRF) Estimated Hrs Per Day: 1.5 hours per day (75-90 min/day) Agreement: Yes Rehab Potential: Fair Time Start Time: 10:00 Stop Time: 11:00 DATE: May 18, 2022 Total Time Billed (hr/min): 60 Billed Treatment Time 1 visit ADL x2 (30 min) SEN x2 (30 min) ANJEL TOSCANO OT May 18, 2022 10:57
--- NOTE | 2022-05-18 11:48 | PM&R Progress Note ---
Subjective HPI/CC On Admission Date Seen by Provider: May 18, 2022 Subjective/Events-last exam 05/18/2022: Patient doing well Much improved status Urinary and fecal incontinence will be managed with bladder and bowel training Pain is controlled 05/17/2022: Doing well Pain controlled BM regimen maintained but had BM last night No falls but increased risk Review of Systems General: Fatigue, Malaise Objective Exam Vital Signs Vital Signs Date Time Temp Pulse Resp B/P (MAP) Pulse Ox O2 Delivery O2 Flow Rate FiO2 05/18/22 20:14 Room Air 05/18/22 19:32 37.1 71 18 99/66 (77) 95 Capillary Refill : General Appearance: No Apparent Distress, WD/WN, Chronically ill, Obese HEENT: PERRL/EOMI, Normal ENT Inspection, Pharynx Normal Neck: Full Range of Motion, Normal Inspection, Non Tender, Supple, Carotid Bruit Respiratory: Chest Non Tender, Lungs Clear, Normal Breath Sounds, No Accessory Muscle Use, No Respiratory Distress Cardiovascular: Regular Rate, Rhythm, No Edema, No Gallop, No JVD, No Murmur, Normal Peripheral Pulses Gastrointestinal: Normal Bowel Sounds, No Organomegaly, No Pulsatile Mass, Non Tender, Soft Back: Normal Inspection, Decreased Range of Motion, Muscle Spasm, Vertebral Tenderness Extremity: Normal Capillary Refill, Normal Inspection, Normal Range of Motion (except legs noted weakness 3/5), Non Tender, No Calf Tenderness, No Pedal Edema Neurologic/Psychiatric: Alert, Oriented x3, access service representative II-XII Norm as Tested, Abnormal Gait, Depressed Affect, Motor Weakness (lower extremities) Skin: Normal Color, Warm/Dry Lymphatic: No Adenopathy Results/Procedures Lab Patient resulted labs reviewed. FIM Transfers Therapy Code Descriptions/Definitions Functional [place] Measure: 0=Not Assessed/NA 4=Minimal Assistance 1=Total Assistance 5=Supervision or Setup 2=Maximal Assistance 6=Modified [place] 3=Moderate Assistance 7=Complete IndependenceSCALE: Activities may be completed with or without assistive devices. 9-Epvtbbxmia-tjmtlmr completes the activity by him/herself with no assistance from a helper. 5-Set-up or Clean-up Assistance-helper sets up or cleans up; patient completes activity. [place] assists only prior to or following the activity. 4-Supervision or Touching Assistance-helper provides verbal cues and/or touching/steadying and/or contact guard assistance as patient completes activity. Assistance may be provided throughout the activity or intermittently. 3-Partial/Moderate Assistance-helper does LESS THAN HALF the effort. [place] lif ts, holds or supports trunk or limbs, but provides less than half the effort. 2-Substantial/Maximal Assistance-helper does MORE THAN HALF the effort. [place] lifts or holds trunk or limbs and provides more than half the effort. 8-Pvqrmcyxa-fkziul does ALL the effort. Patient does none of the effort to complete the activity. Or, the assistance of 2 or more helpers is required for the patient to complete the activity. If activity was not attempted, code reason: 7-Patient Refused. 9-Not Applicable-not attempted and the patient did not perform the activity before the current illness, exacerbation or injury. 10-Not Attempted due to Environmental Limitations-(lack of equipment, weather restraints, etc.). 88-Not Attempted due to Medical Conditions or Safety Concerns. Roll Left to Right (QC): 4 Sit to Lying (QC): 4 Sit to Stand (QC): 4 Chair/Jwz-rz-Yqrho Xfer(QC): 4 Car Transfer (QC): 4 Gait Training Does the Patient Walk?: Yes Distance: 150', 100', 125' Walk 10 feet (QC): 4 Walk 50 ft with 2 Turns(QC): 4 Walk 150 ft (QC): 4 Walking 10ft/uneven surface-QC: 4 Gait Persons Needed: 1 Gait Assistive Device: FWW Wheelchair Training Does the Pt Use a Wheelchair?: No Wheel 50 ft with 2 turns (QC): 9 Wheel 150 ft (QC): 9 Stair Training Stair Training: Handrails/: 2 handrails #of Steps: 12 1 Step (curb) (QC): 88 4 Steps (QC): 4 12 Steps (QC): 4 Stairs: Pattern: Reciprocal Balance Picking up an Object (QC): 6 (pt. 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
--- NOTE | 2022-05-18 14:11 | Therapy Group Daily Note ---
Therapy Daily Group Note Patient Education Topic Other List Below (memory, ARU description) Exercises LE Seated Exercise, UE Exercise Session Ratio (pt:therapist): 3:1 Goal of Session: Education on ARU Expectations, Memory Strategies, UE/LE Strengthing Goal Met for this Session: Yes Pt Benefit of Group: Contributions to Others, Improved Cognition, Recognition of Peers, Socialization Other/Notes Pt ambulated using FWW to [facility] area for OT/PT group. Group consisted of introductions (name, place, hardest thing ever done), socialization, B UE/LE exercises and educational topics (memory, ARU description). Pt introduced self appropriately and actively listened to peers. Pt able to complete B UE/LE seated exercises without difficulty. Pt acknowledged understanding of educational topics by own experience and strategies. Pt able to complete memory activity successfully. After session, pt sitting in recliner with call light/phone in reach. All needs met in room. Start Time: 13:00 Stop Time: 14:00 Total Billed Treatment Time: 60 Total Billed Treatment 1-[facility] JEFFERSON MEJIA May 18, 2022 14:11
[2022-05-18 19:32] VITALS: BP 99/66
[2022-05-18] MEDS: ISOSORBIDE MONONITRATE 60 MG (IMDUR) TAB PO SCH (20:00)
[2022-05-18] MEDS: ATENOLOL 25 MG (TENORMIN) TAB PO SCH (20:00)
--- NOTE | 2022-05-19 06:18 | PM&R Progress Note ---
Subjective HPI/CC On Admission Date Seen by Provider: May 19, 2022 Time Seen by Provider: 12:00 Subjective/Events-last exam 05/19/2022: Patient much improved Urinary frequency will require UA via straight cath Check meds and labs No falls 05/18/2022: Patient doing well Much improved status Urinary and fecal incontinence will be managed with bladder and bowel training Pain is controlled 05/17/2022: Doing well Pain controlled BM regimen maintained but had BM last night No falls but increased risk Review of Systems General: Fatigue, Malaise Genitourinary: Dysuria, Frequency Musculoskeletal: back pain Objective Exam Vital Signs Vital Signs Date Time Temp Pulse Resp B/P (MAP) Pulse Ox O2 Delivery O2 Flow Rate FiO2 05/19/22 20:15 Room Air 05/19/22 20:15 37.1 71 16 114/68 (83) 97 Capillary Refill : General Appearance: No Apparent Distress, WD/WN, Chronically ill, Obese HEENT: PERRL/EOMI, Normal ENT Inspection, Pharynx Normal Neck: Full Range of Motion, Normal Inspection, Non Tender, Supple, Carotid Bruit Respiratory: Chest Non Tender, Lungs Clear, Normal Breath Sounds, No Accessory Muscle Use, No Respiratory Distress Cardiovascular: Regular Rate, Rhythm, No Edema, No Gallop, No JVD, No Murmur, Normal Peripheral Pulses Gastrointestinal: Normal Bowel Sounds, No Organomegaly, No Pulsatile Mass, Non Tender, Soft Back: Normal Inspection, Decreased Range of Motion, Muscle Spasm, Vertebral Tenderness Extremity: Normal Capillary Refill, Normal Inspection, Normal Range of Motion (except legs noted weakness 3/5), Non Tender, No Calf Tenderness, No Pedal Edema Neurologic/Psychiatric: Alert, Oriented x3, him tech II-XII Norm as Tested, Abnormal Gait, Depressed Affect, Motor Weakness (lower extremities) Skin: Normal Color, Warm/Dry Lymphatic: No Adenopathy Results/Procedures Lab Patient resulted labs reviewed. FIM Transfers Therapy Code Descriptions/Definitions Functional [place] Measure: 0=Not Assessed/NA 4=Minimal Assistance 1=Total Assistance 5=Supervision or Setup 2=Maximal Assistance 6=Modified [place] 3=Moderate Assistance 7=Complete IndependenceSCALE: Activities may be completed with or without assistive devices. 2-Yokmrtvqvq-kssmfih completes the activity by him/herself with no assistance from a helper. 5-Set-up or Clean-up Assistance-helper sets up or cleans up; patient completes activity. [place] assists only prior to or following the activity. 4-Supervision or Touching Assistance-helper provides verbal cues and/or touching/steadying and/or contact guard assistance as patient completes activity. Assistance may be provided throughout the activity or intermittently. 3-Partial/Moderate Assistance-helper does LESS THAN HALF the effort. [place] lifts, holds or supports trunk or limbs, but provides less than half the effort. 2-Substantial/Maximal Assistance-helper does MORE THAN HALF the effort. [place] lifts or holds trunk or limbs and provides more than half the effort. 8-Eqiwrfrio-zjkarj does ALL the effort. Patient does none of the effort to complete the activity. Or, the assistance of 2 or more helpers is required for the patient to complete the activity. If activity was not attempted, code reason: 7-Patient Refused. 9-Not Applicable-not attempted and the patient did not perform the activity before the current illness, exacerbation or injury. 10-Not Attempted due to Environmental Limitations-(lack of equipment, weather restraints, etc.). 88-Not Attempted due to Medical Conditions or Safety Concerns. Roll Left to Right (QC): 4 Sit to Lying (QC): 4 Sit to Stand (QC): 4 Chair/Tap-rq-Eeaml Xfer(QC): 4 Car Transfer (QC): 4 Gait Training Does the Patient Walk?: Yes Distance: 150', 100', 125' Walk 10 feet (QC): 4 Walk 50 ft with 2 Turns(QC): 4 Walk 150 ft (QC): 4 Walking 10ft/uneven surface-QC: 4 Gait Persons Needed: 1 Gait Assistive Device: FWW Wheelchair Training Does the Pt Use a Wheelchair?: No Wheel 50 ft with 2 turns (QC): 9 Wheel 150 ft (QC): 9 Stair Training Stair Training: Handrails/: 2 handrails #of Steps: 12 1 Step (curb) (QC): 88 4 Steps (QC): 4 12 Steps (QC): 4 Stairs: Pattern: Reciprocal Balance Picking up an Object (QC): 6 (pt. 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
[2022-05-19] MEDS: GABAPENTIN 100 MG (NEURONTIN) CAP PO SCH ×3 (06:23→22:00)
[2022-05-19 07:05] VITALS: BP 103/64
[2022-05-19] MEDS: ASPIRIN E.C. 81 MG (ECOTRIN) TAB PO SCH (09:15)
[2022-05-19] MEDS: DOCUSATE SODIUM 100 MG (COLACE) CAP PO SCH ×2 (09:16→20:10)
[2022-05-19] MEDS: guaiFENesin/CODEINE (ROBITUSSIN AC) 10ML UDC PO PRN ×3 (09:16→20:12)
[2022-05-19] MEDS: SENNA W/DOCUSATE (SENOKOT S) TABLET PO SCH ×2 (09:16→20:10)
[2022-05-19] MEDS: ALLOPURINOL 300 MG (ZYLOPRIM) TAB PO SCH (09:16)
[2022-05-19] MEDS: polyethylene glycoL POWDER 17 GM (MIRALAX) PACK PO SCH ×2 (09:19→20:12)
--- NOTE | 2022-05-19 10:35 | Physical Therapy Daily Note ---
PT Daily Note-Current Subjective Upon arrival, pt was sidelying in bed. Pt had call light and tray in reach. Pt states that her back pain is an 8/10 due to coughing. Pt states she did not sleep well, due to getting up to use BR in the night. Pt agrees to PT. Pain Section J - Health Conditions 1. Rarely or not at all 2. Occasionally 3. Frequently 4. Almost constantly 8. Unable to answer Pain Effect on Sleep: 2 Pain Interference with Therapy: 3 Pain Interference w/Day-to-Day: 3 Mental Status Patient Orientation: Person, Time, Situation Transfers SCALE: Activities may be completed with or without assistive devices. 9-Vukyqthbqs-aegvwyb completes the activity by him/herself with no assistance from a helper. 5-Set-up or Clean-up Assistance-helper sets up or cleans up; patient completes activity. [place] assists only prior to or following the activity. 4-Supervision or Touching Assistance-helper provides verbal cues and/or touching/steadying and/or contact guard assistance as patient completes activity. Assistance may be provided throughout the activity or intermittently. 3-Partial/Moderate Assistance-helper does LESS THAN HALF the effort. [place] lifts, holds or supports trunk or limbs, but provides less than half the effort. 2-Substantial/Maximal Assistance-helper does MORE THAN HALF the effort. [place] lifts or holds trunk or limbs and provides more than half the effort. 8-Mccyydwcd-fslxnc does ALL the effort. Patient does none of the effort to complete the activity. Or, the assistance of 2 or more helpers is required for the patient to complete the activity. If activity was not attempted, code reason: 7-Patient Refused. 9-Not Applicable-not attempted and the patient did not perform the activity before the current illness, exacerbation or injury. 10-Not Attempted due to Environmental Limitations-(lack of equipment, weather restraints, etc.). 88-Not Attempted due to Medical Conditions or Safety Concerns. Sit to Lying (QC): 4 Lying to Sitting/Side of Bed(Q: 4 Sit to Stand (QC): 4 Toilet Transfer (QC): 4 Pt was able to sit up from lying down and vise versa with assistance from guard rails. Pt performs log rolling to follow back precaution. Pt ambulated from bed to BR, pt was CGA. Pt was able to toilet w/o assistance. Weight Bearing Right Lower Extremity: Right Full Weight Bearing Left Lower Extremity: Left Full Weight Bearing Gait Training Gait Assistive Device: FWW Exercises Supine Ex: Ankle pumps (20), Heel Slides, Straight leg raise, Hip abd/add Supine Reps: 15 Treatments Pt completed all exercises listed above. Pt ambulated to BR, and was able to toilet w/o assistance. Once PT was concluded, pt was supine in bed with call light and tray in reach and all needs met. Assessment Current Status: Good Progress Pt would benefit from continued skilled PT to address strength, and activity tolerance. PT Well Head Pumper Goals Well Head Pumper Goals PT Well Head Pumper Goals Time Frame: Jun 23, 2022 Roll Left & Right (QC): 6 Sit to Lying (QC): 6 Lying-Sitting on Side/Bed(QC): 6 Sit to Stand (QC): 6 Chair/Nnn-wb-Qvgwx Xfer(QC): 6 Toilet Transfer (QC): 6 Car Transfer (QC): 6 Does the Patient Walk: Yes Walk 10 feet (QC): 6 Walk 50ft with 2 Turns (QC): 6 Walk 150 ft (QC): 6 Walking 10ft on Uneven Surface: 6 1 Step (curb) (QC): 6 4 Steps (QC): 6 12 Steps (QC): 6 Picking up an Object (QC): 6 Does the Pt use WC or Scooter?: No Wheel 50 feet with 2 turns (QC: 9 Wheel 150 feet: 9 PT Plan Problem List Problem List: Activity Tolerance, Functional Strength Treatment/Plan Treatment Plan: Continue Plan of Care Treatment Plan: Bed Mobility, Education, Functional Activity [place], Functional Strength, Gait, Safety, Therapeutic Exercise, Transfers Treatment Duration: Jul 07, 2022 Frequency: At least 5 of 7 days/Wk (IRF) Estimated Hrs Per Day: 1.5 hours per day Patient and/or Family Agrees t: Yes Safety Risks/Education Patient Education: Reviewed Precautions Teaching Recipient: Patient Teaching Methods: Discussion Response to Teaching: Verbalize Understanding Time Time In: 08 Time Out: 0855 DATE: May 19, 2022 Total Billed Treatment Time: 17 Total Billed Treatment 1, MAKENNA GARCIA ONLINE TUTOR May 19, 2022 10:35
[2022-05-19] MEDS ORDERED: PHENAZOPYRIDINE 100 MG (PYRIDIUM) TABLET PO PRN (12:15)
[2022-05-19] MEDS: METHOCARBAMOL 750 MG (ROBAXIN) TAB PO PRN (16:04)
[2022-05-19 18:58] LABS: BILIRUBIN,URINE NEGATIVE (NEGATIVE); CLARITY,URINE CLEAR; COLOR,URINE YELLOW; GLUCOSE, URINE (UA) NEGATIVE (NEGATIVE); KETONES,URINE NEGATIVE (NEGATIVE); LEUKOCYTE ESTERASE ,URINE 2+ (NEGATIVE); NITRITE,URINE POSITIVE (NEGATIVE); PROTEIN,URINE NEGATIVE (NEGATIVE)
[2022-05-19 19:21] LABS: BACTERIA,URINE LARGE /HPF; SQUAMOUS EPITHELIAL CELL,UR RARE /HPF
[2022-05-19] MEDS: ATENOLOL 25 MG (TENORMIN) TAB PO SCH (20:10)
[2022-05-19] MEDS: ISOSORBIDE MONONITRATE 60 MG (IMDUR) TAB PO SCH (20:10)
[2022-05-19 20:15] VITALS: BP 114/68
[2022-05-20] MEDS: CALCIUM CARBONATE 500 MG (TUMS) TAB.CHEW PO PRN (02:08)
[2022-05-20] MEDS: GABAPENTIN 100 MG (NEURONTIN) CAP PO SCH ×3 (06:00→23:07)
--- NOTE | 2022-05-20 07:07 | PM&R Progress Note ---
Subjective HPI/CC On Admission Date Seen by Provider: May 20, 2022 Time Seen by Provider: 12:00 Subjective/Events-last exam 05/20/2022: Improved status Family visiting Pain improved UTI dx so started abx this morning Slept better 05/19/2022: Patient much improved Urinary frequency will require UA via straight cath Check meds and labs No falls 05/18/2022: Patient doing well Much improved status Urinary and fecal incontinence will be managed with bladder and bowel training Pain is controlled 05/17/2022: Doing well Pain controlled BM regimen maintained but had BM last night No falls but increased risk Review of Systems General: Fatigue, Malaise Gastrointestinal: Constipation Musculoskeletal: back pain Objective Exam Vital Signs Vital Signs Date Time Temp Pulse Resp B/P (MAP) Pulse Ox O2 Delivery O2 Flow Rate FiO2 05/20/22 19:49 36.4 71 16 132/63 (86) 95 Room Air Capillary Refill : General Appearance: No Apparent Distress, WD/WN, Chronically ill, Obese HEENT: PERRL/EOMI, Normal ENT Inspection, Pharynx Normal Neck: Full Range of Motion, Normal Inspection, Non Tender, Supple, Carotid Bruit Respiratory: Chest Non Tender, Lungs Clear, Normal Breath Sounds, No Accessory Muscle Use, No Respiratory Distress Cardiovascular: Regular Rate, Rhythm, No Edema, No Gallop, No JVD, No Murmur, Normal Peripheral Pulses Gastrointestinal: Normal Bowel Sounds, No Organomegaly, No Pulsatile Mass, Non Tender, Soft Back: Normal Inspection, Decreased Range of Motion, Muscle Spasm, Vertebral Tenderness Extremity: Normal Capillary Refill, Normal Inspection, Normal Range of Motion (except legs noted weakness 3/5), Non Tender, No Calf Tenderness, No Pedal Edema Neurologic/Psychiatric: Alert, Oriented x3, director of technology II-XII Norm as Tested, Abnormal Gait, Depressed Affect, Motor Weakness (lower extremities) Skin: Normal Color, Warm/Dry Lymphatic: No Adenopathy Results/Procedures Lab Patient resulted labs reviewed. FIM Transfers Therapy Code Descriptions/Definitions Functional [place] Measure: 0=Not Assessed/NA 4=Minimal Assistance 1=Total Assistance 5=Supervision or Setup 2=Maximal Assistance 6=Modified [place] 3=Moderate Assistance 7=Complete IndependenceSCALE: Activities may be completed with or without assistive devices. 9-Lofnocbfjt-jadjdlr completes the activity by him/herself with no assistance from a helper. 5-Set-up or Clean-up Assistance-helper sets up or cleans up; patient completes activity. [place] assists only prior to or following the activity. 4-Supervision or Touching Assistance-helper provides verbal cues and/or touching/steadying and/or contact guard assistance as patient completes activity. Assistance may be provided throughout the activity or intermittently. 3-Partial/Moderate Assistance-helper does LESS THAN HALF the effort. [place] lifts, holds or supports trunk or limbs, but provides less than half the effort. 2-Substantial/Maximal Assistance-helper does MORE THAN HALF the effort. [place] l ifts or holds trunk or limbs and provides more than half the effort. 1-Toopybwhz-sjchwd does ALL the effort. Patient does none of the effort to complete the activity. Or, the assistance of 2 or more helpers is required for the patient to complete the activity. If activity was not attempted, code reason: 7-Patient Refused. 9-Not Applicable-not attempted and the patient did not perform the activity before the current illness, exacerbation or injury. 10-Not Attempted due to Environmental Limitations-(lack of equipment, weather restraints, etc.). 88-Not Attempted due to Medical Conditions or Safety Concerns. Roll Left to Right (QC): 4 Sit to Lying (QC): 4 Sit to Stand (QC): 4 Chair/Xrd-xj-Uqxvn Xfer(QC): 4 Car Transfer (QC): 4 Gait Training Does the Patient Walk?: Yes Distance: 150', 100', 125' Walk 10 feet (QC): 4 Walk 50 ft with 2 Turns(QC): 4 Walk 150 ft (QC): 4 Walking 10ft/uneven surface-QC: 4 Gait Persons Needed: 1 Gait Assistive Device: FWW Wheelchair Training Does the Pt Use a Wheelchair?: No Wheel 50 ft with 2 turns (QC): 9 Wheel 150 ft (QC): 9 Stair Training Stair Training: Handrails/: 2 handrails #of Steps: 12 1 Step (curb) (QC): 88 4 Steps (QC): 4 12 Steps (QC): 4 Stairs: Pattern: Reciprocal Balance Picking up an Object (QC): 6 (pt. uses valve inserter with demo and instruction) ADL-Treatment Eating (QC): 5 Oral Hygiene (QC): 4 Shower/Bathe Self (QC): 4 Upper Body Dressing (QC): 6 Lower Body Dressing (QC): 4 On/Off Footwear (QC): 3 Toileting Hygiene (QC): 6 Toilet Transfer (QC): 4 Assessment/Plan Assessment and Plan Assess & Plan/Chief Complaint Assessment: Severe debility following s/p right L3 laminectomy at [facility] on 05/10/2022 COPD Bronchiectasis Dental problems (full dentures currently) CAD Angina HTN HLD Gout Cervical cancer status post total vaginal hysterectomy Prizmetal angina Prior TB infection as child Depression UTI diagnosed 05/20/2022 Plan: Pain control PT OT Home meds 05/17/2022: Maintain pain control Improved status 05/18/2022: Supportive care Monitor closely 05/19/2022: Check UA Antibiotics empiric 05/20/2022: UTI tx (1) Lumbar myelopathy ZANDRA LEAL DO May 20, 2022 07:07
[2022-05-20 07:16] VITALS: BP 118/77
[2022-05-20] MEDS: NITROFURANTOIN 100 MG (MACROBID) CAPSULE PO SCH ×2 (08:50→21:01)
[2022-05-20] MEDS: DOCUSATE SODIUM 100 MG (COLACE) CAP PO SCH ×2 (08:50→21:06)
[2022-05-20] MEDS: ASPIRIN E.C. 81 MG (ECOTRIN) TAB PO SCH (08:50)
[2022-05-20] MEDS: METHOCARBAMOL 750 MG (ROBAXIN) TAB PO PRN ×2 (08:50→23:07)
[2022-05-20] MEDS: SENNA W/DOCUSATE (SENOKOT S) TABLET PO SCH ×2 (08:51→21:06)
[2022-05-20] MEDS: ALLOPURINOL 300 MG (ZYLOPRIM) TAB PO SCH (08:51)
[2022-05-20] MEDS: LACTULOSE SYRUP 10GM/15ML (ENULOSE) 30ML UDC PO PRN (08:51)
[2022-05-20] MEDS: guaiFENesin/CODEINE (ROBITUSSIN AC) 10ML UDC PO PRN ×3 (08:54→23:07)
[2022-05-20] MEDS: polyethylene glycoL POWDER 17 GM (MIRALAX) PACK PO SCH ×2 (09:00→20:51)
[2022-05-20 19:49] VITALS: BP 132/63
[2022-05-20] MEDS: ATENOLOL 25 MG (TENORMIN) TAB PO SCH (21:01)
[2022-05-20] MEDS: ISOSORBIDE MONONITRATE 60 MG (IMDUR) TAB PO SCH (21:01)
[2022-05-21] MEDS: CALCIUM CARBONATE 500 MG (TUMS) TAB.CHEW PO PRN (01:17)
--- NOTE | 2022-05-21 05:23 | PM&R Progress Note ---
Subjective HPI/CC On Admission Date Seen by Provider: May 21, 2022 Time Seen by Provider: 08:30 Subjective/Events-last exam 05/21/2022: Patient doing a little better today Had some indigestion Urinary frequency is improved In the afternoon she started having a cough and fever and COVID and flu swabs were negative Gracie Chapman will be given Urine culture reviewed 05/20/2022: Improved status Family visiting Pain improved UTI dx so started abx this morning Slept better 05/19/2022: Patient much improved Urinary frequency will require UA via straight cath Check meds and labs No falls 05/18/2022: Patient doing well Much improved status Urinary and fecal incontinence will be managed with bladder and bowel training Pain is controlled 05/17/2022: Doing well Pain controlled BM regimen maintained but had BM last night No falls but increased risk Review of Systems General: Fatigue, Malaise Pulmonary: Cough Objective Exam Vital Signs Vital Signs Date Time Temp Pulse Resp B/P (MAP) Pulse Ox O2 Delivery O2 Flow Rate FiO2 05/22/22 04:00 36.0 05/21/22 21:00 Room Air 05/21/22 20:00 84 16 130/74 (92) 93 Capillary Refill : General Appearance: No Apparent Distress, WD/WN, Chronically ill, Obese HEENT: PERRL/EOMI, Normal ENT Inspection, Pharynx Normal Neck: Full Range of Motion, Normal Inspection, Non Tender, Supple, Carotid Bruit Respiratory: Chest Non Tender, Lungs Clear, Normal Breath Sounds, No Accessory Muscle Use, No Respiratory Distress Cardiovascular: Regular Rate, Rhythm, No Edema, No Gallop, No JVD, No Murmur, Normal Peripheral Pulses Gastrointestinal: Normal Bowel Sounds, No Organomegaly, No Pulsatile Mass, Non Tender, Soft Back: Normal Inspection, Decreased Range of Motion, Muscle Spasm, Vertebral Tenderness Extremity: Normal Capillary Refill, Normal Inspection, Normal Range of Motion (except legs noted weakness 3/5), Non Tender, No Calf Tenderness, No Pedal Edema Neurologic/Psychiatric: Alert, Oriented x3, legal director II-XII Norm as Tested, Abnormal Gait, Depressed Affect, Motor Weakness (lower extremities) Skin: Normal Color, Warm/Dry Lymphatic: No Adenopathy Results/Procedures Lab Patient resulted labs reviewed. FIM Transfers Therapy Code Descriptions/Definitions Functional [place] Measure: 0=Not Assessed/NA 4=Minimal Assistance 1=Total Assistance 5=Supervision or Setup 2=Maximal Assistance 6=Modified [place] 3=Moderate Assistance 7=Complete IndependenceSCALE: Activities may be completed with or without assistive devices. 8-Cezyicyqoo-fikgzhw completes the activity by him/herself with no assistance from a helper. 5-Set-up or Clean-up Assistance-helper sets up or cleans up; patient completes activity. [place] assists only prior to or following the activity. 4-Supervision or Touching Assistance-helper provides verbal cues and/or touching/steadying and/or contact guard assistance as patient completes activity. Assistance may be provided throughout the activity or intermittently. 3-Partial/Moderate Assistance-helper does LESS THAN HALF the effort. [place] lifts, holds or supports trunk or limbs, but provides less than half the effort. 2-Substantial/Maximal Assistance-helper does MORE THAN HALF the effort. [place] lifts or holds trunk or limbs and provides more than half the effort. 0-Gjvralhgr-dsqkio does ALL the effort. Patient does none of the effort to complete the activity. Or, the assistance of 2 or more helpers is required for the patient to complete the activity. If activity was not attempted, code reason: 7-Patient Refused. 9-Not Applicable-not attempted and the patient did not perform the activity b efore the current illness, exacerbation or injury. 10-Not Attempted due to Environmental Limitations-(lack of equipment, weather restraints, etc.). 88-Not Attempted due to Medical Conditions or Safety Concerns. Roll Left to Right (QC): 4 Sit to Lying (QC): 4 Sit to Stand (QC): 4 Chair/Gzx-vj-Ripvx Xfer(QC): 4 Car Transfer (QC): 4 Gait Training Does the Patient Walk?: Yes Distance: 150', 100', 125' Walk 10 feet (QC): 4 Walk 50 ft with 2 Turns(QC): 4 Walk 150 ft (QC): 4 Walking 10ft/uneven surface-QC: 4 Gait Persons Needed: 1 Gait Assistive Device: FWW Wheelchair Training Does the Pt Use a Wheelchair?: No Wheel 50 ft with 2 turns (QC): 9 Wheel 150 ft (QC): 9 Stair Training Stair Training: Handrails/: 2 handrails #of Steps: 12 1 Step (curb) (QC): 88 4 Steps (QC): 4 12 Steps (QC): 4 Stairs: Pattern: Reciprocal Balance Picking up an Object (QC): 6 (pt. uses recruitment assistant with demo and instruction) ADL-Treatment Eating (QC): 5 Oral Hygiene (QC): 4 Shower/Bathe Self (QC): 4 Upper Body Dressing (QC): 6 Lower Body Dressing (QC): 4 On/Off Footwear (QC): 3 Toileting Hygiene (QC): 6 Toilet Transfer (QC): 4 Assessment/Plan Assessment and Plan Assess & Plan/Chief Complaint Assessment: Severe debility following s/p right L3 laminectomy at [facility] on 05/10/2022 COPD Bronchiectasis Dental problems (full dentures currently) CAD Angina HTN HLD Gout Cervical cancer status post total vaginal hysterectomy Prizmetal angina Prior TB infection as child Depression UTI from E. coli diagnosed 05/20/2022 placed on Macrobid empirically Fever 05/21/2022 Will monitor closely Plan: Pain control PT OT Home meds 05/17/2022: Maintain pain control Improved status 05/18/2022: Supportive care Monitor closely 05/19/2022: Check UA Antibiotics empiric 05/20/2022: UTI tx 05/21/2022: Cough but negative COVID and flu (1) Lumbar myelopathy ZANDRA LEAL DO May 21, 2022 05:23
[2022-05-21] MEDS: GABAPENTIN 100 MG (NEURONTIN) CAP PO SCH ×3 (06:05→22:52)
[2022-05-21 08:00] VITALS: BP 95/63
[2022-05-21] MEDS: NITROFURANTOIN 100 MG (MACROBID) CAPSULE PO SCH ×2 (08:05→21:03)
[2022-05-21] MEDS: ALLOPURINOL 300 MG (ZYLOPRIM) TAB PO SCH (08:06)
[2022-05-21] MEDS: SENNA W/DOCUSATE (SENOKOT S) TABLET PO SCH ×2 (08:06→21:03)
[2022-05-21] MEDS: ASPIRIN E.C. 81 MG (ECOTRIN) TAB PO SCH (08:06)
[2022-05-21] MEDS: DOCUSATE SODIUM 100 MG (COLACE) CAP PO SCH ×2 (08:06→21:03)
[2022-05-21] MEDS: polyethylene glycoL POWDER 17 GM (MIRALAX) PACK PO SCH ×2 (08:08→21:03)
--- NOTE | 2022-05-21 10:22 | Occupational Ther Daily Note ---
OT Current Status-Daily Note Subjective Pt laying in bed upon arrival. She agreed to a shower. She reported not getting a lot of sleep last night. Co-treat with PT for part of treatment ([id number]) secondary to working on h igher level balance, safety concerns, and unpredictable spasms increasing fall risk. Appearance Pt was left with PT in therapy gym. All needs were met at completion of session. Mental Status/Objective Patient Orientation: Person, Place, Time, Situation ADL-Treatment Therapy Code Descriptions/Definitions Functional [place] Measure: 0=Not Assessed/NA 4=Minimal Assistance 1=Total Assistance 5=Supervision or Setup 2=Maximal Assistance 6=Modified [place] 3=Moderate Assistance 7=Complete IndependenceSCALE: Activities may be completed with or without assistive devices. 0-Mltqyragtu-pxrnuks completes the activity by him/herself with no assistance from a helper. 5-Set-up or Clean-up Assistance-helper sets up or cleans up; patient completes activity. [place] assists only prior to or following the activity. 4-Supervision or Touching Assistance-helper provides verbal cues and/or touching/steadying and/or contact guard assistance as patient completes activity. Assistance may be provided throughout the activity or intermittently. 3-Partial/Moderate Assistance-helper does LESS THAN HALF the effort. [place] lifts, holds or supports trunk or limbs, but provides less than half the effort. 2-Substantial/Maximal Assistance-helper does MORE THAN HALF the effort. [place] lifts or holds trunk or limbs and provides more than half the effort. 5-Yplxtsuyq-pxarxo does ALL the effort. Patient does none of the effort to complete the activity. Or, the assistance of 2 or more helpers is required for the patient to complete the activity. If activity was not attempted, code reason: 7-Patient Refused. 9-Not Applicable-not attempted and the patient did not perform the activity before the current illness, exacerbation or injury. 10-Not Attempted due to Environmental Limitations-(lack of equipment, weather restraints, etc.). 88-Not Attempted due to Medical Conditions or Safety Concerns. Eating (QC): 6 Oral Hygiene (QC): 6 Shower/Bathe Self (QC): 4 Upper Body Dressing (QC): 6 Lower Body Dressing (QC): 5 On/Off Footwear: 6 Toileting Hygiene (QC): 5 Toilet Transfer (QC): 6 Sit <>stand: SBA. Pt's involuntary spasms are slowly resolving and is needed less and less assist (SBA) during transfers, ambulation and functional tasks. Previously, she was having them every couple minutes, now only experiencing ~2-3 per 90 min session. Pt reports that since the surgery, she has not had a single time where her legs feel weak and that she is going to fall. She is following her spinal precautions with no cues and will self-correct herself immediately if she does attempt to break any precautions. Pt able to gather all clothing from suitcase and doff/don all UB and LB clothing with use of assembly inspector helper. Pt completed 75% of shower seated with SBA for safety. Supervision required when pt stood during shower. Therapist donned Marc Hose, but pt able to use sock aide to don socks with independence. Pt stood at sink to perform oral hygiene with independence. Other Treatment Pt is showing more independence with transfers and ambulation, although she still bumps into objects/chairs often. Pt completed 8 min of arm bike with 2 rest breaks with no resistance, due to spinal precautions. Pt was fatigued after task, and needed increased time to recover. Pt ambulated through hallways and was able to tolerate a longer bout than previous sessions. Pt completed functional task of ambulating near and by obstacles and retrieved items from ground with assist of assembly inspector helper. Out of 6 chair obstacles, pt bumped into 3 chairs during ambulation needed CGA for safety. Education OT Patient Education: Correct positioning, Energy conservation, Modified ADL techniques, Progress toward Goal/Update tx plan, Purpose of tx/functional activities, Reviewed precautions, Rehab process, Safety issues, Use of adapted equipment Teaching Recipient: Patient Teaching Methods: Demonstration, Discussion Response to Teaching: Verbalize Understanding, Return Demonstration OT Short Term Goals Short Term Goals Time Frame: May 25, 2022 Eatin Oral hygiene: 5 Toileting hygiene: 4 Shower/bathe self: 5 Upper body dressin Lower body dressin Putting on/taking off footwear: 4 OT Detention Goals Cable Tool Driller Goals Time Frame: Jun 01, 2022 Acute change in mental status: 0 Inattention: 0 Disorganized thinkin Altered level of consciousness: 0 Eating (QC): 6 Oral Hygiene (QC): 6 Toileting Hygiene (QC): 6 Shower/Bathe Self (QC): 6 Upper Body Dressing (QC): 6 Lower Body Dressing (QC): 6 On/Off Footwear (QC): 6 Additional Goals: 1-Demonstrate ADL Tasks, 2-Verbalize Understanding, 3- ImproveStrength/Shameka 1=Demonstrate adherence to instructed precautions during ADL tasks. 2=Patient will verbalize/demonstrate understanding of assistive devices/modifications for ADL. 3=Patient will improve strength/tolerance for activity to enable patient to perform ADL's. OT Education/Plan Problem List/Assessment Assessment: Decreased Activ Tolerance, Decreased Safety Aware, Impaired Coordination, Impaired Funct Balance, Impaired I ADL's, Impaired Self-Care Skills Discharge Recommendations Plan/Recommendations: Continue POC Treatment Plan/Plan of Care Treatment,Training & Education: Yes Patient would benefit from OT for education, treatment and training to promote independence in ADL's, mobility, safety and/or upper extremity function for ADL's. Plan of Care: ADL Retraining, Caregiver Training, Functional Mobility, Group Exercise/Act as Ind, UE Funct Exercise/Act Treatment Duration: Jun 01, 2022 Frequency: At least 5 of 7 days/Wk (IRF) Estimated Hrs Per Day: 1.5 hours per day (75-90 min/day) Agreement: Yes Rehab Potential: Fair Time Start Time: 09:15 Stop Time: 10:45 DATE: May 21, 2022 Total Time Billed (hr/min): 90 Billed Treatment Time 1 visit ADL x4 (60 min) FA x2 (30 min) Co-treat with PT: ([id number]) Jocelyn Smith OT May 21, 2022 10:22
--- NOTE | 2022-05-21 10:44 | Progress Note ---
VY PADILLA 05/21/22 1044: Progress Note S: Ms. Andujar is a 71 year old female who presents to [facility] rehabilitation unit, transferred from [facility]. 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 Patient states she is feeling ok this morning. Patient reports her last BM on 05/20. Patient states her pain is improving and is 2-3/10 this morning. Patient states pain is controlled with PO pain medication. Patient states she had difficulty sleeping last night and woke up with indigestion that was much improved with TUMS. Patient has been meghan ating Macrobid therapy since UTI diagnosis. Patient states her frequency is improving but she states she is still incontinent of bladder at times. She states she is unable to make it to the restroom on time to void. Patient denies bowel incontinence. Patient is tolerating PO food and drink. O: -Vital signs stable: T 36.4, HR 71, RR 16, BP 132/63, SpO2 95% RA -PE: -Cardiovascular: HRRR -Pulmonary: LCTAB -Labs: -UA on 05/19: Nitrites positive H, leukocyte esterase +2, urine WBC 10-25, urine bacteria large -Preliminary urine culture results: E. coli A/P: 1. Continue aggressive in-patient rehab with PT and OT 2. UTI. Continue Macrobid PO therapy. Continue to monitor frequency and incidences of urinary incontinence. Gradually begin incorporating bladder training 3. Continue PO pain management and bowel regimen KAREN LEAL DO 05/21/222051: Supervisory-Addendum Brief Verification & Attestation Participated in pt care: history, MDM, physical Personally performed: exam, history, MDM, supervision of care Care discussed with: Medical Student Procedures: n/a Results interpretation: Verified all documentation Verification and Attestation of Medical Student E/M Service A medical student performed and documented this service in my presence. I reviewed and verified all information documented by the medical student and made modifications to such information, when appropriate. I personally performed the physical exam and medical decision making. Karen Leal May 21, 2022,20:52 VY PADILLA May 21, 2022 10:44 KAREN LEAL DO May 21, 2022 20:52
--- NOTE | 2022-05-21 11:35 | Physical Therapy Daily Note ---
PT Daily Note-Current Subjective Patient in therapy gym pre tx, agrees to PT, has 4/10 pain in low back. Will be co-treating with OT for part of tx to work on higher level balance activities, coordinate UE and LE during activity, safety and reduce risk of falls. Pain Section J - Health Conditions 1. Rarely or not at all 2. Occasionally 3. Frequently 4. Almost constantly 8. Unable to answer Pain Effect on Sleep: 2 Pain Interference with Therapy: 3 Pain Interference w/Day-to-Day: 3 Appearance Patient in recliner post tx with nurse call, phone, tray, all needs met. Mental Status Patient Orientation: Person, Place, Situation Transfers SCALE: Activities may be completed with or without assistive devices. 3-Pfgmhpvimi-fumtguo completes the activity by him/herself with no assistance from a helper. 5-Set-up or Clean-up Assistance-helper sets up or cleans up; patient completes activity. [place] assists only prior to or following the activity. 4-Supervision or Touching Assistance-helper provides verbal cues and/or touching/steadying and/or contact guard assistance as patient completes activity. Assistance may be provided throughout the activity or intermittently. 3-Partial/Moderate Assistance-helper does LESS THAN HALF the effort. [place] lifts, holds or supports trunk or limbs, but provides less than half the effort. 2-Substantial/Maximal Assistance-helper does MORE THAN HALF the effort. [place] lifts or holds trunk or limbs and provides more than half the effort. 8-Mnuiixwkc-rwkazo does ALL the effort. Patient does none of the effort to complete the activity. Or, the assistance of 2 or more helpers is required for the patient to complete the activity. If activity was not attempted, code reason: 7-Patient Refused. 9-Not Applicable-not attempted and the patient did not perform the activity before the current illness, exacerbation or injury. 10-Not Attempted due to Environmental Limitations-(lack of equipment, weather restraints, etc.). 88-Not Attempted due to Medical Conditions or Safety Concerns. Sit to Stand (QC): 6 Chair/Shx-kx-Srmyq Xfer(QC): 6 Weight Bearing Right Lower Extremity: Right Full Weight Bearing Left Lower Extremity: Left Full Weight Bearing Gait Training Distance: 350'x3 Walk 10 feet (QC): 6 Walk 50 ft with 2 Turns(QC): 6 Walk 150 ft (QC): 6 Gait Assistive Device: FWW slow but steady ambulation Exercises Standing: Hip Abduction, Heel/toe raises, Marching, Mini squats Standing Reps: 15 LAQ alternating for 5 min, walking activity picking up objects from the floor using a manager graphic (finding them in random places) NuStep Minutes: 15 NuStep Workload: 5 Treatments PT performed walking and balance during manager graphic activity, transfers, ambulation, functional strengthening, OT performed manager graphic activity, UE positioning and safety during activity. Assessment Current Status: Fair Progress Patient scored a 25/28 on the Tinetti, wants to be able to use the restroom without having to call nursing, restaurant operations manager notified. PT Ncqa Specialist Goals Ncqa Specialist Goals PT Ncqa Specialist Goals Time Frame: Jun 23, 2022 Roll Left & Right (QC): 6 Sit to Lying (QC): 6 Lying-Sitting on Side/Bed(QC): 6 Sit to Stand (QC): 6 Chair/Bil-mx-Zjala Xfer(QC): 6 Toilet Transfer (QC): 6 Car Transfer (QC): 6 Does the Patient Walk: Yes Walk 10 feet (QC): 6 Walk 50ft with 2 Turns (QC): 6 Walk 150 ft (QC): 6 Walking 10ft on Uneven Surface: 6 1 Step (curb) (QC): 6 4 Steps (QC): 6 12 Steps (QC): 6 Picking up an Object (QC): 6 Does the Pt use WC or Scooter?: No Wheel 50 feet with 2 turns (QC: 9 Wheel 150 feet: 9 PT Plan Problem List Problem List: Activity Tolerance, Functional Strength, Safety, Balance, Gait, Transfer, Bed Mobility, ROM Treatment/Plan Treatment Plan: Continue Plan of Care Treatment Plan: Bed Mobility, Education, Functional Activity Shameka, Functional Strength, Gait, Safety, Therapeutic Exercise, Transfers Treatment Duration: Jul 07, 2022 Frequency: At least 5 of 7 days/Wk (IRF) Estimated Hrs Per Day: 1.5 hours per day Patient and/or Family Agrees t: Yes Safety Risks/Education Patient Education: Gait Training, Transfer Techniques, Correct Positioning, Safety Issues Teaching Recipient: Patient Teaching Methods: Demonstration, Discussion Response to Teaching: Reinforcement Needed Time Time In: 1015 Time Out: 1145 DATE: May 21, 2022 Total Billed Treatment Time: 90 Total Billed Treatment 1 visit EX 45' FA 45' co-treated with OT from [id number] SULEMA HADLEY PT May 21, 2022 11:35
[2022-05-21] MEDS: METHOCARBAMOL 750 MG (ROBAXIN) TAB PO PRN (16:57)
[2022-05-21] MEDS: guaiFENesin/CODEINE (ROBITUSSIN AC) 10ML UDC PO PRN ×2 (18:14→22:52)
[2022-05-21 18:39] VITALS: BP 164/85
[2022-05-21 20:00] VITALS: BP 130/74
[2022-05-21] MEDS: ISOSORBIDE MONONITRATE 60 MG (IMDUR) TAB PO SCH (21:02)
[2022-05-21] MEDS: ATENOLOL 25 MG (TENORMIN) TAB PO SCH (21:03)
[2022-05-21] MEDS: ACETAMINOPHEN 325 MG TABLET PO PRN (21:09)
[2022-05-22] MEDS: guaiFENesin/CODEINE (ROBITUSSIN AC) 10ML UDC PO PRN ×5 (03:23→23:28)
--- NOTE | 2022-05-22 05:32 | PM&R Progress Note ---
Subjective HPI/CC On Admission Date Seen by Provider: May 22, 2022 Time Seen by Provider: 08:30 Subjective/Events-last exam 05/22/2022: Doing very well Labs and chest x-ray reviewed Bowels are moving Pain is controlled Coughing is chronic and she reports she had a long history of smoking so I am presuming COPD was so we will start treatment 05/21/2022: Patient doing a little better today Had some indigestion Urinary frequency is improved In the afternoon she started having a cough and fever and COVID and flu swabs were negative Gracie Chapman will be given Urine culture reviewed 05/20/2022: Improved status Family visiting Pain improved UTI dx so started abx this morning Slept better 05/19/2022: Patient much improved Urinary frequency will require UA via straight cath Check meds and labs No falls 05/18/2022: Patient doing well Much improved status Urinary and fecal incontinence will be managed with bladder and bowel training Pain is controlled 05/17/2022: Doing well Pain controlled BM regimen maintained but had BM last night No falls but increased risk Review of Systems General: Fatigue, Malaise Pulmonary: Cough Objective Exam Vital Signs Vital Signs Date Time Temp Pulse Resp B/P (MAP) Pulse Ox O2 Delivery O2 Flow Rate FiO2 05/22/22 21:00 Room Air 05/22/22 20:38 96 05/22/22 20:34 36.7 76 16 134/81 (98) Capillary Refill : General Appearance: No Apparent Distress, WD/WN, Chronically ill, Obese HEENT: PERRL/EOMI, Normal ENT Inspection, Pharynx Normal Neck: Full Range of Motion, Normal Inspection, Non Tender, Supple, Carotid Bruit Respiratory: Chest Non Tender, Lungs Clear, Normal Breath Sounds, No Accessory Muscle Use, No Respiratory Distress Cardiovascular: Regular Rate, Rhythm, No Edema, No Gallop, No JVD, No Murmur, Normal Peripheral Pulses Gastrointestinal: Normal Bowel Sounds, No Organomegaly, No Pulsatile Mass, Non Tender, Soft Back: Normal Inspection, Decreased Range of Motion, Muscle Spasm, Vertebral Tenderness Extremity: Normal Capillary Refill, Normal Inspection, Normal Range of Motion (except legs noted weakness 3/5), Non Tender, No Calf Tenderness, No Pedal Edema Neurologic/Psychiatric: Alert, Oriented x3, construction worker II-XII Norm as Tested, Abnormal Gait, Depressed Affect, Motor Weakness (lower extremities) Skin: Normal Color, Warm/Dry Lymphatic: No Adenopathy Results/Procedures Lab Laboratory Tests 05/22/22 05:48 Patient resulted labs reviewed. FIM Transfers Therapy Code Descriptions/Definitions Functional [place] Measure: 0=Not Assessed/NA 4=Minimal Assistance 1=Total Assistance 5=Supervision or Setup 2=Maximal Assistance 6=Modified [place] 3=Moderate Assistance 7=Complete IndependenceSCALE: Activities may be completed with or without assistive devices. 4-Ikjqhpkcjc-bajsojq completes the activity by him/herself with no assistance from a helper. 5-Set-up or Clean-up Assistance-helper sets up or cleans up; patient completes activity. [place] assists only prior to or following the activity. 4-Supervision or Touching Assistance-helper provides verbal cues and/or touching/steadying and/or contact guard assistance as patient completes activity. Assistance may be provided throughout the activity or intermittently. 3-Partial/Moderate Assistance-helper does LESS THAN HALF the effort. [place] lifts, holds or supports trunk or limbs, but provides less than half the effort. 2-Substantial/Maximal Assistance-helper does MORE THAN HALF the effort. [place] lifts or holds trunk or limbs and provides more than half the effort. 3-Ntipjrxhj-ujcuhx does ALL the effort. Patient does none of the effort to complete the activity. Or, the assistance of 2 or more helpers is required for the patient to complete the activity. If activity was not attempted, code reason: 7-Patient Refused. 9-Not Applicable-not attempted and the patient did not perform the activity before the current illness, exacerbation or injury. 10-Not Attempted due to Environmental Limitations-(lack of equipment, weather restraints, etc.). 88-Not Attempted due to Medical Conditions or Safety Concerns. Roll Left to Right (QC): 4 Sit to Lying (QC): 4 Sit to Stand (QC): 6 Chair/Kji-il-Hkvfz Xfer(QC): 6 Car Transfer (QC): 4 Gait Training Does the Patient Walk?: Yes Distance: 350'x3 Walk 10 feet (QC): 6 Walk 50 ft with 2 Turns(QC): 6 Walk 150 ft (QC): 6 Walking 10ft/uneven surface-QC: 4 Gait Persons Needed: 1 Gait Assistive Device: FWW Wheelchair Training Does the Pt Use a Wheelchair?: No Wheel 50 ft with 2 turns (QC): 9 Wheel 150 ft (QC): 9 Stair Training Stair Training: Handrails/: 2 handrails #of Steps: 12 1 Step (curb) (QC): 88 4 Steps (QC): 4 12 Steps (QC): 4 Stairs: Pattern: Reciprocal Balance Picking up an Object (QC): 6 (pt. 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 coli diagnosed 05/20/2022 placed on Macrobid empirically Fever 05/21/2022 Will monitor closely resolved spontaneously Presumed COPD with cough Plan: Pain control PT OT Home meds 05/17/2022: Maintain pain control Improved status 05/18/2022: Supportive care Monitor closely 05/19/2022: Check UA Antibiotics empiric 05/20/2022: UTI tx 05/21/2022: Cough but negative COVID and flu 05/22/2022: Initiate COPD treatment for acute on chronic cough (1) Lumbar myelopathy ZANDRA LEAL DO May 22, 2022 05:32
[2022-05-22 06:01] LABS: BASOPHILS % (AUTO) 0 % (0-10); EOSINOPHILS # (AUTO) 0.6 10^3/uL (0.0-0.3); EOSINOPHILS % (AUTO) 6 % (0-10); HEMATOCRIT 37 % (35-52); HEMOGLOBIN 12.4 g/dL (11.5-16.0); LYMPHOCYTES # (AUTO) 0.8 10^3/uL (1.0-4.0); LYMPHOCYTES % (AUTO) 9 % (12-44); MEAN CORPUSCULAR HEMOGLOBIN 30 pg (25-34); MEAN CORPUSCULAR HGB CONC 34 g/dL (32-36); MEAN CORPUSCULAR VOLUME 90 fL (80-99); MEAN PLATELET VOLUME 9.9 fL (9.0-12.2); MONOCYTES # (AUTO) 0.8 10^3/uL (0.0-1.0); MONOCYTES % (AUTO) 9 % (0-12); NEUTROPHILS # (AUTO) 7.2 10^3/uL (1.8-7.8); NEUTROPHILS % (AUTO) 76 % (42-75); PLATELET COUNT 280 10^3/uL (130-400); WHITE BLOOD COUNT 9.6 10^3/uL (4.3-11.0)
[2022-05-22] MEDS: GABAPENTIN 100 MG (NEURONTIN) CAP PO SCH ×3 (06:11→22:38)
[2022-05-22 06:15] LABS: ALBUMIN 3.5 GM/DL (3.2-4.5); BILIRUBIN,TOTAL 0.5 MG/DL (0.1-1.0); CALCIUM 9.5 MG/DL (8.5-10.1); CREATININE SERUM 0.69 MG/DL (0.60-1.30); POTASSIUM 4.1 MMOL/L (3.6-5.0); TOTAL PROTEIN 6.9 GM/DL (6.4-8.2)
[2022-05-22 07:47] VITALS: BP 107/58
[2022-05-22] MEDS: NITROFURANTOIN 100 MG (MACROBID) CAPSULE PO SCH ×2 (08:08→20:29)
[2022-05-22] MEDS: ASPIRIN E.C. 81 MG (ECOTRIN) TAB PO SCH (08:08)
[2022-05-22] MEDS: ALLOPURINOL 300 MG (ZYLOPRIM) TAB PO SCH (08:09)
[2022-05-22] MEDS: DOCUSATE SODIUM 100 MG (COLACE) CAP PO SCH ×2 (08:09→20:30)
[2022-05-22] MEDS: SENNA W/DOCUSATE (SENOKOT S) TABLET PO SCH ×2 (08:09→20:29)
[2022-05-22] MEDS: polyethylene glycoL POWDER 17 GM (MIRALAX) PACK PO SCH ×2 (08:13→20:28)
[2022-05-22] MEDS: METHOCARBAMOL 750 MG (ROBAXIN) TAB PO PRN ×2 (08:13→20:29)
--- NOTE | 2022-05-22 08:19 | Diagnostic Imaging Report ---
INDICATION: Fever. TECHNIQUE: Single view chest 7:35 AM. CORRELATION STUDY: None FINDINGS: Heart size enlarged. Mediastinum and vasculature overall within normal limits. Left lower lung field is largely obscured by the cardiac enlargement. No definitive infiltrate. Small left effusion would be difficult to exclude. IMPRESSION: 1. Cardiac enlargement without failure. No definitive infiltrate. Question small left pleural effusion. Dictated by: Dictated on workstation # [id number]
[2022-05-22] MEDS ORDERED: ADVAIR HFA 115/21 MCG INHALER 8 GM IH SCH (09:00)
[2022-05-22] MEDS: BENZONATATE 100 MG (TESSALON) CAPSULE PO SCH ×3 (09:20→20:30)
[2022-05-22] MEDS: LORATADINE (CLARITIN) 10 MG TAB PO SCH (09:20)
[2022-05-22] MEDS: RT-ALBUTEROL/IPRATROPIUM 3 ML (DUONEB) VIAL INH SCH ×2 (09:37→20:38)
--- NOTE | 2022-05-22 10:46 | Occupational Ther Daily Note ---
OT Current Status-Daily Note Subjective Pt was laying in bed upon arrival. She stated she had a rough night but feels much better now. Appearance Pt left laying in bed with all needs within reach. ADL-Treatment Therapy Code Descriptions/Definitions Functional [place] Measure: 0=Not Assessed/NA 4=Minimal Assistance 1=Total Assistance 5=Supervision or Setup 2=Maximal Assistance 6=Modified [place] 3=Moderate Assistance 7=Complete IndependenceSCALE: Activities may be completed with or without assistive devices. 2-Ditqkdqcaj-zlkeltp completes the activity by him/herself with no assistance from a helper. 5-Set-up or Clean-up Assistance-helper sets up or cleans up; patient completes activity. [place] assists only prior to or following the activity. 4-Supervision or Touching Assistance-helper provides verbal cues and/or touching/steadying and/or contact guard assistance as patient completes activity. Assistance may be provided throughout the activity or intermittently. 3-Partial/Moderate Assistance-helper does LESS THAN HALF the effort. [place] lifts, holds or supports trunk or limbs, but provides less than half the effort. 2-Substantial/Maximal Assistance-helper does MORE THAN HALF the effort. [place] lifts or holds trunk or limbs and provides more than half the effort. 7-Kesykdivx-ncuudb does ALL the effort. Patient does none of the effort to complete the activity. Or, the assistance of 2 or more helpers is required for the patient to complete the activity. If activity was not attempted, code reason: 7-Patient Refused. 9-Not Applicable-not attempted and the patient did not perform the activity before the current illness, exacerbation or injury. 10-Not Attempted due to Environmental Limitations-(lack of equipment, weather restraints, etc.). 88-Not Attempted due to Medical Conditions or Safety Concerns. Oral Hygiene (QC): 6 Upper Body Dressing (QC): 6 Lower Body Dressing (QC): 6 Toileting Hygiene (QC): 6 Toilet Transfer (QC): 6 Sit <>stand: independence. Pt completed toileting/toileting hygiene with independence. Pt able to gather all clothing from suitcase and doff/don all UB and LB clothing with use of burlap bag sewer. Pt stood at sink to perform oral hygiene with independence. Other Treatment Pt ambulated safely with clothes basket on walker basket to laundry room. Pt able to use burlap bag sewer to grab items from basket on floor and transfer them into washer with no verbal cues. Education given to pt about best way to transfer them from wash to dryer; good retention from pt. Therapist performed desensitization strategies/exercises on pt's LEs to improve sensory deficits. She has increased weakness in LEs and per pt has constant "feeling on sandpaper on LEs". Pt able to tolerate minimally rough textures with light-moderate pressure applied. Tapping with a comb was done with good tolerance. Pt stated that it did feel like needles at the beginning, but began to feel better towards end. Pt was taught how to perform desensitization exercises to LEs while demonstrating proper mechanics that adhere with her spinal precautions. Pt able to ambulate ~300 ft with no rest breaks. Pt participated in functional activity that works on dynamic standing balance, coordination, and endurance. FWW was moved to the side so pt was providing minimal weight bearing onto walker. Task graded up when asked to take a step forward with throwing motion. Education OT Patient Education: Correct positioning, Energy conservation, Modified ADL techniques, Progress toward Goal/Update tx plan, Purpose of tx/functional activities, Reviewed precautions, Rehab process, Safety issues, Use of adapted equipment Teaching Recipient: Patient Teaching Methods: Demonstration, Discussion Response to Teaching: Verbalize Understanding, Return Demonstration OT Short Term Goals Short Term Goals Time Frame: May 25, 2022 Eatin Oral hygiene: 5 Toileting hygiene: 4 Shower/bathe self: 5 Upper body dressin Lower body dressin Putting on/taking off footwear: 4 OT Detention Goals Compensation Intern Goals Time Frame: Jun 01, 2022 Acute change in mental status: 0 Inattention: 0 Disorganized thinkin Altered level of consciousness: 0 Eating (QC): 6 Oral Hygiene (QC): 6 Toileting Hygiene (QC): 6 Shower/Bathe Self (QC): 6 Upper Body Dressing (QC): 6 Lower Body Dressing (QC): 6 On/Off Footwear (QC): 6 Additional Goals: 1-Demonstrate ADL Tasks, 2-Verbalize Understanding, 3- ImproveStrength/Shameka 1=Demonstrate adherence to instructed precautions during ADL tasks. 2=Patient will verbalize/demonstrate understanding of assistive devices/modifications for ADL. 3=Patient will improve strength/tolerance for activity to enable patient to perform ADL's. OT Education/Plan Problem List/Assessment Assessment: Decreased Activ Tolerance, Decreased Safety Aware, Decreased UE Strength, Impaired Coordination, Impaired Funct Balance, Impaired I ADL's, Impaired Self-Care Skills Discharge Recommendations Plan/Recommendations: Continue POC Treatment Plan/Plan of Care Treatment,Training & Education: Yes Patient would benefit from OT for education, treatment and training to promote independence in ADL's, mobility, safety and/or upper extremity function for ADL's. Plan of Care: ADL Retraining, Caregiver Training, Functional Mobility, Group Exercise/Act as Ind, UE Funct Exercise/Act Treatment Duration: Jun 01, 2022 Frequency: At least 5 of 7 days/Wk (IRF) Estimated Hrs Per Day: 1.5 hours per day (75-90 min/day) Agreement: Yes Rehab Potential: Fair Time Start Time: 09:00 Stop Time: 10:30 DATE: May 22, 2022 Total Time Billed (hr/min): 90 Billed Treatment Time 1 visit ADL x2 (30 min) FA x4 (60 min) Jocelyn Smith OT May 22, 2022 10:46
--- NOTE | 2022-05-22 13:29 | Progress Note ---
VY PADILLA 05/22/22 1329: Progress Note S: Ms. Andujar is a 71 year old female who presents to [facility] rehabilitation unit, transferred from [facility]. 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 Patient reports she is feeling tired this morning. Patient states she vomited last night for a short period of time. Patient denies current nausea, abdominal pain, or diarrhea. Patient denies head ache, congestion, sore throat, new onset myalgias, SOA, or chest pain. The patient had two fevers recorded yesterday evening 05/21. At 1839 T 38.2. At 1999 T 38.9. Patient has not had a recorded fever since. Patient reports cough, but states she chronically has a cough. Patient reports decreased appetite. Patient states her pain is well-controlled with PO pain medication. O: -Vital signs stable: T 36.4 at 0747, HR 70, RR 20, BP 107/58, SpO2 97% RA -PE: -Cardiovascular: HRRR -Pulmonary: LCTAB -Extremity: no edema or tenderness of bilateral LE -Back: lumbar incision intact, dry, and clean. No erythema or edema of surrounding skin -Labs: -UA on 05/19: Nitrites positive H, leukocyte esterase +2, urine WBC 10-25, urine bacteria large -Preliminary urine culture results: E. coli. Final results: E. coli sensitive to Macrobid -CBC: WBC 9.6, lymphocytes %: 9, lymphocytes #: 0.82 -CXR Findings: Heart size enlarged. Mediastinum and vasculature overall within normal limits. Left lower lung field is largely obscured by the cardiac enlargement. No definitive infiltrate. Small left effusion would be difficult to exclude. IMPRESSION: 1. Cardiac enlargement without failure. No definitive infiltrate. Question small left pleural effusion. A/P: 1. Continue aggressive in-patient rehab with PT and OT 2. UTI. Continue Macrobid PO therapy. Final Cx result indicated E.coli sensitive to Macrobid. Continue to monitor frequency and incidences of urinary incontinence. Gradually begin incorporating bladder training 3. Fever. Patient is in the post-operative setting and has been evaluated for likely causes of post-operative fever. Patient's UTI is being appropriately managed with Macrobid. Unilateral LE edema/SOA is absent ruling-out DVT. CXR is negative for atelectasis. Small L pleural effusion is in question, will continue to monitor for SOA/chest pain. CXR negative for infiltrate. Patient's incision is negative for edema, erythema, or drainage. Patient is not currently taking any medications that could cause fever. Patient has been evaluated for Flu and COVID, with negative serology. Vitals and patient's disposition will be monitored. Viral illness is the suspected cause of the patient's fever at this time, supported by the clinical findings of lymphopenia, cough, and GI upset. 4. Continue PO pain management and bowel regimen KAREN LEAL DO 05/22/22 2015: Supervisory-Addendum Brief Verification & Attestation Participated in pt care: history, MDM, physical Personally performed: exam, history, MDM, supervision of care Care discussed with: Medical Student Procedures: n/a Results interpretation: Verified all documentation Verification and Attestation of Medical Student E/M Service A medical student performed and documented this service in my presence. I reviewed and verified all information documented by the medical student and made modifications to such information, when appropriate. I personally performed the physical exam and medical decision making. Karen Leal, May 22, 2022,20:15 VY PADILLA May 22, 2022 13:29 KAREN LEAL DO May 22, 2022 20:15
--- NOTE | 2022-05-22 15:06 | Physical Therapy Progress Note ---
Therapy Progress Note Patient will be placed into Up Ad matt status based upon current bed mobility and transfers of independence. Patient has ambulated 350 feet x 3 with FWW, with independence with primary PT. Nurse, Brandi, also reports that she has ambulated with the patient and based upon first hand observation agrees that the patient is independent with all mobility and is safe to ambulate up ad matt. Patient scored a 25/28 on the Tinetti. Patient was advised of this status change, however advised to continue to use the FWW for safety and if she were to initiate transfers or gait, and felt weak, dizzy, light-headed or any other abnormalities, that she should continue to use the call light for assistance. Dr. Alonzo notified as well as nursing staff and therapy staff. JOS LOPEZ PT May 22, 2022 15:06
--- NOTE | 2022-05-22 15:55 | Physical Therapy Daily Note ---
PT Daily Note-Current Subjective Pt L sidelying in bed upon arrival. Pt agrees to PT. Pt inquires about Ad matt in room status. Pain Location: Lower Location Body Site: Back Pain Description: Ache Comment: Reports but doesn't rate, increase w/sitting but less w/walking Section J - Health Conditions 1. Rarely or not at all 2. Occasionally 3. Frequently 4. Almost constantly 8. Unable to answer Pain Effect on Sleep: 2 Pain Interference with Therapy: 3 Pain Interference w/Day-to-Day: 3 Mental Status Patient Orientation: Person, Place, Time, Situation Transfers SCALE: Activities may be completed with or without assistive devices. 9-Tojrkbomki-qmzpdje completes the activity by him/herself with no assistance from a helper. 5-Set-up or Clean-up Assistance-helper sets up or cleans up; patient completes activity. [place] assists only prior to or following the activity. 4-Supervision or Touching Assistance-helper provides verbal cues and/or touching/steadying and/or contact guard assistance as patient completes activity. Assistance may be provided throughout the activity or intermittently. 3-Partial/Moderate Assistance-helper does LESS THAN HALF the effort. [place] lifts, holds or supports trunk or limbs, but provides less than half the effort. 2-Substantial/Maximal Assistance-helper does MORE THAN HALF the effort. [place] lifts or holds trunk or limbs and provides more than half the effort. 2-Dcshunvdh-seafdr does ALL the effort. Patient does none of the effort to complete the activity. Or, the assistance of 2 or more helpers is required for the patient to complete the activity. If activity was not attempted, code reason: 7-Patient Refused. 9-Not Applicable-not attempted and the patient did not perform the activity before the current illness, exacerbation or injury. 10-Not Attempted due to Environmental Limitations-(lack of equipment, weather restraints, etc.). 88-Not Attempted due to Medical Conditions or Safety Concerns. Sit to Lying (QC): 6 Lying to Sitting/Side of Bed(Q: 6 Sit to Stand (QC): 6 Toilet Transfer (QC): 6 Weight Bearing Right Lower Extremity: Right Full Weight Bearing Left Lower Extremity: Left Full Weight Bearing Gait Training Does the Patient Walk?: Yes Distance: 150', 200' Walk 10 feet (QC): 6 Walk 50 ft with 2 Turns(QC): 6 Walk 150 ft (QC): 6 Gait Assistive Device: FWW Wheelchair Training Does the Pt Use a Wheelchair?: No Exercises Standing: Hamstring curls, Heel/toe raises, 3 way Ex=Flex, Abd, Ext, Marching, Mini squats, Weight shifts Standing Reps: 25 Treatments [id number]: Pt TF from bed to standing and uses BR. Pt amb. in hallway before completing Standing EX in //bars. Pt amb. in hallway before returning to room to rest. During amb., Quad Cane is used but pt prefers to use FWW or w/o AD. Pt resting at end of tx with all needs met, call light in hand. [id number]: TF to standing and amb. in hallway (500'). After RB, Pt returns to room and returns to bed w/wedge & ice used for comfort. All needs met, call light in hand. Pt is Ad matt in room using FWW. Assessment Current Status: Good Progress Pt is made Ad matt in room due improved balance, mobility and activity tolerance. PT Senior Care Goals Blade Operator Goals PT Senior Care Goals Time Frame: Jun 23, 2022 Roll Left & Right (QC): 6 Sit to Lying (QC): 6 Lying-Sitting on Side/Bed(QC): 6 Sit to Stand (QC): 6 Chair/Dyv-eo-Mdbwv Xfer(QC): 6 Toilet Transfer (QC): 6 Car Transfer (QC): 6 Does the Patient Walk: Yes Walk 10 feet (QC): 6 Walk 50ft with 2 Turns (QC): 6 Walk 150 ft (QC): 6 Walking 10ft on Uneven Surface: 6 1 Step (curb) (QC): 6 4 Steps (QC): 6 12 Steps (QC): 6 Picking up an Object (QC): 6 Does the Pt use WC or Scooter?: No Wheel 50 feet with 2 turns (QC: 9 Wheel 150 feet: 9 PT Plan Treatment/Plan Treatment Plan: Continue Plan of Care Treatment Plan: Bed Mobility, Education, Functional Activity Shameka, Functional Strength, Gait, Safety, Therapeutic Exercise, Transfers Treatment Duration: Jul 07, 2022 Frequency: At least 5 of 7 days/Wk (IRF) Estimated Hrs Per Day: 1.5 hours per day Patient and/or Family Agrees t: Yes Time Time In: 1100 (1450) Time Out: 1200 (1520) DATE: May 22, 2022 Total Billed Treatment Time: 90 Total Billed Treatment [id number]: 1, EX x2 (30m) & GT x2 (30m) [id number]: 1, GT (20m) & FA (10m) GENTRY JENNINGS MAIL LIST LIBRARIAN May 22, 2022 15:55
[2022-05-22] MEDS: ISOSORBIDE MONONITRATE 60 MG (IMDUR) TAB PO SCH (20:29)
[2022-05-22] MEDS: MONTELUKAST 10 MG (SINGULAIR) TAB PO SCH (20:29)
[2022-05-22] MEDS: ATENOLOL 25 MG (TENORMIN) TAB PO SCH (20:29)
[2022-05-22 20:34] VITALS: BP 134/81
[2022-05-22] MEDS: RT--FLUTICASONE/SALMETEROL 113-14 (AIRDUO RespiCLICK) IH SCH ×2 (20:38→20:41)
--- NOTE | 2022-05-23 06:07 | PM&R Progress Note ---
Subjective HPI/CC On Admission Date Seen by Provider: May 23, 2022 Time Seen by Provider: 08:30 Subjective/Events-last exam 05/23/2022: Patient doing really well Up ad matt Discharge home tomorrow Cough is productive 05/22/2022: Doing very well Labs and chest x-ray reviewed Bowels are moving Pain is controlled Coughing is chronic and she reports she had a long history of smoking so I am presuming COPD was so we will start treatment 05/21/2022: Patient doing a little better today Had some indigestion Urinary frequency is improved In the afternoon she started having a cough and fever and COVID and flu swabs were negative Gracie Chapman will be given Urine culture reviewed 05/20/2022: Improved status Family visiting Pain improved UTI dx so started abx this morning Slept better 05/19/2022: Patient much improved Urinary frequency will require UA via straight cath Check meds and labs No falls 05/18/2022: Patient doing well Much improved status Urinary and fecal incontinence will be managed with bladder and bowel training Pain is controlled 05/17/2022: Doing well Pain controlled BM regimen maintained but had BM last night No falls but increased risk Review of Systems General: Fatigue, Malaise Objective Exam Vital Signs Vital Signs Date Time Temp Pulse Resp B/P (MAP) Pulse Ox O2 Delivery O2 Flow Rate FiO2 05/23/22 21:14 95 Room Air 05/23/22 20:08 36.8 75 18 142/67 (92) Capillary Refill : General Appearance: No Apparent Distress, WD/WN, Chronically ill, Obese HEENT: PERRL/EOMI, Normal ENT Inspection, Pharynx Normal Neck: Full Range of Motion, Normal Inspection, Non Tender, Supple, Carotid Bruit Respiratory: Chest Non Tender, Lungs Clear, Normal Breath Sounds, No Accessory Muscle Use, No Respiratory Distress Cardiovascular: Regular Rate, Rhythm, No Edema, No Gallop, No JVD, No Murmur, Normal Peripheral Pulses Gastrointestinal: Normal Bowel Sounds, No Organomegaly, No Pulsatile Mass, Non Tender, Soft Back: Normal Inspection, Decreased Range of Motion, Muscle Spasm, Vertebral Tenderness Extremity: Normal Capillary Refill, Normal Inspection, Normal Range of Motion (except legs noted weakness 3/5), Non Tender, No Calf Tenderness, No Pedal Edema Neurologic/Psychiatric: Alert, Oriented x3, bull ladle tender II-XII Norm as Tested, Abnormal Gait, Depressed Affect, Motor Weakness (lower extremities) Skin: Normal Color, Warm/Dry Lymphatic: No Adenopathy Results/Procedures Lab Patient resulted labs reviewed. FIM Transfers Therapy Code Descriptions/Definitions Functional [place] Measure: 0=Not Assessed/NA 4=Minimal Assistance 1=Total Assistance 5=Supervision or Setup 2=Maximal Assistance 6=Modified [place] 3=Moderate Assistance 7=Complete IndependenceSCALE: Activities may be completed with or without assistive devices. 6-Jpunxpabub-norchjj completes the activity by him/herself with no assistance from a helper. 5-Set-up or Clean-up Assistance-helper sets up or cleans up; patient completes activity. [place] assists only prior to or following the activity. 4-Supervision or Touching Assistance-helper provides verbal cues and/or touching/steadying and/or contact guard assistance as patient completes activity. Assistance may be provided throughout the activity or intermittently. 3-Partial/Moderate Assistance-helper does LESS THAN HALF the effort. [place] lifts, holds or supports trunk or limbs, but provides less than half the effort. 2-Substantial/Maximal Assistance-helper does MORE THAN HALF the effort. [place] lifts or holds trunk or limbs and provides more than half the effort. 9-Caakvmhsx-hputpd does ALL the effort. Patient does none of the effort to complete the activity. Or, the assistance of 2 or more helpers is required for the patient to complete the activity. If activity was not attempted, code reason: 7-Patient Refused. 9-Not Applicable-not attempted and the patient did not perform the activity before the current illness, exacerbation or injury. 10-Not Attempted due to Environmental Limitations-(lack of equipment, weather restraints, etc.). 88-Not Attempted due to Medical Conditions or Safety Concerns. Roll Left to Right (QC): 4 Sit to Lying (QC): 6 Sit to Stand (QC): 6 Chair/Fwt-cp-Jleuq Xfer(QC): 6 Car Transfer (QC): 4 Gait Training Does the Patient Walk?: Yes Distance: 150', 200' Walk 10 feet (QC): 6 Walk 50 ft with 2 Turns(QC): 6 Walk 150 ft (QC): 6 Walking 10ft/uneven surface-QC: 4 Gait Persons Needed: 1 Gait Assistive Device: FWW Wheelchair Training Does the Pt Use a Wheelchair?: No Wheel 50 ft with 2 turns (QC): 9 Wheel 150 ft (QC): 9 Stair Training Stair Training: Handrails/: 2 handrails #of Steps: 12 1 Step (curb) (QC): 88 4 Steps (QC): 4 12 Steps (QC): 4 Stairs: Pattern: Reciprocal Balance Picking up an Object (QC): 6 (pt. uses claim rep with demo and instruction) ADL-Treatment Eating (QC): 6 Oral Hygiene (QC): 6 Shower/Bathe Self (QC): 4 Upper Body Dressing (QC): 6 Lower Body Dressing (QC): 6 On/Off Footwear (QC): 6 Toileting Hygiene (QC): 6 Toilet Transfer (QC): 6 Assessment/Plan Assessment and Plan Assess & Plan/Chief Complaint Assessment: Severe debility following s/p right L3 laminectomy at 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 coli diagnosed 05/20/2022 placed on Macrobid empirically Fever 05/21/2022 Will monitor closely resolved spontaneously Presumed COPD with cough Plan: Pain control PT OT Home meds 05/17/2022: Maintain pain control Improved status 05/18/2022: Supportive care Monitor closely 05/19/2022: Check UA Antibiotics empiric 05/20/2022: UTI tx 05/21/2022: Cough but negative COVID and flu 05/22/2022: Initiate COPD treatment for acute on chronic cough 05/23/2022: Discharge home tomorrow (1) Lumbar myelopathy ZANDRA LEAL DO May 23, 2022 06:07
[2022-05-23] MEDS: GABAPENTIN 100 MG (NEURONTIN) CAP PO SCH ×3 (06:46→21:56)
[2022-05-23 08:00] VITALS: BP 129/79
[2022-05-23] MEDS: polyethylene glycoL POWDER 17 GM (MIRALAX) PACK PO SCH ×2 (09:00→20:03)
--- NOTE | 2022-05-23 09:36 | Progress Note ---
VY PADILLA 05/23/22 0936: Progress Note S: Ms. Andujar is a 71 year old female who presents to [facility] rehabilitation unit, transferred from [facility]. 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 Patient reports she is feeling better this morning. Patient denies current nausea, abdominal pain, or diarrhea. Patient states she has had a productive cough throughout the night and continues to cough. Patient states the singulair, fluticasone/salmeterol, and duoneb have been improving her cough and she feels as though they are "helping loosen the mucus." Patient reports her pain continues to improve. She states she is trying to take less pain medication and states the muscle relaxer has helped manage her pain. Patient is tolerating PO food and drink and states her last BM was yesterday. O: -Vital signs stable: T 36.7, HR 76, RR 16, BP 134/81, SpO2 96% RA -PE: -Cardiovascular: HRRR -Pulmonary: Slightly course breath sounds in bilateral lower lung desir -Extremity: no edema or tenderness of bilateral LE -Back: lumbar incision intact, dry, and clean. No erythema or edema of surrounding skin -Labs: -UA on 05/19: Nitrites positive H, leukocyte esterase +2, urine WBC 10-25, urine bacteria large -Preliminary urine culture results: E. coli. Final results: E. coli sensitive to Macrobid -CBC: WBC 9.6, lymphocytes %: 9, lymphocytes #: 0.82 -CXR Findings: Heart size enlarged. Mediastinum and vasculature overall within normal limits. Left lower lung field is largely obscured by the cardiac enlargement. No definitive infiltrate. Small left effusion would be difficult to exclude. IMPRESSION: 1. Cardiac enlargement without failure. No definitive infiltrate. Question small left pleural effusion. A/P: 1. Continue aggressive in-patient rehab with PT and OT 2. UTI. Continue Macrobid PO therapy. Final Cx result indicated E.coli sensitive to Macrobid. Continue to monitor frequency and incidences of urinary incontinence. Gradually begin incorporating bladder training 3. Fever. Patient is in the post-operative setting and has been evaluated for likely causes of post-operative fever. Patient's UTI is being appropriately managed with Macrobid. Unilateral LE edema/SOA is absent ruling-out DVT. CXR is negative for atelectasis. Small L pleural effusion is in question, will continue to monitor for SOA/chest pain. CXR negative for infiltrate. Patient's incision is negative for edema, erythema, or drainage. Patient is not currently taking any medications that could cause fever. Patient has been evaluated for Flu and COVID, with negative serology. Vitals and patient's disposition will be monitored. Viral illness is the suspected cause of the patient's fever at this time, supported by the clinical findings of lymphopenia, cough, and GI upset. Patient has not had a fever since 05/21 4. Continue PO pain management and bowel regimen 5. COPD: continue to manage with singulair, fluticasone/salmeterol, and duoneb KAREN LEAL DO 05/24/22 0541: Supervisory-Addendum Brief Verification & Attestation Participated in pt care: history, MDM, physical Personally performed: exam, history, MDM, supervision of care Care discussed with: Medical Student Procedures: n/a Results interpretation: Verified all documentation Verification and Attestation of Medical Student E/M Service A medical student performed and documented this service in my presence. I reviewed and verified all information documented by the medical student and made modifications to such information, when appropriate. I personally performed the physical exam and medical decision making. Karen Leal May 24, 2022,05:41 VY PADILLA May 23, 2022 09:36 KAREN LEAL DO May 24, 2022 05:41
--- NOTE | 2022-05-23 09:45 | Occupational Ther Daily Note ---
OT Current Status-Daily Note Subjective Pt sitting in recliner with all clothes and AE already gathered for her shower. Appearance Pt left sitting in recliner with all needs within reach. Mental Status/Objective Patient Orientation: Person, Place, Time, Situation ADL-Treatment Therapy Code Descriptions/Definitions Functional [place] Measure: 0=Not Assessed/NA 4=Minimal Assistance 1=Total Assistance 5=Supervision or Setup 2=Maximal Assistance 6=Modified [place] 3=Moderate Assistance 7=Complete IndependenceSCALE: Activities may be completed with or without assistive devices. 8-Axizltzkvf-wpnxggz completes the activity by him/herself with no assistance from a helper. 5-Set-up or Clean-up Assistance-helper sets up or cleans up; patient completes activity. [place] assists only prior to or following the activity. 4-Supervision or Touching Assistance-helper provides verbal cues and/or touching/steadying and/or contact guard assistance as patient completes activity. Assistance may be provided throughout the activity or intermittently. 3-Partial/Moderate Assistance-helper does LESS THAN HALF the effort. [place] lifts, holds or supports trunk or limbs, but provides less than half the effort. 2-Substantial/Maximal Assistance-helper does MORE THAN HALF the effort. [place] lifts or holds trunk or limbs and provides more than half the effort. 9-Bkpkqphnx-vpuahr does ALL the effort. Patient does none of the effort to complete the activity. Or, the assistance of 2 or more helpers is required for the patient to complete the activity. If activity was not attempted, code reason: 7-Patient Refused. 9-Not Applicable-not attempted and the patient did not perform the activity before the current illness, exacerbation or injury. 10-Not Attempted due to Environmental Limitations-(lack of equipment, weather restraints, etc.). 88-Not Attempted due to Medical Conditions or Safety Concerns. Eating (QC): 6 Oral Hygiene (QC): 6 Shower/Bathe Self (QC): 6 Upper Body Dressing (QC): 6 Lower Body Dressing (QC): 6 On/Off Footwear: 6 Toileting Hygiene (QC): 3 (min assist for wiping buttocks-unable to twist) Toilet Transfer (QC): 6 Pt is now up ad matt in room and before therapist entered room to begin session, pt had already gathered all clothing and AE needed for dressing. Pt doffed all clothing in standing with no LOB or safety concerns. Pt completed shower 75% in sitting with independence. Pt ambulated to toilet and performed toileting hygiene with min assist for wiping buttocks. Toilet tong AE was educated on once d/c home. Anticipate increased independence once using toilet tongs to assist with wiping. Pt able to don all clothing and footwear with independence using AE (php wordpress developer and sock aid). Pt stood to perform oral hygiene with independence. Other Treatment Pt completed 10 min on arm bike with 1 rest break in between. Pt completed standing functional activities to improve balance, coordination, endurance, memory, strengthening, and energy conservation. Pt stood on air/x foam mat for part of standing activities to enhance difficulty of task. Pt able to complete balloon batting without holding onto any device as well as taking steps forwards and side to side to hit balloon back. No LOB or unsteadiness noted. Pt able to tolerate ~5+ minutes of balloon batting without fatigue. Education OT Patient Education: Correct positioning, Energy conservation, Modified ADL techniques, Progress toward Goal/Update tx plan, Purpose of tx/functional activities, Reviewed precautions, Rehab process, Safety issues, Use of adapted equipment Teaching Recipient: Patient Teaching Methods: Demonstration, Discussion Response to Teaching: Verbalize Understanding, Return Demonstration BIMS CAM BIMS Expression of Ideas and Wants: Without Difficulty Understanding Verbal Content: Understands Brief Interview/Mental Status: Yes IRF FRANK BIMS: IRF FRANK BIMS Response (Comments) Value Repitition of Three Words Three 3 Recalls Socks Yes, No Cue Required 2 Recalls Blue Yes, No Cue Required 2 Recalls Bed Yes, No Cue Required 2 Year Correct 3 Month Accurate Within 5 Days 2 Day Correct 1 Total 15 Should Staff Asses. Mental [address] No Notes: CAM Mental Status Change/Baseline: 0 Inattention: 0 Disorganized thinkin Altered level of consciousness: 0 OT Short Term Goals Short Term Goals Time Frame: May 25, 2022 Eatin Oral hygiene: 5 Toileting hygiene: 4 Shower/bathe self: 5 Upper body dressin Lower body dressin Putting on/taking off footwear: 4 OT Skilled Nursing Goals Skilled Nursing Goals Time Frame: Jun 01, 2022 Acute change in mental status: 0 Inattention: 0 Disorganized thinkin Altered level of consciousness: 0 Eating (QC): 6 (met) Oral Hygiene (QC): 6 (met) Toileting Hygiene (QC): 6 (not met: Min assist- anticipate increasing independence once using appropriate AE for wiping) Shower/Bathe Self (QC): 6 (met) Upper Body Dressing (QC): 6 (met) Lower Body Dressing (QC): 6 (met) On/Off Footwear (QC): 6 (met) Additional Goals: 1-Demonstrate ADL Tasks, 2-Verbalize Understanding, 3- ImproveStrength/Shameka 1=Demonstrate adherence to instructed precautions during ADL tasks. 2=Patient will verbalize/demonstrate understanding of assistive devices/modifications for ADL. 3=Patient will improve strength/tolerance for activity to enable patient to perform ADL's. OT Education/Plan Problem List/Assessment Assessment: Decreased Activ Tolerance, Impaired Coordination, Impaired Funct Balance, Impaired I ADL's Discharge Recommendations Plan/Recommendations: Continue POC Therapy Discharge Recommendati: Homemaker Support, Home & Family Equpiment Recommendations-D/C: Cash Applications Clerk, Sock Aide, [place] Treatment Plan/Plan of Care Treatment,Training & Education: Yes Patient would benefit from OT for education, treatment and training to promote independence in ADL's, mobility, safety and/or upper extremity function for ADL's. Plan of Care: ADL Retraining, Caregiver Training, Functional Mobility, Group Exercise/Act as Ind, UE Funct Exercise/Act Treatment Duration: Jun 01, 2022 Frequency: At least 5 of 7 days/Wk (IRF) Estimated Hrs Per Day: 1.5 hours per day (75-90 min/day) Agreement: Yes Rehab Potential: Fair Time Start Time: 08:45 Stop Time: 10:15 DATE: May 23, 2022 Total Time Billed (hr/min): 90 Billed Treatment Time 1 visit ADL x3 (45 min) FA x3 (45 min) Jocelyn Smith OT May 23, 2022 09:45
[2022-05-23] MEDS: DOCUSATE SODIUM 100 MG (COLACE) CAP PO SCH ×2 (10:29→20:01)
[2022-05-23] MEDS: ASPIRIN E.C. 81 MG (ECOTRIN) TAB PO SCH (10:30)
[2022-05-23] MEDS: NITROFURANTOIN 100 MG (MACROBID) CAPSULE PO SCH ×2 (10:30→20:01)
[2022-05-23] MEDS: ALLOPURINOL 300 MG (ZYLOPRIM) TAB PO SCH (10:30)
[2022-05-23] MEDS: LORATADINE (CLARITIN) 10 MG TAB PO SCH (10:30)
[2022-05-23] MEDS: BENZONATATE 100 MG (TESSALON) CAPSULE PO SCH ×3 (10:30→20:01)
[2022-05-23] MEDS: SENNA W/DOCUSATE (SENOKOT S) TABLET PO SCH ×2 (10:31→20:01)
--- NOTE | 2022-05-23 12:03 | Physical Therapy Daily Note ---
PT Daily Note-Current Subjective Pt sitting in recliner upon arrival. Pt agrees to PT for QC scoring for anticipated d/c tomorrow. Pain Location: Lower Location Body Site: Back Pain Description: Ache Comment: Reported LBP with extended EX or walking but doesn't rate Section J - Health Conditions 1. Rarely or not at all 2. Occasionally 3. Frequently 4. Almost constantly 8. Unable to answer Pain Effect on Sleep: 2 Pain Interference with Therapy: 3 Pain Interference w/Day-to-Day: 3 Mental Status Patient Orientation: Person, Place, Time, Situation Transfers SCALE: Activities may be completed with or without assistive devices. 6-Obalbinfad-tzczvkl completes the activity by him/herself with no assistance from a helper. 5-Set-up or Clean-up Assistance-helper sets up or cleans up; patient completes activity. [place] assists only prior to or following the activity. 4-Supervision or Touching Assistance-helper provides verbal cues and/or touching/steadying and/or contact guard assistance as patient completes activity. Assistance may be provided throughout the activity or intermittently. 3-Partial/Moderate Assistance-helper does LESS THAN HALF the effort. Ashwood lifts, holds or supports trunk or limbs, but provides less than half the effort. 2-Substantial/Maximal Assistance-helper does MORE THAN HALF the effort. [place] lifts or holds trunk or limbs and provides more than half the effort. 2-Xyrivmjuc-ubwrxn does ALL the effort. Patient does none of the effort to complete the activity. Or, the assistance of 2 or more helpers is required for the patient to complete the activity. If activity was not attempted, code reason: 7-Patient Refused. 9-Not Applicable-not attempted and the patient did not perform the activity before the current illness, exacerbation or injury. 10-Not Attempted due to Environmental Limitations-(lack of equipment, weather restraints, etc.). 88-Not Attempted due to Medical Conditions or Safety Concerns. Roll Left & Right (QC): 6 Sit to Lying (QC): 6 Lying to Sitting/Side of Bed(Q: 6 Sit to Stand (QC): 6 Chair/Qma-ds-Swurk Xfer(QC): 6 Toilet Transfer (QC): 6 Car Transfer (QC): 6 Weight Bearing Right Lower Extremity: Right Full Weight Bearing Left Lower Extremity: Left Full Weight Bearing Gait Training Does the Patient Walk?: Yes Distance: 500' Walk 10 feet (QC): 6 Walk 50 ft with 2 Turns(QC): 6 Walk 150 ft (QC): 6 Walking 10ft/uneven surface-QC: 6 Gait Assistive Device: FWW Wheelchair Training Does the Pt Use a Wheelchair?: No Stair Training Stair Training: Handrails/: 2 handrails #of Steps: 12 1 Step (curb) (QC): 6 4 Steps (QC): 6 12 Steps (QC): 6 Stairs: Pattern: Step to Balance Picking up an Object (QC): 6 Special Test Comments Pt uses applications sales consultant as pt observes back precautions from surgery. Exercises Supine Ex: Ankle pumps, Quad Set, Glut sets, Heel Slides, Short Arc Quads, Straight leg raise, Hip abd/add Supine Reps: 15 Seated Therapy Exercises: Ankle pumps, Long arc quads, Hip flexion, Hip abd/add, Glut set Seated Reps: 15 Treatments Pt completes QC scoring items listed above. Pt amb. in hallway and is issued/reviews written HEP for Supine & Seated EX. Pt returns to room at end of tx to rest in recliner for lunch. Pt has all needs met, call light in hand. Assessment Current Status: Good Progress Pt travis. tx well. PT Usp Goals Online Retailer Goals PT Online Retailer Goals Time Frame: Jun 23, 2022 Roll Left & Right (QC): 6 Sit to Lying (QC): 6 Lying-Sitting on Side/Bed(QC): 6 Sit to Stand (QC): 6 Chair/Jgm-vi-Uzsfh Xfer(QC): 6 Toilet Transfer (QC): 6 Car Transfer (QC): 6 Does the Patient Walk: Yes Walk 10 feet (QC): 6 Walk 50ft with 2 Turns (QC): 6 Walk 150 ft (QC): 6 Walking 10ft on Uneven Surface: 6 1 Step (curb) (QC): 6 4 Steps (QC): 6 12 Steps (QC): 6 Picking up an Object (QC): 6 Does the Pt use WC or Scooter?: No Wheel 50 feet with 2 turns (QC: 9 Wheel 150 feet: 9 PT Plan Treatment/Plan Treatment Plan: Continue Plan of Care Treatment Plan: Bed Mobility, Education, Functional Activity Shameka, Functional Strength, Gait, Safety, Therapeutic Exercise, Transfers Treatment Duration: Jul 07, 2022 Frequency: At least 5 of 7 days/Wk (IRF) Estimated Hrs Per Day: 1.5 hours per day Patient and/or Family Agrees t: Yes Safety Risks/Education Patient Education: Issued Written HEP Teaching Recipient: Patient Teaching Methods: Discussion Response to Teaching: Verbalize Understanding Time Time In: 1100 Time Out: 1200 DATE: May 23, 2022 Total Billed Treatment Time: 60 Total Billed Treatment 1, GT (15m), EX (20m) & FA x2 (25m) GENTRY JENNINGS SALES AGENT [employer] May 23, 2022 12:03
[2022-05-23] MEDS ORDERED: TRAM50TA3 PO (12:38)
[2022-05-23] MEDS: guaiFENesin/CODEINE (ROBITUSSIN AC) 10ML UDC PO PRN ×2 (13:04→20:02)
[2022-05-23] MEDS: METHOCARBAMOL 750 MG (ROBAXIN) TAB PO PRN (13:04)
--- NOTE | 2022-05-23 15:22 | Physical Therapy Daily Note ---
PT Daily Note-Current Subjective Pt laying Supine in bed upon arrival. Pt agrees to PT. Pain Location: No Pain Reported Section J - Health Conditions 1. Rarely or not at all 2. Occasionally 3. Frequently 4. Almost constantly 8. Unable to answer Pain Effect on Sleep: 2 Pain Interference with Therapy: 3 Pain Interference w/Day-to-Day: 3 Mental Status Patient Orientation: Person, Place, Time, Situation Transfers SCALE: Activities may be completed with or without assistive devices. 6-Vvoqnhofnt-rfjdciy completes the activity by him/herself with no assistance from a helper. 5-Set-up or Clean-up Assistance-helper sets up or cleans up; patient completes activity. Cassandra assists only prior to or following the activity. 4-Supervision or Touching Assistance-helper provides verbal cues and/or touching/steadying and/or contact guard assistance as patient completes activity. Assistance may be provided throughout the activity or intermittently. 3-Partial/Moderate Assistance-helper does LESS THAN HALF the effort. Cassandra lifts, holds or supports trunk or limbs, but provides less than half the effort. 2-Substantial/Maximal Assistance-helper does MORE THAN HALF the effort. Cassandra lifts or holds trunk or limbs and provides more than half the effort. 9-Obsqusiuh-zlldvk does ALL the effort. Patient does none of the effort to complete the activity. Or, the assistance of 2 or more helpers is required for the patient to complete the activity. If activity was not attempted, code reason: 7-Patient Refused. 9-Not Applicable-not attempted and the patient did not perform the activity before the current illness, exacerbation or injury. 10-Not Attempted due to Environmental Limitations-(lack of equipment, weather restraints, etc.). 88-Not Attempted due to Medical Conditions or Safety Concerns. Weight Bearing Right Lower Extremity: Right Full Weight Bearing Left Lower Extremity: Left Full Weight Bearing Treatments Pt had questions about sensations felt in B LE if its normal as well as pain and medication questions. CREW DIRECTOR answers pt w/in CREW DIRECTOR's scope of practice then refers pt to talk to Nurse and Dr Alonzo. Pt resting with all needs met, call light in hand. Assessment Current Status: Good Progress Pt has improved w/tx independence and is excited for tomorrow's d/c. PT Usp Goals Meeting Manager Goals PT Meeting Manager Goals Time Frame: Jun 23, 2022 Roll Left & Right (QC): 6 Sit to Lying (QC): 6 Lying-Sitting on Side/Bed(QC): 6 Sit to Stand (QC): 6 Chair/Kti-qx-Actvm Xfer(QC): 6 Toilet Transfer (QC): 6 Car Transfer (QC): 6 Does the Patient Walk: Yes Walk 10 feet (QC): 6 Walk 50ft with 2 Turns (QC): 6 Walk 150 ft (QC): 6 Walking 10ft on Uneven Surface: 6 1 Step (curb) (QC): 6 4 Steps (QC): 6 12 Steps (QC): 6 Picking up an Object (QC): 6 Does the Pt use WC or Scooter?: No Wheel 50 feet with 2 turns (QC: 9 Wheel 150 feet: 9 PT Plan Treatment/Plan Treatment Plan: Continue Plan of Care Treatment Plan: Bed Mobility, Education, Functional Activity Shaemka, Functional Strength, Gait, Safety, Therapeutic Exercise, Transfers Treatment Duration: Jul 07, 2022 Frequency: At least 5 of 7 days/Wk (IRF) Estimated Hrs Per Day: 1.5 hours per day Patient and/or Family Agrees t: Yes Time Time In: 1440 Time Out: 1510 DATE: May 23, 2022 Total Billed Treatment Time: 30 Total Billed Treatment 1, EX (15m) & FA (15m) GENTRY JENNINGS PTA May 23, 2022 15:22
[2022-05-23] MEDS: ISOSORBIDE MONONITRATE 60 MG (IMDUR) TAB PO SCH (20:01)
[2022-05-23] MEDS: ATENOLOL 25 MG (TENORMIN) TAB PO SCH (20:01)
[2022-05-23] MEDS: MONTELUKAST 10 MG (SINGULAIR) TAB PO SCH (20:02)
[2022-05-23 20:08] VITALS: BP 142/67
[2022-05-23] MEDS: RT-ALBUTEROL/IPRATROPIUM 3 ML (DUONEB) VIAL INH SCH (21:12)
[2022-05-23] MEDS: RT--FLUTICASONE/SALMETEROL 113-14 (AIRDUO RespiCLICK) IH SCH (21:13)
[2022-05-24] MEDS: guaiFENesin/CODEINE (ROBITUSSIN AC) 10ML UDC PO PRN ×2 (00:18→07:48)
[2022-05-24] MEDS ORDERED: NITR100C10 PO (06:12)
[2022-05-24] MEDS ORDERED: TRAM50TA3 PO (06:12)
[2022-05-24] MEDS ORDERED: GABA-486 PO (06:12)
[2022-05-24] MEDS ORDERED: LORA10TA7 PO (06:12)
[2022-05-24] MEDS ORDERED: METH-732 PO (06:12)
[2022-05-24] MEDS ORDERED: MONT-40 PO (06:12)
[2022-05-24] MEDS ORDERED: BENZ100C18 PO (06:12)
[2022-05-24] MEDS ORDERED: OXC5T PO (06:12)
[2022-05-24] MEDS: GABAPENTIN 100 MG (NEURONTIN) CAP PO SCH (06:13)
--- NOTE | 2022-05-24 06:14 | D/C HH Face to Face Order ---
D/C Face to Face Orders Reconcile Patient Problems Problems Reviewed?: Yes Instructions for Patient [facility] Patient Instructions/FollowUp: PCP 1 week Physician to follow Patient: Miguel A Discharge Diet for Home: No Restrictions Patient Problems: Lumbar spine surgery Patient Data-Allergies,Ht & Wt Patient Allergies: Coded Allergies: Nawgdpj-BMP-QcL Reductase Inhibitor (Verified Allergy, Unknown, 05/16/22) diazepam (Verified Allergy, Unknown, 05/16/22) hydrocodone (Verified Allergy, Unknown, 05/16/22) Home Health Need/Face to Face Date of Face to Face: May 24, 2022 Clinical Findings: Generalized weakness and fatigue, Instability, Muscle weakness I have seen Pt tofu-tf-ycfh: Yes Discharged To: Home Diagnosis/Conditions: Lumbar spine surgery Patient is Homebound due to: Amanda fall risk due to instabilty, Muscle weakness Homebound Status Due to the above stated illness, injury or surgical procedure (medical condition or diagnosis) and associated clinical findings, the patient is homebound because of his/her inability to leave home except with aid of a supportive device and/or person AND leaving the home requires a considerable and taxing effort or is medically contraindicated. Pt req the following assistanc: Walker Home Health Nursing Orders Home Health Services Order: Nursing Services, Underwriting Sales Representative-Evaluate & Treat, Physical Therapy-Evaluate & Treat Certify Stmt I certify that this patient is under my care and that I, a nurse practitioner or a physician; a environmental assistant working with me, had a face to face encounter that - meets the physician face to face encounter requirements with this patient as dated. ZANDRA LEAL DO May 24, 2022 06:14
--- NOTE | 2022-05-24 06:14 | Discharge Summary ---
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 coli diagnosed 05/20/2022 placed on Macrobid empirically Fever 05/21/2022 Will monitor closely resolved spontaneously Presumed COPD with cough Plan: Pain control PT OT Home meds 05/17/2022: Maintain pain control Improved status 05/18/2022: Supportive care Monitor closely 05/19/2022: Check UA Antibiotics empiric 05/20/2022: UTI tx 05/21/2022: Cough but negative COVID and flu 05/22/2022: Initiate COPD treatment for acute on chronic cough 05/23/2022: Discharge home tomorrow (1) Lumbar myelopathy Discharge Summary Discharge Physical Examination Allergies: Coded Allergies: Bewrpoa-VFD-LxS Reductase Inhibitor (Verified Allergy, Unknown, 05/16/22) diazepam (Verified Allergy, Unknown, 05/16/22) hydrocodone (Verified Allergy, Unknown, 05/16/22) Vitals & I&Os Vital Signs Date Time Temp Pulse Resp B/P (MAP) Pulse Ox O2 Delivery O2 Flow Rate FiO2 05/24/22 13:10 36.3 72 20 127/72 96 Room Air Hospital Course Was the Problem List Reviewed?: Yes Discharge Summary: Ms. Andujar is a 71 year old female who presented to the ARU from the [facility] on . 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 Patient presented with debility, significant weakness, myelopathy, and bowel and bladder incontinence due to progressive myelopathy. Prior to admission to the ARU, the patient had been declining for the past 12 mo, progressively needing more assistance with ADLs. The patient's goals were to rehabilitate to return home with family assistance. Throughout her stay the patient tolerated therapy well, improved with bowel and bladder control, and made improvements in strength, endurance, and independence. The patient was treated for a UTI and COPD symptoms during her stay without complications. The patient received therapy with PT and OT services and has met goals established, respectively. Discharge Instructions: 1. Follow-up with PCP in one week upon discharge. In-patient OT and PT services not recommended at this time. Refer to PCP for recommendations regarding out- patient care 2. Follow-up with Neurology/Neurosurgery at as advised [facility] Labs (last 24 hrs) Laboratory Tests 05/17/22 05:48: White Blood Count 7.9, Red Blood Count 3.66L, Hemoglobin 10.8L, Hematocrit 34L, Mean Corpuscular Volume 92, Mean Corpuscular Hemoglobin 30, Mean Corpuscular Hemoglobin Concent 32, Red Cell Distribution Width 13.5, Platelet Count 313, Mean Platelet Volume 10.6, Immature Granulocyte % (Auto) 1, Neutrophils (%) (Auto) 61, Lymphocytes (%) (Auto) 23, Monocytes (%) (Auto) 12, Eosinophils (%) (Auto) 4, Basophils (%) (Auto) 1, Neutrophils # (Auto) 4.8, Lymphocytes # (Auto) 1.8, Monocytes # (Auto) 0.9, Eosinophils # (Auto) 0.3, Basophils # (Auto) 0.1, Immature Granulocyte # (Auto) 0.1, Sodium Level 136, Potassium Level 4.5, Chloride Level 99, Carbon Dioxide Level 26, Anion Gap 11, Blood Urea Nitrogen 9, Creatinine 0.75, Estimat Glomerular Filtration Rate 86, BUN/Creatinine Ratio 12, Glucose Level 112H, Calcium Level 9.7, Corrected Calcium 10.3H, Total Bilirubin 0.4, Aspartate Amino Transf (AST/SGOT) 17, Alanine Aminotransferase (ALT/SGPT) 20, Alkaline Phosphatase 98, Total Protein 6.5, Albumin 3.3 05/19/22 18:40: Urine Color YELLOW, Urine Clarity CLEAR, Urine pH 6.0, Urine Specific [place] 1.010L, Urine Protein NEGATIVE, Urine Glucose (UA) NEGATIVE, Urine Ketones NEGATIVE, Urine Nitrite POSITIVEH, Urine Bilirubin NEGATIVE, Urine Urobilinogen 0.2, Urine Leukocyte Esterase 2+H, Urine RBC (Auto) NEGATIVE, Urine RBC NONE, Urine WBC 10-25H, Urine Squamous Epithelial Cells RARE, Urine Crystals NONE, Urine Bacteria LARGEH, Urine Casts NONE, Urine Mucus NEGATIVE, Urine Culture Indicated YES 05/21/22 18:34: Influenza Type A (RT-PCR) Not Detected, Influenza Type B (RT-PCR) Not Detected, SARS-CoV-2 RNA (RT-PCR) Not Detected 05/22/22 05:48: White Blood Count 9.6, Red Blood Count 4.09, Hemoglobin 12.4, Hematocrit 37, Mean Corpuscular Volume 90, Mean Corpuscular Hemoglobin 30, Mean Corpuscular Hemoglobin Concent 34, Red Cell Distribution Width 13.4, Platelet Count 280, Mean Platelet Volume 9.9, Immature Granulocyte % (Auto) 1, Neutrophils (%) (Auto) 76H, Lymphocytes (%) (Auto) 9L, Monocytes (%) (Auto) 9, Eosinophils (%) (Auto) 6, Basophils (%) (Auto) 0, Neutrophils # (Auto) 7.2, Lymphocytes # (Auto) 0.8L, Monocytes # (Auto) 0.8, Eosinophils # (Auto) 0.6H, Basophils # (Auto) 0.0, Immature Granulocyte # (Auto) 0.1, Sodium Level 133L, Potassium Level 4.1, Chloride Level 98, Carbon Dioxide Level 23, Anion Gap 12, Blood Urea Nitrogen 13, Creatinine 0.69, Estimat Glomerular Filtration Rate 94, BUN/Creatinine Ratio 19, Glucose Level 117H, Calcium Level 9.5, Corrected Calcium 9.9, Total Bilirubin 0.5, Aspartate Amino Transf (AST/SGOT) 27, Alanine Aminotransferase (ALT/SGPT) 23, Alkaline Phosphatase 120, Total Protein 6.9, Albumin 3.5, Pro calcitonin 0.13H Microbiology 05/19/22 Urine Culture - Final, Complete Escherichia coli Pending Labs Microbiology Date/Time Source Procedure Growth Status 05/19/22 18:40 Urine Clean Catch Urine Culture - Final Escherichia coli Complete Laboratory Tests 05/17/22 05:48: White Blood Count 7.9, Red Blood Count 3.66, Hemoglobin 10.8, Hematocrit 34, Mean Corpuscular Volume 92, Mean Corpuscular Hemoglobin 30, Mean Corpuscular Hemoglobin Concent 32, Red Cell Distribution Width 13.5, Platelet Count 313, Mean Platelet Volume 10.6, Immature Granulocyte % (Auto) 1, Neutrophils (%) (Auto) 61, Lymphocytes (%) (Auto) 23, Monocytes (%) (Auto) 12, Eosinophils (%) (Auto) 4, Basophils (%) (Auto) 1, Neutrophils # (Auto) 4.8, Lymphocytes # (Auto) 1.8, Monocytes # (Auto) 0.9, Eosinophils # (Auto) 0.3, Basophils # (Auto) 0.1, Immature Granulocyte # (Auto) 0.1, Sodium Level 136, Potassium Level 4.5, Chloride Level 99, Carbon Dioxide Level 26, Anion Gap 11, Blood Urea Nitrogen 9, Creatinine 0.75, Estimat Glomerular Filtration Rate 86, BUN/Creatinine Ratio 12, Glucose Level 112, Calcium Level 9.7, Corrected Calcium 10.3, Total Bilirubin 0.4, Aspartate Amino Transf (AST/SGOT) 17, Alanine Aminotransferase (ALT/SGPT) 20, Alkaline Phosphatase 98, Total Protein 6.5, Albumin 3.3 05/19/22 18:40: Urine Color YELLOW, Urine Clarity CLEAR, Urine pH 6.0, Urine Specific [place] 1.010, Urine Protein NEGATIVE, Urine Glucose (UA) NEGATIVE, Urine Ketones NEGATIVE, Urine Nitrite POSITIVE, Urine Bilirubin NEGATIVE, Urine Urobilinogen 0.2, Urine Leukocyte Esterase 2+, Urine RBC (Auto) NEGATIVE, Urine RBC NONE, Urine WBC 10-25, Urine Squamous Epithelial Cells RARE, Urine Crystals NONE, Urine Bacteria LARGE, Urine Casts NONE, Urine Mucus NEGATIVE, Urine Culture Indicated YES 05/21/22 18:34: Influenza Type A (RT-PCR) Not Detected, Influenza Type B (RT-PCR) Not Detected, SARS-CoV-2 RNA (RT-PCR) Not Detected 05/22/22 05:48: White Blood Count 9.6, Red Blood Count 4.09, Hemoglobin 12.4, Hematocrit 37, Mean Corpuscular Volume 90, Mean Corpuscular Hemoglobin 30, Mean Corpuscular Hemoglobin Concent 34, Red Cell Distribution Width 13.4, Platelet Count 280, Mean Platelet Volume 9.9, Immature Granulocyte % (Auto) 1, Neutrophils (%) (Auto) 76, Lymphocytes (%) (Auto) 9, Monocytes (%) (Auto) 9, Eosinophils (%) (Auto) 6, Basophils (%) (Auto) 0, Neutrophils # (Auto) 7.2, Lymphocytes # (Auto) 0.8, Monocytes # (Auto) 0.8, Eosinophils # (Auto) 0.6, Basophils # (Auto) 0.0, Immature Granulocyte # (Auto) 0.1, Sodium Level 133, Potassium Level 4.1, Chloride Level 98, Carbon Dioxide Level 23, Anion Gap 12, Blood Urea Nitrogen 13, Creatinine 0.69, Estimat Glomerular Filtration Rate 94, BUN/Creatinine Ratio 19, Glucose Level 117, Calcium Level 9.5, Corrected Calcium 9.9, Total Bilirubin 0.5, Aspartate Amino Transf (AST/SGOT) 27, Alanine Aminotransferase (ALT/SGPT) 23, Alkaline Phosphatase 120, Total Protein 6.9, Albumin 3.5, Procalcitonin 0.13 Discharge Home Medications: Active Scripts Active Montelukast Sodium 10 Mg Tablet 10 Mg PO HS Tessalon Perles (Benzonatate) 100 Mg Capsule 200 Mg PO TID Gabapentin 100 Mg Capsule 100 Mg PO TID Oxyir Tablet (Oxycodone HCl) 5 Mg Tab 5-15 Mg PO Q4H PRN Methocarbamol 750 Mg Tablet 750 Mg PO Q8H PRN Loratadine 10 Mg Tablet 10 Mg PO DAILY Nitrofurantoin Toole-Mcr 100 mg (Nitrofurantoin Monohyd/M-Cryst) 100 Mg Capsule 100 Mg PO BID Tramadol HCl 50 Mg Tablet 50-100 Mg PO Q6H PRN Reported Nitrostat (Nitroglycerin) 0.6 Mg Tab.subl 0.6 Mg SL UD PRN Isosorbide Mononitrate ER (Isosorbide Mononitrate) 60 Mg Tab 180 Mg PO HS TAKES 3 (60MG) TABS Repatha Sureclick (Evolocumab) 140 Mg/Ml Pen.injctr 140 Mg SQ EVERY 14 DAYS TAKES ON SATURDAYS Escitalopram Oxalate 20 Mg Tablet 20 Mg PO DAILY Calcium (Calcium Carbonate) 500 Mg Calcium (1250 Mg) Tab.chew 500 Mg PO DAILY PRN Betamethasone Dipropionate 0.05 % Cream..g. 1 Applic TP DAILY PRN Atenolol 25 Mg Tablet 25 Mg PO HS Allopurinol 300 Mg Tablet 300 Mg PO DAILY Aspirin EC (Aspirin) 81 Mg Tablet.dr 81 Mg PO DAILY Instructions to patient/family Please see electronic discharge instructions given to patient. Diagnosis/Problems Diagnosis/Problems (1) Lumbar myelopathy ZANDRA LEAL DO May 24, 2022 06:14
[2022-05-24 07:33] VITALS: BP 127/72
[2022-05-24] MEDS: RT--FLUTICASONE/SALMETEROL 113-14 (AIRDUO RespiCLICK) IH SCH (07:41)
[2022-05-24] MEDS: RT-ALBUTEROL/IPRATROPIUM 3 ML (DUONEB) VIAL INH SCH (07:41)
[2022-05-24] MEDS: BENZONATATE 100 MG (TESSALON) CAPSULE PO SCH ×2 (07:48→12:53)
[2022-05-24] MEDS: ASPIRIN E.C. 81 MG (ECOTRIN) TAB PO SCH (07:48)
[2022-05-24] MEDS: ALLOPURINOL 300 MG (ZYLOPRIM) TAB PO SCH (07:48)
[2022-05-24] MEDS: polyethylene glycoL POWDER 17 GM (MIRALAX) PACK PO SCH (07:49)
[2022-05-24] MEDS: DOCUSATE SODIUM 100 MG (COLACE) CAP PO SCH (07:49)
[2022-05-24] MEDS: LORATADINE (CLARITIN) 10 MG TAB PO SCH (07:49)
[2022-05-24] MEDS: SENNA W/DOCUSATE (SENOKOT S) TABLET PO SCH (07:49)
[2022-05-24] MEDS: NITROFURANTOIN 100 MG (MACROBID) CAPSULE PO SCH (07:49)
[2022-05-24 13:10] VITALS: BP 127/72
--- NOTE | 2022-05-24 15:13 | Progress Note ---
[facility] 05/24/22 1513: Progress Note Discharge Summary: Ms. Andujar is a 71 year old female who presented to the ARU from the [facility] on . 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 Patient presented with debility, significant weakness, myelopathy, and bowel and bladder incontinence due to progressive myelopathy. Prior to admission to the ARU, the patient had been declining for the past 12 mo, progressively needing more assistance with ADLs. The patient's goals were to re habilitate to return home with family assistance. Throughout her stay the patient tolerated therapy well, improved with bowel and bladder control, and made improvements in strength, endurance, and independence. The patient was treated for a UTI and COPD symptoms during her stay without complications. The patient received therapy with PT and OT services and has met goals established, respectively. Discharge Instructions: 1. Follow-up with PCP in one week upon discharge. In-patient OT and PT services not recommended at this time. Refer to PCP for recommendations regarding out- patient care 2. Follow-up with Neurology/Neurosurgery at as advised KAREN LEAL DO 05/25/22 0526: Supervisory-Addendum Brief Verification & Attestation Participated in pt care: history, MDM, physical Personally performed: exam, history, MDM, supervision of care Care discussed with: Medical Student Procedures: n/a Results interpretation: Verified all documentation Verification and Attestation of Medical Student E/M Service A medical student performed and documented this service in my presence. I reviewed and verified all information documented by the medical student and made modifications to such information, when appropriate. I personally performed the physical exam and medical decision making. Karen Leal, May 25, 2022,05:26 [facility] May 24, 2022 15:13 KAREN LEAL DO May 25, 2022 05:26
--- NOTE | 2022-05-24 15:28 | Therapy Team Discharge Summary ---
Therapy Discharge Summary Discharge Recommendations Date of Discharge May 24, 2022 at 14:30 Physical Therapy Patient came to rehab post L 3 laminectomy. Upon evaluation patient performed rolling and supine <-> sit with CGA/SBA, sit <-> stand min/mod assist, transfers CGA/SBA, car transfer CGA/SBA, ambulated 150' with a rolling walker with CGA/SBA (including 50' with at least 2 turns of 90 degrees and 10' over an uneven surface). Patient has been performing bed mobility and transfer training, balance and endurance training, functional strengthening, stair training, gait training, and education. Patient has made good progress and has met all of her fpc goals. Now, patient performs rolling and supine <-> sit with independence, sit <-> stand and transfers with independence, car transfer inde pendent, ambulates 500' with a rolling walker with independence (including 50' with at least 2 turns of 90 degrees and 10' over an uneven surface), can go up and down 12 steps using 2 handrails with independence, and can pharmacy picking tech an object from the floor using a pharmacist per diem with independence. Patient is being discharged from this facility today and will be discharged from PT at this time. Roll Left to Right (QC): 6 Sit to Lying (QC): 6 Lying to Sitting/Side of Bed(Q: 6 Sit to Stand (QC): 6 Chair/Xmf-rq-Fkcyr Xfer(QC): 6 Toilet Transfer (QC): 6 Car Transfer (QC): 6 Does the Patient Walk: Yes Mode of Locomotion: Walk Anticipated Mode of Locomotion: Walk Walk 10 feet (QC): 6 Walk 50 ft with 2 Turns(QC): 6 Walk 150 ft (QC): 6 Walking 10ft on uneven surface: 6 Distance: 150' Gait Assistive Device: FWW Does the Pt Use a Wheelchair: No Wheel 50 ft with 2 turns (QC): 9 Wheel 150 ft (QC): 9 #of Steps: 12 1 Step (curb) (QC): 6 4 Steps (QC): 6 12 Steps (QC): 6 Balance Sitting Static: Fair Balance Sitting Dynamic: Fair Balance-Standing Static: Fair Picking up an Object (QC): 6 Occupational Therapy Decreased Activ Tolerance, Impaired Coordination, Impaired Funct Balance, Imp aired I ADL's Eating (QC): 6 Oral Hygiene (QC): 6 Shower/Bathe Self (QC): 6 Upper Body Dressing (QC): 6 Lower Body Dressing (QC): 6 On/Off Footwear (QC): 6 Toileting Hygiene (QC): 3 (min assist for wiping buttocks-unable to twist) PT Health Care Recruiter Goals Health Care Recruiter Goals PT Fdc Goals Time Frame: Jun 23, 2022 Roll Left to Right (QC): 6 Sit to Lying (QC): 6 Lying-Sitting on Side/Bed(QC): 6 Sit to Stand (QC): 6 Chair/Zdu-oo-Uzbtk Xfer(QC): 6 Toilet/Commode Transfer (QC): 6 Car Transfer (QC): 6 Does the Patient Walk: Yes Walk 10 feet (QC): 6 Walk 10ft-Uneven Surface(QC): 6 Walk 50ft with 2 Turns (QC): 6 Walk 150 ft (QC): 6 Does the Pt use WC or Scooter?: No Wheel 50 feet with 2 turns (QC: 9 Wheel 150 feet: 9 1 Step (curb) (QC): 6 4 Steps (QC): 6 12 Steps (QC): 6 Picking up an Object (QC): 6 OT Fdc Goals Health Care Recruiter Goals Time Frame: Jun 01, 2022 Acute change in mental status: 0 Inattention: 0 Disorganized thinkin Altered level of consciousness: 0 Eating (QC): 6 (met) Oral Hygiene (QC): 6 (met) Toileting Hygiene (QC): 6 (not met: Min assist- anticipate increasing independence once using appropriate AE for wiping) Shower/Bathe Self (QC): 6 (met) Upper Body Dressing (QC): 6 (met) Lower Body Dressing (QC): 6 (met) On/Off Footwear (QC): 6 (met) Additional Goals: 1-Demonstrate ADL Tasks, 2-Verbalize Understanding, 3- ImproveStrength/Shameka 1=Demonstrate adherence to instructed precautions during ADL tasks. 2=Patient will verbalize/demonstrate understanding of assistive devices/modifi cations for ADL. 3=Patient will improve strength/tolerance for activity to enable patient to perform ADL's. SULEMA HADLEY PT May 24, 2022 15:28
--- NOTE | 2022-05-25 07:48 | Therapy Team Discharge Summary ---
Therapy Discharge Summary Discharge Recommendations Date of Discharge May 24, 2022 at 14:30 Therapy D/C Recommendations: Home w/ Family Support, Occupational Therapy Home Care Physical Therapy Roll Left to Right (QC): 6 Sit to Lying (QC): 6 Lying to Sitting/Side of Bed(Q: 6 Sit to Stand (QC): 6 Chair/Kli-ou-Wxdao Xfer(QC): 6 Toilet Transfer (QC): 6 Car Transfer (QC): 6 Does the Patient Walk: Yes Mode of Locomotion: Walk Anticipated Mode of Locomotion: Walk Walk 10 feet (QC): 6 Walk 50 ft with 2 Turns(QC): 6 Walk 150 ft (QC): 6 Walking 10ft on uneven surface: 6 Distance: 150' Gait Assistive Device: FWW Does the Pt Use a Wheelchair: No Wheel 50 ft with 2 turns (QC): 9 Wheel 150 ft (QC): 9 #of Steps: 12 1 Step (curb) (QC): 6 4 Steps (QC): 6 12 Steps (QC): 6 Balance Sitting Static: Fair Balance Sitting Dynamic: Fair Balance-Standing Static: Fair Picking up an Object (QC): 6 Occupational Therapy Pt admitted to INU s/p L3 Laminectomy. At time of evaluation she was mod a for toileting, min a for footwear, CGA for oral care, SBA for lower body dressing and bathing, and set up for upper body dressing and eating. During her rehab stay, OT focused on safety, balance, endurance, adherence to spinal precautions, energy conservation, compensatory strategies and strengthening in order to improve performance and independence in adls and functional mobility. Pt made good progress and met all but 1 of her terminal block assembler goals. The only goal not achieved was toileting (only after BM's secondary to needing assist for back vida care as pt often twisting trunk). See below for current levels of assist. Pt has now discharged from this facility and will be discharged from OT at this time. Decreased Activ Tolerance, Impaired Coordination, Impaired Funct Balance, Impaired I ADL's Eating (QC): 6 Oral Hygiene (QC): 6 Shower/Bathe Self (QC): 6 Upper Body Dressing (QC): 6 Lower Body Dressing (QC): 6 On/Off Footwear (QC): 6 Toileting Hygiene (QC): 3 (Indep post voiding, assist only with rectal vida care post BM.) PT Shelter Goals Shelter Goals PT Operations Officer Goals Time Frame: Jun 23, 2022 Roll Left to Right (QC): 6 Sit to Lying (QC): 6 Lying-Sitting on Side/Bed(QC): 6 Sit to Stand (QC): 6 Chair/Xtk-eq-Fvtuz Xfer(QC): 6 Toilet/Commode Transfer (QC): 6 Car Transfer (QC): 6 Does the Patient Walk: Yes Walk 10 feet (QC): 6 Walk 10ft-Uneven Surface(QC): 6 Walk 50ft with 2 Turns (QC): 6 Walk 150 ft (QC): 6 Does the Pt use WC or Scooter?: No Wheel 50 feet with 2 turns (QC: 9 Wheel 150 feet: 9 1 Step (curb) (QC): 6 4 Steps (QC): 6 12 Steps (QC): 6 Picking up an Object (QC): 6 OT Shelter Goals Operations Officer Goals Time Frame: Jun 01, 2022 Acute change in mental status: 0 Inattention: 0 Disorganized thinkin Altered level of consciousness: 0 Eating (QC): 6 (met) Oral Hygiene (QC): 6 (met) Toileting Hygiene (QC): 6 (not met: Min assist- anticipate increasing independence once using appropriate AE for wiping) Shower/Bathe Self (QC): 6 (met) Upper Body Dressing (QC): 6 (met) Lower Body Dressing (QC): 6 (met) On/Off Footwear (QC): 6 (met) Additional Goals: 1-Demonstrate ADL Tasks, 2-Verbalize Understanding, 3- ImproveStrength/Shameka 1=Demonstrate adherence to instructed precautions during ADL tasks. 2=Patient will verbalize/demonstrate understanding of assistive devices/modifications for ADL. 3=Patient will improve strength/tolerance for activity to enable patient to perform ADL's. Jocelyn Smith OT May 25, 2022 07:48
== END 2022-05-24 14:30 | disposition home health service (06) | DRG 92 ==
PROVIDERS: ADMIT Internal Medicine; ATTEND Internal Medicine
DX: G95.89 Other specified diseases of spinal cord (principal); N39.0 Urinary tract infection, site not specified; R32 Unspecified urinary incontinence; R15.9 Full incontinence of feces; J44.9 Chronic obstructive pulmonary disease, unspecified; R35.0 Frequency of micturition; R05.3 Chronic cough; I25.118 Atherosclerotic heart disease of native coronary artery with other forms of angina pectoris; I10 Essential (primary) hypertension; E78.00 Pure hypercholesterolemia, unspecified; M10.9 Gout, unspecified; F41.9 Anxiety disorder, unspecified; F32.A Depression, unspecified; B96.20 Unspecified Escherichia coli [E. coli] as the cause of diseases classified elsewhere; Z85.42 Personal history of malignant neoplasm of other parts of uterus; Z79.01 Long term (current) use of anticoagulants; Z79.82 Long term (current) use of aspirin; Z88.5 Allergy status to narcotic agent; Z88.8 Allergy status to other drugs, medicaments and biological substances
CPT/HCPCS: 36415; 71045; 80053; 81000; 84145; 85025; 87077; 87088; 87186; 87636; 90662; 94640; 94760